=== PATIENT | male | born 1960 | race Caucasian/White ===

== ENCOUNTER → 2024-05-04 | Outpatient (CLI) | payer OTHER, SELFPAY ==
[2024-05-04 18:28] LABS: Erythrocyte Sedimentation Rate 5 mm/hr (0-20)
[2024-05-04 19:02] LABS: Vitamin B12 755 pg/mL (211-911)
[2024-05-06 13:07] LABS: Anti-Centromere B Ab <0.2 AI (0.0-0.9); Anti-Chromatin <0.2 AI (0.0-0.9); Anti-Jo <0.2 AI (0.0-0.9); Anti-Scleroderma-70 AB <0.2 AI (0.0-0.9); Anti-dsDNA Ab <1 IU/mL (0-9); RNP Ab <0.2 AI (0.0-0.9); SJOGREN'S Anti-SS-A test < 0.2 AI (0.0-0.9); SJOGREN'S Anti-SS-B test < 0.2 AI (0.0-0.9); Smith Ab <0.2 AI (0.0-0.9)
[2024-05-14 16:08] LABS: Albumin 3.5 g/dL (2.9-4.4); Alpha-1-Globulins 0.2 g/dL (0.0-0.4); Alpha-2-Globulins 0.5 g/dL (0.4-1.0); Immunoglobulin A 303 mg/dL (61-437); Immunoglobulin G 1079 mg/dL (603-1613); Immunoglobulin M 72 mg/dL (20-172); PROEL- TOTAL PROTEIN 6.5 g/dL (6.0-8.5); Vitamin B1, Thiamine 281.3 nmol/L (66.5-200.0)
== END | disposition home or self-care (01) ==
PROVIDERS: PCP Family Medicine; Referring Provider Psychiatry & Neurology Neurology; Visit Provider Psychiatry & Neurology Neurology
DX: G62.9 Polyneuropathy, unspecified (principal)
CPT/HCPCS: 36415; 82607; 82784; 84165; 84425; 85652; 86140; 86225; 86235; 86334

== ENCOUNTER → 2024-10-08 | Outpatient (CLI) | payer OTHER, SELFPAY ==
--- NOTE | 2024-10-08 10:04 | RAD_ITS ---
PROCEDURE: PELVIS 1 OR 2 VIEWS 10/08/2024 REASON FOR EXAM: INFLAMMATORY POLYARTHROPATHY TECHNIQUE: 1 view(s) of the pelvis. COMPARISON: None available FINDINGS: Bilateral symmetric appearing SI joints and pubic symphysis appear within limits. No sclerosis or erosive change identified. The hip joints appear within limits. No fracture or dislocation. Visualized lower lumbar spine appears within limits. RAD/Pelvis 1 or 2 Views IMPRESSION: Study appears within limits. Reading Location: [id number]
[2024-10-08 12:33] LABS: Absolute Neutrophil Count 6.1 X10^3/uL (2.0-7.7); Basophil# 0.04 X10^3/uL; Basophil% 0.4 % (0-1); Eosinophil# 0.11 X10^3/uL; Eosinophils% 1.1 % (0-5); Hematocrit 47.2 % (40-54); Hemoglobin 16.4 g/dL (13.0-16.5); Lymphocyte % 27.5 % (19-41); Mean Corp Hgb Conc 34.7 g/dL (32-36); Mean Corpuscular Hgb 31.8 pg (27.0-32.0); Mean Corpuscular Volume 91.7 fL (80-94); Mean Platelet Vol. 9.7 fl (6.2-12.0); Monocyte# 0.84 X10^3/uL; Monocyte% 8.6 % (0-10); NRBC Flagged by Analyzer 0 % (0-5); Neutrophil # 6.07 X10^3/uL (2.7-7.7); Neutrophil % 61.9 % (47-70); Platelet Count 229 K/mm3 (150-450); RBC Distribution Width CV 12.7 % (11.6-14.6); RBC Distribution Width SD 42.3 fl (35.1-43.9); Red Blood Count 5.15 M/mm3 (4.6-6.2); White Blood Count 9.8 K/mm3 (4.4-11.0)
[2024-10-08 12:54] LABS: Hepatitis B Surface Antibody Nonreactive
[2024-10-08 13:14] LABS: ALB/GLOB Ratio 1.5 RATIO (0.9-2.4); AST(SGOT) 26 U/L (<=37); Alanine Aminotransfer ALT/SGPT 46 U/L (<=46); Albumin, Serum 4.3 g/dL (3.4-4.8); Alkaline Phosphatase 55 U/L (40-129); Anion Gap 12 (5-15); BUN 20 mg/dL (4-19); BUN/Creat Ratio 16.5 RATIO (10-20); Calcium,Total 9.4 mg/dL (7.6-11.0); Carbon Dioxide 20.3 mmol/L (21.0-32.0); Chloride 103 mmol/L (98-108); EST Glomerular Filtration Rate 68 (>60); Globulin 2.8 g/dL (2.2-4.2); Glucose 124 mg/dL (70-99); Hepatitis B Surface Antigen Nonreactive (Nonreactive); Hepatitis C Antibody Nonreactive (Nonreactive); Potassium 4.5 mmol/L (3.3-5.1); Sodium Level 135 mmol/L (133-145); Total Bilirubin 0.54 mg/dL (0.00-1.30)
[2024-10-08 13:18] LABS: Rheumatoid Factor < 10.0 IU/mL (<15)
[2024-10-11 13:08] LABS: ANTINUCLEAR ANTIBODIES DIRECT Negative (Negative)
[2024-10-12 14:08] LABS: CCP IgG Antibodies 8 units (0-19); PROEL- A/G Ratio 1.2 (0.7-1.7); PROEL- Albumin 3.5 g/dL (2.9-4.4); PROEL- Alpha-1 Globulin 0.2 g/dL (0.0-0.4); PROEL- Alpha-2 Globulin 0.6 g/dL (0.4-1.0); PROEL- Beta Globulin 1.2 g/dL (0.7-1.3); PROEL- Gamma Globulin 0.9 g/dL (0.4-1.8); PROEL- TOTAL PROTEIN 6.5 g/dL (6.0-8.5); PROEL-M-Spike Comment: g/dL (Not Observed)
== END | disposition home or self-care (01) ==
LOC: MTLAB 10:02
PROVIDERS: PCP Family Medicine; Referring Provider Internal Medicine Rheumatology; Visit Provider Internal Medicine Rheumatology
DX: M06.4 Inflammatory polyarthropathy (principal); M51.369 Other intervertebral disc degeneration, lumbar region without mention of lumbar back pain or lower extremity pain; M47.897 Other spondylosis, lumbosacral region; I10 Essential (primary) hypertension
CPT/HCPCS: 36415; 72170; 80053; 82784; 84165; 85025; 86038; 86200; 86334; 86335; 86431; 86706; 86803; 87340

== ENCOUNTER → 2024-11-24 | Outpatient (CLI) | payer OTHER, SELFPAY | END | disposition home or self-care (01) | PROVIDERS: PCP Family Medicine; Referring Provider Internal Medicine Medical Oncology; Visit Provider Internal Medicine Medical Oncology | DX: D47.2 Monoclonal gammopathy (principal) | CPT/HCPCS: 77075 ==

== ENCOUNTER → 2025-01-06 | Outpatient (CLI) | payer OTHER, SELFPAY ==
[2025-01-06 16:02] LABS: AST(SGOT) 35 U/L (<=37); Alanine Aminotransfer ALT/SGPT 45 U/L (<=46); Albumin, Serum 3.9 g/dL (3.4-4.8); Alkaline Phosphatase 62 U/L (40-129); Anion Gap 15 (5-15); BUN 32 mg/dL (4-19); BUN/Creat Ratio 18.0 RATIO (10-20); Calcium,Total 9.2 mg/dL (7.6-11.0); Carbon Dioxide 17.5 mmol/L (21.0-32.0); Chloride 99 mmol/L (98-108); Globulin 3.0 g/dL (2.2-4.2); Glucose 155 mg/dL (70-99); Potassium 4.5 mmol/L (3.3-5.1)
[2025-01-06 16:12] LABS: Hematocrit 48.3 % (40-54); Hemoglobin 16.5 g/dL (13.0-16.5); Immature Granulocytes Count 0.100 X10^3/uL (0.0-0.0); Mean Corp Hgb Conc 34.2 g/dL (32-36); Mean Corpuscular Volume 91.8 fL (80-94); Mean Platelet Vol. 9.3 fl (6.2-12.0); NRBC Flagged by Analyzer 0 % (0-5); Platelet Count 292 K/mm3 (150-450); RBC Distribution Width CV 12.5 % (11.6-14.6); RBC Distribution Width SD 42.2 fl (35.1-43.9); Red Blood Count 5.26 M/mm3 (4.6-6.2); White Blood Count 12.1 K/mm3 (4.4-11.0)
--- OUTSIDE RECORDS SUMMARY | 2025-01-06 19:42 | XMS RPT_ITS | CCD ---
Author Organization [facility] Care Team Providers Care Knot Picker Cloth Name Role Phone Libby Mcneil MD Unavailable [phone] Libby Mcneil MD Unavailable Luisa SIBLEY, Dr. Gary Blackmon Unavailable Hannah SIBLEY, Dr. Waldo Elmore Unavailable [facility] Unavailable Poncho GIPSON, Dr. Marina Manrique Unavailable Bart SIBLEY, Dr. Steinberg Unavailable Nephrology Provider Unavailable Unavailable Vikash INDUSTRIAL AERIAL INSTALLER, Beth Unavailable Ronald HYDE, Nenita Boyle Unavailable Sandeep SIBLEY, Bill Blackmon Unavailable Mckenzie Crane MA Unavailable Unavailable Poli INDUSTRIAL AERIAL INSTALLER, Katarina Unavailable Unavailable Vess INDUSTRIAL AERIAL INSTALLER, Neilee L Unavailable Unavailable Unavailable Unavailable Neurology Provider Unavailable Unavailable Dr. Libby Mcneil MD Primary Care Provider Dr. Libby Mcneil MD Referring Provider Dr. Sav Martinez MD Attending Provider Dr. Jovany Terry MD Attending Provider Geoff SIBLEY, Dr. Camilo Attending Provider Dr. Ct Worley MD Attending Provider Dr. Ct Worley MD Referring Provider Dr. Sav Jacobs MD Attending Provider Dr. Sav Jacobs MD Referring Provider Sav Jacobs Attending Unavailable Prah, Sav Referring Unavailable Vaccariello, Libby Primary Care Unavailable Wapenseloy, Sav Attending Unavailable Wapenseloy, Sav Referring Unavailable Vaccariello, Libby Primary Care Unavailable Vellanki, Ct Attending Unavailable Vellanki, Ct Referring Unavailable Vaccariello, Libby Primary Care Unavailable Jovany Terry Attending Unavailable Vaccariello, Libby Referring Unavailable Vaccariello, Libby Primary Care Unavailable Ton Tellez Attending Unavailable Vaccariello, Libby Primary Care Unavailable Wapenski, Sav Attending Unavailable Vaccariello, Libby Referring Unavailable Vaccariello, Libby Primary Care Unavailable Prah, Sav Attending Unavailable Vellanki, Ct Referring Unavailable Vaccariello, Libby Primary Care Unavailable Wapenski, Sav Attending Unavailable Vaccariello, Libby Referring Unavailable Vaccariello, Libby Primary Care Unavailable ASAD, ARIEL Admitting Unavailable ASAD, ARIEL Attending Unavailable ASAD, ARIEL Primary Care Unavailable VACCARIELLO, LIBBY Consulting Unavailable PROVIDER, UNKNOWN Consulting Unavailable PROVIDER, UNKNOWN Consulting Unavailable PROVIDER, UNKNOWN Consulting Unavailable SHAJI BERGER MD Admitting Unava ilable BUCKTOWARSINSHAJI Henderson MD Attending Unava ilable BOWENTOWARSHAJI CONDNO MD Primary Care Unava ilable VACCARIELLO, LIBBY Consulting Unavailable PROVIDER, UNKNOWN Consulting Unavailable PROVIDER, UNKNOWN Consulting Unavailable PROVIDER, UNKNOWN Consulting Unavailable SHAJI BERGER MD Admitting Unava ilable BUCKTOWARTAURUS, SHAJI SIBLEY Attending Unava ilable BUCKTOWARSHAJI CONDON MD Primary Care Unava ilable VACCARIELLO, LIBBY Consulting Unavailable PROVIDER, UNKNOWN Consulting Unavailable PROVIDER, UNKNOWN Consulting Unavailable PROVIDER, UNKNOWN Consulting Unavailable CORINA AGEE DO Admitting Unavailable CORINA AGEE DO Attending Unavailable CORINA AGEE DO Primary Care Unavailable VACCARIELLO, LIBBY Consulting Unavailable VACCARIELLO, LIBBY Referring Unavailable PROVIDER, UNKNOWN Consulting Unavailable PROVIDER, UNKNOWN Consulting Unavailable PROVIDER, UNKNOWN Consulting Unavailable ABILIO SIBLEY, DR LIBBY Horan Primary Care Nery GOODSON MD, SHARON Dawkins Attending Unavailable KELLEE SIBLEY, SHARON Dawkins Admitting Unavailable DR LIBBY MCNEIL MD Primary Care Physician Allergies Allergy Classification Reported Allergen(s) Allergy Type Date of Onset Reaction(s) Facility Sulfonamides (antibiotic) (1 source) Sulfonamides (Antibiotic) Drug Allergy [facility] (20 sources) Sulfonamides (Antibiotic) [facility], [facility], [facility]. (3 sources) Sulfonamides (Antibiotic) Allergy to substance [facility] (1 source) Sulfonamides (Antibiotic) Drug allergy (disorder) 5 [facility] (1 source) Sulfonamides (Antibiotic) Drug allergy (disorder) [facility] (1 source) Sulfonamide; Translations: [sulfa drugs] Propensity to adverse reactions to drug [facility] Medications Current Medications Medication Drug Class(es) Dates Sig (Normalized) Sig (Original) allopurinol 100 mg oral tablet (20 sources) Xanthine Oxidase Inhibitor Start: 11-11-2024 take 1 tablet by mouth once daily Allopurinol 100 mg tablet Active 100 mg PO daily November 11, 2024 12:00am Start: 05-04-2024 End: 09-24-2024 take 1 tablet by mouth once daily Allopurinol 100 mg tablet Discontinued 100 mg PO daily May 04, 2024 1:00am September 24, 2024 9:46am aspirin 81 mg chewable tablet (1 source) Platelet Aggregation Inhibitor, Nonsteroidal Anti-inflammatory Drug Start: 01-05-2025 [facility] Aspirin 81 mg oral tablet, (chewable) Dose : 81 mg = 1 tab(s), Oral, qDayM, # 90 tab(s), 3 Refill(s), Pharmacy: [facility] 175.2, cm, 01/02/25 5:23:00 EDT, Height, kg, 01/02/25 5:23:00 EDT, Dosing Weight Start Date: 01/05/25 Status: Ordered Medication Dispense Status: Completed Quantity: 90.0 Unit: tab(s) Total Allowed Fills: 4 Fills Dispensed: 0 atorvastatin 40 mg oral tablet (1 source) HMG-CoA Reductase Inhibitor Start: 01-05-2025 Lipitor 40 mg oral tablet Dose : 40 mg = 1 tab(s), Oral, qDay, # 30 tab(s), 2 Refill(s), Pharmacy: [facility] 175.2, cm, 01/02/25 5:23:00 EDT, Height, kg, 01/02/25 5:23:00 EDT, Dosing Weight Start Date: 01/05/25 Status: Ordered Medication Dispense Status: Completed Quantity: 30.0 Unit: tab(s) Total Allowed Fills: 3 Fills Dispensed: 0 carvedilol 12.5 mg oral tablet (20 sources) alpha-Adrenergic Veronica, beta-Adrenergic Veronica Start: 05-04-2024 Coreg 12.5 mg or al tablet Dose : 12.5 mg = 1 tab(s), Oral, BID, 0 Refill(s) Start Date: 01/02/25 Status: Ordered Medication Dispense Status: Completed Total Allowed Fills: 1 Fills Dispensed: 0 take 1 tablet by mouth twice sheila ly Coreg 25 MG Oral Tablet ; 1 two times daily (25 MG) Status: Inactive Comment on above: Dr Pelletier hydroxychloroquine sulfate 200 mg oral tablet (6 sources) Antimalarial, Antirheumatic Agent Start: 2024 take 1 tablet by mouth twice daily Hydroxychloroquine (Plaquenil) 200 mg tablet Active 200 mg PO TWICE A DAY November 11, 2024 12:00am hydroxychloroqui ne 200 mg tablet ; 1 daily (200 mg) Comments: Dr Potter Comment on above: Dr Potter losartan potassium 25 mg oral tablet (1 source) Angiotensin 2 Receptor Veronica Start: 01-05-2025 losartan 25 mg oral tablet Dose : 25 mg = 1 tab(s), Oral, qDay, # 30 tab(s), 2 Refill(s), Pharmacy: [facility] 175.2, cm, 01/02/25 5:23:00 EDT, Height, kg, 01/02/25 5:23:00 EDT, Dosing Weight Start Date: 01/05/25 Status: Ordered Medication Dispense Status: Completed Quantity: 30.0 Unit: tab(s) Total Allowed Fills: 3 Fills Dispensed: 0 mirtazapine 15 mg oral tablet (20 sources) Start: 11-11-2024 mirtazapine 15 mg oral tablet Dose : 15 mg = 1 tab(s), Oral, qHS, 0 Refill(s) Start Date: 01/02/25 Status: Ordered Medication Dispense Status: Completed Total Allowed Fills: 1 Fills Dispensed: 0 predniSONE 10 mg oral tablet (2 sources) Start: 06-19-2025 Prednisone 10 mg tablets,dose pack Active 0 PO daily as needed November 11, 2024 12:00am orally daily for 3-5 days with a flare PRN; rOPINIRole 0.25 mg oral tablet (4 sources) Nonergot Dopamine Agonist rOPINIRole 0.25 mg tablet ; (0.25 mg) Comments: neuro Comment on above: neuro sertraline 25 mg oral tablet (20 sources) Serotonin Reuptake Inhibitor Start: 12-20-2024 sertraline 25 mg oral tablet Dose : 25 mg = 1 tab(s), Oral, qDay, 0 Refill(s) Start Date: 01/02/25 Status: Ordered Medication Dispense Status: Completed Total Allowed Fills: 1 Fills Dispensed: 0 Start: 04-13-2024 sertraline 25 mg tablet ; 1 (one) Tablet qam for 0 days Quantity: 90 {Tablet} Refills: 0 Ordered: 13-Apr-2024 MD Libby Mcneil Start: 13-Apr-2024 Start: 01-15-2024 sertraline 25 mg tablet ; 1 (one) Tablet qam for 0 days Quantity: 90 {Tablet} Refills: 0 Ordered: 15-Jan-2024 MD Libby Mcneil Start: 15-Jan-2024 Start: 12-31-2023 sertraline 25 mg tablet ; 1 (one) Tablet qam for 0 days Quantity: 90 {Tablet} Refills: 1 Ordered: 31-Dec-2023 MD Libby Mcneil Start: 31-Dec-2023 Start: 06-30-2023 sertraline 25 mg tablet ; 1 (one) Tablet qam for 0 days Quantity: 90 {Tablet} Refills: 1 Ordered: 30-Jun-2023 MD Libby Mcneil Start: 30-Jun-2023 sildenafil 25 mg oral tablet (20 sources) Phosphodiesterase 5 Inhibitor Start: 11-11-2024 Sildenafil (Viagra) 25 mg tablet Active 25 mg PO daily as needed November 11, 2024 12:00am administer 30 minutes to 4 hours before activity Start: 07-31-2015 End: 03-31-2020 Sildenafil Citrate 50 MG Ora l Tablet ; 1 (one) Tablet Tablet prn not more than 1/24 hrs for 0 days Quantity: 20 {Tablet} Refills: 3 Ordered: 31-Mar-2020 ANUP Suh Start: 03-Oct-2017 End: 31-Mar-2020 Status: Inactive Sildenafil Citra te 20 MG Oral Tablet ; (20 MG) Comments: online pharmacy Comment on above: online pharmacy spironolactone 25 mg oral tablet (20 sources) Aldosterone Antagonist Start: 05-04-2024 Aldactone 25 mg oral tablet Dose : 25 mg = 1 tab(s), Oral, qDay, 0 Refill(s) Start Date: 01/02/25 Status: Ordered Medication Dispense Status: Completed Total Allowed Fills: 1 Fills Dispensed: 0 ticagrelor 90 mg oral tablet (1 source) Start: 01-05-2025 Brilinta (ticagrelor) 90 mg oral tablet Dose : 90 mg = 1 tab(s), Oral, q12hr, # 180 tab(s), 3 Refill(s), Pharmacy: [facility] 175.2, cm, 01/02/25 5:23:00 EDT, Height, kg, 01/02/25 5:23:00 EDT, Dosing Weight Start Date: 01/05/25 Status: Ordered Medication Dispense Status: Completed Quantity: 180.0 Unit: tab(s) Total Allowed Fills: 4 Fills Dispensed: 0 Completed/Discontinued Medications Medication Drug Class(es) Dates Sig (Normalized) Sig (Original) amLODIPine 5 mg oral tablet (20 sources) Dihydropyridine Calcium Channel Veronica take 1 tablet by mouth once daily amLODIPine Besylate 5 MG Oral Tablet ; 1 daily (5 MG) Status: Inactive Comments: Dr Pelletier Comment on above: Dr Pelletier amoxicillin 875 mg / clavulanate 125 mg oral tablet (20 sources) Penicillin-class Antibacterial Start: 04-04-2011 End: 05-02-2011 take 1 tablet by mouth twice daily AMOXICILLIN-POT CLAVULANATE, 875-125MG (Oral Tablet) ; 1 Tablet bid for 0 days Quantity: 20 {Tablet} Refills: 0 Ordered: 02-May-2011 ANUP Suh Start: 04-Apr-2011 End: 02-May-2011 Status: Inactive atenolol 100 mg oral tablet (20 sources) beta-Adrenergic Veronica Start: 06-07-2015 End: 05-09-2017 take 1 tablet by mouth once daily Atenolol 100 MG Oral Tablet ; 1 Tablet daily for 0 days Quantity: 30 {Tablet} Refills: 11 Ordered: 09-May-2017 ANUP Suh Start: 07-Jun-2015 End: 09-May-2017 Status: Inactive azelastine hydrochloride 0.5 mg/ml ophthalmic solution (20 sources) Histamine-1 Receptor Antagonist Start: 04-29-2023 End: 01-16-2024 take 1 drop(s) into the eye(s) twice daily azelastine 0.05 % eye drops ; 1 drop 2 times per day for 0 days Quantity: 10 {Milliliter} Refills: 0 Ordered: 16-Jan-2024 ANUP Suh Start: 29-Apr-2023 End: 16-Jan-2024 Status: Inactive benzonatate 100 mg oral capsule (20 sources) Non-narcotic Antitussive Start: 07-12-2011 End: 07-25-2011 take 1 capsule by mouth four times daily TESSALON PERLES, 100MG (Oral Capsule) ; 1 Capsule qid for 0 days Quantity: 40 {Capsule} Refills: 1 Ordered: 25-Jul-2011 ANUP Suh Start: 12-Jul-2011 End: 25-Jul-2011 Status: Inactive 120 actuat budesonide 0.16 mg/actuat / formoterol fumarate 0.0045 mg/actuat metered dose inhaler (20 sources) Corticosteroid, beta2-Adrenergic Agonist Start: 04-07-2011 End: 05-02-2011 take 2 puff(s) by inhalation twice daily SYMBICORT, 160-4.5MCG/ACT (Inhalation Aerosol) ; 2 puffs bid for 0 days Quantity: 1 {mdi} Refills: 0 Ordered: 02-May-2011 ANUP Suh Start: 07-Apr-2011 End: 02-May-2011 Status: Inactive Comments: demonstrated and pt instructions given Comment on above: demonstrated and pt instructions given chlorthalidone 25 mg oral tablet (20 sources) Thiazide-like Diuretic take 1 tablet by mouth once daily Chlorthalidone 25 MG Oral Tablet ; 1 daily (25 MG) Status: Inactive ciprofloxacin 750 mg oral tablet (20 sources) Quinolone Antimicrobial Start: 07-12-2011 End: 07-25-2011 take 1 tablet by mouth twice daily CIPROFLOXACIN HCL, 750MG (Oral Tablet) ; 1 Tablet bid for 0 days Quantity: 20 {Tablet} Refills: 0 Ordered: 25-Jul-2011 Vikash ANUP Arteagala Start: 12-Jul-2011 End: 25-Jul-2011 Status: Inactive Start: 05-02-2011 End: 05-14-2011 take 1 tablet by mouth twice daily CIPROFLOXACIN HCL, 500MG (Oral Tablet) ; 1 Tablet bid for 0 days Quantity: 28 {Tablet} Refills: 1 Ordered: 14-May-2011 Vikash ANUP Arteagala Start: 02-May-2011 End: 14-May-2011 Status: Inactive fluticasone propionate 0.05 mg/actuat metered dose nasal spray (20 sources) Corticosteroid Start: 05-02-2011 End: 02-25-2014 take 2 puff(s) nasal route twice daily FLONASE, 50MCG/ACT (Nasal Suspension) ; 2 (two) puffs bid, to each nostril for 0 days Quantity: 1 {bottle(s)} Refills: 3 Ordered: 25-Feb-2014 CRIS OwenN Annie Mariza Start: 02-May-2011 End: 25-Feb-2014 Status: Inactive furosemide 20 mg oral tablet (20 sources) Loop Diuretic Start: 06-23-2013 End: 02-25-2014 take 0.5 tablet by mouth once daily FUROSEMIDE, 20MG (Oral Tablet) ; 1/2 Tablet daily for 0 days Quantity: 20 {Tablet} Refills: 0 Ordered: 25-Feb-2014 ANUP Owen Start: 23-Jun-2013 End: 25-Feb-2014 Status: Inactive hydroCHLOROthiazide 25 mg oral tablet (20 sources) Thiazide Diuretic Start: 01-06-2019 End: 04-03-2020 take 1 tablet by mouth once daily hydroCHLOROthiazide 25 MG Oral Tablet ; 1 Tablet daily for 0 days Quantity: 45 {Tablet} Refills: 0 Ordered: 03-Apr-2020 Vikash ANUP Campos Start: 06-Jan-2019 End: 03-Apr-2020 Status: Inactive indomethacin 25 mg oral capsule (20 sources) Nonsteroidal Anti-inflammatory Drug Start: 12-20-2010 End: 01-09-2011 take 1 capsule by mouth three times daily at mealtime INDOMETHACIN, 25MG (Oral Capsule) ; 1 (one) Capsule three times daily, take with food for 0 days Quantity: 30 {Capsule} Refills: 3 Ordered: 09-Jan-2011 ANUP Suh Start: 20-Dec-2010 End: 09-Jan-2011 Status: Inactive Comments: Take with food. Taper dose rapidly upon improvement of symptoms. Comment on above: Take with food. Tape r dose rapidly upon improvement of symptoms. methylPREDNISolone 4 mg oral tablet (20 sources) Corticosteroid Start: 07-28-2014 End: 05-30-2015 take 1 tablet by mouth once daily METHYLPREDNISOLONE (BEBETO), 4MG (Oral Tablet) ; 1 (one) Tablet daily taper for 0 days Quantity: 1 {Package} Refills: 3 Ordered: 30-May-2015 ANUP Suh Start: 28-Jul-2014 End: 30-May-2015 Status: Inactive terbinafine 250 mg oral tablet (20 sources) Allylamine Antifungal Start: 09-28-2020 End: 09-13-2021 take 1 tablet by mouth once daily Terbinafine HCl 250 MG Oral Tablet ; 1 (one) Tablet daily for 0 days Quantity: 42 {Tablet} Refills: 0 Ordered: 13-Sep-2021 ANUP Suh Start: 28-Sep-2020 End: 13-Sep-2021 Status: Inactive Problems Active Problems Problem Classification Problem Date Documented Date Episodic/Chronic Acute myocardial infarction (2 sources) Non-ST elevation (NSTEMI) myocardial infarction; Translations: [Non-ST elevation (NSTEMI) myocardial infarction] Onset: 01-02-2025 Chronic Chronic kidney disease (20 sources) Chronic kidney disease stage 3; Translations: [Chronic kidney disease, stage 3 (moderate)] 04-29-2023 Chronic Comment on above: per Dr Hilary Morales is i mproving Dr Bowen lara pironolactone Dr Bowen lara pironolactone--fluctuates between stage 2-3 based on hydration Diseases of white blood cells (2 sources) Elevated white blood cell count, unspecified; Translations: [Leukocytosis] Onset: 01-02-2025 Chronic Disorders of lipid metabolism (20 sources) Hyperlipidemia; Translations: [Hyperlipidemia, unspecified] Onset: 01-02-2025 04-29-2023 Chronic Comment on above: diet only E Codes: Adverse effects of medical drugs (20 sources) Other drug allergy 07-12-2011 Episodic Esophageal disorders (20 sources) Gastroesophageal reflux disease; Translations: [Gastro-esophageal reflux disease without esophagitis] 04-29-2023 Chronic Essential hypertension (20 sources) Hypertensive disorder; Translations: [Essential (primary) hypertension] Onset: 01-02-2025 04-29-2023 Chronic Comment on above: follows with nephrol ogy follows with nephrol ogy carvedilol Genitourinary symptoms and ill-defined conditions (20 sources) Proteinuria; Translations: [Proteinuria, unspecified] 10-21-2013 Episodic Gout and other crystal arthropathies (20 sources) Gouty arthropathy; Translations: [Gout, unspecified] 04-29-2023 Chronic Comment on above: allopurinol Headache; including migraine (20 sources) Generalized headache; Translations: [Headache] 05-31-2015 Episodic Hypertension with complications and secondary hypertension (20 sources) Chronic kidney disease stage 3 due to hypertension; Translations: [Hypertensive chronic kidney disease with stage 1 through stage 4 chronic kidney disease, or unspecified chronic kidney disease] 04-29-2023 Chronic Inflammation; infection of eye (except that caused by tuberculosis or sexually transmitteddisease) (20 sources) Bilateral conjunctivitis; Translations: [Unspecified conjunctivitis] 04-29-2023 Episodic Malaise and fatigue (20 sources) Fatigue; Translations: [Other fatigue] 03-18-2022 Episodic Miscellaneous mental health disorders (20 sources) Insomnia; Translations: [Primary insomnia] 04-29-2023 Chronic Mood disorders (20 sources) Secondary dysthymia; Translations: [Dysthymic disorder] 04-29-2023 Chronic Comment on above: sertraline Mood disorders (1 source) Mood disorders; Translations: [Depression, unspecified] Onset: 01-02-2025 Mycoses (20 sources) Onychomycosis; Translations: [Tinea unguium] 04-29-2023 Episodic Neoplasms of unspecified nature or uncertain behavior (9 sources) Benign monoclonal gammopathy; Translations: [Monoclonal gammopathy] Onset: 12-02-2024 11-18-2024 Chronic Comment on above: Monoclonal gammopath ies, biclonal IgG [place] light chains 0.3 and 0.2.Does not meet criteria for Plasma cell dyscrasia.Discussed Monoclonal gammopathies, evolution in Multiple Myeloma.Observation is appropriate for now. Monoclonal gammopath ies, biclonal IgG [place] light chains 0.3 and 0.2.Does not meet criteria for Plasma cell dyscrasia.Discussed Monoclonal gammopathies, evolution into Multiple Myeloma, monitoring of M-proteins.Observation is appropriate for now. loi hem/onc Dr Dary li Nonspecific chest pain (20 sources) Atypical chest pain; Translations: [Other chest pain] 03-04-2016 Episodic Osteoarthritis (20 sources) Chronic osteoarthritis; Translations: [Unspecified osteoarthritis, unspecified site] 04-29-2023 Chronic Other acquired deformities (6 sources) Lumbar spondylolisthesis; Translations: [Spondylolisthesis, lumbar region] 09-24-2024 Episodic Other aftercare (20 sources) Removal of sutures done; Translations: [Encounter for removal of sutures] 07-02-2017 Episodic Other aftercare (20 sources) Long-term (current) use of other medications 12-18-2010 Episodic Other and unspecified benign neoplasm (20 sources) Hyperplastic polyp of large intestine; Translations: [Polyp of colon] 04-29-2023 Episodic Comment on above: in 2015, not seen on 2023 scope Other congenital anomalies (2 sources) Talipes cavus; Translations: [Congenital pes cavus, unspecified foot] 11-11-2024 Chronic Other connective tissue disease (20 sources) Pain in both feet; Translations: [Pain in right foot] 04-29-2023 Episodic Other connective tissue disease (20 sources) Bursitis of elbow; Translations: [Other bursitis of elbow, right elbow] 08-02-2015 Episodic Other connective tissue disease (20 sources) Pain in toe; Translations: [Pain in unspecified toe(s)] 07-28-2014 Episodic Other connective tissue disease (6 sources) Polyarticular joint involvement; Translations: [Other symptoms and signs involving the musculoskeletal system] 09-10-2024 Episodic Other connective tissue disease (1 source) Other symptoms and signs involving the musculoskeletal system; Translations: [Other symptoms and signs involving the musculoskeletal system] Onset: 09-10-2024 Episodic Other ear and sense organ disorders (20 sources) Tinnitus; Translations: [Tinnitus, bilateral] 06-23-2013 Episodic Other eye disorders (2 sources) Lagophthalmos; Translations: [Unspecified lagophthalmos unspecified eye, unspecified eyelid] 11-11-2024 Episodic Other infections; including parasitic (20 sources) Personal history of other infectious and parasitic diseases 04-29-2023 Episodic Comment on above: October 2019 Other lower respiratory disease (20 sources) Chronic cough; Translations: [Cough] 04-07-2011 Episodic Other male genital disorders (20 sources) Impotence of organic origin; Translations: [Male erectile dysfunction, unspecified] 04-29-2023 Chronic Other male genital disorders (2 sources) Male erectile dysfunction, unspecified; Translations: [Erectile dysfunction] 11-11-2024 Chronic Other nervous system disorders (20 sources) Left leg peripheral neuropathy; Translations: [Unspecified mononeuropathy of left lower limb] 04-29-2023 Chronic Other nervous system disorders (4 sources) Neuropathy of lower limb; Translations: [Unspecified mononeuropathy of right lower limb] 04-29-2023 Chronic Other nervous system disorders (20 sources) Right leg peripheral neuropathy; Translations: [Unspecified mononeuropathy of right lower limb] 04-29-2023 Chronic Other nervous system disorders (20 sources) Idiopathic peripheral neuropathy; Translations: [Hereditary and idiopathic neuropathy, unspecified] 03-30-2024 Chronic Comment on above: [facility] Other nervous system disorders (7 sources) Neuropathy; Translations: [Polyneuropathy, unspecified] 05-04-2024 Chronic Comment on above: Patient's had a neur opathy for proximately 10 years. Various evaluations for neuropathy of shown some minimal changes on EMG and nerve conduction study plus positive clinical exam. Findings are suggestive of small fiber neuropathy. Patient's not had a skin biopsy for small fiber neuropathy.At this point in time we will screen for possible treatable causes of neuropathy. Other nervous system disorders (1 source) Polyneuropathy, unspecified; Translations: [Polyneuropathy, unspecified] Onset: 09-10-2024 Chronic Other non-traumatic joint disorders (6 sources) Multiple joint pain; Translations: [Pain in unspecified joint] 09-10-2024 Episodic Other non-traumatic joint disorders (1 source) Pain in unspecified joint; Translations: [Pain in unspecified joint] Onset: 09-10-2024 Episodic Other nutritional; endocrine; and metabolic disorders (20 sources) Weight gain; Translations: [Abnormal weight gain] 04-29-2023 Episodic Other nutritional; endocrine; and metabolic disorders (20 sources) Overweight in adulthood with body mass index of 25 or more but less than 30; Translations: [Body mass index (BMI) 27.0-27.9, adult] 04-05-2020 Episodic Other nutritional; endocrine; and metabolic disorders (12 sources) Body mass index 25-29 - overweight; Translations: [Body mass index (BMI) 27.0-27.9, adult] 04-05-2020 Episodic Other nutritional; endocrine; and metabolic disorders (20 sources) Weight increased; Translations: [Abnormal weight gain] 03-18-2022 Episodic Other screening for suspected conditions (not mental disorders or infectious disease) (20 sources) Patient encounter status; Translations: [Encounter for screening for malignant neoplasm of prostate] 04-29-2023 Episodic Other skin disorders (20 sources) Pyogenic granuloma of skin; Translations: [Pyogenic granuloma] 07-02-2017 Episodic Other upper respiratory disease (20 sources) Chronic laryngitis; Translations: [Chronic laryngitis] 04-05-2020 Chronic Other upper respiratory disease (20 sources) Pyogenic granuloma; Translations: [Other specified disorders of nose and nasal sinuses] 05-14-2017 Episodic Other upper respiratory infections (20 sources) Chronic maxillary sinusitis; Translations: [Chronic maxillary sinusitis] 05-02-2011 Chronic Otitis media and related conditions (20 sources) Chronic mucoid otitis media; Translations: [Chronic mucoid otitis media, bilateral] 05-02-2011 Chronic Otitis media and related conditions (20 sources) Chronic otitis media; Translations: [Otitis media, unspecified, right ear] 07-12-2011 Episodic Pneumonia (except that caused by tuberculosis or sexually transmitted disease) (20 sources) Right lower zone pneumonia; Translations: [Pneumonia, unspecified organism] 04-29-2023 Episodic Residual codes; unclassified (2 sources) Obstructive sleep apnea syndrome; Translations: [Obstructive sleep apnea (adult) (pediatric)] 11-11-2024 Chronic Comment on above: on CPAP. Residual codes; unclassified (20 sources) Influenza vaccination declined; Translations: [Immunization not carried out because of patient refusal] 04-29-2023 Episodic Residual codes; unclassified (20 sources) Non-smoker; Translations: [Other specified health status] 04-29-2023 Episodic Residual codes; unclassified (20 sources) Not up to date with immunizations; Translations: [Other specified personal history presenting hazards to health] 04-29-2023 Episodic Residual codes; unclassified (20 sources) Decreased libido 03-27-2012 Episodic Rheumatoid arthritis and related disease (7 sources) Inflammatory polyarthropathy; Translations: [Inflammatory polyarthropathy] Onset: 10-12-2024 11-11-2024 Chronic Comment on above: with synovitis in [place] nds, elbows, shoulder, hips, ankles, and feet. 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 Dr Potter Spondylosis; intervertebral disc disorders; other back problems (10 sources) Degeneration of lumbar intervertebral disc; Translations: [Other intervertebral disc degeneration of lumbar region with discogenic back pain and] 09-24-2024 Chronic Comment on above: pain mgmt Superficial injury; contusion (20 sources) Contusion of scalp; Translations: [Contusion of scalp, initial encounter] 10-22-2017 Episodic Syncope (20 sources) Micturition syncope; Translations: [Syncope and collapse] 07-12-2011 Episodic Unclassified (20 sources) Follow up for multiple chronic conditions - The patient is here for follow-up of chronic kidney disease, depression, GERD, gout, hyperlipidemia and hypertension. The patient usually takes the prescribed medications. No side effects noted. The patient has an active lifestyle but no regular exercise program. The patient's out of office blood pressure checks occur occasionally. The patient states that weight has increased. Note for Multiple chronic conditions follow-up: - He follows with nephrology every 6 months. He was just there a few weeks ago.he will see Dr Young next week. he had sleep study and titration and got CPAP but says he feels worse with it. 09-20-2022 Unclassified (20 sources) Follow up for multiple chronic conditions - The patient is here for follow-up of chronic kidney disease, depression, GERD, gout, hyperlipidemia and hypertension. The patient usually takes the prescribed medications. No side effects noted. The patient has an active lifestyle but no regular exercise program. The patient's out of office blood pressure checks occur occasionally. The patient states that weight has increased. Note for Multiple chronic conditions follow-up: - He follows with nephrology every 6 months. He was just there a few weeks ago.He saw Dr Young this summer, has sleeping pills and is scheduled in May for PSG. 03-18-2022 Unclassified (20 sources) Follow up for multiple chronic conditions - The patient is here for follow-up of chronic kidney disease, hyperlipidemia and hypertension. The patient usually takes the prescribed medications. No side effects noted. The patient has an active lifestyle but no regular exercise program. The patient's out of office blood pressure checks occur occasionally. Note for Multiple chronic conditions follow-up: - He follows with nephrology every 6 months. He was just there a few weeks ago.. 09-17-2021 Unclassified (20 sources) Follow up for multiple chronic conditions - The patient is here for follow-up of chronic kidney disease, hyperlipidemia and hypertension. The patient usually takes the prescribed medications. No side effects noted. The patient has an active lifestyle but no regular exercise program. The patient's out of office blood pressure checks occur occasionally. Note for Multiple chronic conditions follow-up: - He follows with nephrology every 6 months. He was just there. BP has been elevated at home. Weight is down. 09-28-2020 Unclassified (20 sources) plantar nodules bilat 04-05-2020 Unclassified (20 sources) Follow up for multiple chronic conditions - The patient is here for follow-up of chronic kidney disease, hyperlipidemia and hypertension. The patient usually takes the prescribed medications. No side effects noted. The patient has an active lifestyle but no regular exercise program. The patient's out of office blood pressure checks occur occasionally. Note for Multiple chronic conditions follow-up: - He follows with nephrology every 6 months. He was just there.Declines flu vaccine. 04-05-2020 Unclassified (20 sources) Follow up for multiple chronic conditions - The patient is here for follow-up of chronic kidney disease, hyperlipidemia and hypertension. The patient usually takes the prescribed medications. No side effects noted. The patient has an active lifestyle but no regular exercise program. The patient's out of office blood pressure checks occur occasionally. Note for Multiple chronic conditions follow-up: - He follows with Dr Kidd every 6 months. He was just there. 03-17-2019 Unclassified (20 sources) Joint complaints (multiple) - The onset of the joint complaints has been gradual , and they have been occurring in an increasing pattern for 2 years. The joint complaints are described as a moderate pain, swelling and stiffness. The pain is located in the left hand, right hand, left foot and right foot. Note for Joint complaints: -Can't take much NSAID due to kidney disease. 10-06-2017 Unclassified (20 sources) Follow up for multiple chronic conditions - The patient is here for follow-up of chronic kidney disease, hyperlipidemia and hypertension. The patient usually takes the prescribed medications. No side effects noted. The patient has an active lifestyle but no regular exercise program. The patient's out of office blood pressure checks occur occasionally. Mar 2017 Dr Kidd. Note for Multiple chronic conditions follow-up: -Speciliast wants [place] to consider sleep study. He follows with Dr Kidd every 6 months. 05-14-2017 Unclassified (20 sources) Follow-up for multiple chronic conditions (RAH) - The patient is here for follow-up of hypertension. The patient always takes the prescribed medications. No side effects noted. The patient has an active lifestyle but no regular exercise program. Note for Multiple chronic conditions follow-up: -Has not been feeling well lately. More GI sx off of omeprazole. He states bp is erratic at home: 165/90 and 185/100 recent readings. Last lipid 2013. Had renal workup this year. 03-04-2016 Unclassified (20 sources) Follow up for chronic condition - The patient is here for follow-up of hypertension and hyperlipidemia. The patient always takes the prescribed medications. No side effects noted. The patient engages in regular exercise program 3-5 times per week. The patient's out of office blood pressure checks occur frequently (recent elevated readings of 180/100.). The patient states that weight has increased. Note for Chronic condition follow-up: -Feeling unwell, constant headache for 2 weeks. 05-31-2015 Unclassified (20 sources) Follow up for chronic condition - The patient is here for follow-up of hypertension and hyperlipidemia. The patient always takes the prescribed medications. No side effects noted. The patient engages in regular exercise program 3-5 times per week (running 3 times per week for 2 miles). The patient's out of office blood pressure checks occur frequently and dietary compliance is good with close adherance to recommendations. The patient states that weight is unchanged. The patient states that the disease has no overall impact. 02-25-2014 Unclassified (20 sources) Follow up for multiple chronic conditions - The patient is here for follow-up of hypertension and hyperlipidemia. The patient always takes the prescribed medications. No side effects noted. The patient has an active lifestyle but no regular exercise program. The patient's out of office blood pressure checks occur occasionally. Note for Multiple chronic conditions follow-up: Patient states he has a few concerns. 06-23-2013 Unclassified (20 sources) Follow up for multiple chronic conditions - The patient is here for follow-up of hypertension and hyperlipidemia. The patient always takes the prescribed medications. No side effects noted. The patient has an active lifestyle but no regular exercise program. The patient's out of office blood pressure checks occur occasionally. Note for Multiple chronic conditions follow-up: decreased interest in sex 03-27-2012 Unclassified (20 sources) not better - Still coughing (since Jan). Did not recall that a cxr was suggested (he chose to f/u with ent). Last night broke out with hives all over. Still hives on trunk today. This morning fainted in the bathroom. His bp today is alot lower than usual (home reading earlier this week 150/90). He feels dizzy most of the time for at least one week. He got a rash after taking bactrim and Dr Wallace told him to stop it. He has no new meds. 07-12-2011 Unclassified (20 sources) sinus problems - Seen 04/04/2011 for sinus inf, ear inf and bronchitis. Given course of augmentin. He travelled to [place] by plane a few days later. While flying to and from he experienced significant head pain. Since return home, he cannot smell, cannot taste and hearing is decreased. His head hurts most of the time and he does not feel well. 05-02-2011 Unclassified (20 sources) Cold Symptoms - Symptoms include nasal congestion, runny nose, purulent discharge, dry cough, productive cough, headache and facial pain, but do not include fever. The onset was gradual 3 week(s) ago (cough present for 2 months). The symptoms occur constantly. The patient describes this as moderate in severity and unchanged. The patient is not currently being treated for this problem. Risk factors do not include smoking. Note for Cold Symptoms: pt is leaving for [place] next 04-07-2011 Unclassified (19 sources) Well adult male - The patient feels well with minor complaints, has good energy level and is sleeping well. The patient takes supplemental vitamins. The patient exercises weekly. The patient sleeps 7 hours per night. 03-30-2024 Unclassified (19 sources) [ADDITIONAL REASON] Follow up for multiple chronic conditions - The patient is here for follow-up of chronic kidney disease, depression, GERD, gout, hyperlipidemia and hypertension. The patient usually takes the prescribed medications. No side effects noted. The patient has an active lifestyle but no regular exercise program. The patient's out of office blood pressure checks occur occasionally. The patient states that weight has increased. Note for Multiple chronic conditions follow-up: - He follows with nephrology every 6 months. Patient continues to use CPAP machine. Use reviewed. Patient encouraged to continue use to manage SYLVIA. Encouraged to contact [employer] with any mechanical issues. 03-30-2024 Unclassified (4 sources) Follow up for multiple chronic conditions - The patient is here for follow-up of chronic kidney disease, depression, GERD, gout, hyperlipidemia and hypertension. The patient usually takes the prescribed medications. No side effects noted. The patient has an active lifestyle but no regular exercise program. The patient's out of office blood pressure checks occur occasionally. The patient states that weight has increased. Note for Multiple chronic conditions follow-up: - He follows with nephrology every 6 months. Patient continues to use CPAP machine. Use reviewed. Patient encouraged to continue use to manage SYLVIA. Encouraged to contact [employer] with any mechanical issues. 03-30-2024 Unclassified (4 sources) [ADDITIONAL REASON] Well adult male - The patient feels well with minor complaints, has good energy level and is sleeping well. The patient takes supplemental vitamins. The patient exercises weekly. The patient sleeps 7 hours per night. 03-30-2024 Unclassified (3 sources) G62.9 - Polyneuropathy, unspecified,R29.898 - Other symptoms and signs involving the musculoskeletal system,M25.50 - Pain in unspecified joint Unclassified (1 source) Polyarticular joint involvement Unclassified (1 source) Arthralgia of multiple joints Unclassified (1 source) Low back pain, unspecified; Translations: [Low back pain, unspecified] Onset: 09-24-2024 Past or Other Problems Problem Classification Problem Date Documented Da te Episodic/Chronic Headache; including migraine (20 sources) Headache; including migraine 10-22-2017 Unclassified (20 sources) Unspecified Diagnosis 03-05-2023 Unclassified (20 sources) Eye symptoms - The onset of the eye symptoms has been gradual and has been occurring in an increasing pattern for 1 month (possibly longer). The course has been gradually worsening. The eye symptoms are described as moderate and involve both eyes. The symptoms are described as itching, drainage and swelling. There has been associated eye discharge (watery), itching, itchy eyes, nasal stuffiness, runny nose and watery eyes, while there has been no blurred vision, eye pain, nausea, respiratory infection, sinus pain, sinus problems or sore throat. Note for Eye symptoms: Patient reports similar symptoms several months ago that resolved on their own. He has been using OTC allergy eye drops without relief. He denies any history of seasonal allergies. 04-29-2023 Unclassified (20 sources) Well adult male - The patient feels well with no complaints, has good energy level and is sleeping well. The patient has a balanced diet. The patient exercises 3 - 4 times per week (walking). The patient sleeps 7 hours per night. 03-14-2023 Unclassified (20 sources) suture removal 07-02-2017 Unclassified (20 sources) granuloma - Finger granuloma returned. We tried to refer to Dr Collins (derm) but their first appt is December. We called Dr Santana (plastic) and they can see him in August. He has plans to travel for 4-5 weeks at the end of June and wishes for resolution prior to that. 07-01-2017 Unclassified (20 sources) Foot pain - Note for Foot pain: -Suspects gout in feet. Occurs in both great toes intermittently. Last flare was 4 weeks ago. He continues to have pain. 07-28-2014 Unclassified (20 sources) left great toe pain - pain started on Sat, swollen, red, and very painful, although pain is improved today. States he has had gout before but has never been tested for it, had similar sx in the same toe. 12-20-2010 Unclassified (4 sources) Rash - The onset of the rash has been sudden and has been occurring in a persistent pattern for 2 days. The course has been increasing. The rash is characterized as red and raised above the skin. The rash was first seen on the trunk. It spread to the back. There has been associated itching. Note for Rash: -Concerned it is a side effect of newly started Plaquenil for polyarthropathy or a development of the MGUS dx. 12-20-2024 Results Test Name Value Interpretation Reference Range Facility .Auto Diffon 01-05-2025 Basophil, Absolute 0.1 10 3/mcL Normal 0.0-0.3 [facility] Comment on above: Performed By: #### P RO, APTT #### [address] [address] Eosinophil, Absolute 0.1 10 3/mcL Normal 0.0-0.7 [facility] Comment on above: Performed By: #### P RO, APTT #### [address] [address] Lymphocyte, Absolute 1.9 10 3/mcL Normal 0.9-4.3 [facility] Comment on above: Performed By: #### P RO, APTT #### [address] [address] Monocyte, Absolute 1.1 10 3/mcL Normal 0.1-1.4 [facility] Comment on above: Performed By: #### P RO, APTT #### [address] [address] .Auto DiffOrdered By: SYSTEM SYSTEM on 01-05-2025 Basophils/100 WBC (Bld) 0.4 % Normal 0.0 - 2.5 % AH Workflow SS Comment on above: Performed By: #### P RO, APTT #### [address] [address] Eosinophils/100 WBC (Bld) 0.8 % Normal 0.0 - 6.0 % AH Workflow SS Comment on above: Performed By: #### P RO, APTT #### [address] [address] Lymphocytes/100 WBC (Bld) 16.4 % Low 20.0 - 40.0 % AH Workflow SS Comment on above: Performed By: #### P RO, APTT #### [address] [address] Monocytes/100 WBC (Bld) 9.8 % Normal 2.0 - 13.0 % AH Workflow SS Comment on above: Performed By: #### P RO, APTT #### [address] [address] Neutrophils/100 WBC (Bld) 72.6 % Normal 50.0 - 75.0 % Workflow SS Comment on above: Performed By: #### P RO, APTT #### [address] [address] .GFROrdered By: SYSTEM SYSTE Jair on 01-05-2025 Estimated Glomerular Filtration Rate 64 ml/min/1.73sqm Invalid Interpretation Code ADM SS Comment on above: Result Comment: Stages of Chronic Kidney Disease (CKD) Stage Description eGFR(ml/min/1.73 sq.m.) CKD 1 Normal kidney function or >=90 normal kindney function with possible kidney damage (ex. Proteinuria) CKD 2 Kidney damage with mild loss 60-89 of kidney function CKD 3a Mild to moderate loss of kidney 45-59 function CKD 3b Moderate to severe loss of 30-44 of kindey function CKD 4 Severe loss of kidney function 15-29 CKD 5 Kidney failure <15 Note: (go live 2024) the eGFR calculation was updated to the 2020 CKD-EPI creatinine equation without a race factor to calculate the eGFR results. Performed By: #### P RO, APTT #### [address] [address] Interpretive Data: Stages of Chronic Kidney Disease (CKD) Stage Description eGFR(ml/min/1.73 sq.m.) CKD 1 Normal kidney function or >=90 normal kindney function with possible kidney damage (ex. Proteinuria) CKD 2 Kidney damage with mild loss 60-89 of kidney function CKD 3a Mild to moderate loss of kidney 45-59 function CKD 3b Moderate to severe loss of 30-44 of kindey function CKD 4 Severe loss of kidney function 15-29 CKD 5 Kidney failure <15 Note: (go live 2024) the eGFR calculation was updated to the 2020 CKD-EPI creatinine equation without a race factor to calculate the eGFR results. .NEUABSon 01-05-2025 Neutrophil, Absolute 8.4 10 3/mcL High 2.3-8.1 [facility] Comment on above: Performed By: #### P RO, APTT #### [address] [address] BMPon 01-05-2025 BUN/Creatinine Ratio 14.3 ratio Normal 10.0-22.0 [facility] Comment on above: Performed By: #### P RO, APTT #### [place] [address] BMPOrdered By: SYSTEM SYSTEM on 01-05-2025 Calcium [Mass/Vol] 8.9 mg/dL Normal 8.7 - 10. 4 mg/dL AH ADM SS Comment on above: Performed By: #### P RO, APTT #### [place] [address] Chloride [Moles/Vol] 104 mmol/L Normal 98 - 11 0 mEq/L AH ADM SS Comment on above: Performed By: #### P RO, APTT #### [place] [address] CO2 [Moles/Vol] 24 mmol/L Normal 22 - 32 mEq/L AH ADM SS Comment on above: Performed By: #### P RO, APTT #### [place] [address] Creatinine [Mass/Vol] 1.26 mg/dL Normal 0.60 - 1.40 mg/dL AH ADM SS Comment on above: Result Comment: Test ing performed on [employer] analyzer using enzymatic creatinine methodology. Performed By: #### P RO, APTT #### [place] [address] Interpretive Data: T esting performed on [employer] analyzer using enzymatic creatinine methodology. Electrolyte Balance 10.0 mEq/L Normal 4.0 - 15 .0 mEq/L AH ADM SS Comment on above: Performed By: #### P RO, APTT #### [place] [address] Glucose [Mass/Vol] 102 mg/dL Normal 82 - 115 mg/dL AH ADM SS Comment on above: Performed By: #### P RO, APTT #### [place] [address] Potassium [Moles/Vol] 4.6 mmol/L Normal 3.5 - 5.0 mEq/L AH ADM SS Comment on above: Performed By: #### P RO, APTT #### [place] [address] Sodium [Moles/Vol] 138 mmol/L Normal 136 - 145 mEq/L AH ADM SS Comment on above: Performed By: #### P RO, APTT #### [place] [address] Urea nitrogen [Mass/Vol] 18.0 mg/dL Normal 8.0 - 22.0 mg/dL AH ADM SS Comment on above: Performed By: #### P RO, APTT #### [place] [address] CBCOrdered By: SYSTEM SYSTEM on 01-05-2025 Erythrocyte distribution width (RBC) [Ratio] 13.4 % Normal 11.5 - 15.5 % AH Workflow SS Comment on above: Performed By: #### P RO, APTT #### [place] [address] Hematocrit (Bld) [Volume fraction] 48.3 % Normal 40.0 - 52.0 % AH Workflow SS Comment on above: Performed By: #### P RO, APTT #### [place] [address] MCH (RBC) [Entitic mass] 31.4 pg Normal 27.0 - 33.0 pg AH Workflow SS Comment on above: Performed By: #### P RO, APTT #### [place] [address] MCHC 33.8 G/dL Normal 32.0 - 36.0 G/dL AH Workflow SS Comment on above: Performed By: #### P RO, APTT #### [place] [address] MCV (RBC) [Entitic vol] 92.9 fL Normal 81.0 - 100.0 fL AH Workflow SS Comment on above: Performed By: #### P RO, APTT #### [place] [address] Platelet mean volume (Bld) [Entitic vol] 7.3 fL Normal 6.4 - 10.5 fL AH Workflow SS Comment on above: Performed By: #### P RO, APTT #### [facility] [address] [place] [address] CBCon 01-05-2025 Hgb 16.3 G/dL Normal 13.0-17.5 [facility] Comment on above: Performed By: #### P RO, APTT #### [facility] [address] [place] [address] Platelet 248 10 3/mcL Normal 150-450 [facility] Comment on above: Performed By: #### P RO, APTT #### [facility] [address] [place] [id number] RBC 5.20 10 6/mcL Normal 4.50-6.00 [facility] Comment on above: Performed By: #### P RO, APTT #### [facility] [address] [place] [address] WBC 11.5 10 3/mcL High 4.5-10.8 [facility] Comment on above: Performed By: #### P RO, APTT #### [place] [address] LABORATORYOrdered By: SYSTEM SYSTEM on 01-05-2025 Basophils (Bld) [#/Vol] 0.1 103/mcL Normal 0.0 - 0.3 10^3/mcL Workflow SS Eosinophils (Bld) [#/Vol] 0.1 103/mcL Normal 0.0 - 0.7 10^3/mcL Workflow SS Hemoglobin (Bld) [Mass/Vol] 16.3 G/dL Normal 13.0 - 17.5 G/dL Workflow SS Lymphocytes (Bld) [#/Vol] 1.9 103/mcL Normal 0.9 - 4.3 10^3/mcL Workflow SS Monocytes (Bld) [#/Vol] 1.1 103/mcL Normal 0.1 - 1.4 10^3/mcL Workflow SS Neutrophils (Bld) [#/Vol] 8.4 103/mcL High 2.3 - 8.1 10^3/mcL Workflow SS Platelets (Bld) [#/Vol] 248 103/mcL Normal 150 - 450 10^3/mcL Workflow SS RBC (Bld) [#/Vol] 5.20 106/mcL Normal 4.50 - 6.0 0 10^6/mcL AH Workflow SS Urea nitrogen/Creatinine [Mass ratio] 14.3 ratio Normal 10.0 - 22.0 ratio AH ADM SS WBC (Bld) [#/Vol] 11.5 103/mcL High 4.5 - 10.8 10^3/mcL AH Workflow SS MGOrdered By: SYSTEM SYSTEM on 01-05-2025 Magnesium [Mass/Vol] 2.2 mg/dL Normal 1.6 - 2 .4 mg/dL AH ADM SS Comment on above: Performed By: #### P RO, APTT #### [address] [address] .Auto Diffon 01-04-2025 Basophil, Absolute 0.0 10 3/mcL Normal 0.0-0.3 [facility] Comment on above: Performed By: #### A XANDER, CBC, MG, BMP, ADIFF, GFR #### [address] [address] Basophils/100 WBC (Bld) 0.2 % Normal 0.0-2.5 [facility] Comment on above: Performed By: #### A XANDER, CBC, MG, BMP, ADIFF, GFR #### [address] [address] Eosinophil, Absolute 0.1 10 3/mcL Normal 0.0-0.7 [facility] Comment on above: Performed By: #### A XANDER, CBC, MG, BMP, ADIFF, GFR #### [address] [address] Eosinophils/100 WBC (Bld) 1.1 % Normal 0.0-6.0 [facility] Comment on above: Performed By: #### A XANDER, CBC, MG, BMP, ADIFF, GFR #### [address] [address] Lymphocyte, Absolute 2.4 10 3/mcL Normal 0.9-4.3 [facility] Comment on above: Performed By: #### A XANDER, CBC, MG, BMP, ADIFF, GFR #### [address] [address] Lymphocytes/100 WBC (Bld) 23.2 % Normal 20.0-40.0 [facility] Comment on above: Performed By: #### A XANDER, CBC, MG, BMP, ADIFF, GFR #### [address] [address] Monocyte, Absolute 0.8 10 3/mcL Normal 0.1-1.4 [facility] Comment on above: Performed By: #### A XANDER, CBC, MG, BMP, ADIFF, GFR #### [address] [address] Monocytes/100 WBC (Bld) 8.0 % Normal 2.0-13.0 [facility] Comment on above: Performed By: #### A XANDER, CBC, MG, BMP, ADIFF, GFR #### [address] [address] Neutrophils/100 WBC (Bld) 67.5 % Normal 50.0-75.0 [facility] Comment on above: Performed By: #### A XANDER, CBC, MG, BMP, ADIFF, GFR #### [address] [address] .GFRon 01-04-2025 Estimated Glomerular Filtration Rate 68 ml/min/1.73sqm Normal [facility] Comment on above: Result Comment: Stages of Chronic Kidney Disease (CKD) Stage Description eGFR(ml/min/1.73 sq.m.) CKD 1 Normal kidney function or >=90 normal kindney function with possible kidney damage (ex. Proteinuria) CKD 2 Kidney damage with mild loss 60-89 of kidney function CKD 3a Mild to moderate loss of kidney 45-59 function CKD 3b Moderate to severe loss of 30-44 of kindey function CKD 4 Severe loss of kidney function 15-29 CKD 5 Kidney failure <15 Note: (go live 2024) the eGFR calculation was updated to the 2020 CKD-EPI creatinine equation without a race factor to calculate the eGFR results. Performed By: #### A XANDER, CBC, MG, BMP, ADIFF, GFR #### [address] [address] .NEUABSon 01-04-2025 Neutrophil, Absolute 6.9 10 3/mcL Normal 2.3-8.1 [facility] Comment on above: Performed By: #### A XANDER, CBC, MG, BMP, ADIFF, GFR #### [address] [address] APTTon 01-04-2025 aPTT Coag (Bld) [Time] 58.7 s High 25.0-35.0 [facility] Comment on above: Result Comment: For Heparin anticoagulation therapy, the recommended therapeutic range is: 54-77 seconds (APTT Correlation with Anti-Xa therapeutic range of 0.3-0.7 units/ml). PLEASE REFERENCE THE PHARMACY PROTOCOL FOR DOSING. Performed By: #### A PTT #### [address] [address] aPTT Coag (Bld) [Time] 50.5 s High 25.0-35.0 [facility] Comment on above: Result Comment: For Heparin anticoagulation therapy, the recommended therapeutic range is: 54-77 seconds (APTT Correlation with Anti-Xa therapeutic range of 0.3-0.7 units/ml). PLEASE REFERENCE THE PHARMACY PROTOCOL FOR DOSING. Performed By: #### A XANDER, CBC, MG, BMP, ADIFF, GFR #### [address] [address] BMPon 01-04-2025 BUN/Creatinine Ratio 15.8 ratio Normal 10.0-22.0 [facility] Comment on above: Performed By: #### A XANDER, CBC, MG, BMP, ADIFF, GFR #### [address] [address] Calcium [Mass/Vol] 9.2 mg/dL Normal 8.7-10.[address] [facility] Comment on above: Performed By: #### A XANDER, CBC, MG, BMP, ADIFF, GFR #### [address] [address] Chloride [Moles/Vol] 102 mmol/L Normal 98-110 [facility] Comment on above: Performed By: #### A XANDER, CBC, MG, BMP, ADIFF, GFR #### [address] [address] CO2 [Moles/Vol] 26 mmol/L Normal 22-32 [facility] Comment on above: Performed By: #### A XANDER, CBC, MG, BMP, ADIFF, GFR #### [address] [address] Creatinine [Mass/Vol] 1.20 mg/dL Normal 0.60-1.40 [facility] Comment on above: Result Comment: Test ing performed on [employer] analyzer using enzymatic creatinine methodology. Performed By: #### A XANDER, CBC, MG, BMP, ADIFF, GFR #### [address] [address] Electrolyte Balance 10.0 mEq/L Normal 4.0-15.0 [facility] Comment on above: Performed By: #### A XANDER, CBC, MG, BMP, ADIFF, GFR #### [address] [address] Glucose [Mass/Vol] 108 mg/dL Normal 82-[address] [facility] Comment on above: Performed By: #### A XANDER, CBC, MG, BMP, ADIFF, GFR #### [address] [address] Potassium [Moles/Vol] 4.4 mmol/L Normal 3.5-5.0 [facility] Comment on above: Performed By: #### A XANDER, CBC, MG, BMP, ADIFF, GFR #### [address] [address] Sodium [Moles/Vol] 138 mmol/L Normal 136-[address] [facility] Comment on above: Performed By: #### A XANDER, CBC, MG, BMP, ADIFF, GFR #### [address] [address] Urea nitrogen [Mass/Vol] 19.0 mg/dL Normal 8.0-22.0 [facility] Comment on above: Performed By: #### A XANDER, CBC, MG, BMP, ADIFF, GFR #### [address] [address] CBCon 01-04-2025 Erythrocyte distribution width (RBC) [Ratio] 13.4 % Normal 11.5-15.5 [facility] Comment on above: Performed By: #### A XANDER, CBC, MG, BMP, ADIFF, GFR #### [place] [address] Hematocrit (Bld) [Volume fraction] 48.9 % Normal 40.0-52.0 [facility] Comment on above: Performed By: #### A XANDER, CBC, MG, BMP, ADIFF, GFR #### [place] [id number] Hgb 16.8 G/dL Normal 13.0-17.5 [facility] Comment on above: Performed By: #### A XANDER, CBC, MG, BMP, ADIFF, GFR #### [place] [id number] MCH (RBC) [Entitic mass] 31.9 pg Normal 27.0-33.0 [facility] Comment on above: Performed By: #### A XANDER, CBC, MG, BMP, ADIFF, GFR #### [place] [address] MCHC 34.3 G/dL Normal 32.0-36.0 [facility] Comment on above: Performed By: #### A XANDER, CBC, MG, BMP, ADIFF, GFR #### [place] [address] MCV (RBC) [Entitic vol] 92.9 fL Normal 81.0-100.0 [facility] Comment on above: Performed By: #### A XANDER, CBC, MG, BMP, ADIFF, GFR #### [place] [address] Platelet 238 10 3/mcL Normal 150-450 [facility] Comment on above: Performed By: #### A XANDER, CBC, MG, BMP, ADIFF, GFR #### [place] [address] Platelet mean volume (Bld) [Entitic vol] 7.7 fL Normal 6.4-10.5 [facility] Comment on above: Performed By: #### A XANDER, CBC, MG, BMP, ADIFF, GFR #### [facility] [address] [place] [address] RBC 5.26 10 6/mcL Normal 4.50-6.00 [facility] Comment on above: Performed By: #### A XANDER, CBC, MG, BMP, ADIFF, GFR #### [facility] [address] [place] [address] WBC 10.2 10 3/mcL Normal 4.5-10.8 [facility] Comment on above: Performed By: #### A XANDER, CBC, MG, BMP, ADIFF, GFR #### [facility] [address] [place] [address] LABORATORYOrdered By: SYSTEM SYSTEM on 01-04-2025 aPTT Coag (Bld) [Time] 58.7 s High 25.0 - 35.0 seconds [facility] SS Comment on above: Interpretive Data: F or Heparin anticoagulation therapy, the recommended therapeutic range is: 54-77 seconds (APTT Correlation with Anti-Xa therapeutic range of 0.3-0.7 units/ml). PLEASE REFERENCE THE PHARMACY PROTOCOL FOR DOSING. aPTT Coag (Bld) [Time] 50.5 s High 25.0 - 35.0 seconds [facility] SS Comment on above: Interpretive Data: F or Heparin anticoagulation therapy, the recommended therapeutic range is: 54-77 seconds (APTT Correlation with Anti-Xa therapeutic range of 0.3-0.7 units/ml). PLEASE REFERENCE THE PHARMACY PROTOCOL FOR DOSING. Basophils (Bld) [#/Vol] 0.0 103/mcL Normal 0.0 - 0.3 10^3/mcL Workflow SS Basophils/100 WBC (Bld) 0.2 % Normal 0.0 - 2.5 % Workflow SS Calcium [Mass/Vol] 9.2 mg/dL Normal 8.7 - 10. 4 mg/dL ADM SS Chloride [Moles/Vol] 102 mmol/L Normal 98 - 11 0 mEq/L AH ADM SS CO2 [Moles/Vol] 26 mmol/L Normal 22 - 32 mEq/L ADM SS Creatinine [Mass/Vol] 1.20 mg/dL Normal 0.60 - 1.40 mg/dL ADM SS Comment on above: Interpretive Data: T esting performed on [employer] analyzer using enzymatic creatinine methodology. Electrolyte Balance 10.0 mEq/L Normal 4.0 - 15 .0 mEq/L [facility] Eosinophils (Bld) [#/Vol] 0.1 103/mcL Normal 0.0 - 0.7 10^3/mcL Workflow SS Eosinophils/100 WBC (Bld) 1.1 % Normal 0.0 - 6.0 % [facility] SS Erythrocyte distribution width (RBC) [Ratio] 13.4 % Normal 11.5 - 15.5 % [facility] SS Estimated Glomerular Filtration Rate 68 ml/min/1.73sqm Invalid Interpretation Code [facility] Comment on above: Interpretive Data: Stages of Chronic Kidney Disease (CKD) Stage Description eGFR(ml/min/1.73 sq.m.) CKD 1 Normal kidney function or >=90 normal kindney function with possible kidney damage (ex. Proteinuria) CKD 2 Kidney damage with mild loss 60-89 of kidney function CKD 3a Mild to moderate loss of kidney 45-59 function CKD 3b Moderate to severe loss of 30-44 of kindey function CKD 4 Severe loss of kidney function 15-29 CKD 5 Kidney failure <15 Note: (go live 2024) the eGFR calculation was updated to the 2020 CKD-EPI creatinine equation without a race factor to calculate the eGFR results. Glucose [Mass/Vol] 108 mg/dL Normal 82 - 115 mg/dL [facility] Hematocrit (Bld) [Volume fraction] 48.9 % Normal 40.0 - 52.0 % [facility] SS Hemoglobin (Bld) [Mass/Vol] 16.8 G/dL Normal 13.0 - 17.5 G/dL [facility] SS Lymphocytes (Bld) [#/Vol] 2.4 103/mcL Normal 0.9 - 4.3 10^3/mcL [facility] SS Lymphocytes/100 WBC (Bld) 23.2 % Normal 20.0 - 40.0 % [facility] SS Magnesium [Mass/Vol] 2.2 mg/dL Normal 1.6 - 2 .4 mg/dL [facility] MCH (RBC) [Entitic mass] 31.9 pg Normal 27.0 - 33.0 pg [facility] SS MCHC 34.3 G/dL Normal 32.0 - 36.0 G/dL [facility] SS MCV (RBC) [Entitic vol] 92.9 fL Normal 81.0 - 100.0 fL [facility] Monocytes (Bld) [#/Vol] 0.8 103/mcL Normal 0.1 - 1.4 10^3/mcL Workflow SS Monocytes/100 WBC (Bld) 8.0 % Normal 2.0 - 13.0 % AH Workflow SS Neutrophils (Bld) [#/Vol] 6.9 103/mcL Normal 2.3 - 8.1 10^3/mcL Workflow SS Neutrophils/100 WBC (Bld) 67.5 % Normal 50.0 - 75.0 % AH Workflow SS Platelet mean volume (Bld) [Entitic vol] 7.7 fL Normal 6.4 - 10.5 fL Workflow SS Platelets (Bld) [#/Vol] 238 103/mcL Normal 150 - 450 10^3/mcL AH Workflow SS Potassium [Moles/Vol] 4.4 mmol/L Normal 3.5 - 5.0 mEq/L AH ADM SS RBC (Bld) [#/Vol] 5.26 106/mcL Normal 4.50 - 6.0 0 10^6/mcL Workflow SS Sodium [Moles/Vol] 138 mmol/L Normal 136 - 145 mEq/L ADM SS Urea nitrogen [Mass/Vol] 19.0 mg/dL Normal 8.0 - 22.0 mg/dL ADM SS Urea nitrogen/Creatinine [Mass ratio] 15.8 ratio Normal 10.0 - 22.0 ratio AH ADM SS WBC (Bld) [#/Vol] 10.2 103/mcL Normal 4.5 - 10.8 10^3/mcL Workflow SS MGon 01-04-2025 Magnesium [Mass/Vol] 2.2 mg/dL Normal 1.6-2.4 [facility] Comment on above: Performed By: #### A XANDER, CBC, MG, BMP, ADIFF, GFR #### [facility] [address] [place] [address] .Auto Diffon 01-03-2025 Basophil, Absolute 0.0 10 3/mcL Normal 0.0-0.3 [facility] Comment on above: Performed By: #### P RO, APTT #### [facility] [address] [place] [address] Basophils/100 WBC (Bld) 0.2 % Normal 0.0-2.5 [facility] Comment on above: Performed By: #### P RO, APTT #### [address] [address] Eosinophil, Absolute 0.1 10 3/mcL Normal 0.0-0.7 [facility] Comment on above: Performed By: #### P RO, APTT #### [address] [address] Eosinophils/100 WBC (Bld) 0.9 % Normal 0.0-6.0 [facility] Comment on above: Performed By: #### P RO, APTT #### [address] [address] Lymphocyte, Absolute 2.6 10 3/mcL Normal 0.9-4.3 [facility] Comment on above: Performed By: #### P RO, APTT #### [address] [address] Lymphocytes/100 WBC (Bld) 24.7 % Normal 20.0-40.0 [facility] Comment on above: Performed By: #### P RO, APTT #### [address] [address] Monocyte, Absolute 1.0 10 3/mcL Normal 0.1-1.4 [facility] Comment on above: Performed By: #### P RO, APTT #### [address] [address] Monocytes/100 WBC (Bld) 9.4 % Normal 2.0-13.0 [facility] Comment on above: Performed By: #### P RO, APTT #### [address] [address] Neutrophils/100 WBC (Bld) 64.8 % Normal 50.0-75.0 [facility] Comment on above: Performed By: #### P RO, APTT #### [address] [address] .GFRon 01-03-2025 Estimated Glomerular Filtration Rate 66 ml/min/1.73sqm Normal [facility] Comment on above: Result Comment: Stages of Chronic Kidney Disease (CKD) Stage Description eGFR(ml/min/1.73 sq.m.) CKD 1 Normal kidney function or >=90 normal kindney function with possible kidney damage (ex. Proteinuria) CKD 2 Kidney damage with mild loss 60-89 of kidney function CKD 3a Mild to moderate loss of kidney 45-59 function CKD 3b Moderate to severe loss of 30-44 of kindey function CKD 4 Severe loss of kidney function 15-29 CKD 5 Kidney failure <15 Note: (go live 2024) the eGFR calculation was updated to the 2020 CKD-EPI creatinine equation without a race factor to calculate the eGFR results. Performed By: #### P RO, APTT #### [address] [address] .NEUABSon 01-03-2025 Neutrophil, Absolute 6.8 10 3/mcL Normal 2.3-8.1 [facility] Comment on above: Performed By: #### P RO, APTT #### [address] [address] A1Con 01-03-2025 Glucose [Mass/Vol] 111 mg/dL Normal [facility] Comment on above: Result Comment: Pennie mated Average Glucose calculated by equation ((28.7xA1C)-46.7) Estimated average glucose (eAG) is a calculated value from Hemoglobin A1C and is correspondence representative of the average blood glucose level in the last 2-3 month period. Normal range: less than 114 mg/dL Performed By: #### P RO, APTT #### [address] [address] HbA1c (Bld) [Mass fraction] 5.5 % Normal 4.0-6.0 [facility] Comment on above: Performed By: #### P RO, APTT #### [address] [address] APTTon 01-03-2025 aPTT Coag (Bld) [Time] 69.4 s High 25.0-35.0 [facility] Comment on above: Result Comment: For Heparin anticoagulation therapy, the recommended therapeutic range is: 54-77 seconds (APTT Correlation with Anti-Xa therapeutic range of 0.3-0.7 units/ml). PLEASE REFERENCE THE PHARMACY PROTOCOL FOR DOSING. Performed By: #### P RO, APTT #### [address] [address] aPTT Coag (Bld) [Time] 58.6 s High 25.0-35.0 [facility] Comment on above: Result Comment: For Heparin anticoagulation therapy, the recommended therapeutic range is: 54-77 seconds (APTT Correlation with Anti-Xa therapeutic range of 0.3-0.7 units/ml). PLEASE REFERENCE THE PHARMACY PROTOCOL FOR DOSING. Performed By: #### P RO, APTT #### [place] [id number] [facility] 01-03-2025 BUN/Creatinine Ratio 18.0 ratio Normal 10.0-22.0 [facility] Comment on above: Performed By: #### P RO, APTT #### [place] [address] Calcium [Mass/Vol] 9.0 mg/dL Normal 8.7-10.[address] [facility] Comment on above: Performed By: #### P RO, APTT #### [place] [phone] Chloride [Moles/Vol] 105 mmol/L Normal 98-110 [facility] Comment on above: Performed By: #### P RO, APTT #### [place] [phone] CO2 [Moles/Vol] 27 mmol/L Normal 22-32 [facility] Comment on above: Performed By: #### P RO, APTT #### [place] [address] Creatinine [Mass/Vol] 1.22 mg/dL Normal 0.60-1.40 [facility] Comment on above: Result Comment: Test ing performed on [employer] analyzer using enzymatic creatinine methodology. Performed By: #### P RO, APTT #### [place] [address] Electrolyte Balance 7.0 mEq/L Normal 4.0-15.0 [facility] Comment on above: Performed By: #### P RO, APTT #### [place] [address] Glucose [Mass/Vol] 103 mg/dL Normal 82-[address] [facility] Comment on above: Performed By: #### P RO, APTT #### [address] [address] Potassium [Moles/Vol] 4.5 mmol/L Normal 3.5-5.0 [facility] Comment on above: Performed By: #### P RO, APTT #### [address] [address] Sodium [Moles/Vol] 139 mmol/L Normal 136-[address] [facility] Comment on above: Performed By: #### P RO, APTT #### [place] [phone] Urea nitrogen [Mass/Vol] 22.0 mg/dL Normal 8.0-22.0 [facility] Comment on above: Performed By: #### P RO, APTT #### [address] [address] CBCon 01-03-2025 Erythrocyte distribution width (RBC) [Ratio] 13.6 % Normal 11.5-15.5 [facility] Comment on above: Performed By: #### P RO, APTT #### [place] [phone] Hematocrit (Bld) [Volume fraction] 47.8 % Normal 40.0-52.0 [facility] Comment on above: Performed By: #### P RO, APTT #### [place] [phone] Hgb 16.1 G/dL Normal 13.0-17.5 [facility] Comment on above: Performed By: #### P RO, APTT #### [place] [phone] MCH (RBC) [Entitic mass] 31.4 pg Normal 27.0-33.0 [facility] Comment on above: Performed By: #### P RO, APTT #### [place] [phone] MCHC 33.7 G/dL Normal 32.0-36.0 [facility] Comment on above: Performed By: #### P RO, APTT #### [address] [address] MCV (RBC) [Entitic vol] 93.3 fL Normal 81.0-100.0 [facility] Comment on above: Performed By: #### P RO, APTT #### [address] [address] Platelet 237 10 3/mcL Normal 150-450 [facility] Comment on above: Performed By: #### P RO, APTT #### [address] [address] Platelet mean volume (Bld) [Entitic vol] 7.7 fL Normal 6.4-10.5 [facility] Comment on above: Performed By: #### P RO, APTT #### [address] [address] RBC 5.12 10 6/mcL Normal 4.50-6.00 [facility] Comment on above: Performed By: #### P RO, APTT #### [address] [address] WBC 10.5 10 3/mcL Normal 4.5-10.8 [facility] Comment on above: Performed By: #### P RO, APTT #### [address] [address] LABORATORYOrdered By: SYSTEM SYSTEM on 01-03-2025 aPTT Coag (Bld) [Time] 69.4 s High 25.0 - 35.0 seconds AH [facility] SS Comment on above: Interpretive Data: F or Heparin anticoagulation therapy, the recommended therapeutic range is: 54-77 seconds (APTT Correlation with Anti-Xa therapeutic range of 0.3-0.7 units/ml). PLEASE REFERENCE THE PHARMACY PROTOCOL FOR DOSING. Basophils (Bld) [#/Vol] 0.0 103/mcL Normal 0.0 - 0.3 10^3/mcL AH Workflow SS Basophils/100 WBC (Bld) 0.2 % Normal 0.0 - 2.5 % AH Workflow SS Calcium [Mass/Vol] 9.0 mg/dL Normal 8.7 - 10. 4 mg/dL ADM SS Chloride [Moles/Vol] 105 mmol/L Normal 98 - 11 0 mEq/L ADM SS CO2 [Moles/Vol] 27 mmol/L Normal 22 - 32 mEq/L ADM SS Creatinine [Mass/Vol] 1.22 mg/dL Normal 0.60 - 1.40 mg/dL ADM SS Comment on above: Interpretive Data: T esting performed on [employer] analyzer using enzymatic creatinine methodology. Electrolyte Balance 7.0 mEq/L Normal 4.0 - 15 .0 mEq/L ADM SS Eosinophils (Bld) [#/Vol] 0.1 103/mcL Normal 0.0 - 0.7 10^3/mcL Workflow SS Eosinophils/100 WBC (Bld) 0.9 % Normal 0.0 - 6.0 % Workflow SS Erythrocyte distribution width (RBC) [Ratio] 13.6 % Normal 11.5 - 15.5 % Workflow SS Estimated Glomerular Filtration Rate 66 ml/min/1.73sqm Invalid Interpretation Code ADM SS Comment on above: Interpretive Data: Stages of Chronic Kidney Disease (CKD) Stage Description eGFR(ml/min/1.73 sq.m.) CKD 1 Normal kidney function or >=90 normal kindney function with possible kidney damage (ex. Proteinuria) CKD 2 Kidney damage with mild loss 60-89 of kidney function CKD 3a Mild to moderate loss of kidney 45-59 function CKD 3b Moderate to severe loss of 30-44 of kindey function CKD 4 Severe loss of kidney function 15-29 CKD 5 Kidney failure <15 Note: (go live 2024) the eGFR calculation was updated to the 2020 CKD-EPI creatinine equation without a race factor to calculate the eGFR results. Glucose [Mass/Vol] 111 mg/dL Invalid Interpretation Code AH [facility] SS Comment on above: Interpretive Data: E stimated average glucose (eAG) is a calculated value from Hemoglobin A1C and is correspondence representative of the average blood glucose level in the last 2-3 month period. Normal range: less than 114 mg/dL Glucose [Mass/Vol] 103 mg/dL Normal 82 - 115 mg/dL ADM SS HbA1c (Bld) [Mass fraction] 5.5 % Normal 4.0 - 6.0 % [facility] SS Hematocrit (Bld) [Volume fraction] 47.8 % Normal 40.0 - 52.0 % AH Workflow SS Hemoglobin (Bld) [Mass/Vol] 16.1 G/dL Normal 13.0 - 17.5 G/dL AH Workflow SS Lymphocytes (Bld) [#/Vol] 2.6 103/mcL Normal 0.9 - 4.3 10^3/mcL AH Workflow SS Lymphocytes/100 WBC (Bld) 24.7 % Normal 20.0 - 40.0 % AH Workflow SS Magnesium [Mass/Vol] 2.2 mg/dL Normal 1.6 - 2 .4 mg/dL AH ADM SS MCH (RBC) [Entitic mass] 31.4 pg Normal 27.0 - 33.0 pg AH Workflow SS MCHC 33.7 G/dL Normal 32.0 - 36.0 G/dL AH Workflow SS MCV (RBC) [Entitic vol] 93.3 fL Normal 81.0 - 100.0 fL AH Workflow SS Monocytes (Bld) [#/Vol] 1.0 103/mcL Normal 0.1 - 1.4 10^3/mcL AH Workflow SS Monocytes/100 WBC (Bld) 9.4 % Normal 2.0 - 13.0 % AH Workflow SS Neutrophils (Bld) [#/Vol] 6.8 103/mcL Normal 2.3 - 8.1 10^3/mcL AH Workflow SS Neutrophils/100 WBC (Bld) 64.8 % Normal 50.0 - 75.0 % AH Workflow SS Platelet mean volume (Bld) [Entitic vol] 7.7 fL Normal 6.4 - 10.5 fL AH Workflow SS Platelets (Bld) [#/Vol] 237 103/mcL Normal 150 - 450 10^3/mcL AH Workflow SS Potassium [Moles/Vol] 4.5 mmol/L Normal 3.5 - 5.0 mEq/L AH ADM SS RBC (Bld) [#/Vol] 5.12 106/mcL Normal 4.50 - 6.0 0 10^6/mcL AH Workflow SS Sodium [Moles/Vol] 139 mmol/L Normal 136 - 145 mEq/L AH ADM SS Urea nitrogen [Mass/Vol] 22.0 mg/dL Normal 8.0 - 22.0 mg/dL AH ADM SS Urea nitrogen/Creatinine [Mass ratio] 18.0 ratio Normal 10.0 - 22.0 ratio AH ADM SS WBC (Bld) [#/Vol] 10.5 103/mcL Normal 4.5 - 10.8 10^3/mcL AH Workflow SS MGon 01-03-2025 Magnesium [Mass/Vol] 2.2 mg/dL Normal 1.6-2.4 [facility] Comment on above: Performed By: #### P RO, APTT #### [address] [address] .Auto Diffon 01-02-2025 Basophil, Absolute 0.0 10 3/mcL Normal 0.0-0.3 [facility] Comment on above: Performed By: #### A XANDER, CBC, MG, BMP, ADIFF, GFR #### [address] [address] Basophils/100 WBC (Bld) 0.2 % Normal 0.0-2.5 [facility] Comment on above: Performed By: #### A XANDER, CBC, MG, BMP, ADIFF, GFR #### [address] [address] Eosinophil, Absolute 0.1 10 3/mcL Normal 0.0-0.7 [facility] Comment on above: Performed By: #### A XANDER, CBC, MG, BMP, ADIFF, GFR #### [address] [address] Eosinophils/100 WBC (Bld) 0.5 % Normal 0.0-6.0 [facility] Comment on above: Performed By: #### A XANDER, CBC, MG, BMP, ADIFF, GFR #### [address] [address] Lymphocyte, Absolute 2.4 10 3/mcL Normal 0.9-4.3 [facility] Comment on above: Performed By: #### A XANDER, CBC, MG, BMP, ADIFF, GFR #### [address] [address] Lymphocytes/100 WBC (Bld) 18.0 % Low 20.0-40.0 [facility] Comment on above: Performed By: #### A XANDER, CBC, MG, BMP, ADIFF, GFR #### [address] [address] Monocyte, Absolute 0.9 10 3/mcL Normal 0.1-1.4 [facility] Comment on above: Performed By: #### A XANDER, CBC, MG, BMP, ADIFF, GFR #### [address] [address] Monocytes/100 WBC (Bld) 6.4 % Normal 2.0-13.0 [facility] Comment on above: Performed By: #### A XANDER, CBC, MG, BMP, ADIFF, GFR #### [address] [address] Neutrophils/100 WBC (Bld) 74.9 % Normal 50.0-75.0 [facility] Comment on above: Performed By: #### A XANDER, CBC, MG, BMP, ADIFF, GFR #### [place] [address] .GFRon 01-02-2025 Estimated Glomerular Filtration Rate 73 ml/min/1.73sqm [facility] Comment on above: Result Comment: Stages of Chronic Kidney Disease (CKD) Stage Description eGFR(ml/min/1.73 sq.m.) CKD 1 Normal kidney function or >=90 normal kindney function with possible kidney damage (ex. Proteinuria) CKD 2 Kidney damage with mild loss 60-89 of kidney function CKD 3a Mild to moderate loss of kidney 45-59 function CKD 3b Moderate to severe loss of 30-44 of kindey function CKD 4 Severe loss of kidney function 15-29 CKD 5 Kidney failure <15 Note: (go live 2024) the eGFR calculation was updated to the 2020 CKD-EPI creatinine equation without a race factor to calculate the eGFR results. Performed By: #### A XANDER, CBC, MG, BMP, ADIFF, GFR #### [place] [id number] .NEUABSon 01-02-2025 Neutrophil, Absolute 10.0 10 3/mcL High 2.3-8.1 [facility] Comment on above: Performed By: #### A XANDER, CBC, MG, BMP, ADIFF, GFR #### [place] [id number] APTTon 01-02-2025 aPTT Coag (Bld) [Time] 50.2 s High 25.0-35.0 [facility] Comment on above: Result Comment: For Heparin anticoagulation therapy, the recommended therapeutic range is: 54-77 seconds (APTT Correlation with Anti-Xa therapeutic range of 0.3-0.7 units/ml). PLEASE REFERENCE THE PHARMACY PROTOCOL FOR DOSING. Performed By: #### P RO, APTT #### [address] [address] aPTT Coag (Bld) [Time] 41.5 s High 25.0-35.0 [facility] Comment on above: Result Comment: For Heparin anticoagulation therapy, the recommended therapeutic range is: 54-77 seconds (APTT Correlation with Anti-Xa therapeutic range of 0.3-0.7 units/ml). PLEASE REFERENCE THE PHARMACY PROTOCOL FOR DOSING. Performed By: #### P RO, APTT #### [address] [address] aPTT Coag (Bld) [Time] 33.7 s Normal 25.0-35.0 [facility] Comment on above: Result Comment: For Heparin anticoagulation therapy, the recommended therapeutic range is: 54-77 seconds (APTT Correlation with Anti-Xa therapeutic range of 0.3-0.7 units/ml). PLEASE REFERENCE THE PHARMACY PROTOCOL FOR DOSING. Performed By: #### P RO, APTT #### [address] [address] aPTT Coag (Bld) [Time] 29.8 s Normal 25.4 - 38.4 [facility] Comment on above: Performed By: #### 2 [id number] #### [facility],[address] [place] [address] CBC 01-02-2025 Erythrocyte distribution width (RBC) [Ratio] 14.0 % Normal 11.5-15.5 [facility] Comment on above: Performed By: #### P RO, APTT #### [address] [address] Hematocrit (Bld) [Volume fraction] 48.6 % Normal 40.0-52.0 [facility] Comment on above: Performed By: #### P RO, APTT #### [place] [address] Hgb 16.5 G/dL Normal 13.0-17.5 [facility] Comment on above: Performed By: #### P RO, APTT #### [place] [address] MCH (RBC) [Entitic mass] 31.5 pg Normal 27.0-33.0 [facility] Comment on above: Performed By: #### P RO, APTT #### [place] [address] MCHC 34.1 G/dL Normal 32.0-36.0 [facility] Comment on above: Performed By: #### P RO, APTT #### [place] [address] MCV (RBC) [Entitic vol] 92.4 fL Normal 81.0-100.0 [facility] Comment on above: Performed By: #### P RO, APTT #### [place] [address] Platelet 240 10 3/mcL Normal 150-450 [facility] Comment on above: Performed By: #### P RO, APTT #### [place] [address] Platelet mean volume (Bld) [Entitic vol] 7.5 fL Normal 6.4-10.5 [facility] Comment on above: Performed By: #### P RO, APTT #### [place] [address] RBC 5.26 10 6/mcL Normal 4.50-6.00 [facility] Comment on above: Performed By: #### P RO, APTT #### [place] [address] WBC 13.3 10 3/mcL High 4.5-10.8 [facility] Comment on above: Performed By: #### P RO, APTT #### [place] [id number] CMPon 01-02-2025 Albumin Level 3.7 G/dL Normal 3.2-4.8 [facility] Comment on above: Performed By: #### A XANDER, CBC, MG, BMP, ADIFF, GFR #### [place] [address] Albumin/Globulin [Mass ratio] 1.3 {ratio} Normal 0.9-1.6 [facility] Comment on above: Performed By: #### A XANDER, CBC, MG, BMP, ADIFF, GFR #### [place] [address] ALP [Catalytic activity/Vol] 49 U/L Normal 38-126 [facility] Comment on above: Performed By: #### A XANDER, CBC, MG, BMP, ADIFF, GFR #### [place] [address] ALT [Catalytic activity/Vol] 42 U/L Normal 12-55 [facility] Comment on above: Performed By: #### A XANDER, CBC, MG, BMP, ADIFF, GFR #### [place] [address] AST [Catalytic activity/Vol] 25 U/L Normal 8-34 [facility] Comment on above: Performed By: #### A XANDER, CBC, MG, BMP, ADIFF, GFR #### [place] [address] Bili Total 0.90 mg/dL Normal 0.20-1.20 [facility] Comment on above: Result Comment: Use of this assay is not recommended for patients undergoing treatment with eltrombopag due to the potential for falsely elevated results. Performed By: #### A XANDER, CBC, MG, BMP, ADIFF, GFR #### [place] [address] BUN/Creatinine Ratio 19.5 ratio Normal 10.0-22.0 [facility] Comment on above: Performed By: #### A XANDER, CBC, MG, BMP, ADIFF, GFR #### [place] [address] Calcium [Mass/Vol] 9.6 mg/dL Normal 8.7-10.[address] [facility] Comment on above: Performed By: #### A XANDER, CBC, MG, BMP, ADIFF, GFR #### [address] [address] Chloride [Moles/Vol] 106 mmol/L Normal 98-110 [facility] Comment on above: Performed By: #### A XANDER, CBC, MG, BMP, ADIFF, GFR #### [address] [address] CO2 [Moles/Vol] 23 mmol/L Normal 22-32 [facility] Comment on above: Performed By: #### A XANDER, CBC, MG, BMP, ADIFF, GFR #### [address] [address] Creatinine [Mass/Vol] 1.13 mg/dL Normal 0.60-1.40 [facility] Comment on above: Result Comment: Test ing performed on [employer] analyzer using enzymatic creatinine methodology. Performed By: #### A XANDER, CBC, MG, BMP, ADIFF, GFR #### [address] [address] Electrolyte Balance 9.0 mEq/L Normal 4.0-15.0 [facility] Comment on above: Performed By: #### A XANDER, CBC, MG, BMP, ADIFF, GFR #### [address] [address] Globulin 2.9 G/dL Normal 2.5-4.2 [facility] Comment on above: Performed By: #### A XANDER, CBC, MG, BMP, ADIFF, GFR #### [address] [address] Glucose [Mass/Vol] 105 mg/dL Normal 82-[address] [facility] Comment on above: Performed By: #### A XANDER, CBC, MG, BMP, ADIFF, GFR #### [address] [address] Potassium [Moles/Vol] 4.6 mmol/L Normal 3.5-5.0 [facility] Comment on above: Performed By: #### A XANDER, CBC, MG, BMP, ADIFF, GFR #### [address] [address] Sodium [Moles/Vol] 138 mmol/L Normal 136-[address] [facility] Comment on above: Performed By: #### A XANDER, CBC, MG, BMP, ADIFF, GFR #### [address] [address] Total Protein 6.6 G/dL Normal 5.7-8.2 [facility] Comment on above: Performed By: #### A XANDER, CBC, MG, BMP, ADIFF, GFR #### [address] [address] Urea nitrogen [Mass/Vol] 22.0 mg/dL Normal 8.0-22.0 [facility] Comment on above: Performed By: #### A XANDER, CBC, MG, BMP, ADIFF, GFR #### [address] [address] [address] CHEST/ABD/PELVIS C+on CT CHEST/ABD/PELVIS C+ [address] [address] Patient: DRE SUAREZ Phone#: : 1960 Age: 64 Gender: M Pt. Type: ER Account: [id number] Location: [facility] Ordering: CORINA AGEE Exam Date: 01/01/2025/23:38 Family Phys: LIBBY MCNEIL Charge Code: [id number] Physician: Williams Order #: [id number] Dose#: 28.5 PROCEDURE: CT CHEST/ABD/PELVIS W COMPARISON: None. INDICATIONS: Abdominal pain. TECHNIQUE: After obtaining the patient's consent, CT images were obtained with intravenous contrast material. All CT scans at this facility use dose modulation, iterative reconstruction, and/or weight based dosing when appropriate to reduce radiation dose to as low as reasonably achievable. IV CONTRAST: Omnipaque 350,80ml CHEST DOSE: 10.8 CTDIvol(mGy) ABDOMEN DOSE: 17.1 CTDIvol(mGy) FINDINGS: LUNGS: Normal. No visible pulmonary disease. VASCULATURE: Normal. No visible pulmonary arterial thrombus or attenuation. NO: Normal. No mass or adenopathy. MEDIASTINUM: Normal. No mass or adenopathy. CARDIAC: Normal. No enlargement, pericardial thickening, or significant calcification. PLEURA: Normal. No mass or effusion. CHEST WALL: Normal. No mass or axillary adenopathy. LIVER: Fatty changes of liver are present. There is no evidence of focal abnormality. BILIARY: At least 2 gallbladder calculi are present measuring 5.0 millimeters. There is no evidence of biliary dilatation. PANCREAS: Normal. No lesion, fluid collection, ductal dilatation, or atrophy. SPLEEN: Normal. No enlargement or focal lesion. KIDNEYS: Normal. No mass, obstruction, or calcification. ADRENALS: Normal. No mass or enlargement. AORTA/VASCULAR: Calcification of the aorta is present. No aneurysm or dissection. RETROPERITONEUM: Normal. No mass or adenopathy. BOWEL/MESENTERY: Sigmoid diverticula are present without inflammatory change ABDOMINAL WALL: Normal. No mass or hernia. Continued Report - Page 2 of 2 Patient: DRE SUAREZ Paxton Phone#: : 1960 Age: 64 Gender: M Pt. Type: ER Account: [id number] Location: 052 Ordering: CORINA AGEE Exam Date: 01/01/2025/23:38 Family Phys: LIBBY WHITLOCKDARRICKPOLA Charge Code: [id number] Physician: Williams Order #: [id number] Dose#: 28.5 URINARY BLADDER: Normal. No visible focal wall thickening, lesion, or calculus. PELVIC NODES: Normal. No adenopathy. PELVIC ORGANS: Normal. No visible mass. Pelvic organs appropriate for patient age. BONES: Normal. No bony lesion or fracture. OTHER: Negative. CONCLUSION: 1. Cholelithiasis. 2. Diverticulosis. 3. There is no evidence of pulmonary embolus. Dictated by: Michaela Almeida MD on 01/02/2025 at 20:39 Approved by: Michaela Almeida MD on 01/02/2025 at 20:45 Normal [facility] ED MED ADMINISTRATION DETAIL on 01-02-2025 ED MED ADMINISTRATION DETAIL Electrophysiology Nurse Practitioner - DRE SUAREZ, : 1960, , Medication Administration Record [address] [place] [id number] 01/01/2025 Patient: DRE SUAREZ Sex: Male : 1960 Age: 64y MEASUREMENTS: Wt: 88.5 kg, Ht/Damon: 69.0 in, BMI: 28.80 ALLERGIES: Sulfa (Sulfonamide Antibiotics) Medication Ordered Medication Administration Date/Time Aspirin PO Chew 22:33 08 Aspirin PO Chew 324 mg given. - 22:34 Shante Given 324 mg (NOW x1) Karina Antonio 22:33 01/01/2025 Shante Antonio R.N. Scanned NitroGLYCERIN 22:34 01/01 NitroGLYCERIN Paste Topical 1 inch given. - 22:35 Given Paste Topical 1 Shante Antonio R.N. 22:34 01/01/2025 inch (NOW x1) Shante Antonio R.N. Scanned Heparin IVP 4000 01:35 08 Heparin IVP 4000 unit given via Site# 2. Allergies Given unit (NOW x1, Refer verified and confirmed 5 rights. IV patency established. IV site 01:35 01/02/2025 to Heparin checked: no pain, redness, or swelling. IV flushed thoroughly Richard Patterson R.N. Nomogram for pre-medication administration. IVP given by nurse. Information Scanned Dosing/Titration, reviewed with patient including reason for taking this medication. HIGH ALERT Verbalizes understanding. Medication Wastage: 1000 unit MEDICATION, wasted. - 01:36 Richard Patterson R.N. Round to nearest 50-100 units) 01:35 08 Medication Co-sign: Verified dosage, concentration and rate. - 01:36 Wes Goldstein R.N. 1 of 3 Electrophysiology Nurse Practitioner - DRE SUAREZ, : 1960, , Medication Ordered Medication Administration Date/Time Order Comments: 01:11 01/02/2025 (Cardiac Max dose 4000 units DVT/PE Max dose 8750 units) Corina Didur, D.O. Heparin Drip IV 01:36 01/02 Heparin Drip IV Started (CARDIAC) (CARDIAC) 02314vnupg/250ml 01:36 01/02/2025 28447ytrjc/250ml Premix 05129 unit started in Richard Patterson R.N. Premix 48071 unit bag#1 250 mL at 1000 unit/hr via Scanned at 1000 unit/hr Site# 2. Allergies verified and (refer to heparin confirmed 5 rights. Via IV pump. nomogram/titration, IV patency established. IV site HIGH ALERT checked: no pain, redness, or MEDICATION, NOW swelling. IV flushed thoroughly x1) pre-medication administration. Information reviewed with patient. - 01:37 Richard Patterson R.N. 01:36 01/02 Medication Co-sign: Verified dosage, concentration and rate. - 01:37 Wes Goldstein R.N. 03:54 01/02 Medication Continued: upon transfer at the rate of 1000 unit/hr. 225 mL remaining in bag #1. IV patency established. IV site checked: no pain, redness, or swelling. (Pt transferred to [facility] with heparin gtt infusing at 10ml/hr, 1000units/hr.) - 05:55 Richard Patterson R.N. 2 of 3 Electrophysiology Nurse Practitioner - DRE SUAREZ, : 1960, , Medication Ordered Medication Administration Date/Time Order Comments: 01:11 01/02/2025 (Max initial rate 1000 units/hr Round to nearest 50-100 units) Corina Agee D.O. [address] [facility] ED NURSES CLINICAL NOTEon ED NURSES CLINICAL NOTE Nurse Narrative - DRE SUAREZ, : 1960, , Nurse Clinical Narrative [address] [address] [id number] 01/01/2025 21:56:00 Patient: DRE SUAREZ Sex: Male : 1960 Age: 64y Disposition: Transfer to [facility] Disposition Decision Time: 01:59 01/02/2025 Departure Time: 03:58 01/02/2025 TRIAGE Arrived by private vehicle. Historian: (patient). Accompanied by family. Triage time: 22:00 01/01/2025. Acuity: LEVEL 2. Chief Complaint: CHEST PAIN and DISCOMFORT and UPPER ABDOMINAL PAIN and INDIGESTION. Alert. No acute distress. (pain). Onset. (1 PM). SEPSIS SCREEN: NEGATIVE. SIRS criteria negative. No possible sources of infection. -- :01/01/25 EDT Shante Antonio R.N. 22:01/01/25. BP: 230/114 MAP: 153. HR: 67. RR: 20. O2 saturation: 94% Temperature: 98.1 F. Pain level now 710. -- :01/01/25 EDT Shante Antonio R.N. Measurements: 22:01/01/25 Wt: 88.5 kg, Ht/Damon: 69.0 in, BMI: 28.80 -- 01/01/25 EDT Shante Antonio R.N. Medications: ropinirole 0.25 mg tablet: TAKE ONE TABLET BY MOUTH NIGHTLY -- :01/01/25 EDT Sahnte Antonio R.N. 1 of 5 Nurse Narrative - DRE SUAREZ, : 1960, , sertraline 25 mg tablet: TAKE ONE TABLET BY MOUTH EVERY MORNING -- 22:01/01/25 EDT Shante Antonio R.N. mirtazapine 15 mg tablet: TAKE 1/2 TO 1 TABLET BY MOUTH NIGHTLY -- 22:01/01/25 EDT Shante Antonio R.N. spironolactone 25 mg tablet: TAKE ONE TABLET BY MOUTH EVERY DAY -- 22:01/01/25 EDT Shante Antonio R.N. carvedilol 12.5 mg tablet: TAKE ONE TABLET BY MOUTH TWICE DAILY -- 22:01/01/25 EDT Shante Antonio R.N. Allergies: Sulfa (Sulfonamide Antibiotics) -- 22:16 01/01/25 EDT Shante Antonio R.N. Problems: MGUS -- 22:16 01/01/25 EDT Shante Antonio R.N. Hypertension -- 22:16 01/01/25 EDT Shante Antonio R.N. kidney failure stage II -- 22:17 01/01/25 EDT Shante Antonio R.N. Surgeries: no known surgical history -- 22:18 01/01/25 SAYDAT Shante Antonio R.N. History 22:01/01/25. SOCIAL HX: Never smoker. No alcohol use or drug use. The patient has not traveled outside the [place] Infectious disease exposure: No infectious disease exposure. ABUSE ASSESSMENT: The patient answered yes to the question(s) Do you feel safe in your home? and no to the question(s) Are you afraid to go home?. SELF HARM ASSESSMENT: Self harm assessment was performed. The patient answered no to the question(s) Have you recently felt down, depressed, or hopeless? and Do you have thoughts of harming or killing yourself?. FALL RISK ASSESSMENT: Fall risk assessment completed. No risk factors identified. -- 22:01/01/25 EDT Shante Antonio R.N. 2 of 5 Nurse Narrative - DRE SUAREZ, : 1960, , Interventions 22:01/01/25. Identification band on patient. Advanced care plan discussed with patient. Patient does not have advanced directive. -- 22:01/01/25 EDT Shante Antonio R.N. PHYSICAL ASSESSMENT 22:01/01/25. Ambulatory to room. Patient gowned. GENERAL / NEURO / PSYCH: Alert. Oriented X 4. Appears anxious and in distress. ( mid upper abd hoang , burning like heartburn, into chest, md sternal non-radiating. denies any nausea no sob no dizziness, pt mildly diaphoretic and sweaty). RESPIRATORY: Respirations not labored. Breath sounds within normal limits. CVS: Normal sinus rhythm noted. GI / : The patient has had nausea. Abdominal distention with tenderness to palpation. Abdominal tenderness. EXTREMITIES: No lower extremity edema. SKIN: Skin is warm and dry. -- 23:00 01/01/25 EDT Richard Patterson R.N. NURSING PROGRESS NOTES 22:00 01/01/25. Two (2) unsuccessful IV access attempts in the right antecubital space and wrist. Applied pressure dressing and manual pressure. -- 22:01/01/25 EDT Leo Gastelum-P. 22:13 01/01/25. Site #1 started in the left wrist with an 18g needle with aseptic technique and good blood return; 1 attempt. Blood drawn: rainbow set tube(s). Labeled in the presence of the patient and sent to the lab. Saline lock flushed with 10 mL saline. -- 22:25 01/01/25 EDT Leo Gastelum-P. 22:13 01/01/25. Site #1 started in the left antecubital space with an 18g needle with aseptic technique and good blood return; 1 attempt. Blood drawn: rainbow set tube(s). Labeled in the presence of the patient and sent to the lab. Saline lock flushed with 10 mL saline. -- 22:24 01/01/25 EDT Leo Gastelum-P.Correction -- 22:01/01/25 EDT Leo Gastelum-P. 22:33 01/01/25. Aspirin PO Chew 324 mg given. -- 22:34 01/01/25 EDT Shante Antonio R.N. 22:34 01/01/25. NitroGLYCERIN Paste Topical 1 inch given. -- 22: (more content not included)... Normal [facility] ED ORDER SHEET (CPOE ONLY)on 01-02-2025 ED ORDER SHEET (CPOE ONLY) Order Sheet - DRE SUAREZ, : 1960, , Order Sheet [address] [id number] 01/01/2025 Patient: DRE SUAREZ Sex: Male : 1960 Age: 64y MEASUREMENTS: Wt: 88.5 kg, Ht/Damon: 69.0 in, BMI: 28.80 ALLERGIES: Sulfa (Sulfonamide Antibiotics) MEDICATION/IV/DRIP/FLUI D ORDERS Order Description Priority Entered Acknowledged Completed Aspirin PO Pyaf665 mg (NOW 22:04 01/01/2025 22:25 22:34 x1) Corina Agee D.O. 01/01/2025 01/01/2025 Shante Gastelum E.M.T.-P., R.N. NitroGLYCERIN Paste Topical1 22:04 01/01/2025 22:25 22:35 inch (NOW x1) Corina Agee D.O. 01/01/2025 01/01/2025 Shante Gastelum E.M.T.-P., R.N. Heparin [id number] unit (NOW x1, 01:11 01/02/2025 01:33 01:36 Refer to Heparin Nomogram for Corina Agee D.O. 01/02/2025 01/02/2025 Dosing/Titration, HIGH ALERT Richard Cassidy, MEDICATION, Round to nearest R.N. R.N. 50-100 units) Order Comments: 01:01/02/2025: (Cardiac Max dose 4000 units DVT/PE Max dose 8750 units) Corina Agee D.O. Reason for ordering with alerts: Clinical consideration given --01/02/2025 Corina Agee D.O. Heparin Drip IV (CARDIAC) 01:01/02/2025 01:37 1 of 4 Order Sheet - DRE SUAREZ, : 1960, , [id number]/250ml [id number] Corina Agee D.O. 01/02/2025 unit at 1000 unit/hr (refer to Richard Patterson heparin nomogram/titration, HIGH R.N. ALERT MEDICATION, NOW x1) Order Comments: 01/02/2025: (Max initial rate 1000 units/hr Round to nearest 50-100 units) Corina Agee D.O. Reason for ordering with alerts: Clinical consideration given --01/02/2025 Corina Agee D.O. LAB ORDERS Order Description Priority Entered Acknowledged Collected Completed CBC w Diff Stat Stat 22:04 01/01/2025 22:25 01/01/2025 22:26 01/01/2025 William Millard Bryan Parker, E.MLulaT.-PLula EuLlaM.T.-P. BNP Stat Stat 22:04 01/01/2025 22:25 01/01/2025 22:26 01/01/2025 William Millard Bryan Parker, E.MLulaT.-P. E.M.T.-P. CMP Stat Stat 22:04 01/01/2025 22:25 01/01/2025 22:26 01/01/2025 William Millard Bryan Parker, E.MuLlaT.-P. ELulaMLulaT.-P. D-Dimer Stat Stat 22:04 01/01/2025 22:25 01/01/2025 22:26 01/01/2025 William Millard Bryan Parker, E.MLulaT.-P. ELulaM.T.-P. EKG - ED Stat Stat 22:04 01/01/2025 22:25 01/01/2025 22:26 01/01/2025 William Millard Bryan Parker, E.MLulaT.-P. E.M.T.-P. Troponin-I Protocol Stat 22:04 01/01/2025 22:26 01/01/2025 22:26 01/01/2025 (STAT 1hr) (Sched: q1h William Millard Bryan Parker, X2); Stat 1 of 2 E.M.T.-P. E.M.T.-P. Troponin-I Protocol Stat 22:04 01/01/2025 00:15 01/02/2025 00:15 01/02/2025 (STAT 1hr) (Sched: q1h William Millard Charles Wilbur, X2); Stat 2 of 2 R.N. R.N. 2 of 4 Order Gavin - DRE SUAREZ, : 1960, , Lipase Stat Stat 22:04 01/01/2025 22:25 01/01/2025 22:26 01/01/2025 William Millard Bryan Parker, E.M.T.-PLula ReddyT.-P. CRP Stat Stat 22:04 01/01/2025 22:25 01/01/2025 22:26 01/01/2025 William Millard Bryan Parker, E.M.T.-P. Ivan.KonradT.-P. Lactate, Serum Stat Stat 00:15 01/02/2025 00:15 01/02/2025 00:15 01/02/2025 Richard Cassidy Charles Wilbur, PaxtonNLula R.N. R.N. Verbal Order, Auth by: Corina Agee D.O. Read back and verified PT with INR Stat Stat 00:55 01/02/2025 01:04 01/02/2025 01:05 01/02/2025 William Millard Charles Wilbur R.N. R.N. PTT Stat Stat 00:55 01/02/2025 01:04 01/02/2025 01:05 01/02/2025 William Millard Charles Wilbur R.N. R.N. Troponin-I Protocol Stat 01:45 01/02/2025 05:54 01/02/2025 05:54 01/02/2025 (STAT 1hr) (Sched: q1h William Millard Charles Wilbur, X2); Stat 1 of 2 R.N. R.N. Troponin-I Protocol Stat 01:45 01/02/2025 05:54 01/02/2025 05:54 01/02/2025 (STAT 1hr) (Sched: q1h William Millard Charles Wilbur, X2); Stat 2 of 2 R.N. R.N. DIAGNOSTIC STUDY ORDERS Order Description Priority Entered Acknowledged Completed Chest 1V Stat Stat 22:04 01/01/2025 Cancelled: Wrong Order Corina Agee D.O. 22:19 EDT Corina Agee D.O. 3 of 4 Order Sheet - DRE SUAREZ, : 1960, , Reason for Study: Chest Pain CT Chest/Abd/Pelvis w Cont Stat 22:19 01/01/2025 22:26 00:15 Stat Corina Agee D.O. 01/01/2025 01/02/2025 Richard Gastelum, Nadir.-P. R.N. Reason for Study: Abdominal Pain STAFF ORDERS Order Description Priority Entered Acknowledged Collected Completed Obtain Old EKG 22:04 01/01/2025 22:26 01/01/2025 00:15 01/02/2025 William Millard Charles Wilbur, Leo-P. (more content not included)... Normal [facility] ED PHYSICIAN CLINICAL REPORT on 01-02-2025 ED PHYSICIAN CLINICAL REPORT Narrative - DRE SUAREZ, : 1960, , Physician Clinical Narrative [address] [address] [id number] 01/01/2025 21:56:00 Patient: DRE SUAREZ Sex: Male : 1960 Age: 64y Disposition: Transfer to [facility] Disposition Decision Time: 01:59 01/02/2025 Departure Time: 03:58 01/02/2025 Measurements Wt: 88.5 kg, Ht/Damon: 69.0 in, BMI: 28.80 Initial Vital Sign Measured Time BP MAP HR RR O2Sat ETCO2 Temp Pain GCS RTS 22:21 01/01/2025 230/114 153 67 20 94% 98.1 F 7 Time Seen: 21:53 01/01/2025. Historian- patient. HISTORY OF PRESENT ILLNESS Chief Complaint: CHEST PAIN. It is described as pressure and it is described as located in the epigastric area. This started today and is still present. At its maximum, severity described as 8 / 10. When seen in the E.D., severity described as 6 / 10. The patient has had nausea and has experienced diaphoresis. No vomiting or difficulty breathing. Similar symptoms previously. None. Recent medical care: Not recently seen/assessed. REVIEW OF SYSTEMS GI: The patient has had abdominal pain. No black stools or bloody stools. SKIN: No skin rash. THROAT: No sore throat. NEUROLOGICAL: No fainting episodes or headache. CVS: No pedal edema or calf pain. 1 of 24 DRE Hunter, : 1960, , RESPIRATORY: No cough. CONSTITUTIONAL: No fever or chills. ENDO/HEME/LYMPH: No enlarged lymph nodes. MUSCULOSKELETAL: No joint pain. : No difficulty with urination. EYES: No blurred vision. PAST HISTORY See nurses notes. Hypertension kidney failure stage II MGUS Surgeries: no known surgical history Medications: carvedilol 12.5 mg tablet: TAKE ONE TABLET BY MOUTH TWICE DAILY mirtazapine 15 mg tablet: TAKE 1/2 TO 1 TABLET BY MOUTH NIGHTLY ropinirole 0.25 mg tablet: TAKE ONE TABLET BY MOUTH NIGHTLY sertraline 25 mg tablet: TAKE ONE TABLET BY MOUTH EVERY MORNING spironolactone 25 mg tablet: TAKE ONE TABLET BY MOUTH EVERY DAY Allergies: Sulfa (Sulfonamide Antibiotics) SOCIAL HISTORY Never smoker. No alcohol use or drug use. ADDITIONAL NOTES The nursing notes have been reviewed. PHYSICAL EXAM Appearance: Alert. Oriented X3. No acute distress. Eyes: Pupils equal, round and reactive to light. ENT: Nose normal. Pharynx normal. Neck: Normal inspection. Neck supple. 2 of 24 DRE Hunter, : 1960, , CVS: Normal heart rate and rhythm. Heart sounds normal. Pulses normal. Respiratory: No respiratory distress. Breath sounds normal. Chest nontender. Abdomen: Soft. Moderate tenderness in the periumbilical area with guarding present. No rebound tenderness. Bowel sounds normal. No mass. Skin: Skin warm and dry. No rash. Extremities: Extremities exhibit normal ROM. No lower extremity edema. Neuro: Oriented X 3. No motor deficit. No sensory deficit. LABS, X-RAYS, AND EKG 12-LEAD EKG: EKG time: 21:57 01/01/2025. Normal sinus rhythm. Rate: 67. Normal P waves. Normal QRS complex. Non-specific ST segment / T wave abnormalities. The study has been interpreted contemporaneously by me. The EKG appears to be a good tracing. Interpretation time: 21:58 01/01/2025. 12-LEAD EKG #2: EKG time: 01:40 01/02/2025. Normal sinus rhythm. Rate: 72. Normal P waves. Normal QRS complex. Normal ST and T waves. The study has been interpreted contemporaneously by me. The EKG appears to be a good tracing. Interpretation time: 01:41 01/02/2025. Chest CT: (No acute intrathoracic findings. Mildly prominent left hilar lymph nodes measuring up to [address] performed with contrast. The study was interpreted by the radiologist. Interpretation time: 01:38 01/02/2025. CT Abdomen - Pelvis: Calcified cholelithiasis. The liver is diffusely hypoattenuating, consistent with diffuse fatty infiltration. No acute intra-abdominal findings. Abdomen - pelvic CT performed with IV contrast. The study was interpreted by the radiologist. Interpretation time: 01:38 01/02/2025. Laboratory Tests: C-REACTIVE PROTEIN Final HEATHER: 01/01/2025 22:13:00 EDT MsgRcvd: 01/01/2025 22:56 EDT Lab Test Result Reference Status Received 01/01/2025 22:56 CRP 0.28 mg/dl 0.00 - 0.90 Final EDT 01/01/2025 22:56 CRP 0.28 mg/dl 0.00 - 0.90 Final EDT 01/01/2025 22:56 CRP 0.28 mg/dl 0.00 - 0.90 Final EDT 3 24 Narrative - DRE SUAREZ, : 1960, , 01/01/2025 22:56 CRP 0.28 mg/dl 0.00 - 0.90 Final EDT CBC + DIFF Final HEATHER: 01/01/2025 22:13:00 EDT MsgRcvd: 01/01/2025 22:44 EDT Lab Test Result Reference Status Received 01/01/2025 22:44 CBC + DIFF Final EDT CBC-COMPLETE BLOOD COUNT 17.9 x 10/UL 01/01/2025 22:44 WBC 4.5 - 10.8 Shirley (more content not included)... Normal [facility] ED SUPER BILLon 01-02-2025 [facility] : 1960, , [address] [place] [address] [id number] 01/01/2025 Patient: DRE SUAREZ Sex: Male : 1960 Age: 64y Facility Professional Category Item Description Code Code Quantity Fee Total Nurse/E/M EMERGENCY 412446 1 $0.00 $0.00 DEPT VISIT HIGH SEVERITYFUNCJ (89779-94) Nurse/IV/IM/Infusions Drip/IVPB 175323 1 $0.00 $0.00 additional hour (67108) Nurse/IV/IM/Infusions Drip/IVPB initial [id number] 1 $0.00 $0.00 (58134) Nurse/IV/IM/Infusions IVP additional 299857 1 $0.00 $0.00 push (20088) Grand $0.00 Total Providers Corina Agee D.O. Chief Complaint CHEST PAIN. 1 of 2 [facility] DRE NEGRO, : 1960, , Principal Diagnosis Acute myocardial infarction with elevated markers and no ST elevation (NSTEMI). ICD-10 Codes I21.4: Non-ST elevation (NSTEMI) myocardial infarction 2 of 2 Normal [facility] ED VISIT SUMMARYon ED VISIT SUMMARY Visit Ricki - DRE CALLOWAY : 1960, , Visit [address] [address] [id number] 01/01/2025 Patient: DRE SUAREZ Sex: Male : 1960 Age: 64y 01/02/2025 06:49 AM EDT ED Arrival:21:56 01/01/2025 EDT Status: Recent Travel:no Language:eng Adv Directive:No Isolation Status: Ethnicity:N Fall Risk:no risk Infectious Disease Exposure:no Measurements:5'9 / 175.3 Self-Harm Status:risk Sepsis Screen:negative cm 195.0 lb / 88.5 kg Chief Complaint:CHEST DISCOMFORT, CHEST PAIN, INDIGESTION, UPPER ABDOMINAL PAIN, (1 PM), and (pain) ALLERGIES Sulfa (Sulfonamide Antibiotics) HOME MEDICATIONS carvedilol 12.5 mg tablet: TAKE ONE TABLET BY MOUTH TWICE DAILY mirtazapine 15 mg tablet: TAKE 1/2 TO 1 TABLET BY MOUTH NIGHTLY ropinirole 0.25 mg tablet: TAKE ONE TABLET BY MOUTH NIGHTLY sertraline 25 mg tablet: TAKE ONE TABLET BY MOUTH EVERY MORNING 1 of 4 Visit Overview - DRE SUAREZ, : 1960, , spironolactone 25 mg tablet: TAKE ONE TABLET BY MOUTH EVERY DAY PAST MEDICAL HISTORY / PROBLEMS Hypertension MGUS See nurses notes PAST SURGICAL HISTORY No Surgeries SOCIAL HISTORY Smoking status: No Alcohol use: No Drug use: No ED COURSE MEDICATIONS GIVEN IN EMERGENCY DEPARTMENT 22:33 01/01/25 Aspirin PO Chew 324 mg 22:34 01/01/25 NitroGLYCERIN Paste Topical 1 inch 01:35 01/02/25 Heparin IVP 4000 unit 01:36 01/02/25 Heparin Drip IV (CARDIAC) 21152xumlj/250ml Premix 35573 unit 1000 unit/hr IV SITE INFORMATION 22:13 01/01/25 Site #1 left wrist, 18g. Saline lock. 01:17 01/02/25 Site #2 right hand, 22g. Saline lock. INTAKE OUTPUT REASSESMENT (most recent) 04:04 01/02/25. ( Parrish called to give report spoke with Loida, states she will call me back, they are 'in the middle of a code'). VITAL SIGNS 2 of 4 Visit Overview - DRE SUAREZ, : 1960, , First Vitals Last Vitals Temp 22:21 01/01/25 98.1 F Temp 03:46 01/02/25 BP 22:21 01/01/25 230/114 BP 03:46 01/02/25 HR 22:21 01/01/25 67 HR 03:46 01/02/25 69 RR 22:21 01/01/25 20 RR 03:46 01/02/25 O2 Sat 22:21 01/01/25 94% O2 Sat 03:46 01/02/25 94% Pain 22:21 01/01/25 7 Pain 03:46 01/02/25 ETCO2 22:21 01/01/25 ETCO2 03:46 01/02/25 GCS 22:21 01/01/25 GCS 03:46 01/02/25 RTS 22:21 01/01/25 RTS 03:46 01/02/25 PROCEDURES NURSING INTERVENTIONS LABS / STUDIES LABS / STUDIES ORDERED BNP CBC w Diff CMP CRP CT Chest/Abd/Pelvis w Cont D-Dimer EKG - ED Lactate, Serum Lipase PT with INR PTT Troponin-I Protocol (STAT 1hr) Troponin-I Protocol (STAT 1hr) Troponin-I Protocol (STAT 1hr) Troponin-I Protocol (STAT 1hr) LABS - ABNORMAL RESULTS TROPONIN HS TROPONIN 124.8 pg/mL (HH) , 3 of 4 Visit Overview - DRE SUAREZ, : 1960, , TROPONIN HS TROPONIN 175.0 pg/mL () CLINICAL IMPRESSION ACUTE MYOCARDIAL INFARCTION WITH ELEVATED MARKERS AND NO ST ELEVATION (NSTEMI) 4 of 4 Normal [facility] ED VITALS FLOW SHEETon 01-02 ED VITALS FLOW SHEET Vitals - KAILEY SUAREZ, : 1960, , Vital Sign Flow Sheet [address] [address] [id number] 01/01/2025 Patient: DRE SUAREZ Sex: Male : 1960 Age: 64y Measurements Wt: 88.5 kg, Ht/Damon: 69.0 in, BMI: 28.80 Measured Time BP MAP HR RR O2Sat ETCO2 Temp Pain GCS RTS 03:46 01/02/2025 69 94% 03:41 01/02/2025 68 94% 03:36 01/02/2025 69 94% 03:31 01/02/2025 69 95% 03:26 01/02/2025 69 93% 03:26 01/02/2025 139/81 93 67 02:21 01/02/2025 65 92% 02:18 01/02/2025 156/75 86 68 02:16 01/02/2025 68 94% 02:11 01/02/2025 73 94% 02:06 01/02/2025 70 93% 02:03 01/02/2025 141/71 82 68 02:01 01/02/2025 71 94% 01:56 01/02/2025 69 94% 01:51 01/02/2025 67 93% 1 of 3 Vitals - DRE SUAREZ, : 1960, , Measured Time BP MAP HR RR O2Sat ETCO2 Temp Pain GCS RTS 01:48 01/02/2025 152/71 82 69 01:46 01/02/2025 70 95% 01:41 01/02/2025 73 95% 01:36 01/02/2025 70 94% 01:33 01/02/2025 139/68 81 69 01:31 01/02/2025 70 93% 01:26 01/02/2025 69 94% 01:21 01/02/2025 71 94% 01:16 01/02/2025 68 95% 01:11 01/02/2025 66 96% 01:06 01/02/2025 64 95% 01:03 01/02/2025 157/79 91 63 01:01 01/02/2025 66 96% 00:56 01/02/2025 68 83% 00:51 01/02/2025 64 93% 00:48 01/02/2025 156/82 95 65 00:46 01/02/2025 69 95% 00:41 01/02/2025 71 95% 00:36 01/02/2025 69 94% 00:33 01/02/2025 142/78 89 68 00:31 01/02/2025 68 93% 00:26 01/02/2025 70 93% 00:21 01/02/2025 70 93% 00:18 01/02/2025 140/76 97 68 00:16 01/02/2025 70 93% 2 of 3 Vitals - DRE SUAREZ, : 1960, , Measured Time BP MAP HR RR O2Sat ETCO2 Temp Pain GCS RTS 00:11 01/02/2025 70 93% 00:06 01/02/2025 74 93% 00:03 01/02/2025 163/80 107 71 00:01 01/02/2025 72 92% 23:03 01/01/2025 206/117 146 64 23:01 01/01/2025 64 93% 22:56 01/01/2025 65 94% 22:54 01/01/2025 204/112 142 63 22:51 01/01/2025 65 93% 22:48 01/01/2025 202/108 165 62 22:46 01/01/2025 66 93% 22:41 01/01/2025 69 94% 22:39 01/01/2025 208/117 176 66 22:36 01/01/2025 68 94% 22:33 01/01/2025 211/107 170 66 22:31 01/01/2025 64 94% 22:26 01/01/2025 70 94% 22:21 01/01/2025 230/114 153 67 20 94% 98.1 F 7 3 of 3 Normal [facility] LABORATORYOrdered By: eJy Triana on 01-02-2025 Cholesterol [Mass/Vol] 250 mg/dL High 50 - 199 mg/dL AH ADM SS Comment on above: Interpretive Data: C holesterol Reference Interval: Less than 200 Desirable 200-239 Borderline high risk 240 and above High risk Cholesterol in HDL [Mass/Vol] 67 mg/dL High 40 - 59 mg/dL AH ADM SS Cholesterol in LDL [Mass/Vol] 114 mg/dL Normal 0 - 129 mg/dL AH ADM SS Triglyceride [Mass/Vol] 345 mg/dL High 3 - 149 mg/dL ADM SS LABORATORYOrdered By: SYSTEM SYSTEM on 01-02-2025 Troponin I.cardiac DL <= 0.01 ng/mL [Mass/Vol] 47 ng/L Normal 0 - 54 ng/L ADM SS Comment on above: Interpretive Data: High Sensitive Troponin I Reference Ranges: Female: 0-34 ng/L Male: 0-54 ng/L Testing performed on [employer] IM analyzer using direct chemiluminescent technology. Troponin I.cardiac DL <= 0.01 ng/mL [Mass/Vol] 62 ng/L High 0 - 54 ng/L ADM SS Comment on above: Interpretive Data: High Sensitive Troponin I Reference Ranges: Female: 0-34 ng/L Male: 0-54 ng/L Testing performed on [employer] IM analyzer using direct chemiluminescent technology. Albumin BCP dye [Mass/Vol] 3.7 G/dL Normal 3.2 - 4.8 G/dL ADM SS Albumin/Globulin [Mass ratio] 1.3 {ratio} Normal 0.9 - 1.6 ratio ADM SS ALP [Catalytic activity/Vol] 49 U/L Normal 38 - 126 U/L ADM SS ALT No additional P-5'-P [Catalytic activity/Vol] 42 U/L Normal 12 - 55 U/L ADM SS AST [Catalytic activity/Vol] 25 U/L Normal 8 - 34 U/L ADM SS Bilirubin [Mass/Vol] 0.90 mg/dL Normal 0.20 - 1.20 mg/dL ADM SS Comment on above: Interpretive Data: U se of this assay is not recommended for patients undergoing treatment with eltrombopag due to the potential for falsely elevated results. Globulin 2.9 G/dL Normal 2.5 - 4.2 G/dL ADM SS Natriuretic peptide.B prohormone N-Terminal IA [Mass/Vol] 350 pg/mL Normal 0 - 900 pg/mL ADM SS Protein [Mass/Vol] 6.6 G/dL Normal 5.7 - 8.2 G/dL ADM SS PT Coag (PPP) [Time] 10.2 s Normal 9.0 - 1 4.4 seconds [facility] SS Comment on above: Interpretive Data: E ffective 12/08/07, Protime results may be affected by some antibiotics (i.e. Ciprofloxacin, Azithromycin, Bactrim) which may potentiate the action of oral anticoagulants, with further increases in Protime/INR. 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 TSH Qn 2.751 mIU/mL Normal 0.550 - 4.780 mIU/mL [facility] LACTATEon 01-02-2025 Lactate [Moles/Vol] 1.3 mmol/L Normal 0.4 - 2.0 [facility] Comment on above: Performed By: #### 2 [id number] #### [facility],[address] [place] [address] LIPIDon 01-02-2025 Cholesterol [Mass/Vol] 250 mg/dL High 50-199 [facility] Comment on above: Result Comment: Chol esterol Reference Interval: Less than 200 Desirable 200-239 Borderline high risk 240 and above High risk Performed By: #### P RO, APTT #### [facility] [address] [place] [address] Cholesterol in HDL [Mass/Vol] 67 mg/dL High 40-59 [facility] Comment on above: Performed By: #### P RO, APTT #### [facility] [address] [place] [address] Cholesterol in LDL [Mass/Vol] 114 mg/dL Normal 0-129 [facility] Comment on above: Performed By: #### P RO, APTT #### [address] [address] Triglyceride [Mass/Vol] 345 mg/dL High 3-149 [facility] Comment on above: Performed By: #### P RO, APTT #### [address] [address] MGon 01-02-2025 Magnesium [Mass/Vol] 2.0 mg/dL Normal 1.6-2.4 [facility] Comment on above: Performed By: #### A XANDER, CBC, MG, BMP, ADIFF, GFR #### [address] [address] PBNPon 01-02-2025 Natriuretic peptide B (Bld) [Mass/Vol] 350 pg/mL Normal 0-900 [facility] Comment on above: Performed By: #### A XANDER, CBC, MG, BMP, ADIFF, GFR #### [address] [address] PROon 01-02-2025 INR Coag (PPP) [Relative time] 0.9 {INR} Normal [facility] Comment on above: Result Comment: The [employer] (CHEST, 1992, 102:312S-25S) recommended therapeutic range for oral anticoagulant therapy is: LOW RISK: Prophylaxis of venous thrombosis INR: 2.0-3.0 Treatment of pulmonary embolism 2.0-3.0 Prevention of systemic embolism 2.0-3.0 HIGH RISK: Mechanical prosthetic valves 2.5-3.5 Performed By: #### P RO, APTT #### [address] [address] PT Coag (PPP) [Time] 10.2 s Normal 9.0-14.4 [facility] Comment on above: Result Comment: Effe ctive 12/08/07, Protime results may be affected by some antibiotics (i.e. Ciprofloxacin, Azithromycin, Bactrim) which may potentiate the action of oral anticoagulants, with further increases in Protime/INR. Performed By: #### P RO, APTT #### [address] [address] PROTHROMBIN TIME AND INRon 0 01-02-2025 INR Coag (PPP) [Relative time] 0.9 {INR} Normal 0.8 - 1.2 [facility] Comment on above: Result Comment: T HE HEMOSIL THROMBOPLASTIN REAGENT USED IN THE PROTHROMBIN TIME TEST INTERACTS WITH THE DRUG CUBICIN (DAPTOMYCIN) AND WILL RESULT IN FALSELY ELEVATED PT / INR RESULTS INR INTERPRETATION INR INDICATION PREVENTION AND TREATMENT OF THROMBOEMBOLISM ASSOCIATED WITH: 2.0 - 3.0 ATRIAL FIBRILLATION, BIOPROSTHETIC HEART VALVES, PULMONARY EMBOLISM, VENOUS THROMBOSIS, SYSTEMIC EMBOLISM POST MYOCARDIAL INFARCTION 2.5 - 3.5 MECHANICAL HEART VALVES Performed By: #### 2 05460 #### [facility],[address] [place] [address] PROTHROMBIN TIME AND INR Normal [facility] Comment on above: Result Comment: PROT HROMBIN TIME AND INR Performed By: #### 2 11043 #### [facility],[address] [place] [address] PT-COUMADIN 9.4 sec Normal 9.3 - 14.1 [facility] Comment on above: Performed By: #### 2 81419 #### [facility],[address] [place] [place] [address] 01-02-2025 High Sensitivity Troponin I 47 ng/L Normal 0-54 [facility] Comment on above: Result Comment: High Sensitive Troponin I Reference Ranges: Female: 0-34 ng/L Male: 0-54 ng/L Testing performed on [employer] IM analyzer using direct chemiluminescent technology. Performed By: #### P RO, APTT #### [address] [address] High Sensitivity Troponin I 62 ng/L High 0-54 [facility] Comment on above: Result Comment: High Sensitive Troponin I Reference Ranges: Female: 0-34 ng/L Male: 0-54 ng/L Testing performed on [employer] IM analyzer using direct chemiluminescent technology. Performed By: #### A XANDER, CBC, MG, BMP, ADIFF, GFR #### [address] [address] High Sensitivity Troponin I 115 ng/L High 0-54 [facility] Comment on above: Result Comment: High Sensitive Troponin I Reference Ranges: Female: 0-34 ng/L Male: 0-54 ng/L Testing performed on [employer] analyzer using direct chemiluminescent technology. Performed By: #### A XANDER, CBC, MG, BMP, ADIFF, GFR #### [place] [id number] TROPONINon 01-02-2025 HS TROPONIN 175.0 pg/mL Critically high 0.0 - 76.2 [facility] Comment on above: Result Comment: { CA LLED TO EMILE CASTRO BY SO AT 0414 { READ BACK BY EMILE CASTRO RA AT 0414 Performed By: #### 2 40256 #### [facility],[address] [place] [address] HS TROPONIN 124.8 pg/mL Critically high 0.0 - 76.2 [facility] Comment on above: Result Comment: { CA LLED TO EMILE MORGAN BY SO AT 0047 { READ BACK BY EMILE MORGAN RA AT 46 Performed By: #### 2 69902 #### [facility],[address] [place], [place] [id number] TSHon 01-02-2025 TSH 2.751 mIU/mL Normal 0.550-4.780 [facility] Comment on above: Performed By: #### A XANDER, CBC, MG, BMP, ADIFF, GFR #### [place] [address] XR CHEST 1 VIEWon 01-02-2025 XR CHEST 1 VIEW ORIGINAL EXAMINATION: ONE XRAY VIEW OF THE CHEST 01/02/2025 8:20 am COMPARISON: None. HISTORY: ORDERING SYSTEM PROVIDED HISTORY: Reason for Exam: Chest Pain FINDINGS: Normal cardiomediastinal silhouette. Clear lungs, sharp costophrenic angles. No pneumothorax. Intact bones. IMPRESSION: No acute findings Interpreted by: Hunter Lucero Preliminary Report By: Hunter Lucero Electronically signed By Hunter Lucero Dictated Date: 01/02/2025 8:40:24 AM Prelim Date: 01/02/2025 8:40:47 AM Sign Date: 01/02/2025 8:40:47 AM Ordering Provider: ELIEZER GOMES Normal [facility] C-REACTIVE PROTEINon 025 CRP 0.28 mg/dl Normal 0.00 - 0.90 [facility] Comment on above: Performed By: #### 2 25623 #### [facility],[address] [place] [address] CBC + DIFFon 01-01-2025 Baso # 0.07 x10EE3/UL Normal 0.00 - 0.10 [facility] Comment on above: Performed By: #### 2 58181 #### [facility],[address] [place] [address] Basophils/100 WBC (Bld) 0.4 % Normal 0.0 - 2.0 [facility] Comment on above: Performed By: #### 2 52265 #### [facility],[address] [place] [address] CBC + DIFF Normal [facility] Comment on above: Result Comment: CBC- COMPLETE BLOOD COUNT Performed By: #### 2 66597 #### [facility],[address] [place] [address] EO # 0.23 x10EE3/UL Normal 0.00 - 0.50 [facility] Comment on above: Performed By: #### 2 57652 #### [facility],[address] [place] [address] Eosinophils/100 WBC (Bld) 1.3 % Normal 0.0 - 7.0 [facility] Comment on above: Performed By: #### 2 32205 #### [facility],[address] [place] [address] Erythrocyte distribution width (RBC) [Ratio] 13.5 % Normal 12.0 - 15.6 [facility] Comment on above: Performed By: #### 2 42610 #### [facility],[address] [place] [address] Hematocrit (Bld) [Volume fraction] 50.6 % Normal 40.0 - 52.0 [facility] Comment on above: Result Comment: H&H REPEATED TWICE Performed By: #### 2 91712 #### [facility],[address] [place] [address] Hemoglobin (Bld) [Mass/Vol] 18.1 g/dL High 13.0 - 17.5 [facility] Comment on above: Performed By: #### 2 90450 #### [facility],[address] [place] [address] Lymph # 3.87 x10EE3/UL High 0.80 - 2.80 [facility] Comment on above: Performed By: #### 2 26333 #### [facility],[address] [place] [address] Lymphocytes/100 WBC (Bld) 21.7 % Normal 20.0 - 45.0 [facility] Comment on above: Performed By: #### 2 56616 #### [facility],[address] [place] [address] MANUAL DIFF N/A Normal [facility] Comment on above: Performed By: #### 2 56675 #### [facility],[address] [place] [address] 14187 MCH (RBC) [Entitic mass] 33 pg Normal 27 - 33 [facility] Comment on above: Performed By: #### 2 74153 #### [facility],[address] [place] [address] MCHC 36 X10 3 Normal 32 - 36 [facility] Comment on above: Performed By: #### 2 19017 #### [facility],[address] [place] [address] MCV (RBC) [Entitic vol] 93 fL Normal 81 - 98 [facility] Comment on above: Performed By: #### 2 34265 #### [facility],[address] [place] [address] [place] # 1.27 x10EE3/UL High 0.20 - 1.00 [facility] Comment on above: Performed By: #### 2 33652 #### [facility],[address] [place] [address] MONOS % 7.1 % Normal 0.0 - 10.0 [facility] Comment on above: Performed By: #### 2 98486 #### [facility],[address] [place] [address] Morphology Blas (Bld) [Interp] N/A Normal [facility] Comment on above: Performed By: #### 2 91044 #### [facility],[address] [place] [address] Neut # 12.41 x10EE3/UL High 1.50 - 7.10 [facility] Comment on above: Performed By: #### 2 97844 #### [facility],[address] [place] [address] Neutrophils/100 WBC (Bld) 69.5 % Normal 46.0 - 76.0 [facility] Comment on above: Performed By: #### 2 64287 #### [facility],[address] [place] [address] PLATELET 311 x10EE3/UL Normal 150 - 450 [facility] Comment on above: Performed By: #### 2 45001 #### [facility],[address] [place] [address] Platelet mean volume (Bld) [Entitic vol] 7.1 fL Normal 6.4 - 10.5 [facility] Comment on above: Result Comment: AUTO MATED DIFFERENTIAL Performed By: #### 2 64813 #### [facility],[address] [place] [address] RBC 5.43 x 10EE6/UL Normal 4.50 - 6.00 [facility] Comment on above: Performed By: #### 2 32330 #### [facility],[address] [place] [address] WBC 17.9 x 10EE3/UL High 4.5 - 10.8 [facility] Comment on above: Performed By: #### 2 95953 #### [facility],[address] [place] [address] CMP with eGFRon 01-01-2025 AGE 64 years Normal [facility] Comment on above: Performed By: #### 2 72448 #### [facility],[address] [place] [address] Albumin [Mass/Vol] 3.8 g/dL Normal 3.4 - 5.0 [facility] Comment on above: Performed By: #### 2 47149 #### [facility],[address] [place] [address] Albumin/Globulin [Mass ratio] 1.0 {ratio} Normal 0.9 - 1.6 [facility] Comment on above: Performed By: #### 2 91562 #### [facility],[address] [place] [address] ALK PHOS 62 U/L Normal 46 - 116 [facility] Comment on above: Performed By: #### 2 10768 #### [facility],[address] [place] [address] 18032 ALT [Catalytic activity/Vol] 64 U/L High 16 - 63 [facility] Comment on above: Performed By: #### 2 12763 #### [facility],[address] [place] [address] Anion gap [Moles/Vol] 14 mmol/L Normal 10 - 20 [facility] Comment on above: Performed By: #### 2 68603 #### [facility],[address] [place] [address] AST [Catalytic activity/Vol] 29 U/L Normal 15 - 37 [facility] Comment on above: Performed By: #### 2 02901 #### [facility],[address] [place] [address] B/C RATIO 29 ratio Normal 0 - 30 [facility] Comment on above: Performed By: #### 2 32494 #### [facility],[address] [place] [address] Bilirubin [Mass/Vol] 0.9 mg/dL Normal 0.2 - 1.0 [facility] Comment on above: Performed By: #### 2 82677 #### [facility],[address] [place] [address] Calcium [Mass/Vol] 10.1 mg/dL Normal 8.5 - 10.1 [facility] Comment on above: Performed By: #### 2 05401 #### [facility],[address] [place] [address] Chloride [Moles/Vol] 101 mmol/L Normal 98 - 107 [facility] Comment on above: Performed By: #### 2 95380 #### [facility],[address] [place] [address] CMP with eGFR Normal [facility] Comment on above: Result Comment: COMP REHENSIVE METABOLIC PANEL Performed By: #### 2 90296 #### [facility],[address] [place] [address]261 CO2 [Moles/Vol] 24.5 mmol/L Normal 21.0 - 32.0 [facility] Comment on above: Performed By: #### 2 22871 #### [facility],[address] [place] [address] Creatinine [Mass/Vol] 1.35 mg/dL High 0.70 - 1.30 [facility] Comment on above: Performed By: #### 2 92921 #### [facility],[address] [place] [address] 96445 eGFR 53 ML/MINUTE Low 60 - 999 [facility] Comment on above: Performed By: #### 2 36491 #### [facility],[address] [place] [address] GFR/1.73 sq M.predicted among non-blacks MDRD (S/P/Bld) [Vol rate/Area] mL/min/{1.73_m2} Normal 60 - 999 [facility] Comment on above: Result Comment: ACCO RDING TO THE NATIONAL KIDNEY DISEASE EDUCATION PROGRAM(NKDE), A NORMAL eGFR IS A VALUE GREATER THAN OR EQUAL TO 60 ML/MIN/1.73 SQ METERS. CHRONIC KIDNEY DISEASE: <60mL/MIN/1.73 SQ METERS KIDNEY FAILURE: <15mL/MIN/1.73 SQ METERS THIS TEST SHOULD ONLY BE USED FOR PATIENTS 18 YEARS OF AGE AND OLDER. Performed By: #### 2 82193 #### [facility] [facility],[address] [place] [address] 24579 Globulin (S) [Mass/Vol] 3.8 g/dL Normal 1.5 - 3.8 [facility] Comment on above: Performed By: #### 2 23499 #### [facility],[address] [place] [address] 01579 Glucose [Mass/Vol] 115 mg/dL High 74 - 106 [facility] Comment on above: Performed By: #### 2 54475 #### [facility],[address] [place] [address] 48057 Potassium [Moles/Vol] 4.6 mmol/L Normal 3.5 - 5.1 [facility] Comment on above: Performed By: #### 2 47184 #### [facility],[address] [place] [address] 66147 Protein [Mass/Vol] 7.6 g/dL Normal 6.4 - 8.2 [facility] Comment on above: Performed By: #### 2 95642 #### [facility],[address] [place] [address] 19680 Sodium [Moles/Vol] 135 mmol/L Low 136 - 145 [facility] Comment on above: Performed By: #### 2 88067 #### [facility],[address] [place] [address] 41261 Urea nitrogen [Mass/Vol] 39 mg/dL High 7 - 18 [facility] Comment on above: Performed By: #### 2 89446 #### [facility],[address] [place] [address] 41766 D-DIMER, QUANTITATIVEon 08-0 D-DIMER QUANT <200 Normal 0 - 230 [facility] Comment on above: Performed By: #### 2 64892 #### [address] [address] D-DIMER, QUANTITATIVE Normal [facility] Comment on above: Result Comment: YANNICK T D-DIMER Performed By: #### 2 78863 #### [place] [id number] LIPASEon 01-01-2025 Lipase [Catalytic activity/Vol] 61.0 U/L Normal 15.0 - 78.0 [facility] Comment on above: Result Comment: *PLE ASE NOTE THAT RANGES FOR LIPASE HAVE CHANGED OF 05/23/23 DUE TO AN ASSAY UPDATE BY THE HOSPICE CONSULTANT.THE NEW ASSAY RANGE IS 6-250 U/L, WITH A REFERENCE RANGE OF 16-77 U/L. Performed By: #### 2 42597 #### [address] [address] NT-proBNPon 01-01-2025 Natriuretic peptide B (Bld) [Mass/Vol] 76 pg/mL Normal 0 - 125 [facility] Comment on above: Performed By: #### 2 55600 #### [address] [address] TROPONINon 01-01-2025 HS TROPONIN 14.5 pg/mL Normal 0.0 - 76.2 [facility] Comment on above: Performed By: #### 2 86274 #### [facility],[address] [place] [address] 06186 BMP with eGFRon 11-30-2024 AGE 64 years Normal [facility] Comment on above: Performed By: #### 2 30690 #### [facility],[address] [place] [address] 91006 Anion gap [Moles/Vol] 12 mmol/L Normal 10 - 20 [facility] Comment on above: Performed By: #### 2 72606 #### [facility],[address] [place] [address] 14936 BMP with eGFR Normal [facility] Comment on above: Result Comment: BASI C METABOLIC PANEL Performed By: #### 2 57789 #### [facility],[address] [place] [address] 25054 Calcium [Mass/Vol] 8.5 mg/dL Normal 8.5 - 10.1 [facility] Comment on above: Performed By: #### 2 71451 #### [facility],[address] [place] [address] 56844 Chloride [Moles/Vol] 101 mmol/L Normal 98 - 107 [facility] Comment on above: Performed By: #### 2 07948 #### [facility],[address] [place] [address] 41381 CO2 [Moles/Vol] 25.0 mmol/L Normal 21.0 - 32.0 [facility] Comment on above: Performed By: #### 2 80763 #### [facility],[address] [place] [address] 89120 Creatinine [Mass/Vol] 1.17 mg/dL Normal 0.70 - 1.30 [facility] Comment on above: Performed By: #### 2 07366 #### [facility],[address] [place] [address] 23129 GFR/1.73 sq M.predicted among non-blacks MDRD (S/P/Bld) [Vol rate/Area] mL/min/{1.73_m2} Normal 60 - 999 [facility] Comment on above: Performed By: #### 2 10835 #### [facility],[address] [place] [address] 72584 Result Comment: ACCO RDING TO THE NATIONAL KIDNEY DISEASE EDUCATION PROGRAM(NKDE), A NORMAL eGFR IS A VALUE GREATER THAN OR EQUAL TO 60 ML/MIN/1.73 SQ METERS. CHRONIC KIDNEY DISEASE: <60mL/MIN/1.73 SQ METERS KIDNEY FAILURE: <15mL/MIN/1.73 SQ METERS THIS TEST SHOULD ONLY BE USED FOR PATIENTS 18 YEARS OF AGE AND OLDER. Glucose [Mass/Vol] 101 mg/dL Normal 74 - 106 [facility] Comment on above: Performed By: #### 2 07559 #### [facility],[address] [place] [address] 21771 Potassium [Moles/Vol] 4.1 mmol/L Normal 3.5 - 5.1 [facility] Comment on above: Performed By: #### 2 25978 #### [facility],[address] [place] [address] 23607 Sodium [Moles/Vol] 134 mmol/L Low 136 - 145 [facility] Comment on above: Performed By: #### 2 47526 #### [facility],[address] [place] [address] 62535 Urea nitrogen [Mass/Vol] 12 mg/dL Normal 7 - 18 [facility] Comment on above: Performed By: #### 2 98258 #### [facility],[address] [place] [address] 94084 Bone Survey Comp(Axial Appen d)on 11-24-2024 Bone Survey Comp(Axial Append) [facility] Imaging Services [address] [place] [address]691 Bone Survey Comp(Axial Append) MR#: [id number] Acct: [id number] Name: DRE SUAREZ Rep #: [id number] : 1960 M 64 From: [place] MD PCP: Dr. Libby Mcneil MD Status: REG CLI Study: Bone Survey Comp(Axial Append) Date of Exam: 0 11/24/24 Exam# [id number] Ordering Dr: Sav Jacobs MD PROCEDURE: BONE SURVEY COMP(AXIAL APPEND) 11/24/2024 REASON FOR EXAM: MGUS FINDINGS: Skull: No lytic or blastic bone lesion. C-T-L Spine: No evidence of compression fracture. No lytic or blastic bone lesion. Mild endplate degenerative changes and disc disease of L5-S1. Ribs: Unremarkable. AP Pelvis: Unremarkable. AP Humeri: No lytic or blastic bone lesion. AP Femurs: No lytic or blastic bone lesion. RAD/Bone Survey Comp(Axial Append) IMPRESSION: NO SUSPICIOUS LYTIC OR BLASTIC BONE LESIONS. Reading Location: [facility] CC: Dr. Libby Mcneil MD; Dr. Sav Jacobs MD Able Bodied Watchman: Signed Normal [facility] Oncology Visit Reporton 10-25 Oncology Visit Report [facility] [address] [place] [address] OFFICE VISIT Date of Service: 11/18/24 1024 MR#: [id number] Acct: [id number] Name: DRE SUAREZ Rep #: [id number] : 1960 From: Sav Jacobs MD Age/Sex: 64/M Location: [facility] [place] Status: Signed HPI Subjective Date of Service 11/18/24 Chief Complaint Referred for Monoclonal gammopathy. History of Present Illness 64 y.o.man was found to have monoclonal gammopathy-biclonal IgG kappa light chains and referred for further evaluation. He has joint pains, denies anemia, fever , night sweats or weight loss. He has chronic back pain and has been getting steroid injections. 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 Smoking Status: Never smoker alcohol intake: current alcohol intake frequency: a few times a week diet: other caffeine: No ROS Constitutional Constitutional: Reports systems reviewed and no addt'l complaints, except as documented Eyes Eyes: Reports systems reviewed and no addt'l complaints, except as documented ENT HEENT: Reports systems reviewed and no addt'l complaints, except as documented Cardiovascular Cardiovascular: Reports systems reviewed and no addt'l complaints, except as documented Respiratory/Chest Respiratory/Chest: Reports systems reviewed and no addt'l complaints, except as documented Gastrointestinal Gastrointestinal: Reports systems reviewed and no addt'l complaints, except as documented Genitourinary Genitourinary: Reports systems reviewed and no addt'l complaints, except as documented Musculoskeletal Musculoskeletal: Reports systems reviewed and no addt'l complaints, except as documented Integumentary Integumentary: Reports systems reviewed and no addt'l complaints, except as documented Neurologic Neurologic: Reports systems reviewed and no addt'l complaints, except as documented Psychiatric Psychiatric: Reports systems reviewed and no addt'l complaints, except as documented Endocrine Endocrinology: Reports systems reviewed and no addt'l complaints, except as documented Hematologic/Lymphatic Hematologic/Lymphatic: Reports systems reviewed and no addt'l complaints, except as documented Allergic/Immunologic Allergic/Immunologic: Reports systems reviewed and no addt'l complaints, except as documented Intake Vital Signs 09/24/24 09:46 11/18/24 10:24 Height 5 ft 9 in 5 ft 9 in Weight: 91.172 kg 91.399 kg BMI 29.7 29.7 BP 135/82 H Blood Pressure Location Lt brachial Position Sitting Respiration 16 Pulse 57 L Pulse Source Monitor Temp 97.5 F L Temperature Source Temporal Artery Pulse Oximetry (%) 97 Oxygen Delivery Method room air Intake Accompanied by: Self Is patient in pain?: No Allergies Sulfa (Sulfonamide Antibiotics) Allergy (Verified 11/18/24 10:30) Rash Medications ???Medication ???Instructions ???Recorded ???Confirmed ???Type carvedilol 12.5 mg tablet 12.5 mg PO BID 05/04/24 11/18/24 H istory sertraline 25 mg tablet 25 mg PO QDAY 05/04/24 11/18/24 Hi story spironolactone 25 mg tablet 25 mg PO QDAY 05/04/24 11/18/24 Hi story allopurinol 100 mg tablet 100 mg PO QDAY 11/11/24 11/18/24 H istory hydroxychloroquine 200 mg tablet 200 mg PO BID 11/11/24 11/18/24 Hi story (Plaquenil) mirtazapine 15 mg tablet 15 mg PO QDAY 11/11/24 11/18/24 Hi story prednisone 10 mg tablets in a dose See Rx Instructions PO QDAY PRN 11/11/24 11/18/24 History pack sildenafil 25 mg tablet (Viagra) 25 mg PO QDAY PRN 11/11/24 5 History Central Venous Access Central Venous Access: No Laboratory Tests 10/08/24 10/08/24 10:05 10:06 WBC 9.8 Hgb 16.4 Hct 47.2 Plt Count 229 Absolute Neuts (auto) 6.1 Absolute Lymphs (auto) 2.70 Sodium 135 Potassium 4.5 Chloride 103 Carbon Dioxide 20.3 L BUN 20 H Creatinine 1.20 Glucose 124 H Calcium 9.4 Total Bilirubin 0.54 AST 26 ALT 46 Alkaline Phosphatase 55 Total Protein 7.0 Total Protein (PEP) 6.5 Albumin 4.3 Globulin 2.8 M-Issa Comment: IgG 982 IgA 280 IgM 69 He (more content not included)... Normal [facility] Immunofixation, Serumon 09-24 JUNIOR RESULT,S Comment Abnormal . 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 PLEASE NOTE: Samples from patients receiving DARZALEX(R) (daratumumab) or SARCLISA(R)(isatuximab-[facility]) treatment can appear as an IgG kappa and mask a complete response (CR). If this patient is receiving these therapies, this JUNIOR assay interference can be removed by ordering test number [id number], Daratumumab-Specific, Serum or [id number]-Fnjgyawzglsxoo, Isatuximab-Specific, Serum and submitting a new sample for testing or by calling the lab to add this test to the current sample. Performed By: #### L 3200.1275 ####[facility] [address] [place], [address] IMMUNOGLOB A QN 280 mg/dL Normal 61-437 [facility] Comment on above: Performed By: #### L 3200.1275 ####[facility] [address] [place], [address] IMMUNOGLOB G QN 982 mg/dL Normal 603-1613 [facility] Comment on above: Performed By: #### L 3200.1275 ####[facility] [address] [place], [address] IMMUNOGLOB M QN 69 mg/dL Normal 20-172 [facility] Comment on above: Performed By: #### L 3200.1275 ####[facility] [address] [place], [place], [address] CCP IgG Antibodieson 025 CCP IgG Ab. 8 units Normal 0-19 [facility] Comment on above: Result Comment: Nega tive <20 Weak positive 20 - 39 Moderate positive 40 - 59 Strong positive >59 Performed at: [address] [id number] Learning Coordinator: Gary Salas PhD, Phone: [phone] Performed By: #### L 3600.4030, L3100.3450, L3100.5475, L3890.6301, L4600.0100, L3890.6102, L505.7010, L3890.6202, L100.0100, L500.4050 ####[facility] [address] [place], [address] Immunofixation Urineon 10-12 JUNIOR Urine Comment Normal . [facility] Comment on above: Result Comment: No m onoclonality detected. Performed By: #### L 3600.4030, L3100.3450, L3100.5475, L3890.6301, L4600.0100, L3890.6102, L505.7010, L3890.6202, L100.0100, L500.4050 ####[facility] [address] [place], [place], [phone]) Protein Electroph, Son 10-12 Albumin [Mass/Vol] 3.5 g/dL Normal 2.9-4.4 [facility] Comment on above: Performed By: #### L 3600.4030, L3100.3450, L3100.5475, L3890.6301, L4600.0100, L3890.6102, L505.7010, L3890.6202, L100.0100, L500.4050 ####[facility] [address] [place], [place], [phone](834) Albumin/Globulin [Mass ratio] 1.2 {ratio} Normal 0.7-1.7 [facility] Comment on above: Performed By: #### L 3600.4030, L3100.3450, L3100.5475, L3890.6301, L4600.0100, L3890.6102, L505.7010, L3890.6202, L100.0100, L500.4050 ####[facility] [address] [place], [place], [phone](888) ALPHA-1 GLOBUL 0.2 g/dL Normal 0.0-0.4 [facility] Comment on above: Performed By: #### L 3600.4030, L3100.3450, L3100.5475, L3890.6301, L4600.0100, L3890.6102, L505.7010, L3890.6202, L100.0100, L500.4050 ####[facility] [address] [place], [place], [phone](259) ALPHA-2 GLOBUL 0.6 g/dL Normal 0.4-1.0 [facility] Comment on above: Performed By: #### L 3600.4030, L3100.3450, L3100.5475, L3890.6301, L4600.0100, L3890.6102, L505.7010, L3890.6202, L100.0100, L500.4050 ####[facility] [address] [place], [place], [phone] BETA GLOBULIN 1.2 g/dL Normal 0.7-1.3 [facility] Comment on above: Performed By: #### L 3600.4030, L3100.3450, L3100.5475, L3890.6301, L4600.0100, L3890.6102, L505.7010, L3890.6202, L100.0100, L500.4050 ####[facility] [address] [place], [address] GAMMA GLOBULIN 0.9 g/dL Normal 0.4-1.8 [facility] Comment on above: Performed By: #### L 3600.4030, L3100.3450, L3100.5475, L3890.6301, L4600.0100, L3890.6102, L505.7010, L3890.6202, L100.0100, L500.4050 ####[facility] [address] [place], [address] Globulin (S) [Mass/Vol] 3.0 g/dL Normal 2.2-3.9 [facility] Comment on above: Performed By: #### L 3600.4030, L3100.3450, L3100.5475, L3890.6301, L4600.0100, L3890.6102, L505.7010, L3890.6202, L100.0100, L500.4050 ####[facility] [address] [place], [address] INTERPRETATION Comment Normal . [facility] Comment on above: Result Comment: Prot ein electrophoresis scan will follow via computer, mail, or laser print operator delivery. Performed By: #### L 3600.4030, L3100.3450, L3100.5475, L3890.6301, L4600.0100, L3890.6102, L505.7010, L3890.6202, L100.0100, L500.4050 ####[facility] [address] [place], [address] M-SPIKE Comment: Normal Not Observed [facility] Comment on above: Result Comment: M-SP TRUDY #1 = 0.3 g/dl M-SPIKE #2 = 0.2 g/dl Performed By: #### L 3600.4030, L3100.3450, L3100.5475, L3890.6301, L4600.0100, L3890.6102, L505.7010, L3890.6202, L100.0100, L500.4050 ####[facility] [address] [place], [address] NOTE: Comment Normal . [facility] Comment on above: Result Comment: The SPE pattern demonstrates two peaks in the beta-gamma region which may represent monoclonal protein. A biclonal gammopathy may be confirmed by immunofixation, as well as evaluation of the urine for the presence of Bence-Abraham protein. Performed By: #### L 3600.4030, L3100.3450, L3100.5475, L3890.6301, L4600.0100, L3890.6102, L505.7010, L3890.6202, L100.0100, L500.4050 ####[facility] [address] [place], [address] Protein [Mass/Vol] 6.5 g/dL Normal 6.0-8.5 [facility] Comment on above: Performed By: #### L 3600.4030, L3100.3450, L3100.5475, L3890.6301, L4600.0100, L3890.6102, L505.7010, L3890.6202, L100.0100, L500.4050 ####[facility] [address] [place], [place], [phone] ANTINUCLEAR ANTIBODIES DIREC Ton 10-11-2024 GERI,DIRECT Negative Normal Negative [facility] Comment on above: Result Comment: Perf ormed at: - [facility] [address] [id number] Learning Coordinator: Gary Salas PhD, Phone: [phone] Performed By: #### L 3600.4030, L3100.3450, L3100.5475, L3890.6301, L4600.0100, L3890.6102, L505.7010, L3890.6202, L100.0100, L500.4050 ####[facility] [address] [place], [place], [phone] Absolute lymphocyte countOrd ered By: Ct Worley on 10-08-2024 Lymphocytes Auto (Unsp spec) [#/Vol] 2.70 10*3/uL 0.83-4.51 [facility] Absolute neutrophil countOrd ered By: Ct Worley on 10-08-2024 Neutrophils (Bld) [#/Vol] 6.1 10*3/uL 2.0-7.7 [facility] Albumin Elph [Mass/Vol]Order ed By: Ct Worley on 10-08-2024 Albumin [Mass/Vol] 3.5 g/dL 2.9-4.4 [facility] Anion gap in Serum or Plasma Ordered By: Ct Worley on 10-08-2024 Anion gap [Moles/Vol] 12 mmol/L 5-15 [facility] Automated lymphocyte count a s percentage of total leukocytesOrdered By: Ct Worley on 10-08-2024 Lymphocytes/100 WBC Auto (Unsp spec) 27.5 % 19-41 [facility] BUN/creatinine ratioOrdered By: Ct Worley on 10-08-2024 Urea nitrogen/Creatinine [Mass ratio] 16.5 mg/mg 10-20 [facility] Basophil percentageOrdered B y: Ct Raglandeloy on 10-08-2024 Basophils/100 WBC (Bld) 0.4 % 0-1 [facility] Bilirubin, totalOrdered By: Ct Raglandeloy on 10-08-2024 Bilirubin [Mass/Vol] 0.54 mg/dL 0.00-1.30 [facility] CBC W/Diff, Automatedon 09-23 Absolute Lymph 2.70 X10 3/uL Normal 0.83-4.51 [facility] Comment on above: Performed By: #### L 3600.4030, L3100.3450, L3100.5475, L3890.6301, L4600.0100, L3890.6102, L505.7010, L3890.6202, L100.0100, L500.4050 ####[facility] [address] [place], [address] Absolute Neut 6.1 X10 3/uL Normal 2.0-7.7 [facility] Comment on above: Performed By: #### L 3600.4030, L3100.3450, L3100.5475, L3890.6301, L4600.0100, L3890.6102, L505.7010, L3890.6202, L100.0100, L500.4050 ####[facility] [address] [place], [address] Basophils/100 WBC (Bld) 0.4 % Normal 0-1 [facility] Comment on above: Performed By: #### L 3600.4030, L3100.3450, L3100.5475, L3890.6301, L4600.0100, L3890.6102, L505.7010, L3890.6202, L100.0100, L500.4050 ####[facility] [address] [place], [address] Eosinophils/100 WBC (Bld) 1.1 % Normal 0-5 [facility] Comment on above: Performed By: #### L 3600.4030, L3100.3450, L3100.5475, L3890.6301, L4600.0100, L3890.6102, L505.7010, L3890.6202, L100.0100, L500.4050 ####[facility] [address] [place], [address] Erythrocyte distribution width (RBC) [Ratio] 12.7 % Normal 11.6-14.6 [facility] Comment on above: Performed By: #### L 3600.4030, L3100.3450, L3100.5475, L3890.6301, L4600.0100, L3890.6102, L505.7010, L3890.6202, L100.0100, L500.4050 ####[facility] [address] [place], [address] Hematocrit (Bld) [Volume fraction] 47.2 % Normal 40-54 [facility] Comment on above: Performed By: #### L 3600.4030, L3100.3450, L3100.5475, L3890.6301, L4600.0100, L3890.6102, L505.7010, L3890.6202, L100.0100, L500.4050 ####[facility] [address] [place], [address] Hemoglobin (Bld) [Mass/Vol] 16.4 g/dL Normal 13.0-16.5 [facility] Comment on above: Performed By: #### L 3600.4030, L3100.3450, L3100.5475, L3890.6301, L4600.0100, L3890.6102, L505.7010, L3890.6202, L100.0100, L500.4050 ####[facility] [address] [place], [address] IG% 0.500 Normal 0.0-0.9 [facility] Comment on above: Result Comment: IG% - Immature Granulocytes (promyelocytes, myelocytes and metamyelocytes) > 1% indicates that a LEFT SHIFT is Present. Performed By: #### L 3600.4030, L3100.3450, L3100.5475, L3890.6301, L4600.0100, L3890.6102, L505.7010, L3890.6202, L100.0100, L500.4050 ####[facility] [address] [place], [address] Lymphocytes/100 WBC (Bld) 27.5 % Normal 19-41 [facility] Comment on above: Performed By: #### L 3600.4030, L3100.3450, L3100.5475, L3890.6301, L4600.0100, L3890.6102, L505.7010, L3890.6202, L100.0100, L500.4050 ####[facility] [address] [place], [address] MCH (RBC) [Entitic mass] 31.8 pg Normal 27.0-32.0 [facility] Comment on above: Performed By: #### L 3600.4030, L3100.3450, L3100.5475, L3890.6301, L4600.0100, L3890.6102, L505.7010, L3890.6202, L100.0100, L500.4050 ####[facility] [address] [place], [address] MCHC (RBC) [Mass/Vol] 34.7 g/dL Normal 32-36 [facility] Comment on above: Performed By: #### L 3600.4030, L3100.3450, L3100.5475, L3890.6301, L4600.0100, L3890.6102, L505.7010, L3890.6202, L100.0100, L500.4050 ####[facility] [address] [place], [address] MCV (RBC) [Entitic vol] 91.7 fL Normal 80-94 [facility] Comment on above: Performed By: #### L 3600.4030, L3100.3450, L3100.5475, L3890.6301, L4600.0100, L3890.6102, L505.7010, L3890.6202, L100.0100, L500.4050 ####[facility] [address] [place], [address] Monocytes/100 WBC (Bld) 8.6 % Normal 0-10 [facility] Comment on above: Performed By: #### L 3600.4030, L3100.3450, L3100.5475, L3890.6301, L4600.0100, L3890.6102, L505.7010, L3890.6202, L100.0100, L500.4050 ####[facility] [address] [place], [address] Neutrophils/100 WBC (Bld) 61.9 % Normal 47-70 [facility] Comment on above: Performed By: #### L 3600.4030, L3100.3450, L3100.5475, L3890.6301, L4600.0100, L3890.6102, L505.7010, L3890.6202, L100.0100, L500.4050 ####[facility] [address] [place], [address] Nucleated RBC (Bld) [#/Vol] 0 10*3/uL Normal 0-5 [facility] Comment on above: Performed By: #### L 3600.4030, L3100.3450, L3100.5475, L3890.6301, L4600.0100, L3890.6102, L505.7010, L3890.6202, L100.0100, L500.4050 ####[facility] [address] [place], [address] Platelet mean volume (Bld) [Entitic vol] 9.7 fL Normal 6.2-12.0 [facility] Comment on above: Performed By: #### L 3600.4030, L3100.3450, L3100.5475, L3890.6301, L4600.0100, L3890.6102, L505.7010, L3890.6202, L100.0100, L500.4050 ####[facility] [address] [place], [address](904) Platelets (Bld) [#/Vol] 229 10*3/uL Normal 150-450 [facility] Comment on above: Performed By: #### L 3600.4030, L3100.3450, L3100.5475, L3890.6301, L4600.0100, L3890.6102, L505.7010, L3890.6202, L100.0100, L500.4050 ####[facility] [address] [place], [address] RBC (Bld) [#/Vol] 5.15 10*6/uL Normal 4.6-6.2 [facility] Comment on above: Performed By: #### L 3600.4030, L3100.3450, L3100.5475, L3890.6301, L4600.0100, L3890.6102, L505.7010, L3890.6202, L100.0100, L500.4050 ####[facility] [address] [place], [address] RDW SD 42.3 fl Normal 35.1-43.9 [facility] Comment on above: Performed By: #### L 3600.4030, L3100.3450, L3100.5475, L3890.6301, L4600.0100, L3890.6102, L505.7010, L3890.6202, L100.0100, L500.4050 ####[facility] [address] [place], [place], [phone](251) WBC (Bld) [#/Vol] 9.8 10*3/uL Normal 4.4-11.0 [facility] Comment on above: Performed By: #### L 3600.4030, L3100.3450, L3100.5475, L3890.6301, L4600.0100, L3890.6102, L505.7010, L3890.6202, L100.0100, L500.4050 ####[facility] [address] [place], [address](384) Carbon dioxide, total [Moles /volume] in Central venous bloodOrdered By: Ct Worley on 10-08-2024 CO2 [Moles/Vol] 20.3 mmol/L Low 21.0-32.0 [facility] Chloride assayOrdered By: Esteban Worley on 10-08-2024 Chloride [Moles/Vol] 103 mmol/L 98-108 [facility] Comprehensive Metabolic Prof ilon 10-08-2024 Albumin [Mass/Vol] 4.3 g/dL Normal 3.4-4.8 [facility] Comment on above: Performed By: #### L 3600.4030, L3100.3450, L3100.5475, L3890.6301, L4600.0100, L3890.6102, L505.7010, L3890.6202, L100.0100, L500.4050 ####[facility] [address] [place], [address] Albumin/Globulin [Mass ratio] 1.5 {ratio} Normal 0.9-2.4 [facility] Comment on above: Performed By: #### L 3600.4030, L3100.3450, L3100.5475, L3890.6301, L4600.0100, L3890.6102, L505.7010, L3890.6202, L100.0100, L500.4050 ####[facility] [address] [place], [place], [phone] ALK PHOS 55 U/L Normal 40-129 [facility] Comment on above: Performed By: #### L 3600.4030, L3100.3450, L3100.5475, L3890.6301, L4600.0100, L3890.6102, L505.7010, L3890.6202, L100.0100, L500.4050 ####[facility] [address] [place], [address] ALT [Catalytic activity/Vol] 46 U/L Normal <=46 [facility] Comment on above: Performed By: #### L 3600.4030, L3100.3450, L3100.5475, L3890.6301, L4600.0100, L3890.6102, L505.7010, L3890.6202, L100.0100, L500.4050 ####[facility] [address] [place], [address] AST [Catalytic activity/Vol] 26 U/L Normal <=37 [facility] Comment on above: Performed By: #### L 3600.4030, L3100.3450, L3100.5475, L3890.6301, L4600.0100, L3890.6102, L505.7010, L3890.6202, L100.0100, L500.4050 ####[facility] [address] [place], [place], [phone] Bilirubin [Mass/Vol] 0.54 mg/dL Normal 0.00-1.30 [facility] Comment on above: Performed By: #### L 3600.4030, L3100.3450, L3100.5475, L3890.6301, L4600.0100, L3890.6102, L505.7010, L3890.6202, L100.0100, L500.4050 ####[facility] [address] [place], [address] BUN/CRE 16.5 RATIO Normal 10-20 [facility] Comment on above: Performed By: #### L 3600.4030, L3100.3450, L3100.5475, L3890.6301, L4600.0100, L3890.6102, L505.7010, L3890.6202, L100.0100, L500.4050 ####[facility] [address] [place], [address] Calcium [Mass/Vol] 9.4 mg/dL Normal 7.6-11.0 [facility] Comment on above: Performed By: #### L 3600.4030, L3100.3450, L3100.5475, L3890.6301, L4600.0100, L3890.6102, L505.7010, L3890.6202, L100.0100, L500.4050 ####[facility] [address] [place], [address] Chloride [Moles/Vol] 103 mmol/L Normal 98-108 [facility] Comment on above: Performed By: #### L 3600.4030, L3100.3450, L3100.5475, L3890.6301, L4600.0100, L3890.6102, L505.7010, L3890.6202, L100.0100, L500.4050 ####[facility] [address] [place], [address] CO2 [Moles/Vol] 20.3 mmol/L Low 21.0-32.0 [facility] Comment on above: Performed By: #### L 3600.4030, L3100.3450, L3100.5475, L3890.6301, L4600.0100, L3890.6102, L505.7010, L3890.6202, L100.0100, L500.4050 ####[facility] [address] [place], [place], [phone](875) Creatinine [Mass/Vol] 1.20 mg/dL Normal 0.70-1.20 [facility] Comment on above: Performed By: #### L 3600.4030, L3100.3450, L3100.5475, L3890.6301, L4600.0100, L3890.6102, L505.7010, L3890.6202, L100.0100, L500.4050 ####[facility] [address] [place], [place], [phone](144) GAP 12 Normal 5-15 [facility] Comment on above: Performed By: #### L 3600.4030, L3100.3450, L3100.5475, L3890.6301, L4600.0100, L3890.6102, L505.7010, L3890.6202, L100.0100, L500.4050 ####[facility] [address] [place], [place], [phone](738) GFR/1.73 sq M.predicted among non-blacks MDRD (S/P/Bld) [Vol rate/Area] 68 mL/min/{1.73_m2} Normal >60 [facility] Comment on above: Result Comment: mL/m in/1.73m2 CKD-EPI Creatinine Equation (2020) Performed By: #### L 3600.4030, L3100.3450, L3100.5475, L3890.6301, L4600.0100, L3890.6102, L505.7010, L3890.6202, L100.0100, L500.4050 ####[facility] [address] [place], [address](628) Globulin (S) [Mass/Vol] 2.8 g/dL Normal 2.2-4.2 [facility] Comment on above: Performed By: #### L 3600.4030, L3100.3450, L3100.5475, L3890.6301, L4600.0100, L3890.6102, L505.7010, L3890.6202, L100.0100, L500.4050 ####[facility] [address] [place], [address] Glucose [Mass/Vol] 124 mg/dL High 70-99 [facility] Comment on above: Performed By: #### L 3600.4030, L3100.3450, L3100.5475, L3890.6301, L4600.0100, L3890.6102, L505.7010, L3890.6202, L100.0100, L500.4050 ####[facility] [address] [place], [place], [phone](904) Potassium [Moles/Vol] 4.5 mmol/L Normal 3.3-5.1 [facility] Comment on above: Performed By: #### L 3600.4030, L3100.3450, L3100.5475, L3890.6301, L4600.0100, L3890.6102, L505.7010, L3890.6202, L100.0100, L500.4050 ####[facility] [address] [place], [address] Sodium [Moles/Vol] 135 mmol/L Normal 133-145 [facility] Comment on above: Performed By: #### L 3600.4030, L3100.3450, L3100.5475, L3890.6301, L4600.0100, L3890.6102, L505.7010, L3890.6202, L100.0100, L500.4050 ####[facility] [address] [place], [place], [phone] T PROT 7.0 g/dL Normal 5.9-8.4 [facility] Comment on above: Performed By: #### L 3600.4030, L3100.3450, L3100.5475, L3890.6301, L4600.0100, L3890.6102, L505.7010, L3890.6202, L100.0100, L500.4050 ####[facility] [address] [place], [place], [phone] Urea nitrogen [Mass/Vol] 20 mg/dL High 4-19 [facility] Comment on above: Performed By: #### L 3600.4030, L3100.3450, L3100.5475, L3890.6301, L4600.0100, L3890.6102, L505.7010, L3890.6202, L100.0100, L500.4050 ####[facility] [address] [place], [place], [phone] Eosinophil percentageOrdered By: Ct Worley on 10-08-2024 Eosinophils/100 WBC (Bld) 1.1 % 0-5 [facility] Erythrocyte distribution wid th ratioOrdered By: Ct Worley on 10-08-2024 Erythrocyte distribution width (RBC) [Ratio] 12.7 % 11.6-14.6 [facility] Erythrocyte distribution wid th standard deviationOrdered By: Ctda Worley on 10-08-2024 Erythrocyte distribution width (RBC) [Ratio] 42.3 fl 35.1-43.9 [facility] Glomerular filtration rate ( GFR) estimation/1.73 sq m using serum, plasma, or whole bOrdered By: Ct Worley on 10-08-2024 GFR/1.73 sq M.predicted among non-blacks MDRD (S/P/Bld) [Vol rate/Area] 68 mL/min/{1.73_m2} >60 [facility] Comment on above: mL/min/1.73m2 CKD-EP I Creatinine Equation (2020) Hematocrit Auto (Bld) [Volum e fraction]Ordered By: Ct Worley on 10-08-2024 Hematocrit (Bld) [Volume fraction] 47.2 % 40-54 [facility] Hemoglobin measurementOrdere d By: Ct Worley on 10-08-2024 Hemoglobin (Bld) [Mass/Vol] 16.4 g/dL 13.0-16.5 [facility] Hepatitis B Surface Antibody on 10-08-2024 HEP B Surf Ab Non-Reactive Normal [facility] Comment on above: Result Comment: <8.5 mIU/mL: Non-Reactive 8.5<= x <11.5 mIU/mL: Indeterminate >=11.5 mIU/mL: Reactive Non Reactive: Inconsistent with immunity less than <10 mIU/mL Reactive: Consistent with immunity greater than or equal to 10 mIU/mL Performed By: #### L 3600.4030, L3100.3450, L3100.5475, L3890.6301, L4600.0100, L3890.6102, L505.7010, L3890.6202, L100.0100, L500.4050 ####[facility] [address] [place], [place], [phone] Hepatitis C Antibodyon 10-08 Hepatitis C Ab Non-Reactive Normal Nonreactive [facility] Comment on above: Result Comment: Reac tive: Presumptive evidence of antibodies to HCV. Follow CDC recommendations for supplemental testing. Non-Reactive: Antibodies to HCV were not detected; does not exclude the possibility of exposure to HCV Reactive Results are presumptive evidence of antibodies to HCV. Follow CDC recommendations for supplemental testing. Order confirmation testing: HCV Quant by PCR testing - HCVPCR #[id number] Non Reactive: < 0.8 Equivocal: >/= 0.8 to < 1.0 Reactive: >/= 1.0 The CDC requires that a reactive/equivocal HCV antibody result be sent out for confirmation. HCV Quant by PCR testing. Performed By: #### L 3600.4030, L3100.3450, L3100.5475, L3890.6301, L4600.0100, L3890.6102, L505.7010, L3890.6202, L100.0100, L500.4050 ####[facility] [address] [place], [place], [phone] Immature granulocytes/100 WB C Auto (Bld)Ordered By: Ct Worley on 10-08-2024 Immature granulocytes/100 WBC (Bld) 0.500 % 0.0-0.9 [facility] Comment on above: IG% - Immature Granu locytes (promyelocytes, myelocytes and metamyelocytes) > 1% indicates that a LEFT SHIFT is Present. L3890.6102on 10-08-2024 HEP B Surf Ag Non-Reactive Normal Nonreactive [facility] Comment on above: Result Comment: Reac tive: Presumptive evidence of HBV. Repeatedly reactive samples must be confirmed using a neutralization test ([employer] HBsAg Confirmatory Test) Non-Reactive: HBsAg not detected; does not exclude the possibility of exposure to HBV Performed By: #### L 3600.4030, L3100.3450, L3100.5475, L3890.6301, L4600.0100, L3890.6102, L505.7010, L3890.6202, L100.0100, L500.4050 ####[facility] [address] [place], [place], [phone] Laboratory - Chemistry and C hemistry - challengeOrdered By: Ct Worley on 10-08-2024 AST [Catalytic activity/Vol] 26 U/L <38 [facility] Laboratory - Microbiology an d Antimicrobial susceptibilityOrdered By: Ct Worley on 10-08-2024 HBV surface Ag Ql (S) Non-Reactive Nonreactive [facility] Comment on above: Reactive: Presumptiv e evidence of HBV. Repeatedly reactive samples must be confirmed using a neutralization test ([employer] HBsAg Confirmatory Test)Non-Reactive: HBsAg not detected; does not exclude the possibility of exposure to HBV MCV (mean corpuscular volume ) determinationOrdered By: Ct Worley on 10-08-2024 MCV (RBC) [Entitic vol] 91.7 fL 80-94 [facility] Mean corpuscular hemoglobin (MCH) determinationOrdered By: Ct Worley on 10-08-2024 MCH (RBC) [Entitic mass] 31.8 pg 27.0-32.0 [facility] Mean corpuscular hemoglobin concentration (MCHC) determinationOrdered By: Ct Worley on 10-08-2024 MCHC (RBC) [Mass/Vol] 34.7 g/dL 32-36 [facility] Mean platelet volume determi nationOrdered By: Ct Worley on 10-08-2024 Platelet mean volume (Bld) [Entitic vol] 9.7 fL 6.2-12.0 [facility] Monocyte percentageOrdered B y: Ct Worley on 10-08-2024 Monocytes/100 WBC (Bld) 8.6 % 0-10 [facility] Neutrophil percentageOrdered By: Ct Worley on 10-08-2024 Neutrophils/100 WBC (Bld) 61.9 % 47-70 [facility] No Panel InformationOrdered By: Ct Worley on 10-08-2024 Addendum Document Comment . [facility] Comment on above: The SPE pattern demo nstrates two peaks in the beta-gammaregion which may represent monoclonal protein. A biclonalgammopathy may be confirmed by immunofixation, as well asevaluation of the urine for the presence of Bence-Jonesprotein. Nucleated red blood cell per centageOrdered By: Ct Worley on 10-08-2024 Nucleated RBC/100 WBC (Bld) [Ratio] 0 % 0-5 [facility] Pelvis 1 or 2 Viewson 2024 Pelvis 1 or 2 Views [facility] Imaging Services [address] [place] [address] Pelvis 1 or 2 Views MR#: [id number] Acct: [id number] Name: DRE SUAREZ Rep #: [id number] : 1960 M 64 From: Waldo Nance MD PCP: Dr. Libby Mcneil MD Status: REG CLI Study: Pelvis 1 or 2 Views Date of Exam: 10/08/24 Exam# [id number] Ordering Dr: Ct Worley MD PROCEDURE: PELVIS 1 OR 2 VIEWS 10/08/2024 REASON FOR EXAM: INFLAMMATORY POLYARTHROPATHY TECHNIQUE: 1 view(s) of the pelvis. COMPARISON: None available FINDINGS: Bilateral symmetric appearing SI joints and pubic symphysis appear within limits. No sclerosis or erosive change identified. The hip joints appear within limits. No fracture or dislocation. Visualized lower lumbar spine appears within limits. RAD/Pelvis 1 or 2 Views IMPRESSION: Study appears within limits. Reading Location: [id number] CC: Dr. Libby Mcneil MD; Dr. Ct Worley MD Able Bodied Watchman: Signed Normal [facility] Platelet countOrdered By: Esteban Worley on 10-08-2024 Platelets (Bld) [#/Vol] 229 10*3/uL 150-450 [facility] Potassium measurement (mass/ volume)Ordered By: Ct Worley on 10-08-2024 Potassium (Unsp spec) [Mass/Vol] 4.5 mmol/L 3.3-5.1 [facility] Protein Fractions Elph [Inte rp]Ordered By: Ct Worley on 10-08-2024 Protein Fractions [Interp] Comment . [facility] Comment on above: Protein electrophore sis scan will follow via computer,mail, or laser print operator delivery. RBC Auto (Bld) [#/Vol]Ordere d By: Ct Worley on 10-08-2024 RBC (Bld) [#/Vol] 5.15 10*6/uL 4.6-6.2 [facility] Rheumatoid Factoron 10-09-19 25 RHEUMATOID FAC < 10.0 Normal <15 [facility] Comment on above: Performed By: #### L 3600.4030, L3100.3450, L3100.5475, L3890.6301, L4600.0100, L3890.6102, L505.7010, L3890.6202, L100.0100, L500.4050 ####[facility] [address] [place], [address] Serum albumin to globulin ra angle by protein electrophoresisOrdered By: Ct Worley on 10-08-2024 Albumin/Globulin Elph [Mass ratio] 1.2 0.7-1.7 [facility] Serum creatinine measurement (mass/volume)Ordered By: Ct Worley on 10-08-2024 Creatinine [Mass/Vol] 1.20 mg/dL 0.70-1.20 [facility] Serum globulin measurementOr dered By: Ct Worley on 10-08-2024 Globulin (S) [Mass/Vol] 2.8 g/dL 2.2-4.2 [facility] Serum globulin measurement ( mass/volume)Ordered By: Ct Worley on 10-08-2024 Globulin (S) [Mass/Vol] 3.0 g/dL 2.2-3.9 [facility] Serum glucose measurement (m ass/volume)Ordered By: Ct Worley on 10-08-2024 Glucose [Mass/Vol] 124 mg/dL High 70-99 [facility] Serum hepatitis B virus surf vicki antibody detectionOrdered By: Ct Worley on 10-08-2024 HBV surface Ab Ql (S) Non-Reactive [facility] Comment on above: <8.5 mIU/mL: Non-Arely ctive8.5<= x <11.5 mIU/mL: Indeterminate>=11.5 mIU/mL: Reactive Non Reactive: Inconsistent with immunity less than <10 mIU/mL Reactive: Consistent with immunity greater than or equal to 10 mIU/mL Serum or plasma IgA measurem ent (mass/volume)Ordered By: Ct Worley on 10-08-2024 IgA [Mass/Vol] 280 mg/dL 61-437 [facility] Serum or plasma IgG measurem ent (mass/volume)Ordered By: Ct Worley on 10-08-2024 IgG [Mass/Vol] 982 mg/dL 603-1613 [facility] Serum or plasma alanine hi otransferase (ALT) measurementOrdered By: Ct Worley on 10-08-2024 ALT [Catalytic activity/Vol] 46 U/L <47 [facility] Serum or plasma albumin giovanny urement (mass/volume)Ordered By: Ct Worley on 10-08-2024 Albumin [Mass/Vol] 4.3 g/dL 3.4-4.8 [facility] Serum or plasma albumin/glob ulin mass ratioOrdered By: Ct Worley on 10-08-2024 Albumin/Globulin [Mass ratio] 1.5 {ratio} 0.9-2.4 [facility] Serum or plasma alkaline liam sphatase measurementOrdered By: Ct Worley on 10-08-2024 ALP [Catalytic activity/Vol] 55 U/L 40-129 [facility] Serum or plasma beta globuli n measurement by electrophoresis (mass/volume)Ordered By: Ct Worley on 10-08-2024 Beta globulin Elph [Mass/Vol] 1.2 g/dL 0.7-1.3 [facility] Serum or plasma calcium giovanny urement (mass/volume)Ordered By: Ct Worley on 10-08-2024 Calcium [Mass/Vol] 9.4 mg/dL 7.6-11.0 [facility] Serum or plasma cyclic citru llinated peptide IgG antibody assay (units/volume)Ordered By: Ct Worley on 10-08-2024 Cyclic citrullinated peptide IgG Qn 8 units 0-19 [facility] Comment on above: Negative <20 Weak po sitive 20 - 39 Moderate positive 40 - 59 Strong positive >59Performed at: [facility] [id number] Director: Gary Salas PhD, Phone: [phone] Serum or plasma protein giovanny urement (mass/volume)Ordered By: Ct Worley on 10-08-2024 Protein [Mass/Vol] 6.5 g/dL 6.0-8.5 [facility] Serum or plasma protein mono clonal measurement by electrophoresis (mass/volume)Ordered By: Ct Worley on 10-08-2024 Protein.monoclonal Elph [Mass/Vol] Comment: g/dL Not Observed [facility] Comment on above: M-SPIKE #1 = 0.3 g/d lM-SPIKE #2 = 0.2 g/dl Serum or plasma urea nitroge n measurement (mass/volume)Ordered By: Ct Worley on 10-08-2024 Urea nitrogen [Mass/Vol] 20 mg/dL High 4-19 [facility] Serum rheumatoid factor dete ctionOrdered By: Ct Worley on 10-08-2024 Rheumatoid factor Ql (S) < 10.0 IU/mL <15 [facility] Sodium levelOrdered By: Asya Worley on 10-08-2024 Sodium [Moles/Vol] 135 mmol/L 133-145 [facility] Total proteinOrdered By: Sheeba Worley on 10-08-2024 Protein [Mass/Vol] 7.0 g/dL 5.9-8.4 [facility] White blood cell (WBC) count Ordered By: Ct Worley on 10-08-2024 WBC (Bld) [#/Vol] 9.8 10*3/uL 4.4-11.0 [facility] L/S Spine Min 4 Viewson L/S Spine Min 4 Views [facility] Imaging Services [address] [place] [address] L/S Spine Min 4 Views MR#: [id number] Acct: [id number] Name: DRE SUAREZ Rep #: [id number] : 1960 M 64 From: Waldo Nance MD PCP: Dr. Libby Mcneil MD Status: DEP AMB Study: L/S Spine Min 4 Views Date of Exam: 09/24/24 Exam# [id number] Ordering Dr: Jovany Terry MD PROCEDURE: L/S SPINE MIN 4 VIEWS 09/24/2024 REASON FOR EXAM: LUMBAR SPINE PAIN TECHNIQUE: Four views; AP, lateral and flexion-extension COMPARISON: None available FINDINGS: 5 jzl-txa-mrdpvnh lumbar vertebral body types identified. No fracture or malalignment. L5-S1 disc space narrowing with mild anterior osteophyte formation, spurring. The other disc spaces appear within limits. Aortoiliac atherosclerotic change. No evidence of instability. RAD/L/S Spine Min 4 Views IMPRESSION: L5-S1 spondylosis/discogenic change. Reading Location: [id number] CC: Dr. Jovany Terry MD; Dr. Libby Mcneil MD Able Bodied Watchman: Signed Normal [facility] Orthopedic Visit Reporton Orthopedic Visit Report [facility] [address] [place] [address] OFFICE VISIT Date of Service: 09/24/24 MR#: [id number] Acct: [id number] Name: DRE SUAREZ Rep #: [id number] : 1960 Provider: Dr. Jovany Terry MD Age/Sex: 64/M Location: [facility] Status: Signed Intake Vital Signs 05/04/24 13:30 09/10/24 11:34 09/24/24 09:46 Height 5 ft 9.5 in 5 ft 9.5 in 5 ft 9 in Weight: 201 lb 201 lb BMI 29.2 29.7 BP 116/74 Blood Pressure Location Lt brachial Position Sitting Respiration 16 Pulse 65 Pulse Source Monitor Temp 98.2 F Temp Source Temporal Pulse Oximetry (%) 97 Oxygen Delivery Method room air Intake Visit Reasons: LUMBAR SPINE Chief Complaint: Lumbar spine Is patient in pain?: Yes (lumbar spine) Pain scale (1-10): 5 Allergies Sulfa (Sulfonamide Antibiotics) Allergy (Verified 09/24/24 09:46) Rash Medications ???Medication ???Instructions ???Recorded ???Confirmed ???Type carvedilol 12.5 mg tablet 12.5 mg PO BID 05/04/24 09/24/24 H istory sertraline 25 mg tablet 25 mg PO QDAY 05/04/24 09/24/24 Hi story spironolactone 25 mg tablet 25 mg PO QDAY 05/04/24 09/24/24 Hi story PFSH Medical History HTN (hypertension) Family History Mother , 67 Myocardial infarction Hypertension Father , 72 Hypertension Social History household members: spouse current occupational status: employed 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 Jovany Terry MD 09/24/24 0944. Part of today???s visit was documented by Coby Garzon RN, acting as scribe. DRE SUAREZ is a 64 year old M here today for initial evaluation of lumbar spine pain. This has been ongoing for years but has progressively gotten worse over the last 6 months. The numbness and tinging is worse in the right leg and extends down into the bottom of his foot. The pain is worse on the right side and extends down his right leg. He does report numbness and tingling into both of his legs. He denies previous injury or surgery to his lumbar spine. He does have trouble walking long distances and over the last 6 months he this has worsened. He has to lean on a cart at the [employer]. He is not able to stand for long periods due to the pain. He has seen a chiropractic but it has not been helpful. He had an MRI at [facility]. He had a cortisone shot one week ago and he states this was helpful with a pain management doctor in [facility]. This injection has helped him to be able to sleep better, he is not waking up as much in pain. The injection also has decreased the pain down into his feet. He has not done PT. He had an EMG a few years ago and was advised he had neuropathy but was told it was not coming from his spine. He denies a history of diabetes, heart problems, lung problems, blood clots or strokes. Ortho Exam General General: Yes no acute distress Neurologic: Yes alert Psychologic: Yes reasonable and appropriate Spine SPINE TESTING CERVICAL THORACIC LUMBAR Musculoskeletal Strength 0=absent - 5=normal Details: Exam to the back shows midline and right paraspinal tenderness neurologic motion of lower extremities shows 5 x 5 power level shows normal sensations in all dermatomes. Passive straight leg raise test is negative. There is no hyperreflexia lower extremities. Coding Level of Care Code Off vis,new,level 4 Diagnoses Other intervertebral disc degeneration, lumbar region with discogenic back pain and lower extremity pain M51.362 Spondylolisthesis, lumbar region M43.16 Time Spent (min) 45 Assessment and Plan Assessment and Plan (1) Other intervertebral disc degeneration, lumbar region with discogenic back pain and lower extremity pain: Status: Acute (2) Spondylolisthesis, lumbar region: Status: Acute Orders: Orders L/S Spine Min 4 Views Today M54.50 - Low back pain, unspecified Plan Obtained Xrays of patient's lumbar spine. I Personally reviewed Xrays in detail with patient. I also reviewed pt's outside MRI from [facility] in detail with patient. X-rays show L5-S1 reduced disc height, L3-4 subtle grade 1 spondylolisthesis without dynamic instability. MRI shows L5-S1 severe disc height loss with disc degeneration with right worse than left severe foraminal stenosis. We discussed surgical and non surgical options and the risks, benefits and alternatives to each. If patie (more content not included)... Normal [facility] Neurology Visit Reporton Neurology Visit Report [facility] [address] [facility], [address] [place] [id number] OFFICE VISIT Date of Service: 09/10/24 MR#: [id number] Acct: [id number] Name: DRE SUAREZ Rep #: [id number] : 1960 Provider: Dr. Sav burns MD Age/Sex: 64/M Location: [facility] [place]. Status: Signed HPI HPI Chief Complaint: Neurology follow up Details: The patient is a 64-year-old right handed male who presents for a 4 month follow up on neuropathy. Patient presents by himself for follow-up evaluation of neuropathy. Patient seen with nurse practitioner Abril Chapman present. Patient complains of bilateral foot pain. He also had an EMG and nerve conduction study that had been performed which suggested the possibility of a very mild peripheral neuropathy. Patient's neuropathic symptoms include paresthesia in the left leg from the knee distally and in the left arm using the forearm and extending distally. MRI of the lumbar spine demonstrated arthritic changes as an osteoarthritis at nerve root foraminal exit zones. No high-grade stenoses of the vertebral canal noted. Possibility of underlying radiculopathy warrants consideration but was not proven by EMG. Patient states at this time that he has particularly severe back pain particularly in the lumbar region. He notes this at nighttime in bed and has particular symptoms early in the a.m. He also has polyarticular pain involving feet hands elbows shoulders. Patient also has a problem with dry eyes. At night he wears a CPAP and he wears goggles to help keep his eyes moist because of incomplete closure of eyelids. At this point patient has concern for possible rheumatoid arthritis. We did do a screen for inflammatory diseases and note that he had a CRP of 5 with all other markers being negative. This is a none diagnostic finding in my opinion. Referral to instructor industrial design for evaluation of polyarticular arthralgia will be made. Should be noted patient is also on allopurinol for gout. ROS: Patient complains of polyarticular pain at this time which appears to be relatively new complaint for us even though he has had symptoms for many years. No other changes in ROS noted. Exam Const Other: Blood pressure is 116/74 pulse 65 respiration 16 temperature 98.2 O2 sat 97%. Today's exam is limited. I did inspect his feet and hands. All joints appear to be within normal limits. I see no hot swollen red or tender joints in spite of his complaints. I did not note that he had intact tactile and vibratory sense in hands and feet. Demonstration of his peripheral neuropathy or radiculopathy by clinical means is not possible at this point in time. No other changes in neurologic exam noted at this time. Assessment and Plan Assessment and Plan (1) Neuropathy: Status: Chronic Comment: Patient's had a neuropathy for proximately 10 years. Various evaluations for neuropathy of shown some minimal changes on EMG and nerve conduction study plus positive clinical exam. Findings are suggestive of small fiber neuropathy. Patient's not had a skin biopsy for small fiber neuropathy. At this point in time we will screen for possible treatable causes of neuropathy. (2) Polyarthralgia: Status: Acute (3) Polyarticular joint involvement: Status: Acute Orders: Referrals Rheumatology G62.9 - Polyneuropathy, unspecified, M25.50 - Pain in unspecified joint, R29.898 - Other symptoms and signs involving the musculoskeletal system Intake Vital Signs 05/04/24 13:30 09/10/24 11:34 Height 5 ft 9.5 in 5 ft 9.5 in Weight: 196 lb 201 lb BMI 28.5 29.2 BP 118/66 116/74 Blood Pressure Location Lt brachial Lt brachial Position Sitting Sitting Respiration 15 16 Pulse 71 65 Pulse Source Monitor Monitor Temp 98.4 F 98.2 F Temp Source Temporal Temporal Pulse Oximetry (%) 99 97 Oxygen Delivery Method room air room air Intake Visit Reasons: 4 M FU Chief Complaint: Neurology follow up Clinical Scientist Required: No Accompanied by: Self Allergies Sulfa (Sulfonamide Antibiotics) Allergy (Verified 09/10/24 11:37) Rash Medications ???Medication ???Instructions ???Recorded ???Confirmed ???Type allopurinol 100 mg tablet 100 mg PO QDAY 05/04/24 09/10/24 H istory carvedilol 12.5 mg tablet 12.5 mg PO BID 05/04/24 09/10/24 H istory sertraline 25 mg tablet 25 mg PO QDAY 05/04/24 09/10/24 Hi story spironolactone 25 mg tablet 25 mg PO QDAY 05/04/24 09/10/24 Hi story PFSH Family History Mother , 67 Myocardial infarction Hypertension Father , 72 Hypertension Social History household members: spouse current occupational status: employed 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 Normal [facility] PTH, INTACT [CCL]on 05-29-19 25 PTH, Intact 33 pg/mL Normal 15-65 [facility] Comment on above: Result Comment: [facility] [address] [place] [address] Nicola Eddy III, M.D. [id number] Performed By: #### 2 54588 #### [facility],[address] [place] [address] BMP with eGFRon 05-28-2024 AGE 64 years Normal [facility] Comment on above: Performed By: #### 2 26669 #### [facility],[address] [place], [place] [address] Anion gap [Moles/Vol] 13 mmol/L Normal 10 - [facility] Comment on above: Performed By: #### 2 83341 #### [facility],[address] [place], [place] [address] BMP with eGFR Normal [facility] Comment on above: Result Comment: BASI C METABOLIC PANEL Performed By: #### 2 06710 #### [facility],[address] [place] [address] Calcium [Mass/Vol] 9.0 mg/dL Normal 8.5 - 10.1 [facility] Comment on above: Performed By: #### 2 54351 #### [facility],[address] [place], [place] [id number] Chloride [Moles/Vol] 101 mmol/L Normal 98 - 107 [facility] Comment on above: Performed By: #### 2 22177 #### [facility],[address] [place] [address] CO2 [Moles/Vol] 26.6 mmol/L Normal 21.0 - 32.0 [facility] Comment on above: Performed By: #### 2 40187 #### [facility],[address] [place], [place] [id number] Creatinine [Mass/Vol] 1.19 mg/dL Normal 0.70 - 1.30 [facility] Comment on above: Performed By: #### 2 52799 #### [facility],[address] [place], [place] [address] GFR/1.73 sq M.predicted among non-blacks MDRD (S/P/Bld) [Vol rate/Area] mL/min/{1.73_m2} Normal 60 - 999 [facility] Comment on above: Performed By: #### 2 95496 #### [facility],[address] [place] [address] Result Comment: ACCO RDING TO THE NATIONAL KIDNEY DISEASE EDUCATION PROGRAM(NKDE), A NORMAL eGFR IS A VALUE GREATER THAN OR EQUAL TO 60 ML/MIN/1.73 SQ METERS. CHRONIC KIDNEY DISEASE: <60mL/MIN/1.73 SQ METERS KIDNEY FAILURE: <15mL/MIN/1.73 SQ METERS THIS TEST SHOULD ONLY BE USED FOR PATIENTS 18 YEARS OF AGE AND OLDER. Glucose [Mass/Vol] 111 mg/dL High 74 - 106 [facility] Comment on above: Performed By: #### 2 30813 #### [facility],[address] [place] [address]4074 Potassium [Moles/Vol] 4.1 mmol/L Normal 3.5 - 5.1 [facility] Comment on above: Performed By: #### 2 39118 #### [facility],[address] [place] [address] 81558 Sodium [Moles/Vol] 136 mmol/L Normal 136 - 145 [facility] Comment on above: Performed By: #### 2 82483 #### [facility],[address] [place] [address] 35519 Urea nitrogen [Mass/Vol] 13 mg/dL Normal 7 - 18 [facility] Comment on above: Performed By: #### 2 27492 #### [facility],[address] [place] [address] 21077 CBC + DIFFon 05-28-2024 Baso # 0.03 x10EE3/UL Normal 0.00 - 0.10 [facility] Comment on above: Performed By: #### 2 34457 #### [facility],[address] [place] [address] 01844 Basophils/100 WBC (Bld) 0.4 % Normal 0.0 - 2.0 [facility] Comment on above: Performed By: #### 2 97280 #### [facility],[address] [place] [address] 87355 CBC + DIFF Normal [facility] Comment on above: Result Comment: CBC- COMPLETE BLOOD COUNT Performed By: #### 2 03308 #### [facility],[address] [place] [address] 38192 CELL COUNT 100 Normal [facility] Comment on above: Performed By: #### 2 28747 #### [facility],[address] [place] [address] 18112 EO 2.0 % Normal 0.0 - 7.0 [facility] Comment on above: Performed By: #### 2 70387 #### [facility],[address] [place] [address] 96748 EO # 0.20 x10EE3/UL Normal 0.00 - 0.50 [facility] Comment on above: Performed By: #### 2 55691 #### [facility],[address] [place] [address] 47746 Eosinophils/100 WBC (Bld) 2.1 % Normal 0.0 - 7.0 [facility] Comment on above: Performed By: #### 2 08842 #### [facility],[address] [place] [address] 64310 Erythrocyte distribution width (RBC) [Ratio] 13.3 % Normal 12.0 - 15.6 [facility] Comment on above: Performed By: #### 2 08152 #### [facility],[address] [place] [address] 51631 Hematocrit (Bld) [Volume fraction] 46.8 % Normal 40.0 - 52.0 [facility] Comment on above: Performed By: #### 2 26203 #### [facility],[address] [place] [address] 85649 Hemoglobin (Bld) [Mass/Vol] 16.5 g/dL Normal 13.0 - 17.5 [facility] Comment on above: Performed By: #### 2 68735 #### [facility],[address] [place] [address] 28452 Lymph # 2.65 x10EE3/UL Normal 0.80 - 2.80 [facility] Comment on above: Performed By: #### 2 38583 #### [facility],[address] [place] [address] 16343 Lymphocytes/100 WBC (Bld) 28.1 % Normal 20.0 - 45.0 [facility] Comment on above: Performed By: #### 2 53682 #### [facility],[address] [place] [address] 56964 Lymphocytes/100 WBC (Bld) 28 % Normal 20 - 45 [facility] Comment on above: Performed By: #### 2 87711 #### [facility],[address] [place] [address] 82281 MANUAL DIFF SEE BELOW Normal [facility] Comment on above: Performed By: #### 2 70611 #### [facility],[address] [place] [address] 26804 MCH (RBC) [Entitic mass] 32 pg Normal 27 - 33 [facility] Comment on above: Performed By: #### 2 00043 #### [facility],[address] [place] [address] 67818 MCHC 35 X10 3 Normal 32 - 36 [facility] Comment on above: Performed By: #### 2 26911 #### [facility],[address] [place] [address] 50785 MCV (RBC) [Entitic vol] 92 fL Normal 81 - 98 [facility] Comment on above: Performed By: #### 2 72949 #### [facility],[address] [place] [address] 39724 [place]bury # 0.62 x10EE3/UL Normal 0.20 - 1.00 [facility] Comment on above: Performed By: #### 2 97104 #### [facility],[address] [place] [address] 39645 MONOS 4 % Normal 0 - 10 [facility] Comment on above: Performed By: #### 2 04603 #### [facility],[address] [place] [address] 22980 MONOS % 6.6 % Normal 0.0 - 10.0 [facility] Comment on above: Performed By: #### 2 83019 #### [facility],[address] [place] [address] 10648 Morphology Blas (Bld) [Interp] N/A Normal [facility] Comment on above: Performed By: #### 2 23328 #### [facility],[address] [place] [address] 96937 Neut # 5.91 x10EE3/UL Normal 1.50 - 7.10 [facility] Comment on above: Performed By: #### 2 57764 #### [facility],[address] [place] [address] 72592 Neutrophils/100 WBC (Bld) 62.8 % Normal 46.0 - 76.0 [facility] Comment on above: Performed By: #### 2 69061 #### [facility],[address] [place] [address] 06062 PLATELET 263 x10EE3/UL Normal 150 - 450 [facility] Comment on above: Performed By: #### 2 29442 #### [facility],[address] [place] [address] 99645 Platelet mean volume (Bld) [Entitic vol] 8.1 fL Normal 6.4 - 10.5 [facility] Comment on above: Result Comment: AUTO MATED DIFFERENTIAL Performed By: #### 2 94423 #### [facility],[address] [place] [address] 12564 RBC 5.12 x 10EE6/UL Normal 4.50 - 6.00 [facility] Comment on above: Performed By: #### 2 13082 #### [facility],[address] [place] [address] 86977 SEGS 66 % Normal 46 - 76 [facility] Comment on above: Performed By: #### 2 83013 #### [facility],[address] [place] [address] 91764 WBC 9.4 x 10EE3/UL Normal 4.5 - 10.8 [facility] Comment on above: Performed By: #### 2 40935 #### [facility],[address] [place] [address] 02781 PTH-Intact SerPl-mCncon Parathyrin.intact [Mass/Vol] 33 pg/mL Normal 15-65 [facility] Comment on above: Order Comment: Speci men Type: BLOOD SPECIMEN Ordering Facility: [facility] Address: [address] [place] [address] Performed By: #### 2 731-8 #### [facility] CLIA [id number] [address] [place] [address] [place] URIC ACIDon 05-28-2024 Urate [Mass/Vol] 6.3 mg/dL Normal 3.5 - 7.2 [facility] Comment on above: Performed By: #### 2 76374 #### [facility],[address] [place] [address] 56401 URINE CREATININE AND PROTEIN RATIOon 05-28-2024 CREATININE UR 37.00 mg/dl Normal [facility] Comment on above: Performed By: #### 2 37626 #### [facility],[address] [place] [address] 51772 PC RATIO 0.08 mg/dL Normal 0.00 - 10.00 [facility] Comment on above: Performed By: #### 2 34558 #### [facility],[address] [place] [address] 09040 URINE TOTAL PROTEIN <6.00 Normal 0.00 - 10.00 [facility] Comment on above: Performed By: #### 2 79719 #### [facility],[address] [place] [address] 86540 VITAMIN D, 25 HYDROXYon VitD 29.80 ng/mL Low 30.00 - 100 [facility] Comment on above: Result Comment: 25-O HD3 indicates both endogenous production and supplementation. 25-OHD2 is an indicator of exogenous sources, such as diet or supplementation. Therapy is based on measurement of Total 25-OHD, with levels <20 ng/mL indicative of Vitamin D deficiency, while levels between 20 ng/mL and 30 ng/mL suggest insufficiency. Optimal levels are >=30ng/mL. Vitamin D, 25-OH D3 Not Established Vitamin D, 25-OH D2 Not Established Performed By: #### 2 87371 #### [facility],[address] [place], [place] [id number] MR LUMBAR SP WO CONTRASTon 1 07-19-2023 MR LUMBAR SP WO CONTRAST [address] [address] Patient: DRE SUAREZ Phone#: : 1960 Age: 63 Gender: M Pt. Type: Out Account: [id number] Location: Ordering: ARIEL KAMARA Exam Date: 05/18/2024/11:03 Family Phys: LIBBY MCNEIL Charge Code: 750671 Physician: Williams Order #: [id number] Dose#: PROCEDURE: MRI LUMBAR SPINE WITHOUT CONTRAST COMPARISON: None. INDICATIONS: Low back pain with radiculopathy TECHNIQUE: A variety of imaging planes and parameters were utilized for visualization of suspected pathology. FINDINGS: PARASPINAL AREA: Normal with no visible mass. BONES: No fracture, pars defect, or osseous lesion. CORD/CAUDA EQUINA: Normal caliber, contour, and signal intensity. LUMBAR DISC LEVELS: L1-L2: No significant disc/facet abnormality, spinal stenosis, or foraminal stenosis. L2-L3: There is annular disc bulging. Bony hypertrophy is present at the articular facettes. There is mild narrowing of the spinal canal. L3-L4: Annular disc bulging is present. There is bony hypertrophy at the articular facettes. Moderate spinal canal narrowing is present. There is moderate bilateral foraminal narrowing. L4-L5: Disc space narrowing is present. There is disc degeneration. Broad-based disc bulging is present. There is severe right foraminal narrowing. There is moderate left foraminal narrowing. L5-S1: Disc space narrowing and disc degeneration is present. There is minimal retrolisthesis at L5- S1. Broad-based disc bulging is present dorsally and to the right. There is severe bilateral foraminal narrowing. The spinal canal is patent. CONCLUSION: 1. Disc degeneration disc space narrowing is present at L4-5 and L5-S1. There is minimal retrolisthesis at L5-S1. 2. There is moderate to severe foraminal narrowing at L3-4, L4-5 and L5-S1. Dictated by: Michaela Almeida MD on 05/18/2024 at 16:33 Approved by: Michaela Almeida MD on 05/18/2024 at 16:41 Normal [facility] JUNIOR + Protein Elect, Serumon 05-14-2024 Albumin [Mass/Vol] 3.5 g/dL Normal 2.9-4.4 [facility] Comment on above: Order Comment: Test( s) 984407-Hbi. B1, Whole Bloodwas developed and its performance characteristicsdetermined by [employer]. It has not been cleared or approvedby the Food and Drug Administration.Y Performed By: #### L 3100.3425, L503.0105, L101.9900, L501.6710, L3300.8000, L3100.5440 ####[facility] [id number] [facility] [place], [place], [id number] Albumin/Globulin [Mass ratio] 1.2 {ratio} Normal 0.7-1.7 [facility] Comment on above: Order Comment: Test( s) 176357-Zrr. B1, Whole Bloodwas developed and its performance characteristicsdetermined by [employer]. It has not been cleared or approvedby the Food and Drug Administration.Y Performed By: #### L 3100.3425, L503.0105, L101.9900, L501.6710, L3300.8000, L3100.5440 ####[facility] [id number] [place], [place], [id number] DHSCK-2-[id number] 0.2 g/dL Normal 0.0-0.4 [facility] Comment on above: Order Comment: Test( s) 668719-Veu. B1, Whole Bloodwas developed and its performance characteristicsdetermined by [facility]. It has not been cleared or approvedby the Food and Drug Administration.Y Performed By: #### L 3100.3425, L503.0105, L101.9900, L501.6710, L3300.8000, L3100.5440 ####[facility] [address] [place], [address] WRHGM-7-WWAC 0.5 g/dL Normal 0.4-1.0 [facility] Comment on above: Order Comment: Test( s) 738780-Mda. B1, Whole Bloodwas developed and its performance characteristicsdetermined by [facility]. It has not been cleared or approvedby the Food and Drug Administration.Y Performed By: #### L 3100.3425, L503.0105, L101.9900, L501.6710, L3300.8000, L3100.5440 ####[facility] [address] [place], [address] BETA GLOBULIN 1.3 g/dL Normal 0.7-1.3 [facility] Comment on above: Order Comment: Test( s) 561816-Jpc. B1, Whole Bloodwas developed and its performance characteristicsdetermined by [facility]. It has not been cleared or approvedby the Food and Drug Administration.Y Performed By: #### L 3100.3425, L503.0105, L101.9900, L501.6710, L3300.8000, L3100.5440 ####[facility] [address] [place], [address] GAMMA GLOBULIN 1.0 g/dL Normal 0.4-1.8 [facility] Comment on above: Order Comment: Test( s) 432840-Cms. B1, Whole Bloodwas developed and its performance characteristicsdetermined by [facility]. It has not been cleared or approvedby the Food and Drug Administration.Y Performed By: #### L 3100.3425, L503.0105, L101.9900, L501.6710, L3300.8000, L3100.5440 ####[facility] [address] [place], [address] Globulin (S) [Mass/Vol] 3.0 g/dL Normal 2.2-3.9 [facility] Comment on above: Order Comment: Test( s) 580515-Rsi. B1, Whole Bloodwas developed and its performance characteristicsdetermined by [employer]. It has not been cleared or approvedby the Food and Drug Administration.Y Performed By: #### L 3100.3425, L503.0105, L101.9900, L501.6710, L3300.8000, L3100.5440 ####[facility] [address] [place], [address] JUNIOR RESULT,S Comment Abnormal . [facility] Comment on above: Order Comment: Test( s) 285498-Laq. B1, Whole Bloodwas developed and its performance characteristicsdetermined by [employer]. 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 PLEASE NOTE: Samples from patients receiving DARZALEX(R) (daratumumab) or SARCLISA(R)(isatuximab-irfc) treatment can appear as an IgG kappa and mask a complete response (CR). If this patient is receiving these therapies, this JUNIOR assay interference can be removed by ordering test number [id number], Daratumumab-Specific, Serum or [id number]-Ybpnkyrurdpvvt, Isatuximab-Specific, Serum and submitting a new sample for testing or by calling the lab to add this test to the current sample. Performed By: #### L 3100.3425, L503.0105, L101.9900, L501.6710, L3300.8000, L3100.5440 ####[facility] [address] [place], [address] IMMUNOGLOB A QN 303 mg/dL Normal 61-437 [facility] Comment on above: Order Comment: Test( s) [id number]-Hjg. B1, Whole Bloodwas developed and its performance characteristicsdetermined by [facility]. It has not been cleared or approvedby the Food and Drug Administration.Y Performed By: #### L 3100.3425, L503.0105, L101.9900, L501.6710, L3300.8000, L3100.5440 ####[facility] [address] [place], [address] IMMUNOGLOB G QN 1079 mg/dL Normal 603-1613 [facility] Comment on above: Order Comment: Test( s) [id number]-Hyj. B1, Whole Bloodwas developed and its performance characteristicsdetermined by [facility]. It has not been cleared or approvedby the Food and Drug Administration.Y Performed By: #### L 3100.3425, L503.0105, L101.9900, L501.6710, L3300.8000, L3100.5440 ####[facility] [address] [place], [address] IMMUNOGLOB M QN 72 mg/dL Normal 20-172 [facility] Comment on above: Order Comment: Test( s) [id number]-Rgx. B1, Whole Bloodwas developed and its performance characteristicsdetermined by [facility]. It has not been cleared or approvedby the Food and Drug Administration.Y Performed By: #### L 3100.3425, L503.0105, L101.9900, L501.6710, L3300.8000, L3100.5440 ####[facility] [address] [place], [address] M-Issa 0.2 g/dL Abnormal Not Observed [facility] Comment on above: Order Comment: Test( s) 445104-Gsz. B1, Whole Bloodwas developed and its performance characteristicsdetermined by [facility]. It has not been cleared or approvedby the Food and Drug Administration.Y Performed By: #### L 3100.3425, L503.0105, L101.9900, L501.6710, L3300.8000, L3100.5440 ####[facility] [address] [place], [address] NOTE: Comment Normal . [facility] Comment on above: Order Comment: Test( s) [id number]-Nlq. B1, Whole Bloodwas developed and its performance characteristicsdetermined by [facility]. It has not been cleared or approvedby the Food and Drug Administration.Y Result Comment: Prot ein electrophoresis scan will follow via computer, mail, or laser print operator delivery. Performed By: #### L 3100.3425, L503.0105, L101.9900, L501.6710, L3300.8000, L3100.5440 ####[facility] [address] [place], [address] Protein [Mass/Vol] 6.5 g/dL Normal 6.0-8.5 [facility] Comment on above: Order Comment: Test( s) [id number]-Gjl. B1, Whole Bloodwas developed and its performance characteristicsdetermined by [facility]. It has not been cleared or approvedby the Food and Drug Administration.Y Performed By: #### L 3100.3425, L503.0105, L101.9900, L501.6710, L3300.8000, L3100.5440 ####[facility] [address] [place], [place], [id number] Vitamin B1, Thiamineon 05-14 VIT B1 THIAMINE 281.3 nmol/L High 66.5-200.0 [facility] Comment on above: Order Comment: Test( s) [id number]-Spv. B1, Whole Bloodwas developed and its performance characteristicsdetermined by [facility]. It has not been cleared or approvedby the Food and Drug Administration.Y Result Comment: Perf ormed at: [address] [id number] Learning Coordinator: Gary Salas PhD, Phone: [phone] Performed at: [facility] [address] [id number] Learning Coordinator: Willi Sauer MD, Phone: [phone] Performed By: #### L 3100.3425, L503.0105, L101.9900, L501.6710, L3300.2166, L3100.5440 ####[facility] [address] [place], [address] GERI Comprehensive Panelon GERI TABLE Comment Normal . [facility] Comment on above: Result Comment: Auto antibody Disease Association Condition Frequency --------- Antinuclear Antibody, SLE, mixed connective Direct (GERI-D) tissue diseases --------- dsDNA SLE 40 - 60% --------- Chromatin Drug induced SLE 90% SLE 48 - 97% --------- SSA (Ro) SLE 25 - 35% Sjogren's Syndrome 40 - 70% Lupus 100% --------- SSB (La) SLE 10% Sjogren's Syndrome 30% --------- Sm (anti-Tripathi) SLE 15 - 30% --------- HOUSING INSTALLER Mixed Connective Tissue Disease 95% (U1 nRNP, SLE 30 - 50% anti-ribonucleoprotein) Polymyositis and/or Dermatomyositis 20% --------- Scl-70 (antiDNA Scleroderma (diffuse) 20 - 35% topoisomerase) Crest 13% --------- Katie-1 Polymyositis and/or Dermatomyositis 20 - 40% --------- Centromere B Scleroderma - Crest variant 80% Performed at: [address] [id number] Learning Coordinator: Gary Salas PhD, Phone: [phone] Performed By: #### L 6458.4363, L503.0105, L101.9900, L501.6710, L3300.8000, L3100.5289 #### [facility] Laboratory [address] [place], [address] ANTI-CENT B AB <0.2 Normal 0.0-0.9 [facility] Comment on above: Result Comment: Darryl danielson Note: Specimen is lipemic. Performed By: #### L 3100.3425, L503.0105, L101.9900, L501.6710, L3300.8000, L3100.5440 #### [facility] Laboratory [address] [place], [address] ANTI-DNA (DS)AB <1 Normal 0-9 [facility] Comment on above: Result Comment: Plea se Note: Specimen is lipemic. Negative <5 Equivocal 5 - 9 Positive >9 Performed By: #### L 3100.3425, L503.0105, L101.9900, L501.6710, L3300.8000, L3100.5440 #### [facility] Laboratory [address] [place], [address] ANTI-KATIE-1 <0.2 Normal 0.0-0.9 [facility] Comment on above: Result Comment: Plea se Note: Specimen is lipemic. Performed By: #### L 3100.3425, L503.0105, L101.9900, L501.6710, L3300.8000, L3100.5440 #### [facility] Laboratory [address] [place], [address] ANTI-SS-A < 0.2 Normal 0.0-0.9 [facility] Comment on above: Result Comment: Plea se Note: Specimen is lipemic. Performed By: #### L 3100.3425, L503.0105, L101.9900, L501.6710, L3300.8000, L3100.5440 #### [facility] [address] [place], [address] ANTI-SS-B < 0.2 Normal 0.0-0.9 [facility] Comment on above: Result Comment: Plea se Note: Specimen is lipemic. Performed By: #### L 3100.3425, L503.0105, L101.9900, L501.6710, L3300.8000, L3100.5440 #### [facility] Laboratory [address] [place], [address] ANTICHROMATIN <0.2 Normal 0.0-0.9 [facility] Comment on above: Result Comment: Plea se Note: Specimen is lipemic. Performed By: #### L 3100.3425, L503.0105, L101.9900, L501.6710, L3300.8000, L3100.5440 #### [facility] [address] [place], [address] ANTISCLERODERM <0.2 Normal 0.0-0.9 [facility] Comment on above: Result Comment: Plea se Note: Specimen is lipemic. Performed By: #### L 3100.3425, L503.0105, L101.9900, L501.6710, L3300.8000, L3100.5440 #### [facility] [address] [place], [address] HOUSING INSTALLER Ab <0.2 Normal 0.0-0.9 [facility] Comment on above: Result Comment: Plea se Note: Specimen is lipemic. Performed By: #### L 3100.3425, L503.0105, L101.9900, L501.6710, L3300.8000, L3100.5440 #### [facility] [address] [place], [address] TRIPATHI Ab <0.2 Normal 0.0-0.9 [facility] Comment on above: Result Comment: Plea se Note: Specimen is lipemic. Performed By: #### L 3100.3425, L503.0105, L101.9900, L501.6710, L3300.8000, L3100.5440 #### [facility] [address] [place], [address] CRPon 05-04-2024 C-REACTIVE PROT 5.80 mg/L High 0.0-3.0 [facility] Comment on above: Result Comment: C-Re active Protein (CRP) provides useful information for the diagnosis, therapy and monitoring of inflammatory processes and associated diseases. For the evaluation of Relative Risk for Cardiovascular Disease, a High Sensitivity CRP (HSCRP) should be ordered. Performed By: #### L 3100.3425, L503.0105, L101.9900, L501.6710, L3300.8000, L3100.5440 #### [facility] [address] [place], [place], [id number] Erythrocyte Sed Rateon 05-04 SED RATE 5 mm/hr Normal 0-20 [facility] Comment on above: Performed By: #### L 3100.3425, L503.0105, L101.9900, L501.6710, L3300.8000, L3100.5440 #### [facility] [address] [place], [place], [address] Neurology Visit Reporton Neurology Visit Report [facility] [address], [address] [place], [place] [address] OFFICE VISIT Date of Service: 05/04/24 MR#: [id number] Acct: [id number] Name: RADHA SUAREZ Rep #: [id number] : 1960 Provider: Dr. Sav burns MD Age/Sex: 63/M Location: [facility] Status: Signed HPI HPI Chief Complaint: Establish Care Details: The patient is a 63-year-old right handed male who presents to [facility]. He was referred 03/30/[address] Libby Wong with [facility] in [place] for chronic peripheral neuropathy. This patient tells me that he began having numbness and tingling and burning in both feet approximately 10 years ago. He noted that he was doing fine and then he got into a hot shower and noted a change in temperature perception and experienced a burning kind of pain in the feet. He would have intermittent intensity of burning sensation from very mild to very troublesome. This would last until present day. He also noted about 5 years ago that he had onset of similar symptoms in the left upper extremity. The altered sensation tends to be more distal. It is greater on the left side than the right side. He has been evaluated for peripheral neuropathy and has had an EMG and nerve conduction study which demonstrated a subtle peripheral neuropathy. 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 Patient has been in good health otherwise. He is not a diabetic. He has not had toxic exposures. He has not had significant renal incident illnesses although he has had COVID on 3 occasions. First time occurred in 2019 which made him significantly ill. Patient also has a gluten intolerance. He has modified his diet to eat primarily plant-based foods. His lipid profile shows slightly elevated cholesterol and triglycerides. Patient does take a B vitamin supplement. Currently his neuropathy is relatively minor significance. He does have restless leg syndrome for which he takes propranolol. Has not been recording his medications below. ROS: HEENT normocephalic. Vision is relatively preserved. Hearing is intact Respiratory without cough or hemoptysis Cardiac without chest pain coronary artery disease or arrhythmias Abdomen bloating with gluten. intact no hematuria. He does not vomit blood or passed blood in stool either. Extremities without evidence of injury. Skin intact Endocrine nondiabetic No connective tissue disease noted. Exam Const Other: Vital signs show blood pressure 118/66 pulse 71 respirations 15 temperature 98.4 O2 sat 99%. General patient appears to be in good health. BMI is 28.5 Respiration clear and unlabored Cardiac regular rhythm Abdomen nondistended Extremities without evidence of trauma Skin exposed areas appear intact. Feet appear to have normal color nails intact. Neurologic examination: Mental status: Awake alert oriented to person place day month and year. Language shows no reception specialist expression repetition. Insight and judgment is normal. Mood and affect appropriate. No hallucinations or delusions identified. CN II-XII: Pupils equal round about 3 mm in size. Visual peterson full. He may have a slight decrease in vision right eye perhaps due to cataract. Extraocular muscles intact. Motor and sensory function face normal. Hearing swallowing phonation and tongue normal. Motor exam no focal weakness or atrophy is identified. Reflexes 2+ at biceps and 3-4+ at knees. 2+ at ankles. Toes downgoing bilaterally. Sensory exam shows that he does seem to have a decreased to vibration touch and temperature perception particularly left arm and left leg distally and to a lesser degree right distal leg. Station gait normal. Romberg negative. Assessment and Plan Assessment and Plan (1) Neuropathy: Status: Chronic Comment: Patient's had a neuropathy for proximately 10 years. Various evaluations for neuropathy of shown some minimal changes on EMG and nerve conduction study plus positive clinical exam. Findings are s uggestive of small fiber neuropathy. Patient's not had a skin biopsy for small fiber neuropathy. At this point in time we will screen for possible treatable causes of neuropathy. Plan: 1. Blood work will include B12 B1 B6 immunofixation GERI panel ESR and CRP. 2. Patient may give magnesium oxide 4 mg p.o. daily a trial to see if that improves some cramping that has had his legs and perhaps some burning paresthesia. 3. Patient will follow-up when he is available in the next 5 to 6 months. He is spending the next month (more content not included)... Normal [facility] Vitamin B12on 05-04-2024 Cobalamin (Vitamin B12) [Mass/Vol] 755 pg/mL Normal 211-911 [facility] Comment on above: Performed By: #### L 3100.3425, L503.0105, L101.9900, L501.6710, L3300.8000, L3100.5440 #### [facility] [address] [place], [address] TESTOSTERONE, TOTAL, MSon TESTOSTERONE, TOTAL, MS 492 ng/dL Normal 250-1100 [facility] Comment on above: Result Comment: Men with clinically significant hypogonadal symptoms and testosterone values repeatedly in the range of the 200-300 ng/dL or less, may benefit from testosterone treatment after adequate risk and benefits counseling. For additional information, please refer to http://education.Pinger.mywaves/faq/ XmtfuFgydhgsjetyrBFILWKRUE398 (This link is being provided for informational/ educational purposes only.) This test was developed and its analytical performance characteristics have been determined by [facility] [place], [place]. It has not been cleared or approved by the U.S. Food and Drug Administration. This assay has been validated pursuant to the CLIA regulations and is used for clinical purposes. Performed By: #### 1 5983 #### [facility] [address] [place] Wellness Director: Yoseph Rivera M.D.,PhD [facility] 03-12-2024 Albumin [Mass/Vol] 4.3 g/dL Normal 3.6-5.1 [facility] Comment on above: Performed By: #### 7 600, 5363, 41461 #### [facility] of [address], [address] [place] [address] Wellness Director: Miky Alston MD Albumin/Globulin [Mass ratio] 1.6 {ratio} Normal 1.0-2.5 [facility] Comment on above: Performed By: #### 7 600, 5363, 76142 #### [facility] [place] [address] Wellness Director: Miky Alston MD ALP [Catalytic activity/Vol] 60 U/L Normal 35-144 [facility] Comment on above: Performed By: #### 7 600, 5363, 71097 #### [facility] [place] [address] Wellness Director: Miky Alston MD ALT [Catalytic activity/Vol] 31 U/L Normal 9-46 [facility] Comment on above: Performed By: #### 7 600, 5363, 07059 #### [facility] [place] [address] Wellness Director: Miky Alston MD AST [Catalytic activity/Vol] 26 U/L Normal 10-35 [facility] Comment on above: Performed By: #### 7 600, 5363, 51847 #### [facility] [place] [address] Wellness Director: Miky Alston MD Bilirubin [Mass/Vol] 0.9 mg/dL Normal 0.2-1.2 [facility] Comment on above: Performed By: #### 7 600, 5363, 34145 #### [facility] [place] [address], [address] [place] [address] Wellness Director: Miky Alston MD BUN/CREATININE RATIO SEE NOTE: Normal 6-22 [facility] Comment on above: Result Comment: Not Reported: BUN and Creatinine are within reference range. Performed By: #### 7 600, 5363, 49106 #### [facility] [place] [address] Wellness Director: iMky Alston MD Calcium [Mass/Vol] 9.3 mg/dL Normal 8.6-10.3 [facility] Comment on above: Performed By: #### 7 600, 5363, 22775 #### [facility] [place] [address] Wellness Director: Miky Alston MD Chloride [Moles/Vol] 98 mmol/L Normal 98-110 [facility] Comment on above: Performed By: #### 7 600, 5363, 65449 #### [facility] [place] [address] Wellness Director: Miky Alston MD CO2 [Moles/Vol] 29 mmol/L Normal 20-32 [facility] Comment on above: Performed By: #### 7 600, 5363, 59104 #### [facility] [place] [address] Wellness Director: Miky Alston MD Creatinine [Mass/Vol] 1.16 mg/dL Normal 0.70-1.[address] [facility] Comment on above: Performed By: #### 7 600, 5363, 70165 #### [facility] of [place] [address] Wellness Director: Miky Alston MD GFR/1.73 sq M.predicted among non-blacks MDRD (S/P/Bld) [Vol rate/Area] 71 mL/min/{1.73_m2} Normal > OR = 60 [facility] Comment on above: Performed By: #### 7 600, 5363, 31134 #### [facility] of [address], [address] [place] [address] Wellness Director: Miky Alston MD Globulin (S) [Mass/Vol] 2.7 g/dL Normal 1.9-3.7 [facility] Comment on above: Performed By: #### 7 600, 5363, 06048 #### [facility] of [address], [address] [place] [address] Wellness Director: Miky Alston MD Glucose [Mass/Vol] 91 mg/dL Normal 65-99 [facility] Comment on above: Result Comment: Fasting reference interval Performed By: #### 7 600, 5363, 18750 #### [facility] of [address], [address] [place] [address] Wellness Director: Miky Alston MD Potassium [Moles/Vol] 4.7 mmol/L Normal 3.5-5.[address] [facility] Comment on above: Performed By: #### 7 600, 5363, 43539 #### [facility] of [address], [address] [place] [address] Wellness Director: Miky Alston MD Protein [Mass/Vol] 7.0 g/dL Normal 6.1-8.1 [facility] Comment on above: Performed By: #### 7 600, 5363, 07401 #### [facility] of [address], [address] [place] [address] Wellness Director: Miky Alston MD Sodium [Moles/Vol] 135 mmol/L Normal 135-146 [facility] Comment on above: Performed By: #### 7 600, 5363, 16368 #### [facility] of [address], [address] [place] [address] Wellness Director: Miky Alston MD Urea nitrogen [Mass/Vol] 16 mg/dL Normal 7-25 [facility] Comment on above: Performed By: #### 7 600, 5363, 74302 #### [facility] of [place] [address] Wellness Director: Miky Alston MD LIPID PANEL, [facility] 10-1 Cholesterol [Mass/Vol] 235 mg/dL High <200 [facility] Comment on above: Performed By: #### 7 600, 5363, 28048 #### [facility] [place] [address] Wellness Director: Miky Alston MD Cholesterol in HDL [Mass/Vol] 58 mg/dL Normal > OR = 40 [facility] Comment on above: Performed By: #### 7 600, 5363, 51717 #### [facility] [place] [address] Wellness Director: Miky Alston MD Cholesterol in LDL [Mass/Vol] 139 mg/dL High [facility] Comment on above: Result Comment: Refe rence range: <100 Desirable range <100 mg/dL for primary prevention; <70 mg/dL for patients with CHD or diabetic patients with > or = 2 CHD risk factors. LDL-C is now calculated using the Austyn-Gregg calculation, which is a validated novel method providing better accuracy than the Friedewald equation in the estimation of LDL-C. Austyn FRANCE et al. PARKER. 2013;310(19): 7122-0679 (http://education.Streamix.mywaves/faq/ACH820) Performed By: #### 7 600, 5363, 80935 #### [facility] [place] [address] Wellness Director: Miky Alston MD Cholesterol.total/Sandra sterol in HDL [Mass ratio] 4.1 {ratio} Normal <5.0 [facility] Comment on above: Performed By: #### 7 600, 5363, 24587 #### [facility] [place] [address] Wellness Director: Miky Alston MD NON HDL CHOLESTEROL 177 mg/dL (calc) High <130 [facility] Comment on above: Result Comment: For patients with diabetes plus 1 major ASCVD risk factor, treating to a non-HDL-C goal of <100 mg/dL (LDL-C of <70 mg/dL) is considered a therapeutic option. Performed By: #### 7 600, 5363, 71785 #### [facility] [address], [address] [place], [place] [id number] Wellness Director: Miky Aslton MD Triglyceride [Mass/Vol] 250 mg/dL High <150 [facility] Comment on above: Result Comment: If a non-fasting specimen was collected, consider repeat triglyceride testing on a fasting specimen if clinically indicated. Ambreen et al. J. of Clin. Lipidol. 2015;9:129-169. Performed By: #### 7 600, 5363, 17433 #### [facility] [address], [address] [place], [place] [id number] Wellness Director: Miky Alston MD PSA, TOTALon 03-12-2024 PSA, TOTAL 0.70 ng/mL Normal < OR = 4.00 [facility] Comment on above: Result Comment: The total PSA value from this assay system is standardized against the WHO standard. The test result will be approximately 20% lower when compared to the equimolar-standardized total PSA (Doron [place]). Comparison of serial PSA results should be interpreted with this fact in mind. This test was performed using the Siemens chemiluminescent method. Values obtained from different assay methods cannot be used interchangeably. PSA levels, regardless of value, should not be interpreted as absolute evidence of the presence or absence of disease. Performed By: #### 7 600, 5363, 47963 #### [facility] [address], [address] [place], [place] [id number] Wellness Director: Miky Alston MD Laboratory - Chemistry and C hemistry - challengeon 03-11-2024 Albumin [Mass/Vol] 4.3 g/dL Normal 3.6 - 5.1 g/dL [facility] Albumin/Globulin [Mass ratio] 1.6 {ratio} Normal 1.0 - 2.5 [facility] ALP [Catalytic activity/Vol] 60 U/L Normal 35 - 144 U/L [facility] ALT [Catalytic activity/Vol] 31 U/L Normal 9 - 46 U/L [facility], [facility]. AST [Catalytic activity/Vol] 26 U/L Normal 10 - 35 U/L [facility], [facility]. Bilirubin [Mass/Vol] 0.9 mg/dL Normal 0.2 - 1 .2 mg/dL [facility], [facility] [facility], [facility]. Calcium [Mass/Vol] 9.3 mg/dL Normal 8.6 - 10. 3 mg/dL [facility].; [facility], [facility]. Chloride [Moles/Vol] 98 mmol/L Normal 98 - 11 0 mmol/L [facility], [facility].; [facility], [facility]. Cholesterol [Mass/Vol] 235 mg/dL Abnormal [facility]; [facility], [facility] Cholesterol in HDL [Mass/Vol] 58 mg/dL Normal [facility].; [facility], [facility] Cholesterol in LDL [Mass/Vol] 139 mg/dL Abnormal [facility]; [facility], [facility] CO2 [Moles/Vol] 29 mmol/L Normal 20 - 32 mmol/L [facility].; [facility], [facility]. Creatinine [Mass/Vol] 1.16 mg/dL Normal 0.70 - 1.35 mg/dL [facility], [facility].; [facility], [facility]. GFR/1.73 sq M.predicted among non-blacks MDRD (S/P/Bld) [Vol rate/Area] 71 mL/min/{1.73_m2} Normal [facility].; [facility], [facility]. Glucose [Mass/Vol] 91 mg/dL Normal 65 - 99 mg/dL [facility], [facility].; [facility], [facility]. Potassium [Moles/Vol] 4.7 mmol/L Normal 3.5 - 5.3 mmol/L [facility], [facility].; [facility], [employer] Protein [Mass/Vol] 7.0 g/dL Normal 6.1 - 8.1 g/dL [facility], [facility].; [facility], [facility]. Sodium [Moles/Vol] 135 mmol/L Normal 135 - 146 mmol/L [facility].; [employer] Triglyceride [Mass/Vol] 250 mg/dL Abnormal [facility], [facility].; [employer] Urea nitrogen [Mass/Vol] 16 mg/dL Normal 7 - 25 mg/dL [facility] [employer] No Panel Informationon 03-11 BUN/CREATININE RATIO SEE NOTE: Normal 6 - 22 [facility] [employer] CHOL/HDLC RATIO 4.1 Normal [employer] GLOBULIN 2.7 Normal 1.9 - 3.7 [employer] [employer], [employer] NON HDL CHOLESTEROL 177 Abnormal [facility] [employer], [employer].; [employer] PSA, TOTAL 0.70 ng/mL Normal [employer] TESTOSTERONE, TOTAL, MS 492 ng/dL Normal 250 - 1100 ng/dL [employer], [employer].; [employer] PTH-Intact SerPl-ncon 10-24 Parathyrin.intact [Mass/Vol] 38 pg/mL Normal 15-65 [facility] Comment on above: Order Comment: Speci men Type: BLOOD SPECIMEN Ordering Facility: [facility] Address: [address] [place] [address] Performed By: #### 2 731-8 #### [facility] CLIA [id number] [address] [place] [address] [place] Laboratory - Chemistry and C hemistry - challengeon 03-07-2023 Calcium [Mass/Vol] 9.0 mg/dL Normal 8.6 - 10. 3 mg/dL [place] [employer] Chloride [Moles/Vol] 108 mmol/L Normal 98 - 11 0 mmol/L [facility] [employer] Cholesterol [Mass/Vol] 196 mg/dL Normal [facility] [employer] Cholesterol in HDL [Mass/Vol] 42 mg/dL Normal [employer] Cholesterol in LDL [Mass/Vol] 124 mg/dL Abnormal [facility].; [place] [employer] [facility], [facility]. CO2 [Moles/Vol] 20 mmol/L Normal 20 - 32 mmol/L [facility].; [place] [employer] [facility], [employer]. Creatinine [Mass/Vol] 1.22 mg/dL Normal 0.70 - 1.35 mg/dL [facility], [facility].; [place] [employer] [facility], [facility]. GFR/1.73 sq M.predicted among non-blacks MDRD (S/P/Bld) [Vol rate/Area] 67 mL/min/{1.73_m2} Normal [facility].; [place] [employer] [facility], [facility]. Glucose [Mass/Vol] 95 mg/dL Normal 65 - 99 mg/dL [facility].; [place] [employer], [facility]. Potassium [Moles/Vol] 4.5 mmol/L Normal 3.5 - 5.3 mmol/L [facility].; [place] [employer], [employer]. Sodium [Moles/Vol] 139 mmol/L Normal 135 - 146 mmol/L [facility].; [place] [employer], [employer]. Triglyceride [Mass/Vol] 187 mg/dL Abnormal [facility].; [place] [employer], [facility]. Urea nitrogen [Mass/Vol] 17 mg/dL Normal 7 - 25 mg/dL [facility], [facility].; [employer], [employer]. Laboratory - Hematology and Cell countson 03-07-2023 Basophils (Bld) [#/Vol] 0.032 10*3/uL Normal 0 - 200 {cells/uL} [facility].; [employer] Basophils/100 WBC (Bld) 0.4 % Normal [facility].; [place] [employer], [employer]. Eosinophils (Bld) [#/Vol] 0.097 10*3/uL Normal 15 - 500 {cells/uL} [place] [employer], [facility].; [place] [employer] Eosinophils/100 WBC (Bld) 1.2 % Normal [facility].; [place] [employer], [employer]. Erythrocyte distribution width (RBC) [Ratio] 12.7 % Normal 11.0 - 15.0 % [facility], [facility].; [place] [employer], [facility]. Hematocrit (Bld) [Volume fraction] 46.9 % Normal 38.5 - 50.0 % [facility], [facility].; [facility], [facility]. Hemoglobin (Bld) [Mass/Vol] 16.2 g/dL Normal 13.2 - 17.1 g/dL [facility], [facility].; [facility], [facility]. Lymphocytes (Bld) [#/Vol] 2.462 10*3/uL Normal 850 - 3900 {cells/uL} [facility], [facility].; [place] [employer], [facility]. Lymphocytes/100 WBC (Bld) 30.4 % Normal [facility], [facility].; [place] [employer], [facility]. MCH (RBC) [Entitic mass] 31.5 pg Normal 27.0 - 33.0 pg [facility], [facility].; [place] [employer] MCHC (RBC) [Mass/Vol] 34.5 g/dL Normal 32.0 - 36.0 g/dL [facility], [facility].; [place] [employer] MCV (RBC) [Entitic vol] 91.2 fL Normal 80.0 - 100.0 fL [place] [employer], [facility].; [employer] Monocytes (Bld) [#/Vol] 0.656 10*3/uL Normal 200 - 950 {cells/uL} [place] [employer], [facility].; [employer] Monocytes/100 WBC (Bld) 8.1 % Normal [facility].; [place] [employer], [facility]. Neutrophils (Bld) [#/Vol] 4.852 10*3/uL Normal 1500 - 7800 {cells/uL} [place] [employer].; [employer] Neutrophils/100 WBC (Bld) 59.9 % Normal [place] [employer] [facility].; [employer] Platelet mean volume (Bld) [Entitic vol] 10.1 fL Normal 7.5 - 12.5 fL [place] [employer] Platelets (Bld) [#/Vol] 223 10*3/uL Normal 140 - 400 [place] [employer].; [employer]. RBC (Bld) [#/Vol] 5.14 10*6/uL Normal 4.20 - 5.8 0 {Million/uL} [employer] [facility].; [employer] [facility]. WBC (Bld) [#/Vol] 8.1 10*3/uL Normal 3.8 - 10.8 [place] [employer].; [employer]. No Panel Informationon 03-07 BUN/CREATININE RATIO SEE NOTE: Normal 6 - 22 [facility] [employer] [facility].; [employer]. CHOL/HDLC RATIO 4.7 Normal [employer] [facility].; [employer] NON HDL CHOLESTEROL 154 Abnormal [facility].; [employer] PSA, TOTAL 0.70 ng/mL Normal [employer] [facility].; [employer]. 1,25-dihydroxyvitamin D3 [Ma ss/Vol]on 01-06-2023 VIT D1,25 DIHYDROXY 72.5 pg/mL Normal 19.9-79.3 [facility] Comment on above: Order Comment: Speci men Type: BLOOD SPECIMEN Ordering Facility: [facility] Address: [address] [place] [address] Performed By: #### 1 649-3 #### [facility] [place] [id number] [address] [place] [address] [place] PTH-Intact SerPl-Trinity Healthon 12-24 Parathyrin.intact [Mass/Vol] 35 pg/mL Normal 15-65 [facility] Comment on above: Order Comment: Speci men Type: BLOOD SPECIMEN Ordering Facility: [facility] Address: [address] [place] [address] Performed By: #### 2 731-8 #### [facility] CLIA [id number] [address] [place] [address] [place] No Panel Informationon 03-18 TSH W/REFLEX TO FT4 1.89 {mIU/L} Normal 0.40 - 4 .50 {mIU/L} [employer].; [facility]. Hemoglobin A1con 09-05-2020 HbA1c (Bld) [Mass fraction] 4.9 % Normal 4.3-5.6 [facility] Comment on above: Performed By: #### H BA1C #### [facility] Routine Lab [address] [place], [place] [address] HbA1c (Bld) [Mass fraction] 94 mg/dL Normal [facility] Comment on above: Performed By: #### H BA1C #### [facility] Routine Lab [address] [place], [place] [address] PTH, [place] 09-05-2020 PTH, Intact 39 pg/mL Normal 15-65 [facility] Comment on above: Performed By: #### P THI #### [facility] Routine Lab [address] [place], [place] [address] PTH, [place] 06-21-2020 PTH, Intact 51 pg/mL Normal 15-65 [facility] Comment on above: Performed By: #### P THI #### [facility] Routine Lab [address] [place], [place] [address] PTH, [place] 09-15-2019 PTH, Intact 49 pg/mL Normal 15-65 [facility] Comment on above: Performed By: #### P THI #### [facility] Routine Lab [address] [place], [place] [address] Laboratory - Chemistry and C hemistry - challengeon 08-01-2015 Albumin [Mass/Vol] 4.2 g/dL Normal 3.4 - 4.8 g/dL [facility].; [facility]. Work Phone: Aldosterone [Moles/Vol] ALDOSTERONE [QUEST] Normal [facility].; [place] [employer] [facility], [employer]. Work Phone: Bilirubin [Mass/Vol] Negative Normal [facility].; [facility]. Work Phone: Calcium [Mass/Vol] 9.6 mg/dL Normal 8.6 - 10. 2 mg/dL [facility]; [facility] Work Phone: Chloride [Moles/Vol] 98 mmol/L Normal 98 - 10 7 mmol/L [facility]; [facility] Work Phone: CO2 [Moles/Vol] 31.0 mmol/L Abnormal 13.0 - 29.0 mmol/L [facility]; [facility] Work Phone: [phone] Creatinine [Mass/Vol] 1.2 mg/dL Normal 0.7 - 1.3 mg/dL [facility]; [facility] Work Phone: [phone] Creatinine [Mass/Vol] 43.2 mg/dL Normal [facility]; [facility] Work Phone: [phone] Glucose [Mass/Vol] NORM Normal [facility]; [facility] Work Phone: [phone] Glucose [Mass/Vol] 92 mg/dL Normal 74 - 106 mg/dL [facility]; [facility] Work Phone: Interpretation Immunofixation (U) [Interp] IMMUNOFIXATION, URINE Normal [facility]; [facility] Work Phone: Interpretation Immunofixation [Interp] IMMUNOFIXATION SERUM Normal [facility]; [facility] Work Phone: Parathyrin.intact [Mass/Vol] PARATHYROID INTACT WITH CALCIUM Normal [facility]; [facility] Work Phone: pH (Bld) 7 [pH] Normal [facility]; [facility] Work Phone: Phosphate [Mass/Vol] 3.3 mg/dL Normal 2.7 - 4 .9 mg/dL [facility]; [facility] Work Phone: Potassium [Moles/Vol] 3.9 mmol/L Normal 3.5 - 5.1 mmol/L [facility]; [facility] Work Phone: Protein (24H U) [Mass/Vol] <6.00 Normal 0.00 - 10.00 mg/dL [facility]; [facility] Work Phone: Protein [Mass/Vol] Negative Normal [facility]; [facility] Work Phone: Renal function 2000 panel RENAL FUNCTION PANEL Normal [facility]; [place] [employer] [facility] Work Phone: Renin (P) [Catalytic activity/Vol] PLASMA RENIN ACTIVITY Normal [facility]; [place] [employer] [facility] Work Phone: Sodium [Moles/Vol] 137 mmol/L Normal 136 - 145 mmol/L [facility]; [place] [employer] [facility] Work Phone: Urate [Mass/Vol] 8.7 mg/dL Abnormal 4.4 - 7.6 mg/dL [facility]; [place] [employer] Work Phone: Urea nitrogen [Mass/Vol] 15 mg/dL Normal 6 - 20 mg/dL [facility]; [place] [employer] [facility] Work Phone: Urea nitrogen/Creatinine [Mass ratio] 13 {ratio} Normal 0 - 30 {ratio} [facility]; [place] [employer]. Work Phone: Laboratory - Hematology and Cell countson 08-01-2015 Basophils (Bld) [#/Vol] 0.10 {3/UL} Normal 0.00 - 0.10 {3/UL} [facility]; [place] [employer] Work Phone: Basophils/100 WBC (Bld) 0.7 % Normal 0.0 - 2.0 % [facility]; [facility] Work Phone: CBC W Auto Differential panel (Bld) CBC Normal [facility]; [facility] Work Phone: Eosinophils (Bld) [#/Vol] 0.10 {3/UL} Normal 0.00 - 0.50 {3/UL} [facility]; [facility] Work Phone: Eosinophils/100 WBC (Bld) 0.9 % Normal 0.0 - 7.0 % [facility]; [facility] Work Phone: Erythrocyte distribution width (RBC) [Ratio] 12.9 % Normal 12.0 - 15.6 % [facility]; [facility] Work Phone: Hematocrit (Bld) [Volume fraction] 39.5 % Abnormal 40.0 - 52.0 % [facility]; [facility] Work Phone: Hemoglobin (Bld) [Mass/Vol] 14.3 g/dL Normal 13.0 - 17.5 g/dL [facility]; [facility] Work Phone: Lymphocytes (Bld) [#/Vol] 2.40 {3/UL} Normal 0.80 - 2.80 {3/UL} [facility]; [facility] Work Phone: Lymphocytes/100 WBC (Bld) 27.2 % Normal 20.0 - 45.0 % [facility]; [facility], [facility] Work Phone: MCH (RBC) [Entitic mass] 31 pg Normal 27 - 33 pg [facility]; [facility] Work Phone: MCHC (RBC) [Mass/Vol] 36 {X10_3} Normal 32 - 3 6 {X10_3} [facility].; [facility]. Work Phone: MCV (RBC) [Entitic vol] 84 fL Normal 81 - 98 fL [facility].; [facility]. Work Phone: [phone] Monocytes (Bld) [#/Vol] 0.70 {3/UL} Normal 0.20 - 1.00 {3/UL} [facility].; [place] [employer]. Work Phone: [phone] Monocytes/100 WBC (Bld) 7.4 % Normal 0.0 - 10.0 % [facility].; [place] [employer]. Work Phone: Morphology Blas (Bld) [Interp] N/A Normal [facility]; [place] [employer]. Work Phone: Neutrophils (Bld) [#/Vol] 5.60 {3/UL} Normal 1.50 - 7.10 {3/UL} [facility].; [employer]. Work Phone: Neutrophils/100 WBC (Bld) 63.8 % Normal 46.0 - 76.0 % [facility].; [employer]. Work Phone: Platelet mean volume (Bld) [Entitic vol] 7.9 fL Normal 6.4 - 10.5 fL [facility].; [employer]. Work Phone: Platelets (Bld) [#/Vol] 320 {3/UL} Normal 150 - 450 {3/UL} [place] [employer].; [employer], [employer]. Work Phone: RBC (Bld) [#/Vol] 4.69 {6/UL} Normal 4.50 - 6.0 0 {6/UL} [place] [employer].; [employer]. Work Phone: WBC (Bld) [#/Vol] 8.8 {3/UL} Normal 4.5 - 10.8 {3/UL} [employer]. Work Phone: WBC (Bld) [#/Vol] Negative Normal [employer].; [employer]. Work Phone: Laboratory - Specimen inform ationon 08-01-2015 Clarity (U) clear Normal [employer]; [employer]. Work Phone: Color (U) p.yel Normal [employer]; [employer]. Work Phone: Specimen type Nom (Spec) UNSPECIFIED Normal [employer]; [employer]. Work Phone: Laboratory - Urinalysison Nitrite Ql (U) Negative Normal [place]; [employer]. Work Phone: Urinalysis dipstick W Reflex Microscopic panel (U) URINALYSIS Normal [employer].; [employer]. Work Phone: No Panel Informationon 07-31 Blood Negative Normal [employer]; [employer]. Work Phone: Ketone Negative Normal [place]; [employer]. Work Phone: MANUAL DIFF N/A Normal [employer]; [employer]. Work Phone: Microscopic NOT INDICATED Normal [place]; [employer]. Work Phone: PANEL NAME URINE EOSINOPHIL Normal [employer]. Work Phone: Sp [place] 1.005 Abnormal [place]; [employer]. Work Phone: Urobilinog NORM Normal [facility].; [employer]. Work Phone: Laboratory - Chemistry and C hemistry - challengeon 05-31-2015 Calcium [Mass/Vol] 9.2 mg/dL Normal 8.6 - 10. 3 mg/dL [facility].; [place] [employer] Chloride [Moles/Vol] 103 mmol/L Normal 98 - 11 0 mmol/L [place] [employer] [facility].; [employer]. CO2 [Moles/Vol] 27 mmol/L Normal 19 - 30 mmol/L [place] [employer] [facility].; [employer] Creatinine [Mass/Vol] 1.74 mg/dL Abnormal 0.70 - 1.33 mg/dL [place] [employer] [facility]Ag[facility].; [employer]. GFR/1.73 sq M.predicted among blacks MDRD (S/P/Bld) [Vol rate/Area] 50 {ML/MIN/1.73M2} Abnormal [place] [employer] [facility].; [place] [employer] [facility]. GFR/1.73 sq M.predicted MDRD (S/P/Bld) [Vol rate/Area] 43 {ML/MIN/1.73M2} Abnormal [place] [employer] [facility].; [employer], [employer]. Glucose [Mass/Vol] 82 mg/dL Normal 65 - 99 mg/dL [place] [employer] [facility] CampusAg[facility].; [employer]. Potassium [Moles/Vol] 3.9 mmol/L Normal 3.5 - 5.3 mmol/L [place] [employer] [facility]Ag[facility].; [employer], [employer]. Sodium [Moles/Vol] 138 mmol/L Normal 135 - 146 mmol/L [place] [employer]. Urea nitrogen [Mass/Vol] 19 mg/dL Normal 7 - 25 mg/dL [place] [employer].; [employer], [employer]. Urea nitrogen/Creatinine [Mass ratio] 10.6 mg/mg Normal 6 - 22 [place] [employer]. Laboratory - Chemistry and C hemistry - challengeon 10-21-2013 Bilirubin Ql (U) Negative Normal [employer].; [employer]. Ketones Ql (U) Negative Normal [employer].; [employer]. pH (U) 7.0 [pH] Normal [employer].; [employer], [employer]. Specific gravity (U) [Rel density] 1.010 Normal [employer].; [employer]. Urobilinogen Qn (U) 0.2 mg/dL Normal [facility] [employer].; [employer]. Laboratory - Hematology and Cell countson 10-21-2013 Hemoglobin Ql (U) Negative Normal [employer].; [employer]. Laboratory - Specimen inform ationon 10-21-2013 Appearance (U) Clear Normal [employer].; [employer]. Color (U) yellow Normal [employer].; [employer]. Laboratory - Urinalysison Glucose Test strip (U) [Mass/Vol] Negative Normal [employer].; [employer]. Leukocyte esterase Test strip Ql (U) Negative Normal [employer].; [employer]. Nitrite Ql (U) Negative Normal [employer].; [employer]. Protein Ql (U) Negative Normal [employer]. Laboratory - Chemistry and C hemistry - challengeon 04-24-2012 Cholesterol [Mass/Vol] 200 mg/dL Normal 125 - 200 mg/dL [employer]. Cholesterol in HDL [Mass/Vol] 32 mg/dL Abnormal [employer]. Cholesterol in LDL [Mass/Vol] 125 mg/dL Normal [employer]. Cholesterol non HDL [Mass/Vol] 168 mg/dL Abnormal [employer].; [employer], [employer]. Cholesterol.total/Sandra sterol in HDL [Mass ratio] 6.3 {ratio} Abnormal [employer]. Glucose [Mass/Vol] 89 mg/dL Normal 65 - 99 mg/dL [facility], [facility].; [facility], [facility]. Testosterone [Mass/Vol] 404 ng/dL Normal 250 - 1100 ng/dL [facility].; [facility], [facility]. Triglyceride [Mass/Vol] 216 mg/dL Abnormal [facility].; [facility], [facility]. Laboratory - Chemistry and C hemistry - challengeon 03-27-2012 Prostate specific Ag [Mass/Vol] 0.6 ng/mL Normal 0.0 - 4.0 ng/mL [facility], [facility].; [facility], [facility]. Testosterone [Mass/Vol] 329 ng/dL Normal 250 - 1100 ng/dL [facility], [facility].; [place] [employer] [facility], [facility]. Laboratory - Chemistry and C hemistry - challengeon 07-12-2011 Calcium [Mass/Vol] 9.2 mg/dL Normal 8.4 - 10. 6 mg/dL [facility], [facility].; [facility], [facility]. Chloride [Moles/Vol] 103 mmol/L Normal 98 - 11 0 mmol/L [facility].; [place] [facility], [facility]. CO2 [Moles/Vol] 30.0 mmol/L Normal [facility], [facility].; [place] [facility], [facility]. Creatinine [Mass/Vol] 1.2 mg/dL Normal 0.6 - 1.4 mg/dL [facility], [facility].; [place] [facility], [facility]. Glucose [Mass/Vol] 146 mg/dL Abnormal 40 - 100 mg/dL [facility], [facility].; [place] [facility], [facility]. Potassium [Moles/Vol] 4.2 mmol/L Normal 3.50 - 5.00 meq/L [facility], [facility].; [place] [facility], [facility]. Sodium [Moles/Vol] 136 mmol/L Normal 136 - 145 mmol/L [facility], [facility].; [place] [facility], [facility]. Urea nitrogen [Mass/Vol] 23 mg/dL Abnormal 7.0 - 20.0 mg/dL [facility], [facility].; [place] [employer], [facility]. Laboratory - Hematology and Cell countson 07-12-2011 Basophils/100 WBC (Bld) 0.00 % Normal 0.00 - 0.10 [facility].; [facility], [facility]. Basophils/100 WBC (Bld) 0.2 % Normal 0.0 - 2.0 % [facility], [facility].; [facility], [facility]. Eosinophils/100 WBC (Bld) 0.20 % Normal 0.00 - 0.50 [facility], [facility].; [facility], [facility] Eosinophils/100 WBC (Bld) 1.5 % Normal 0.0 - 6.0 % [facility], [facility].; [facility], [facility] Erythrocyte distribution width (RBC) [Ratio] 13.3 % Normal 12.0 - 15.6 % [facility], [facility].; [facility], [facility] Hematocrit (Bld) [Volume fraction] 44.1 % Normal 40 - 52 % [facility], [facility].; [place] [facility], [facility] Hemoglobin (Bld) [Mass/Vol] 15.3 g/dL Normal [facility], [facility].; [facility], [facility] Lymphocytes/100 WBC (Bld) 1.30 % Normal [facility].; [facility], [facility]. Lymphocytes/100 WBC (Bld) 11.0 % Abnormal 20.0 - 45.0 % [facility], [facility].; [place] [facility], [facility]. MCH (RBC) [Entitic mass] 30 pg Normal 27 - 33 pg [facility], [facility].; [place] [employer], [facility]. MCHC (RBC) [Mass/Vol] 35 g/dL Normal 32 - 36 g/dL [facility], [facility].; [place] [facility], [facility]. MCV (RBC) [Entitic vol] 87 fL Normal 81 - 98 fL [facility], [facility].; [place] [employer], [facility]. Monocytes/100 WBC (Bld) 1.9 % Normal 0.0 - 10.0 % [facility], [facility].; [place] [employer], [facility]. Monocytes/100 WBC (Bld) 0.20 % Normal [facility], [facility].; [place] [facility] [employer] Neutrophils/100 WBC (Bld) 85.4 % Abnormal 46 - 76 % [facility], [facility].; [place] [employer], [facility]. Platelet mean volume (Bld) [Entitic vol] 8.0 fL Normal 6.4 - 10.5 fL [facility].; [facility]. Platelets (Bld) [#/Vol] 279 10*9{Cells}/L Normal 150 - 450 10*9{Cells}/ L [facility].; [facility]. RBC (Bld) [#/Vol] 5.05 10*6/uL Normal 4.60 - 6.0 0 10*6/uL [facility].; [place] [facility]. WBC (Bld) [#/Vol] 11.6 10*9{Cells}/L Abnormal 4.5 - 10.8 10*9{Cells}/ L [facility].; [place] [facility] No Panel Informationon 07-12 NEUTROPHILS 9.90 10*6/uL Abnormal 1.5 - 7.1 10*6/uL [facility].; [employer] Vital Signs Date Time Vital Sign Value Performing Clinician Faci lity 11-18-2024 10:24-0400 Body height 175.[address] Libby Mcneil MD Work Phone: [facility] 11-18-2024 10:24-0400 Body mass index (BMI) [Ratio] 29.7 kg/m2 Dr. Libby Mcneil MD Work Phone: 3(139)[phone] [place] [address] 11-18-2024 10:24-0400 Body temperature 97.5 [degF] Dr. Libby Mcneil MD Work Phone: [facility] 11-18-2024 10:24-0400 Body weight 91.[address] Libby Mcneil MD Work Phone: [facility] 11-18-2024 10:24-0400 Diastolic blood pressure 82 mm[Hg] Dr. Libby Mcneil MD Work Phone: [facility] 11-18-2024 10:24-0400 Heart rate 57 /min Dr. Libby Mcniel MD Work Phone: [facility] 11-18-2024 10:24-0400 Respiratory rate 16 /min Dr. Libby Mcneil MD Work Phone: 4(461)[phone] [place] [address] 11-18-2024 10:24-0400 SaO2% (BldA) [Mass fraction] 97 % Dr. Libby Mcneil MD Work Phone: 6(762)[phone] [place] [address] 11-18-2024 10:24-0400 Systolic blood pressure 135 mm[Hg] Dr. Libby Mcneil MD Work Phone: 5(329)455-831534 [place] [address] 09-24-2024 09:46-0400 Body height 175.[address] Libby Mcneil MD Work Phone: 6(471)[phone] [place] [address] 09-24-2024 09:46-0400 Body mass index (BMI) [Ratio] 29.7 kg/m2 Dr. Libby Mcneil MD Work Phone: 6(969)301-422034 [place] [address] 09-24-2024 09:46-0400 Body weight 91.[address] Libby Mcneil MD Work Phone: 8(474)[phone] [place] [address] 09-10-2024 11:34-0400 Body mass index (BMI) [Ratio] 29.2 kg/m2 Dr. Libby Mcneil MD Work Phone: 4(245)[phone] [place] [address] 09-10-2024 11:34-0400 Body temperature 98.2 [degF] Dr. Libby Mcneil MD Work Phone: 4(088)[phone] [place] [address] 09-10-2024 11:34-0400 Body weight 91.[address] Libby Mcneil MD Work Phone: 6(201)[phone] [place] [address] 09-10-2024 11:34-0400 Diastolic blood pressure 74 mm[Hg] Dr. Libby Mcneil MD Work Phone: 8(777)[phone] [place] [address] 09-10-2024 11:34-0400 Heart rate 65 /min Dr. Libby Mcneil MD Work Phone: 4(837)[phone] [place] [address] 09-10-2024 11:34-0400 Respiratory rate 16 /min Dr. Libby Mcneil MD Work Phone: 1(959)[phone] [place] [address] 09-10-2024 11:34-0400 SaO2% (BldA) [Mass fraction] 97 % Dr. Libby Mcneil MD Work Phone: [facility] 09-10-2024 11:34-0400 Systolic blood pressure 116 mm[Hg] Dr. Libby Mcneil MD Work Phone: [facility] 03-30-2024 09:26-0500 Body height 177.8 cm Beth Taylory [employer] Work Phone: [employer]. 03-30-2024 09:26-0500 Body mass index (BMI) [Ratio] 26.69 kg/m2 Beth Vikash [employer]UST[employer]AL [employer]ERIAL INST[employer]ER Work Phone: [employer]; [employer]. 03-30-2024 09:26-0500 Body surface area Derived from formula 2.02 m2 Beth Vikash [employer]UST[employer]AL AERIAL INSTALLER Work Phone: [employer]; [employer]. 03-30-2024 09:26-0500 Body weight 84.37 kg Beth Vikash [employer]USTRIAL [employer]ERIAL INST[employer]ER Work Phone: [employer]; [employer]. 03-30-2024 09:26-0500 Diastolic blood pressure 73 mm[Hg] Beth Vikash [employer]AL [employer] INST[employer]ER Work Phone: [employer]; [employer]. Comment on above: Patient Position: Sitting; Cuff Location : Left Arm; Cuff Size: Large 03-30-2024 09:26-0500 Heart rate 59 /min Beth Vikash [employer]AL [employer] INST[employer]ER Work Phone: [employer]; [employer]. Comment on above: Pattern: Regular 03-30-2024 09:26-0500 Systolic blood pressure 131 mm[Hg] Beth Vikash [employer]USTRIAL AERIAL INSTALLER Work Phone: [employer]; [employer]. Comment on above: Patient Position: Sitting; Cuff Location : Left Arm; Cuff Size: Large 04-29-2023 15:00-0500 Body height 177.8 cm Mckenzie Crane MA [facility], [facility].; [place] [facility] 04-29-2023 15:00-0500 Body mass index (BMI) [Ratio] 28.84 kg/m2 Mckenzie Crane MA [facility], [facility].; [employer] 04-29-2023 15:00-0500 Body surface area Derived from formula 2.09 m2 Mckenzie Crane MA [facility], [facility] [place] [facility] [employer] 04-29-2023 15:00-0500 Body weight 91.17 kg Mckenzie Crane MA [facility], [facility].; [place] [employer] [facility], [facility]. 04-29-2023 15:00-0500 Diastolic blood pressure 75 mm[Hg] Mckenzie Crane MA [facility], [facility].; [employer] Comment on above: Patient Position: Sitting; Cuff Location : Left Arm; Cuff Size: Standard 04-29-2023 15:00-0500 Heart rate 66 /min Mckenzie Crane MA [facility], [facility].; [employer]. Comment on above: Pattern: Regular 04-29-2023 15:00-0500 Systolic blood pressure 148 mm[Hg] Mckenzie Crane MA [facility], [facility].; [place] [facility]. Comment on above: Patient Position: Sitting; Cuff Location : Left Arm; Cuff Size: Standard 03-14-2023 10:02-0400 Body height 177.8 cm Katarina Ashton LPN [facility] [employer] [facility]. 03-14-2023 10:02-0400 Body mass index (BMI) [Ratio] 28.55 kg/m2 Katarina Ashton LPN [place] [facility].; [employer], [facility]. 03-14-2023 10:02-0400 Body surface area Derived from formula 2.08 m2 Katarina Ashton LPN [place] [facility], [facility].; [employer], [facility]. 03-14-2023 10:02-0400 Body weight 90.27 kg Katarina Ashton LPN [place] [facility], [employer], [employer]. 03-14-2023 10:02-0400 Diastolic blood pressure 72 mm[Hg] Katarina Ashton ANUP [facility] [employer]. Comment on above: Patient Position: Sitting; Cuff Location : Left Arm; Cuff Size: Standard 03-14-2023 10:02-0400 Heart rate 60 /min Katarina Ashton ANUP [facility].; [employer]. Comment on above: Pattern: Regular 03-14-2023 10:02-0400 Systolic blood pressure 145 mm[Hg] Katarina Ashton ANUP [facility].; [employer]. Comment on above: Patient Position: Sitting; Cuff Location : Left Arm; Cuff Size: Standard 09-20-2022 13:58-0400 Body height 177.8 cm Beth Vikash [employer]UST[employer]AL [employer]ERIAL INSTALLER Work Phone: [place] [employer]. 09-20-2022 13:58-0400 Body mass index (BMI) [Ratio] 28.41 kg/m2 [facility] [employer] INSTALLER Work Phone: [place] [employer]. 09-20-2022 13:58-0400 Body surface area Derived from formula 2.08 m2 Beth Vikash [employer]USTRIAL [employer]ERIAL INSTALLER Work Phone: [place] [employer]. 09-20-2022 13:58-0400 Body weight 89.81 kg Beth Vikash [employer] INST[employer]ER Work Phone: [place] [employer].; [employer]. 09-20-2022 13:58-0400 Diastolic blood pressure 75 mm[Hg] Beth Vikash [employer]UST[employer] INST[employer]ER Work Phone: [employer].; [employer]. Comment on above: Patient Position: Sitting; Cuff Location : Left Arm; Cuff Size: Standard 09-20-2022 13:58-0400 Heart rate 62 /min Beth Vikash [employer] INST[employer]ER Work Phone: [employer].; [employer]. Comment on above: Pattern: Regular 09-20-2022 13:58-0400 Systolic blood pressure 133 mm[Hg] Beth Vikash [employer] INST[employer]ER Work Phone: [employer].; [employer]. Comment on above: Patient Position: Sitting; Cuff Location : Left Arm; Cuff Size: Standard 03-18-2022 14:52-0400 Body height 177.8 cm Beth Vikash [employer] INST[employer]ER Work Phone: [employer].; [employer]. 03-18-2022 14:52-0400 Body mass index (BMI) [Ratio] 28.41 kg/m2 Beth Vikash [employer] INST[employer]ER Work Phone: [employer].; [employer]. 03-18-2022 14:52-0400 Body surface area Derived from formula 2.08 m2 Beth Vikash [employer]UST[employer]AL [employer] INSTALLER Work Phone: [employer].; [employer]. 03-18-2022 14:52-0400 Body weight 89.81 kg Beth Taylory [employer]USTRIAL AERIAL INSTALLER Work Phone: [employer].; [employer]. 03-18-2022 14:52-0400 Diastolic blood pressure 66 mm[Hg] Beth Vikash [employer]USTRIAL AERIAL INSTALLER Work Phone: [employer].; [employer]. Comment on above: Patient Position: Sitting; Cuff Location : Left Arm; Cuff Size: Standard 03-18-2022 14:52-0400 Heart rate 71 /min Beth Vikash [employer]AL [employer] INSTALLER Work Phone: [employer].; [employer]. Comment on above: Pattern: Regular 03-18-2022 14:52-0400 Systolic blood pressure 149 mm[Hg] Beth Vikash INDUSTRIAL AERIAL INSTALLER Work Phone: [employer].; [employer]. Comment on above: Patient Position: Sitting; Cuff Location : Left Arm; Cuff Size: Standard 09-17-2021 15:00-0400 Body height 177.8 cm Beth Vikash INDUSTRIAL AERIAL INSTALLER Work Phone: [employer]; [employer]. 09-17-2021 15:00-0400 Body mass index (BMI) [Ratio] 26.83 kg/m2 Beth Vikash INDUSTRIAL AERIAL INSTALLER Work Phone: [employer]; [employer]. 09-17-2021 15:00-0400 Body surface area Derived from formula 2.03 m2 Beth Taylory INDUSTRIAL AERIAL INSTALLER Work Phone: [employer]; [employer]. 09-17-2021 15:00-0400 Body weight 84.82 kg Beth Vikash INDUSTRIAL AERIAL INSTALLER Work Phone: [employer]; [employer]. 09-17-2021 15:00-0400 Diastolic blood pressure 67 mm[Hg] Beth Taylory INDUSTRIAL AERIAL INSTALLER Work Phone: [employer]; [employer]. Comment on above: Patient Position: Sitting; Cuff Location : Left Arm; Cuff Size: Standard 09-17-2021 15:00-0400 Heart rate 59 /min Beth Taylory INDUSTRIAL AERIAL INSTALLER Work Phone: [employer]; [employer]. Comment on above: Pattern: Regular 09-17-2021 15:00-0400 Systolic blood pressure 131 mm[Hg] Beth Vikash INDUSTRIAL AERIAL INSTALLER Work Phone: [employer]; [employer]. Comment on above: Patient Position: Sitting; Cuff Location : Left Arm; Cuff Size: Standard 09-28-2020 15:14-0400 Body height 177.8 cm Beth Vikash INDUSTRIAL AERIAL INSTALLER Work Phone: [employer]; [employer]. 09-28-2020 15:14-0400 Body mass index (BMI) [Ratio] 25.83 kg/m2 Beth Vikash INDUSTRIAL AERIAL INSTALLER Work Phone: [employer]; [employer]. 09-28-2020 15:14-0400 Body surface area Derived from formula 2 m2 Beth Taylory INDUSTRIAL AERIAL INSTALLER Work Phone: [employer].; [employer]. 09-28-2020 15:14-0400 Body weight 81.65 kg Bethcali Taylory INDUSTRIAL AERIAL INSTALLER Work Phone: [employer].; [employer]. 09-28-2020 15:14-0400 Diastolic blood pressure 79 mm[Hg] Beth Vikash INDUSTRIAL AERIAL INSTALLER Work Phone: [employer].; [employer]. Comment on above: Patient Position: Sitting; Cuff Location : Left Arm; Cuff Size: Standard 09-28-2020 15:14-0400 Systolic blood pressure 154 mm[Hg] Beth Vikash INDUSTRIAL AERIAL INSTALLER Work Phone: [employer].; [employer]. Comment on above: Patient Position: Sitting; Cuff Location : Left Arm; Cuff Size: Standard 04-03-2020 15:33-0500 Body height 177.8 cm Beth Taylory INDUSTRIAL AERIAL INSTALLER Work Phone: [employer].; [employer]. 04-03-2020 15:33-0500 Body mass index (BMI) [Ratio] 26.54 kg/m2 Beth Vikash INDUSTRIAL AERIAL INSTALLER Work Phone: [employer].; [employer]. 04-03-2020 15:33-0500 Body surface area Derived from formula 2.02 m2 Beth Taylory INDUSTRIAL AERIAL INSTALLER Work Phone: [employer].; [employer]. 04-03-2020 15:33-0500 Body weight 83.92 kg Bethcali Taylory INDUSTRIAL AERIAL INSTALLER Work Phone: [employer].; [employer]. 04-03-2020 15:33-0500 Diastolic blood pressure 72 mm[Hg] Beth Vikash INDUSTRIAL AERIAL INSTALLER Work Phone: [employer].; [employer]. Comment on above: Patient Position: Sitting; Cuff Location : Left Arm; Cuff Size: Standard 04-03-2020 15:33-0500 Heart rate 77 /min Beth Vikash INDUSTRIAL AERIAL INSTALLER Work Phone: [employer].; [employer]. Comment on above: Pattern: Regular 04-03-2020 15:33-0500 Systolic blood pressure 152 mm[Hg] Beth Vikash INDUSTRIAL AERIAL INSTALLER Work Phone: [employer].; [employer]. Comment on above: Patient Position: Sitting; Cuff Location : Left Arm; Cuff Size: Standard 03-17-2019 13:33-0400 Body height 177.8 cm Beth Vikash INDUSTRIAL AERIAL INSTALLER Work Phone: [employer].; [employer]. 03-17-2019 13:33-0400 Body mass index (BMI) [Ratio] 26.11 kg/m2 Beth Vikash INDUSTRIAL AERIAL INSTALLER Work Phone: [employer].; [employer]. 03-17-2019 13:33-0400 Body surface area Derived from formula 2.01 m2 Beth Vikash INDUSTRIAL AERIAL INSTALLER Work Phone: [employer].; [employer]. 03-17-2019 13:33-0400 Body weight 82.56 kg Beth Vikash INDUSTRIAL AERIAL INSTALLER Work Phone: [employer].; [employer]. 03-17-2019 13:33-0400 Diastolic blood pressure 66 mm[Hg] Beth Vikash INDUSTRIAL AERIAL INSTALLER Work Phone: [employer].; [employer]. Comment on above: Patient Position: Sitting; Cuff Location : Left Arm; Cuff Size: Large 03-17-2019 13:33-0400 Heart rate 64 /min Beth Vikash INDUSTRIAL AERIAL INSTALLER Work Phone: [employer].; [employer]. Comment on above: Pattern: Regular 03-17-2019 13:33-0400 Systolic blood pressure 119 mm[Hg] Beth Vikash INDUSTRIAL AERIAL INSTALLER Work Phone: [employer].; [employer]. Comment on above: Patient Position: Sitting; Cuff Location : Left Arm; Cuff Size: Large 10-22-2017 11:29-0400 Body height 177.8 cm Beth Suh INDUSTRIAL AERIAL INSTALLER Work Phone: [employer].; [employer]. 10-22-2017 11:29-0400 Body mass index (BMI) [Ratio] 27.69 kg/m2 Beth Taylory INDUSTRIAL AERIAL INSTALLER Work Phone: [employer].; [employer]. 10-22-2017 11:29-0400 Body surface area Derived from formula 2.06 m2 Beth Suh INDUSTRIAL AERIAL INSTALLER Work Phone: [employer].; [employer]. 10-22-2017 11:29-0400 Body weight 87.54 kg Beth Suh INDUSTRIAL AERIAL INSTALLER Work Phone: [employer].; [employer]. 10-22-2017 11:29-0400 Diastolic blood pressure 74 mm[Hg] Beth Taylory INDUSTRIAL AERIAL INSTALLER Work Phone: [employer].; [employer]. Comment on above: Patient Position: Sitting; Cuff Location : Left Arm; Cuff Size: Standard 10-22-2017 11:29-0400 Heart rate 70 /min Beth Taylory INDUSTRIAL AERIAL INSTALLER Work Phone: [employer].; [employer]. Comment on above: Pattern: Regular 10-22-2017 11:29-0400 Systolic blood pressure 128 mm[Hg] Beth Taylory INDUSTRIAL AERIAL INSTALLER Work Phone: [employer].; [employer]. Comment on above: Patient Position: Sitting; Cuff Location : Left Arm; Cuff Size: Standard 10-03-2017 10:09-0400 Body height 177.8 cm Beth Taylory INDUSTRIAL AERIAL INSTALLER Work Phone: [employer].; [employer]. 10-03-2017 10:09-0400 Body mass index (BMI) [Ratio] 27.69 kg/m2 Beth Vikash LPN Work Phone: [email or web address] 10-03-2017 10:09-0400 Body surface area Derived from formula 2.06 m2 Beth Vikash LPN Work Phone: [email or web address] 10-03-2017 10:09-0400 Body weight 87.54 kg Beth Suh LPN Work Phone: [employer] 10-03-2017 10:09-0400 Diastolic blood pressure 77 mm[Hg] Beth Suh LPN Work Phone: [employer] Comment on above: Patient Position: Sitting; Cuff Location : Left Arm; Cuff Size: Standard 10-03-2017 10:09-0400 Heart rate 55 /min Beth Suh LPN Work Phone: [employer]; [employer]. Comment on above: Pattern: Regular 10-03-2017 10:09-0400 Systolic blood pressure 155 mm[Hg] Beth Suh LPN Work Phone: [employer] Comment on above: Patient Position: Sitting; Cuff Location : Left Arm; Cuff Size: Standard 07-02-2017 13:53-0500 Body height 177.8 cm Beth Suh LPN Work Phone: [employer] 07-02-2017 13:53-0500 Body mass index (BMI) [Ratio] 26.83 kg/m2 Beth Vikash LPN Work Phone: [email or web address] 07-02-2017 13:53-0500 Body surface area Derived from formula 2.03 m2 Beth Vikash [employer] IN[employer] Work Phone: [employer] 07-02-2017 13:53-0500 Body weight 84.82 kg Beth Vikash [employer]USTRIAL [employer]ERIAL INSTALLER Work Phone: [email or web address] 07-02-2017 13:53-0500 Diastolic blood pressure 89 mm[Hg] Beth Vikash [employer]USTRIAL [employer]ERIAL INSTALLER Work Phone: [employer] Comment on above: Patient Position: Sitting; Cuff Location : Left Arm; Cuff Size: Standard 07-02-2017 13:53-0500 Heart rate 62 /min Beth Vikash [employer]USTRIAL [employer]ERIAL INSTALLER Work Phone: [employer] Comment on above: Pattern: Regular 07-02-2017 13:53-0500 Systolic blood pressure 168 mm[Hg] Beth Vikash [employer]USTRIAL [employer]ERIAL INSTALLER Work Phone: [employer] Comment on above: Patient Position: Sitting; Cuff Location : Left Arm; Cuff Size: Standard 06-25-2017 09:08-0500 Body height 177.8 cm Beth Vikash [employer]USTRIAL [employer]ERIAL INSTALLER Work Phone: [employer] 06-25-2017 09:08-0500 Body mass index (BMI) [Ratio] 26.83 kg/m2 Beth Vikash [employer]USTRIAL [employer] INSTALLER Work Phone: [employer] 06-25-2017 09:08-0500 Body surface area Derived from formula 2.03 m2 Beth Vikash INDUSTRIAL [employer]ERIAL INSTALLER Work Phone: [employer] 06-25-2017 09:08-0500 Body weight 84.82 kg Beth Vikash INDUSTRIAL [employer]ERIAL INSTALLER Work Phone: [employer] 06-25-2017 09:08-0500 Diastolic blood pressure 89 mm[Hg] Beth Vikash INDUSTRIAL [employer]ERIAL INSTALLER Work Phone: [employer]. Comment on above: Patient Position: Sitting; Cuff Location : Left Arm; Cuff Size: Standard 06-25-2017 09:08-0500 Heart rate 64 /min Beth Vikash [employer]USTRIAL [employer] INSTALLER Work Phone: [employer]. Comment on above: Pattern: Regular 06-25-2017 09:08-0500 Systolic blood pressure 173 mm[Hg] Beth Vikash INDUSTRIAL [employer]ERIAL INSTALLER Work Phone: [employer] Comment on above: Patient Position: Sitting; Cuff Location : Left Arm; Cuff Size: Standard 05-09-2017 11:10-0500 Body height 177.8 cm Beth Vikash INDUSTRIAL [employer]ERIAL INSTALLER Work Phone: [email or web address] 05-09-2017 11:10-0500 Body mass index (BMI) [Ratio] 26.83 kg/m2 Beth Vikash [employer]USTRIAL [employer] INST[employer]ER Work Phone: [email or web address] 05-09-2017 11:10-0500 Body surface area Derived from formula 2.03 m2 Beth Vikash INDUSTRIAL AERIAL INSTALLER Work Phone: [employer] 05-09-2017 11:10-0500 Body weight 84.82 kg Beth Taylory INDUSTRIAL AERIAL INSTALLER Work Phone: [email or web address] 05-09-2017 11:10-0500 Diastolic blood pressure 94 mm[Hg] Beth Vikash INDUSTRIAL [employer]ERIAL INSTALLER Work Phone: [employer]. Comment on above: Patient Position: Sitting; Cuff Location : Left Arm; Cuff Size: Large 05-09-2017 11:10-0500 Heart rate 57 /min Beth Vikash [employer]USTRIAL [employer]ERIAL INSTALLER Work Phone: [employer]. Comment on above: Pattern: Regular 05-09-2017 11:10-0500 Systolic blood pressure 190 mm[Hg] Beth Vikash INDUSTRIAL [employer]ERIAL INSTALLER Work Phone: [employer]. Comment on above: Patient Position: Sitting; Cuff Location : Left Arm; Cuff Size: Large 02-28-2016 14:290400 Body height 177.8 cm Beth Vikash INDUSTRIAL [employer]ERIAL INSTALLER Work Phone: [employer] 02-28-2016 14:29-0400 Body mass index (BMI) [Ratio] 26.26 kg/m2 Beth Vikash [employer]USTRIAL [employer] INSTALLER Work Phone: [employer] 02-28-2016 14:290400 Body surface area Derived from formula 2.01 m2 Beth Vikash INDUSTRIAL AERIAL INSTALLER Work Phone: [employer] 02-28-2016 14:29-0400 Body weight 83.01 kg Beth Taylory [employer]USTRIAL [employer]ERIAL INSTALLER Work Phone: [employer] 02-28-2016 14:290400 Diastolic blood pressure 79 mm[Hg] Beth Vikash INDUSTRIAL AERIAL INSTALLER Work Phone: [employer]. Comment on above: Patient Position: Sitting; Cuff Location : Left Arm; Cuff Size: Large 02-28-2016 14:290400 Heart rate 55 /min Beth Vikash INDUSTRIAL [employer]ERIAL INSTALLER Work Phone: [employer]. Comment on above: Pattern: Regular 02-28-2016 14:29-0400 Systolic blood pressure 137 mm[Hg] Beth Vikash INDUSTRIAL AERIAL INSTALLER Work Phone: [employer]. Comment on above: Patient Position: Sitting; Cuff Location : Left Arm; Cuff Size: Large 07-31-2015 16:25-0500 Body height 177.8 cm Beth Vikash INDUSTRIAL AERIAL INSTALLER Work Phone: [employer] 07-31-2015 16:25-0500 Body mass index (BMI) [Ratio] 26.69 kg/m2 Bethcali Taylory INDUSTRIAL AERIAL INSTALLER Work Phone: [email or web address] 07-31-2015 16:25-0500 Body surface area Derived from formula 2.02 m2 Beth Vikash INDUSTRIAL AERIAL INSTALLER Work Phone: [employer] 07-31-2015 16:25-0500 Body weight 84.37 kg Beth Taylory INDUSTRIAL AERIAL INSTALLER Work Phone: [employer] 07-31-2015 16:25-0500 Diastolic blood pressure 82 mm[Hg] Beth Taylory INDUSTRIAL AERIAL INSTALLER Work Phone: [employer]. Comment on above: Patient Position: Sitting; Cuff Location : Left Arm; Cuff Size: Standard 07-31-2015 16:25-0500 Heart rate 65 /min Beth Taylory [employer]USTRIAL [employer]ERIAL INSTALLER Work Phone: [employer]; [employer]. Comment on above: Pattern: Regular 07-31-2015 16:25-0500 Systolic blood pressure 137 mm[Hg] Beth Taylory [employer]USTRIAL [employer]ERIAL INSTALLER Work Phone: [employer]. Comment on above: Patient Position: Sitting; Cuff Location : Left Arm; Cuff Size: Standard 05-31-2015 15:36-0500 Body height 177.8 cm Beth Vikash INDUSTRIAL AERIAL INSTALLER Work Phone: [employer] 05-31-2015 15:36-0500 Body mass index (BMI) [Ratio] 27.55 kg/m2 Beth Vikash [employer]USTRIAL [employer]ERIAL INSTALLER Work Phone: [employer] 05-31-2015 15:36-0500 Body surface area Derived from formula 2.05 m2 Beth Vikash INDUSTRIAL AERIAL INSTALLER Work Phone: [employer]. 05-31-2015 15:36-0500 Body weight 87.09 kg Beth Suh LPN Work Phone: [employer]. 05-31-2015 15:36-0500 Diastolic blood pressure 90 mm[Hg] Beth Suh INDUSTRIAL AERIAL INSTALLER Work Phone: [employer]. Comment on above: Patient Position: Sitting; Cuff Location : Left Arm; Cuff Size: Standard 05-31-2015 15:36-0500 Heart rate 63 /min Beth Suh LPN Work Phone: [employer]. Comment on above: Pattern: Regular 05-31-2015 15:36-0500 Systolic blood pressure 171 mm[Hg] Beth Suh INDUSTRIAL AERIAL INSTALLER Work Phone: [employer]. Comment on above: Patient Position: Sitting; Cuff Location : Left Arm; Cuff Size: Standard 07-28-2014 14:29-0500 Body height 177.8 cm Beth Suh LPN Work Phone: [employer] 07-28-2014 14:29-0500 Body mass index (BMI) [Ratio] 27.26 kg/m2 Beth Suh LPN Work Phone: [employer] 07-28-2014 14:29-0500 Body surface area Derived from formula 2.04 m2 Beth Suh INDUSTRIAL AERIAL INSTALLER Work Phone: [employer] 07-28-2014 14:29-0500 Body weight 86.18 kg Beth Suh INDUSTRIAL AERIAL INSTALLER Work Phone: [employer] 07-28-2014 14:29-0500 Diastolic blood pressure 85 mm[Hg] Beth Vikash INDUSTRIAL AERIAL INSTALLER Work Phone: [employer]. Comment on above: Patient Position: Sitting; Cuff Location : Left Arm; Cuff Size: Standard 07-28-2014 14:29-0500 Heart rate 71 /min Beth Vikash INDUSTRIAL AERIAL INSTALLER Work Phone: [employer]. Comment on above: Pattern: Regular 07-28-2014 14:29-0500 Systolic blood pressure 159 mm[Hg] Beth Vikash INDUSTRIAL AERIAL INSTALLER Work Phone: [employer]. Comment on above: Patient Position: Sitting; Cuff Location : Left Arm; Cuff Size: Standard 02-25-2014 16:58-0400 Body weight 83.46 kg Neilee L Vess INDUSTRIAL AERIAL INSTALLER [employer] 02-25-2014 16:58-0400 Diastolic blood pressure 79 mm[Hg] Neilee L Vess INDUSTRIAL AERIAL INSTALLER [employer]. Comment on above: Patient Position: Sitting; Cuff Location : Left Arm; Cuff Size: Standard 02-25-2014 16:58-0400 Heart rate 53 /min Neilee L Vess INDUSTRIAL AERIAL INSTALLER [employer]. Comment on above: Pattern: Regular 02-25-2014 16:58-0400 Systolic blood pressure 125 mm[Hg] Neilee L Vess INDUSTRIAL AERIAL INSTALLER [employer]. Comment on above: Patient Position: Sitting; Cuff Location : Left Arm; Cuff Size: Standard 06-23-2013 11:42-0500 Diastolic blood pressure 78 mm[Hg] Beth Vikash INDUSTRIAL AERIAL INSTALLER Work Phone: [employer]. Comment on above: Patient Position: Sitting; Cuff Location : Left Arm; Cuff Size: Standard 06-23-2013 11:42-0500 Heart rate 54 /min Beth Vikash INDUSTRIAL AERIAL INSTALLER Work Phone: [employer]. Comment on above: Pattern: Regular 06-23-2013 11:42-0500 Systolic blood pressure 126 mm[Hg] [facility] Work Phone: [employer]. Comment on above: Patient Position: Sitting; Cuff Location : Left Arm; Cuff Size: Standard 06-23-2013 10:51-0500 Body height 177.8 cm Libby Mcneil MD Work Phone: [employer]; [employer] 06-23-2013 10:51-0500 Body mass index (BMI) [Ratio] 26.11 kg/m2 Libby Mcneil MD Work Phone: [employer]; [employer] 06-23-2013 10:51-0500 Body surface area Derived from formula 2.01 m2 Libby Mcneil MD Work Phone: [employer]; [employer] 06-23-2013 10:51-0500 Body weight 82.56 kg Libby Mcneil MD Work Phone: [employer] 06-23-2013 10:51-0500 Diastolic blood pressure 86 mm[Hg] Libby Mcneil MD Work Phone: [employer]; [employer]. Comment on above: Patient Position: Sitting; Cuff Location : Right Arm; Cuff Size: Large 06-23-2013 10:51-0500 Heart rate 53 /min Libby Mcneil MD Work Phone: [employer]; [employer] Comment on above: Pattern: Regular 06-23-2013 10:51-0500 Systolic blood pressure 140 mm[Hg] Libby Mcneil MD Work Phone: [employer]. Comment on above: Patient Position: Sitting; Cuff Location : Right Arm; Cuff Size: Large 03-27-2012 08:39-0400 Body height 177.8 cm [facility] Work Phone: [employer] 03-27-2012 08:39-0400 Body mass index (BMI) [Ratio] 26.11 kg/m2 Bethcali Taylory INDUSTRIAL AERIAL INSTALLER Work Phone: [employer]. 03-27-2012 08:39-0400 Body surface area Derived from formula 2.01 m2 Beth Taylory INDUSTRIAL AERIAL INSTALLER Work Phone: [employer]. 03-27-2012 08:39-0400 Body weight 82.56 kg Beth Taylory INDUSTRIAL AERIAL INSTALLER Work Phone: [employer]. 03-27-2012 08:39-0400 Diastolic blood pressure 74 mm[Hg] Beth Taylory INDUSTRIAL AERIAL INSTALLER Work Phone: [employer]; [employer]. Comment on above: Patient Position: Sitting; Cuff Location : Left Arm; Cuff Size: Standard 03-27-2012 08:39-0400 Heart rate 57 /min Beth Taylory INDUSTRIAL AERIAL INSTALLER Work Phone: [employer]; [employer]. Comment on above: Pattern: Regular 03-27-2012 08:39-0400 Systolic blood pressure 123 mm[Hg] Beth Taylory INDUSTRIAL AERIAL INSTALLER Work Phone: [employer]; [employer]. Comment on above: Patient Position: Sitting; Cuff Location : Left Arm; Cuff Size: Standard 07-12-2011 11:36-0500 Body weight 83.46 kg Beth Taylory INDUSTRIAL AERIAL INSTALLER Work Phone: [employer]. 07-12-2011 11:36-0500 Diastolic blood pressure 64 mm[Hg] Beth Vikash INDUSTRIAL AERIAL INSTALLER Work Phone: [employer]. Comment on above: Patient Position: Sitting; Cuff Location : Left Arm; Cuff Size: Standard 07-12-2011 11:36-0500 Heart rate 66 /min Beth Vikash INDUSTRIAL AERIAL INSTALLER Work Phone: [employer]. Comment on above: Pattern: Regular 07-12-2011 11:36-0500 Systolic blood pressure 106 mm[Hg] Beth Vikash INDUSTRIAL AERIAL INSTALLER Work Phone: [employer]. Comment on above: Patient Position: Sitting; Cuff Location : Left Arm; Cuff Size: Standard 05-02-2011 16:53-0500 Body temperature 97.2 [degF] Beth Vikash INDUSTRIAL AERIAL INSTALLER Work Phone: [employer]. Comment on above: Method: Tympanic 05-02-2011 16:53-0500 Body weight 85.73 kg Beth Vikash INDUSTRIAL AERIAL INSTALLER Work Phone: [employer] 05-02-2011 16:53-0500 Diastolic blood pressure 83 mm[Hg] Beth Vikash INDUSTRIAL AERIAL INSTALLER Work Phone: [employer]. Comment on above: Patient Position: Sitting; Cuff Location : Left Arm; Cuff Size: Standard 05-02-2011 16:53-0500 Heart rate 71 /min Beth Vikash INDUSTRIAL AERIAL INSTALLER Work Phone: [employer]. Comment on above: Pattern: Regular 05-02-2011 16:53-0500 Systolic blood pressure 154 mm[Hg] Beth Vikash INDUSTRIAL AERIAL INSTALLER Work Phone: [employer]. 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 Comment on above: Patient Position: Sitting; Cuff Location : Left Arm; Cuff Size: Standard Encounters Encounter Date Encounter Type Care Provider Facility Start: 01-02-2025 End: 01-05-2025 Evaluation and management of inpatient DR LIBBY MCNEIL MD Facility:[facility] Start: 01-01-2025 End: 01-02-2025 Emergency department patient visit CORINA LAMAR [facility] Start: 12-20-2024 End: 12-20-2024 Historical Summary Libby Mcneil MD Work Phone: [employer] Start: 12-20-2024 Review Libby rodriguez MD Work Phone: [facility] Start: 11-30-2024 End: 11-30-2024 ambulatory SHAJI SIBLEY [facility] Start: 11-24-2024 End: 11-24-[address] Libby Mcneil MD Work Phone: -[facility]iology [facility] Start: 11-24-2024 End: 11-24-[address] Sav Jacobs MD -Radiology [facility] Work Phone: Start: 11-24-2024 End: 11-24-2024 ambulatory Sav Jacobs Facility:[facility] Start: 11-18-2024 End: 11-18-[address] Sav Jacobs MD -[place] [facility] Work Phone: Start: 11-18-2024 End: 11-18-[address] Libby Mcneil MD Work Phone: [facility] Work Phone: Start: 10-08-2024 End: 10-08-[address] Libby Mcneil MD Work Phone: [facility] Work Phone: Start: 10-08-2024 End: 10-08-[address] Worley MD -[facility] Work Phone: Start: 10-08-2024 End: 10-08-[address] Worley Facility:[facility] Start: 09-24-2024 End: 09-24-[address] Jovany Terry MD -[facility] Work Phone: Start: 09-24-2024 End: 09-24-2024 ambulatory Jovany Terry Facility:[facility] Start: 09-10-2024 End: 09-10-[address] Sav Martinez MD -[facility] Work Phone: Start: 09-10-2024 End: 09-10-2024 ambulatory Sav Martinez Facility:[facility] Start: 05-28-2024 End: 05-28-2024 ambulatory SHAJI BERGER [facility] Start: 05-18-2024 End: 05-18-2024 ambulatory ARIEL KAMARA [facility] Start: 05-04-2024 End: 05-04-2024 ambulatory Sav Martinez Facility:[facility] Start: 05-04-2024 End: 05-04-2024 ambulatory Sav Michelle Facility:[facility] Start: 03-30-2024 End: 03-30-2024 Patient encounter procedure Libby Mcneil MD Work Phone: [employer] Start: 03-30-2024 End: 03-30-2024 Physical examination Beth Shu LPN Work Phone: [employer]; [employer] Start: 03-11-2024 End: 03-16-2024 Orders Libby Mcneil MD Work Phone: [employer] Start: 01-19-2024 End: 01-19-2024 Orders Libby Mcneil MD Work Phone: [employer] Start: 09-18-2023 End: 09-18-2023 Orders Libby Mcneil MD Work Phone: [employer] Start: 04-29-2023 End: 04-29-2023 Office outpatient visit 15 minutes Libby Mcneil MD Work Phone: [employer] Start: 03-14-2023 End: 03-14-2023 Patient encounter procedure Libby Mcneil MD Work Phone: [employer] Start: 03-14-2023 End: 03-14-2023 Physical examination Katarina Ashton LPN [facility]; [employer] Start: 03-05-2023 End: 03-05-2023 Orders Libby Mcneil MD Work Phone: [employer] Start: 09-20-2022 End: 09-20-2022 Patient encounter procedure Libby Mcneil MD Work Phone: [employer] Start: 03-18-2022 End: 03-18-2022 Patient encounter procedure Libby Mcneil MD Work Phone: [employer] Start: 09-17-2021 End: 09-17-2021 Patient encounter procedure Libby Mcneil MD Work Phone: [employer] Start: 09-28-2020 End: 09-28-2020 Patient encounter procedure Libby Mcneil MD Work Phone: [employer] Start: 04-03-2020 End: 04-05-2020 Patient encounter procedure Libby Mcneil MD Work Phone: [employer] Start: 03-17-2019 End: 03-17-2019 Office outpatient visit 15 minutes Libby Mcneil MD Work Phone: [employer] Start: 10-22-2017 End: 10-22-2017 Patient encounter procedure Libby Mcneil MD Work Phone: [employer] Start: 10-03-2017 End: 10-06-2017 Patient encounter procedure Libby Mcneil MD Work Phone: [employer] Start: 07-02-2017 End: 07-02-2017 Procedure Libby Mcneil MD Work Phone: [employer] Start: 06-25-2017 End: 07-01-2017 Procedure Libby Mcneil MD Work Phone: [employer] Start: 05-09-2017 End: 05-14-2017 Patient encounter procedure Libby Mcneil MD Work Phone: [employer] Start: 07-01-2016 End: 07-01-2016 Historical Summary Libby Mcneil MD Work Phone: [employer] Start: 03-08-2016 End: 03-08-2016 Historical Summary Libby Mcneil MD Work Phone: [employer] Start: 03-06-2016 End: 03-06-2016 Historical Summary Libby Mcneil MD Work Phone: [employer] Start: 02-28-2016 End: 03-04-2016 Patient encounter procedure Libby Mcneil MD Work Phone: [employer] Start: 10-06-2015 End: 10-06-2015 Historical Summary Libby Mcneil MD Work Phone: [employer] Start: 07-31-2015 End: 08-02-2015 Patient encounter procedure Libby Mcneil MD Work Phone: [employer] Start: 06-07-2015 End: 06-07-2015 Phone Encounter Libby Mcneil MD Work Phone: [employer] Start: 05-31-2015 End: 05-31-2015 Patient encounter procedure Libby Mcneil MD Work Phone: [employer] Start: 07-28-2014 End: 07-28-2014 Patient encounter procedure Libby Mcneil MD Work Phone: [employer] Start: 05-23-2014 End: 05-23-2014 Orders Libby Mcneil MD Work Phone: [employer] Start: 03-08-2014 End: 03-08-2014 Nursing evaluation of patient and report Libby Mcneil MD Work Phone: [employer] Start: 02-25-2014 End: 02-25-2014 Patient encounter procedure Libby Mcneil MD Work Phone: [employer] Start: 10-21-2013 End: 10-21-2013 Orders Libby Mcneil MD Work Phone: [employer] Start: 06-23-2013 End: 06-23-2013 Patient encounter procedure Libby Mcneil MD Work Phone: [employer] Start: 04-24-2012 End: 04-24-2012 Orders Libby Mcneil MD [facility] Start: 03-27-2012 End: 03-27-2012 Patient encounter procedure Libby Mcneil MD Work Phone: [employer] [facility] Start: 07-12-2011 End: 07-12-2011 Patient encounter procedure Libby Mcneil MD Work Phone: ELENZA [facility] Start: 05-02-2011 End: 05-02-2011 Patient encounter procedure Libby Mcneil MD Work Phone: Erly Start: 04-04-2011 End: 04-07-2011 Patient encounter procedure Libby Mcneil MD Work Phone: ELENZA [facility] Start: 12-20-2010 End: 12-20-2010 Patient encounter procedure Libby Mcneil MD Work Phone: Erly Start: 12-17-2010 End: 12-18-2010 Medication Libby Mcneil MD Work Phone: [place]ly Start: 08-24-2010 End: 08-24-2010 Medication Libby Mcneil MD Work Phone: ELENZA [facility] Start: 08-24-2010 End: 08-24-2010 Historical Summary Libby Mcneil MD Work Phone: [employer] [facility] Procedures Date Procedure Procedure Detail Performing Clinician Start: 11-24-2024 Complete x-ray skele janak survey Dr. Libby Mcneil MD Work Phone: Start: 10-08-[address] Umer Mcneil MD Work Phone: Comment on above: Performed at: [address] [id number] Director: Gary Salas PhD, Phone: [phone] Start: 10-08-2024 Electrophoresis: [id number] Dr. Libby Mcneil MD Work Phone: Start: 10-08-2024 Electrophoresis: [id number] Dr. Libby Mcneil MD Work Phone: Start: 10-08-2024 Electrophoresis: sharee ma globulin Dr. Libby Mcneil MD Work Phone: Start: 10-08-2024 Hepatitis C antibody measurement Dr. Libby Mcneil MD Work Phone: Comment on above: Reactive: Presumptiv e evidence of antibodies to HCV. Follow CDC recommendations for supplemental testing.Non-Reactive: Antibodies to HCV were not detected; does not exclude the possibility of exposure to HCVReactive Results are presumptive evidence of antibodies to HCV. Follow CDC recommendations for supplemental testing.Order confirmation testing: HCV Quant by PCR testing - HCVPCR #[id number] Non Reactive: < 0.8 Equivocal: >/= 0.8 to < 1.0 Reactive: >/= 1.0The CDC requires that a reactive/equivocal HCV antibody result be sent out for confirmation. HCV Quant by PCR testing. Start: 10-08-[address] Lula Mcneil MD Work Phone: Comment on above: No monoclonality det ected. Start: 10-08-[address] 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 PLEASE NOTE: Samples from patients receiving DARZALEX(R)(daratumumab) or SARCLISA(R)(isatuximab-[facility]) treatmentcan appear as an IgG kappa and mask a complete response(CR). If this patient is receiving these therapies, thisIFE assay interference can be removed by ordering testnumber [id number], Daratumumab-Specific,Serum or [id number], Isatuximab-Specific,Serum and submitting a new sample for testing or bycalling the lab to add this test to the current sample. Start: 10-08-2024 Plain radiography of pelvis Dr. Libby Mcneil MD Work Phone: Start: 09-24-2024 X-ray of lumbosacral spine Dr. Libby Mcneil MD Work Phone: Start: 03-30-2024 End: 03-30-2024 Depression screening Libby Mcneil MD Work Phone: Start: 03-30-2024 End: 03-30-2024 Falls risk assessment documented Libby Mcneil MD Work Phone: Start: 03-30-2024 End: 03-30-2024 Most recent diastolic blood pressure < 80 mm hg Libby Mcneil MD Work Phone: Start: 03-30-2024 End: 03-30-2024 Most recent systolic blood press 130-139mm hg Libby Mcneil MD Work Phone: Start: 03-30-2024 End: 03-30-2024 Pt falls assess docd w/o fall/injury past year Libby Mcneil MD Work Phone: Start: 03-30-2024 End: 03-30-2024 Scr dep neg, no plan reqd Libby you MD Work Phone: Start: 03-11-2024 End: 03-11-2024 Lab findings surveillance Beth Dawkins PN Work Phone: Comment on above: Normal. 91 Start: 03-11-2024 End: 03-11-2024 Lipid panel results documented & reviewed Beth Suh LPN Work Phone: Comment on above: Normal. tc 235 hdl 5 8 ldl 139 tri9g 250 Start: 11-26-2023 End: 11-26-2023 Colonoscopy Beth Suh [employer] Work Phone: Comment on above: 08/2015 Idris Arriaga, hyperplastic poly at 50 cm 11/26/23 normal scope Start: 11-24-2023 End: 11-24-2023 Screening colonoscopy Beth Suh [employer] Work Phone: Comment on above: clear recheck [address] Idris Arriaga Start: 03-14-2023 End: 03-14-2023 Depression screening Libby Mcneil MD Work Phone: Start: 03-14-2023 End: 03-14-2023 Flu imm no admin doc arely Libby tran MD Work Phone: Start: 03-14-2023 End: 03-14-2023 Scr dep neg, no plan reqd Libby you MD Work Phone: Start: 03-07-2023 End: 03-07-2023 Lipid panel results documented & reviewed Mckenzie Crane MA Comment on above: Normal. tc 196 hdl 4 2 ldl 124 trig 187 Start: 03-07-2023 End: 03-07-2023 Prostate specific antigen measurement Mckenzie Crane MA Comment on above: 0.70 Start: 09-20-2022 End: 09-20-2022 Most recent diastolic blood pressure < 80 mm hg Libby Mcneil MD Work Phone: Start: 09-20-2022 End: 09-20-2022 Most recent systolic blood press 130-139mm hg Libby Mcneil MD Work Phone: Start: 09-17-2021 End: 09-17-2021 Most recent diastolic blood pressure < 80 mm hg Libby Mcneil MD Work Phone: Start: 09-17-2021 End: 09-17-2021 Most recent systolic blood press 130-139mm hg Libby Mcneil MD Work Phone: Start: 04-03-2020 End: 04-03-2020 Flu vaccine refused Mckenzie Crane MA Start: 04-03-2020 End: 06-26-2020 Ndl emg 2 xtr w/wo related paraspinal areas Libby Mcneil MD Work Phone: Start: 03-17-2019 End: 03-17-2019 Flu imm no admin doc arely tran MD Work Phone: Start: 10-22-2017 End: 10-22-2017 Body mass index documented Libby jefferson MD Work Phone: Start: 10-03-2017 End: 10-03-2017 Body mass index documented Libby jefferson MD Work Phone: Start: 07-02-2017 End: 07-02-2017 Body mass index documented Libby jefferson MD Work Phone: Start: 07-02-2017 End: 07-02-2017 Removal sutures under anesthesia same surgeon Libby Mcneil MD Work Phone: Start: 07-01-2017 End: 07-01-2017 Exc b9 lesion mrgn xcp sk tg t/a/l 0.5 cm/< Libby Mcneil MD Work Phone: Start: 06-25-2017 End: 06-25-2017 Body mass index documented Libby jefferson MD Work Phone: Start: 06-25-2017 End: 06-25-2017 Flu imm no admin doc arelymichele tran MD Work Phone: Start: 05-14-2017 End: 05-14-2017 Exc b9 lesion mrgn xcp sk tg t/a/l 0.5 cm/< Libby Mcneil MD Work Phone: Start: 05-09-2017 End: 05-09-2017 Pt-focused hlth risk assmt score doc stnd instrm Libby Mcneil MD Work Phone: Comment on above: score 5 Start: 05-09-2017 End: 05-09-2017 Body mass index documented Libby jefferson MD Work Phone: Start: 05-09-2017 End: 05-09-2017 Flu imm no admin doc arelymichele tran MD Work Phone: Start: 06-20-2016 End: 06-20-2016 Endoscopy Mckenzie Crane MA Comment on above: 06/20/16 Luisa, geoff b arrets, NL gastric and duodenal mucosa, h pylori neg Start: 03-08-2016 End: 03-08-2016 Echocardiography Mckenzie Crane MA Comment on above: 02/2016 ECHO negativ e Start: 03-05-2016 End: 03-05-2016 cardiac nuclear stress test Mckenzie Crane MA Comment on above: 03/05/[address] neg Start: 02-28-2016 End: 03-06-2016 Myocardial spect multiple studies Libby Mcneil MD Work Phone: Start: 10-03-2015 End: 10-03-2015 Screening colonoscopy Mckenzie Crane MA Comment on above: hyperplastic polyp, Dr Mariza Arriaga Start: 10-03-2015 End: 10-03-2015 Screening for malignant neoplasm of large intestine Mckenzie Crane MA Comment on above: Dr Idris Arriaga Start: 08-25-2015 End: 08-25-2015 Colonoscopy Mckenzie Crane MA Comment on above: 08/2015 Idris Arriaga, hyperplastic poly at 50 cm Start: 07-28-2015 End: 07-28-2015 Ultrasonography Mckenzie Crane MA Comment on above: renal, normal Start: 02-25-2014 End: 07-25-2015 Echo tthrc r-t 2d w/wom-mode compl spec&colr d Libby Mcneil MD Work Phone: Start: 06-23-2013 End: 06-23-2013 Pure tone audiometry air only Libby Mcneil MD Work Phone: Comment on above: 25 dB bilateral all frequencies except 4000HZ at 60 dB unilaterally. see report Start: 07-25-2011 End: 07-25-2011 Radex cplx motion bdy sctj oth/thn urograpy uni Libby Mcneil MD Work Phone: No history of procedure Asad Crane MA No history of procedure Cynthia Suh LPN Work Phone: Plan of Treatment Date Care Activity Detail Author Start: 12-20-2024 Patient encounter procedure Medical; [facility] Start: 20-Dec-2024 10:10-04:00 MD Lib[facility]il [facility] Start: 10-08-2024 Serum immunofixation [facility] Start: 09-10-2024 Patient referral [facility] Work Phone: Start: 03-30-2024 Patient encounter procedure Medical; [facility]YS[facility] - [facility] Start: 30-Mar-2024 09:00-05:00 MD Libby Mcneil Appointment Request [employer] Start: 03-23-2024 Patient encounter procedure Medical; PHYSICAL - awv [employer] Start: 23-Mar-2024 09:00-04:00 MD Libby Mcneil Appointment Request [employer] Start: 03-11-2024 Assay of prostate specific antigen total PSA TOTAL (PROSTATE SPECIFIC ANTIGEN) ([id number]) Start: 11-Mar-2024 Request [employer] Start: 03-11-2024 Comprehensive metabolic panel CMP w/ GFR* ([id number]) Start: 11-Mar-2024 Request [employer]; [employer]. Start: 03-11-2024 Lipid panel LIPID PANEL ([id number]) Start: 11-Mar-2024 Request [employer]. Start: 03-11-2024 Nursing evaluation of patient and report Medical; [facility] Start: 11-Mar-2024 10:00-04:00 NURSE, FLOAT Appointment Request [employer] Start: 05-09-2017 End: 05-15-2017 Polysom 6/>yrs sleep 4/> addl jamaal attnd Sleep Study Date: 09-May-2017 [employer] Albumin/Globulin [Ma ss Ratio] in Serum or Plasma by Electrophoresis [facility] C reactive protein [Mass/volume] in Serum or Plasma [facility] CBC W Auto Different ial panel - Blood [facility] Comprehensive metabo lic 2000 panel - Serum or Plasma [facility] Cyclic citrullinated peptide IgG Ab [Units/volume] in Serum or Plasma [facility] Electrophoresis: albumin [facility] Electrophoresis: [id number] [facility] Electrophoresis: [id number] [facility] Electrophoresis: sharee ma globulin [facility] Erythrocyte sediment ation rate [facility] Globulin measurement [facility] IgA [Mass/volume] in Serum or Plasma [facility] IgG [Mass/volume] in Serum or Plasma [facility] IgM [Mass/volume] in Serum or Plasma [facility] Immunoglobulin measurement [facility] Patient referral [facility] Work Phone: Protein electrophore sis panel - Serum or Plasma [facility] Serum immunofixation [facility] Serum protein electrophoresis [facility] Total globulins measurement [facility] Urine immunofixation [facility] XR Bones Survey Views [facility] Immunizations Immunization Date Immunization Notes Care Provider Edgardo bolañosjavier 11-12-2013 measles, mumps and rubella virus vaccine Libby Mcneil MD Work Phone[facility]. Comment on above: HD during epidemic Payers Date Payer Category Payer Private Health Insurance [id number] 2024 Self-pay [id number] 2024 Unknown [id number] 1960 Unknown [id number] 51 1960 Unknown [id number] 51 1960 Unknown [id number] 51 1960 Unknown [id number] 51 1960 Unknown [id number] 27 Unknown MEDI[employer]SH[employer] (SELF PAY) Unknown [id number] 62 Unknown [id number] 62 Unknown [id number] [id number] 62 Unknown [id number] [id number] 62 Unknown [id number] 62 Unknown [id number] [id number] 62 Unknown [id number] [id number] 62 Unknown [id number] 62 Social History Date Type Detail Facility Spouse Spouse [facility] [employer]; [place] Tobacco Use: Tobacco Use: ; N ever smoker. [employer]. Start: 1960 Male [facility] Start: 05-04-2024 End: 11-11-2024 Never smoked tobacco [facility] Clinical Notes 09-10-2024 to 01-05-2025 Note Date & Type Note Facility 01-05-2025 Discharge summary Date of Service 01/05/2025 Discharge Diagnosis NSTEMI CAD (Severe bifurcating lesion prox LCx/OM1) s/p PCI Hypertension Hyperlipidemia Depression Hospital Course 64-year-old male with past medical history of hypertension, depression was transferred from [facility] for NSTEMI. Patient states he was at a [facility] yesterday when he started having epigastric pain radiating to the midsternal chest around 1 PM. He attributed discomfort to acid reflux, took some Tums did not alleviate pain. Throughout the day the pain exacerbated became progressive patient started having palpitations and feeling diaphoretic. Denies any shortness of breath, orthopnea, PND, dizziness. Patient is a non-smoker, social alcohol intake, no prior drug use in the past. Patient has had a stress test 20 years ago that was normal. Has not had any cardiac workup recently. Family history positive for cardiac disease: Mother from an MD at age 6767 years old, sister has Ivsby-Uymepqgig-Stfsu. Troponin 124, D-dimer within normal limits. He was transferred to our facility for further evaluation for suspected NSTEMI. The patient underwent coronary angiography which noted complex bifurcating disease involving the circumflex and a high-grade first diagonal lesion. It was felt that the diagonal lesion was the culprit for the NSTEMI. The patient underwent staged PCI the following day with stenting to the 90% stenosis of the proximal LCx, balloon angioplasty to 50% stenosis of the ostial OM1, and 95% stenosis of the ostial D1. An echocardiogram was obtained this admission which showed preserved LV systolic function with an LVEF 65-70% and no regional wall motion abnormalities. The patient was started on aspirin and Brilinta post PCI. Other cardiac medications were optimized for CAD benefit and to improve his blood pressure. Notably losartan 25 mg was added to his home regimen of medications. 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 Allergies sulfa drugs rash Procedures LHC/PCI Consults No qualifying data available. Imaging Results and Diagnostics XR Chest 1 View Result Date: January 02, 2025 Verified By: HUNTER LUCERO MD CLINICAL STATEMENT: IMPRESSION: No acute findings Physical Exam Vitals and Measurements T: 37.3 C (Oral) TMIN: 36.5 C (Oral) TMAX: 37.3 C (Oral) HR: 65 (Monitored) RR: 16 BP: 140/78 SpO2: 93% Weight Dosing Weight: 91.3 kg (01/02/25) General Appearance: Patient comfortably lying on bed, not in acute distress Head: Normocephalic, atraumatic EENT: PERRLA Neck: supple, no JVD, no mass Cardiac: s1s2,RRR, no murmurs or rubs or gallops Lungs: clear to auscultation bilaterally, no wheeze or rhonchi or crackles Abdomen: soft , Nontender, no organomegaly, bowel sounds heard Musculoskeletal: full ROM , no gross deformities Extremities: no rash or ulcers or pedal edema Neurological: alert, oriented x 3 Skin: no rash or ulcers Code Status No qualifying data available. Admission Date 01/02/2025 Discharge Date 01/05/2025 Patient Instructions 1. Kindly follow up with your Primary Care Physician and Manager Part as recommended. _ 2. Some of your medications may have changed during this hospital stay. Please go over these changes with your nurse before you leave the hospital. _ 3. Take all your medications as prescribed. If you have any queries, please reach out to our [facility] office at [phone] for general queries and [phone] for medication refills. 4. All your medical records and results are available to you through our [employer] Patient Portal. To sign up, please visit [email or web address] Medications New Prescription aspirin (Brendan Childrens Aspirin 81 mg oral tablet, (chewable))1 tab(s) by mouth once a day with a meal. Refills: 3. atorvastatin (Lipitor 40 mg oral tablet)1 tab(s) by mouth once a day. Refills: 2. losartan (losartan 25 mg oral tablet)1 tab(s) by mouth once a day. Refills: 2. ticagrelor (Brilinta (ticagrelor) 90 mg oral tablet)1 tab(s) by mouth every 12 hours. Refills: 3. Unchanged carvedilol (Coreg 12.5 mg oral tablet)1 tab(s) by mouth two (2) times a day. mirtazapine (mirtazapine 15 mg oral tablet)1 tab(s) by mouth daily at bedtime. sertraline (sertraline 25 mg oral tablet)1 tab(s) by mouth once a day. spironolactone (Aldactone 25 mg oral tablet)1 tab(s) by mouth once a day. Follow Up Follow Up with LIBBY MCNEIL MD When:Within 1-2 days Where:[address] [place] [address]- [phone] Follow Up with LIBBY DAWSON MD When:In 4 weeks Where:[address] [facility] [address] [facility] [place] [address]- [phone] Follow Up with Cardiac Rehab- [facility] Where:[facility] [address] [place] [address]- Additional Information: Cardiac rehabilitation is a vital part of your recovery and long-term heart health following your hospital stay. It is a medically supervised exercise and education program designed to improve your physical fitness, manage heart-related risk factors, and support emotional well-being. A cardiac rehab steam table associate will contact you soon to schedule your follow-up appointment. If you have any questions please call [phone]. Follow Up Appointments No qualifying data available. Follow Up Labs/Studies Discharge Labs No Follow-up Labs Discharge Studies No Follow-up Studies Discharge Diet Discharge Diet - Ordered -- No changes were made to your diet during your hospital stay. Please resume your pre hospitalization diet on discharge., 01/05/25 12:47:00 EDT Discharge Activity Discharge Activity - Ordered -- Lifting Restricted less than 10 pounds, for 1 week. No driving for 2 days., 01/05/25 12:47:00 EDT Condition on Discharge Stable Discharge Disposition Home [1] Progress Note; KAE AUSTIN DO 01/04/2025 10:11 EDT Digitally Signed by KAE AUSTIN DO on 01/05/2025 10:31 PM Digitally Signed by LILLIAM BAXTER MD [facility] 01-05-2025 Cardiology Progress note Date of Service 01/03/2025 Subjective No acute complaints this morning. No reports of chest pain per patient. Objective Vitals and Measurements T: 36.6 C (Oral) TMIN: 36.6 C (Oral) TMAX: 37.0 C (Oral) HR: 56 (Monitored) RR: 18 BP: 163/88 SpO2: 95% Intake and Output 7AM Yesterday to 7AM Today Intake and Output (Last 24 hours) Intake Oral Intake 1080.00 Administration Information 72.68 Output Urine Voided 3300.00 Urine Count 1.00 Total Summary Total Intake 1152.68 Total Output 3300.00 Fluid Balance -2147.32 Physical Exam General Appearance: Patient comfortably lying on bed, not in acute distress Head: Normocephalic, atraumatic EENT: PERRLA Neck: supple, no JVD, no mass Cardiac: s1s2,RRR, no murmurs or rubs or gallops Lungs: clear to auscultation bilaterally, no wheeze or rhonchi or crackles Abdomen: soft , Nontender, no organomegaly, bowel sounds heard Musculoskeletal: full ROM , no gross deformities Extremities: no rash or ulcers or pedal edema Neurological: alert, oriented x 3 Skin: no rash or ulcers Weight Dosing Weight: 91.3 kg (01/02/25) Medications Medications (21) Active Scheduled: (5) aspirin 81 mg Chewable 81 mg 1 tab(s), Oral, qDayM atorvastatin 40 mg tablet 40 mg 1 tab(s), Oral, qDay carvedilol 12.5 mg tablet 12.5 mg 1 tab(s), Oral, BID sertraline 25 mg tablet 25 mg 1 tab(s), Oral, qDay spironolactone 25 mg tablet 25 mg 1 tab(s), Oral, qDayM Continuous: (1) heparin 25,000 unit(s) [10.95 unit(s)/kg/hr] + Dextrose 5% Premix Diluent 250 mL 250 mL, Intravenous, 10 mL/hr PRN: (15) acetaminophen 325 mg Tablet 650 mg 2 tab(s), Oral, q4h acetaminophen-HYDROcodone 325-10 mg tablet 1 tab(s), Oral, q4h acetaminophen-HYDROcodone 325-5 mg tablet 1 tab(s), Oral, q4h albuterol - ipratropium 2.5 mg-0.5 mg/3 mL Inhal Nany UD 3 mL, Inhalation, q4hRT dextrose 50% Solution Disp syringe 50 mL 25 gram(s) 50 mL, IV Push, AsDirected heparin 5,000 units/mL (1 mL) vial 4,000 unit(s) 0.8 mL, IV Push, q6h magnesium sulfate 4 gram(s)/100mL PMX 4 g 100 mL, IV Piggyback, As[employer]irected magnesium sulfate 50% (500mg/mL) 6 g 12 mL, IV Piggyback, As[employer]irected magnesium sulfate PMX 2 g 50 mL, IV Piggyback, [employer] melatonin 3 mg tablet 6 mg 2 tab(s), Oral, qHS ondansetron 2 mg/ 1 mL 2 mL INJ 4 mg 2 mL, IV Push, q4h potassium chloride (PMX) 20 mEq/100 mL 20 mEq 100 mL, IV Piggyback, [employer] potassium chloride 20 mEq ER tablet 20 mEq 1 tab(s), Oral, AsDirected potassium chloride 20 mEq ER tablet 40 mEq 2 tab(s), Oral, AsDirected potassium chloride 20 mEq ER tablet 40 mEq 2 tab(s), Oral, AsDirected Lab Results 01/03 02:47 WBC: 10.5 Hgb: 16.1 Hct: 47.8 Platelet: 237 Neutrophil %: 64.8 Glucose Level: 103 Sodium Level: 139 Potassium Level: 4.5 BUN: 22.0 Creatinine Lvl (s): 1.22 01/02 08:31 WBC: 13.3 H Hgb: 16.5 Hct: 48.6 Platelet: 240 Neutrophil %: 74.9 Protime: 10.2 PT International Ratio: 0.9 Glucose Level: 105 Sodium Level: 138 Potassium Level: 4.6 BUN: 22.0 Creatinine Lvl (s): 1.13 Imaging Results and Diagnostics XR Chest 1 View Result Date: January 02, 2025 Verified By: HUNTER LUCERO MD CLINICAL STATEMENT: IMPRESSION: No acute findings EKG No qualifying data available. Assessment/Plan This is a 64-year-old male with past medical history of hypertension, depression was transferred from [facility] for NSTEMI. NSTEMI CAD (Severe bifurcating lesion prox LCx/OM1) EKG at primary showing normal sinus rhythm mild downsloping of ST segments in lead II and aVF Continue with heparin drip [facility] today noted significant CAD as above, plan for staged PCI with Dr. Dawson tomorrow. Continue with aspirin, high intensity atorvastatin (LDL 114), metoprolol tartrate Follow-up echocardiogram Hypertension Continue with Coreg, spironolactone. Hyperlipidemia Continue high intensity statin. Aggressively lifestyle and risk factor modifications as outpatient. Depression Continue with sertraline Digitally Signed by KAE AUSTIN DO on 01/03/2025 06:13 PM [facility] 01-05-2025 Cardiology Progress note Date of Service 01/04/2025 Subjective No acute complaint this morning. Patient awaiting staged PCI today. Objective Vitals and Measurements T: 36.6 C (Oral) TMIN: 36.4 C (Oral) TMAX: 36.9 C (Oral) HR: 65 (Monitored) RR: 18 BP: 152/72 SpO2: 95% Intake and Output 7AM Yesterday to 7AM Today Intake and Output (Last 24 hours) Intake Oral Intake 530.00 Administration Information 220.17 Output Urine Voided 2900.00 Total Summary Total Intake 750.17 Total Output 2900.00 Fluid Balance -2149.83 Physical Exam General Appearance: Patient comfortably lying on bed, not in acute distress Head: Normocephalic, atraumatic EENT: PERRLA Neck: supple, no JVD, no mass Cardiac: s1s2,RRR, no murmurs or rubs or gallops Lungs: clear to auscultation bilaterally, no wheeze or rhonchi or crackles Abdomen: soft , Nontender, no organomegaly, bowel sounds heard Musculoskeletal: full ROM , no gross deformities Extremities: no rash or ulcers or pedal edema Neurological: alert, oriented x 3 Skin: no rash or ulcers Weight Dosing Weight: 91.3 kg (01/02/25) Medications Medications (23) Active Scheduled: (8) aspirin 81 mg Chewable 81 mg 1 tab(s), Oral, qDayM atorvastatin 40 mg tablet 40 mg 1 tab(s), Oral, qDay carvedilol 12.5 mg tablet 12.5 mg 1 tab(s), Oral, BID No metformin for 48 hrs post contrast 1 EA, Miscellaneous, Unscheduled No metformin for 48 hrs post contrast 1 EA, Miscellaneous, Daily sertraline 25 mg tablet 25 mg 1 tab(s), Oral, qDay spironolactone 25 mg tablet 25 mg 1 tab(s), Oral, qDayM ticagrelor 90 mg tablet 90 mg 1 tab(s), Oral, q12hr Continuous: (1) NS (0.9% nacl) 1,000 mL 1,000 mL, Intravenous, 75 mL/hr PRN: (14) acetaminophen 325 mg Tablet 650 mg 2 tab(s), Oral, q4h acetaminophen-HYDROcodone 325-10 mg tablet 1 tab(s), Oral, q4h acetaminophen-HYDROcodone 325-5 mg tablet 1 tab(s), Oral, q4h albuterol - ipratropium 2.5 mg-0.5 mg/3 mL Inhal Nany UD 3 mL, Inhalation, q4hRT dextrose 50% Solution Disp syringe 50 mL 25 gram(s) 50 mL, IV Push, AsDirected magnesium sulfate 4 gram(s)/100mL PMX 4 g 100 mL, IV Piggyback, AsDirected magnesium sulfate 50% (500mg/mL) 6 g 12 mL, IV Piggyback, AsDirected magnesium sulfate PMX 2 g 50 mL, IV Piggyback, AsDirected melatonin 3 mg tablet 6 mg 2 tab(s), Oral, qHS ondansetron 2 mg/ 1 mL 2 mL INJ 4 mg 2 mL, IV Push, q4h potassium chloride (PMX) 20 mEq/100 mL 20 mEq 100 mL, IV Piggyback, AsDirected potassium chloride 20 mEq ER tablet 20 mEq 1 tab(s), Oral, AsDirected potassium chloride 20 mEq ER tablet 40 mEq 2 tab(s), Oral, AsDirected potassium chloride 20 mEq ER tablet 40 mEq 2 tab(s), Oral, AsDirected Lab Results 01/04 03:59 WBC: 10.2 Hgb: 16.8 Hct: 48.9 Platelet: 238 Neutrophil %: 67.5 Glucose Level: 108 Sodium Level: 138 Potassium Level: 4.4 BUN: 19.0 Creatinine Lvl (s): 1.20 Imaging Results and Diagnostics XR Chest 1 View Result Date: January 02, 2025 Verified By: HUNTER LUCERO MD CLINICAL STATEMENT: IMPRESSION: No acute findings EKG Electrocardiogram (EKG) - InProcess -- 01/04/25 13:58:00 EDT, Post-procedure, Complete by Nursing Assessment/Plan This is a 64-year-old male with past medical history of hypertension, depression was transferred from [facility] for NSTEMI. NSTEMI CAD (Severe bifurcating lesion prox LCx/OM1) Patient is now status post PCI to the LCx/OM1 and D1 lesions today. Discussed with IC, patient tolerated procedure well. Likely discharge home tomorrow if no major overnight issues. Continue with aspirin and Brilinta, high intensity atorvastatin (LDL 114), metoprolol tartrate Echocardiogram noted preserved LV systolic function with no regional wall modalities. Hypertension Continue with Coreg, spironolactone. Hyperlipidemia Continue high intensity statin. Aggressively lifestyle and risk factor modifications as outpatient. Depression Continue with sertraline Digitally Signed by KAE AUSTIN DO on 01/04/2025 09:17 PM [facility] 01-05-2025 Hospital Discharg e instructions Patient Education 01/05/2025 14:28:22 Heart-Healthy Eating Plan Heart-Healthy Eating Plan Many factors influence your heart (coronary) health, including eating and exercise habits. Coronary risk increases with abnormal blood fat (lipid) levels. Heart-healthy meal planning includes limiting unhealthy fats, increasing healthy fats, and making other diet and lifestyle changes. What is my plan? Your health care provider may recommend that you: Limit your fat intake to % or less of your total calories each day. Limit your saturated fat intake to % or less of your total calories each day. Limit the amount of cholesterol in your diet to less than mg per day. What are tips for following this plan? Cooking Cook foods using methods other than frying. Baking, boiling, grilling, and broiling are all good options. Other ways to reduce fat include: Removing the skin from poultry. Removing all visible fats from meats. Steaming vegetables in water or broth. Meal planning At meals, imagine dividing your plate into fourths: ?Fill one-half of your plate with vegetables and green salads. ?Fill one-fourth of your plate with whole grains. ?Fill one-fourth of your plate with lean protein foods. Eat 4 5 servings of vegetables per day. One serving equals 1 cup raw or cooked vegetable, or 2 cups raw leafy greens. Eat 4 5 servings of fruit per day. One serving equals 1 medium whole fruit, cup dried fruit, cup fresh, frozen, or canned fruit, or cup 100% fruit juice. Eat more foods that contain soluble fiber. Examples include apples, broccoli, carrots, beans, peas, and barley. Aim to get 25 30 g of fiber per day. Increase your consumption of legumes, nuts, and seeds to 4 5 servings per week. One serving of dried beans or legumes equals cup cooked, 1 serving of nuts is cup, and 1 serving of seeds equals 1 tablespoon. Fats Choose healthy fats more often. Choose monounsaturated and polyunsaturated fats, such as olive and canola oils, flaxseeds, walnuts, almonds, and seeds. Eat more omega-3 fats. Choose salmon, mackerel, sardines, tuna, flaxseed oil, and ground flaxseeds. Aim to eat fish at least 2 times each week. Check food labels carefully to identify foods with trans fats or high amounts of saturated fat. Limit saturated fats. These are found in animal products, such as meats, butter, and cream. Plant sources of saturated fats include palm oil, palm kernel oil, and coconut oil. Avoid foods with partially hydrogenated oils in them. These contain trans fats. Examples are stick margarine, some tub margarines, cookies, crackers, and other baked goods. Avoid fried foods. General information Eat more home-cooked food and less restaurant, buffet, and fast food. Limit or avoid alcohol. Limit foods that are high in starch and sugar. Lose weight if you are overweight. Losing just 5 10% of your body weight can help your overall health and prevent diseases such as diabetes and heart disease. Monitor your salt (sodium) intake, especially if you have high blood pressure. Talk with your health care provider about your sodium intake. Try to incorporate more vegetarian meals weekly. What foods can I eat? Fruits All fresh, canned (in natural juice), or frozen fruits. Vegetables Fresh or frozen vegetables (raw, steamed, roasted, or grilled). Green salads. Grains Most grains. Choose whole wheat and whole grains most of the time. Rice and pasta, including brown rice and pastas made with whole wheat. Meats and other proteins Lean, well-trimmed beef, veal, pork, and steele. Chicken and turkey without skin. All fish and shellfish. Wild duck, rabbit, pheasant, and venison. Egg whites or low-cholesterol egg substitutes. Dried beans, peas, lentils, and tofu. Seeds and most nuts. Dairy Low-fat or nonfat cheeses, including ricotta and mozzarella. Skim or 1% milk (liquid, powdered, or evaporated). Buttermilk made with low-fat milk. Nonfat or low-fat yogurt. Fats and oils Non-hydrogenated (trans-free) margarines. Vegetable oils, including soybean, sesame, sunflower, olive, peanut, safflower, corn, canola, and cottonseed. Salad dressings or mayonnaise made with a vegetable oil. Beverages Water (mineral or sparkling). Coffee and tea. Diet carbonated beverages. Sweets and desserts Sherbet, gelatin, and fruit ice. Small amounts of dark chocolate. Limit all sweets and desserts. Seasonings and condiments All seasonings and condiments. The items listed above may not be a complete list of foods and beverages you can eat. Contact a dietitian for more options. What foods are not recommended? Fruits Canned fruit in heavy syrup. Fruit in cream or butter sauce. Fried fruit. Limit coconut. Vegetables Vegetables cooked in cheese, cream, or butter sauce. Fried vegetables. Grains Breads made with saturated or trans fats, oils, or whole milk. Croissants. Sweet rolls. Donuts. High-fat crackers, such as cheese crackers. Meats and other proteins Fatty meats, such as hot dogs, ribs, sausage, lutz, rib-eye roast or steak. High-fat deli meats, such as salami and bologna. Caviar. Domestic duck and goose. Organ meats, such as liver. Dairy Cream, sour cream, cream cheese, and creamed cottage cheese. Whole milk cheeses. Whole or 2% milk (liquid, evaporated, or condensed). Whole buttermilk. Cream sauce or high-fat cheese sauce. Whole-milk yogurt. Fats and oils Meat fat, or shortening. Fay butter, hydrogenated oils, palm oil, coconut oil, palm kernel oil. Solid fats and shortenings, including lutz fat, salt pork, lard, and butter. Nondairy cream substitutes. Salad dressings with cheese or sour cream. Beverages Regular sodas and any drinks with added sugar. Sweets and desserts Frosting. Pudding. Cookies. Cakes. Pies. Milk chocolate or white chocolate. Buttered syrups. Full-fat ice cream or ice cream drinks. The items listed above may not be a complete list of foods and beverages to avoid. Contact a dietitian for more information. Summary Heart-healthy meal planning includes limiting unhealthy fats, increasing healthy fats, and making other diet and lifestyle changes. Lose weight if you are overweight. Losing just 5 10% of your body weight can help your overall health and prevent diseases such as diabetes and heart disease. Focus on eating a balance of foods, including fruits and vegetables, low-fat or nonfat dairy, lean protein, nuts and legumes, whole grains, and heart-healthy oils and fats. This information is not intended to replace advice given to you by your health care provider. Make sure you discuss any questions you have with your health care provider. Document Released: 02/18/2009 Document Revised: 06/19/2018 Document Reviewed: 06/19/2018 [employer] Patient Education 2020 mobile mum. 01/05/2025 13:02:24 3- Heart Cath/PCI radial (02/2018) (CUSTOM) HEART CATHETERIZATION/PCI (radial) Discharge Instructions DIET Drink plenty of fluids for the next 48 hours to help your kidneys flush the heart cath dye out of your system ACTIVITY For the next 48 hours: Do not deep bend the wrist Do not lift, push, or pull anything over 5 pounds Do not use the hand/arm to support your weight when rising from a chair or bed Do not drive For the next 7 days: Do not submerse your procedure site in water Do not swim, wash dishes, or take tub baths You may write, eat, type, and shower WOUND CARE Keep a Band-Aid on your procedure site for the next 3-4 days Change the Band-Aid daily or if it gets wet/soiled AFTER YOU GO HOME, CALL YOUR DOCTOR FOR: Any increase in bruising or tenderness from the procedure site Any redness, pus, or other signs of infection at the site A temperature above 100.5 Severe pain at the site DIAL 911 AND RETURN TO THE HOSPITAL FOR: Any bleeding from the procedure site. The site may be bruised or tender, but it should not be bleeding at any time. If your site begins to bleed, hold firm pressure on it and dial 911 to return to the hospital Any increase in swelling at the procedure site. An increase in swelling could mean the area is bleeding under the skin. Hold firm pressure to the site and dial 911 to return to the hospital Document Released: 05/12/2006 Document Revised: 04/28/2013 Document Reviewed: 05/13/2014 ExitCare Patient Information 2015 [employer]. This information is not intended to replace advice given to you by your health care provider. Make sure you discuss any questions you have with your health care provider. 01/05/2025 13:02:23 3- Heart Cath/PCI groin (02/2018) (CUSTOM) HEART CATHETERIZATION/PCI (groin) Discharge Instructions DIET INSTRUCTIONS Drink plenty of fluids for the next 48 hours to help your kidneys flush the heart cath dye out of your system ACTIVITIES May go up and down stairs CAREFULLY Do not drive car FOR 24 HOURS No heavy lifting GREATER THAN 10 POUNDS or pushing or straining FOR 2 DAYS Someone must stay with you at home after the procedure until the morning. BATHING/SHOWERING May tub bathe in 1 week May shower tomorrow WOUND CARE You will go home with a Band-Aid over your heart cath site. Keep a Band-Aid on for the next 24 hours and then leave open to air. Some degree of bruising and tenderness is normal around the heart cath site. It will take a while for any bruising to completely resolve. Keep your site clean and dry. You need to report the following to your nozzle worker: Any draining or oozing from the site Any swelling at the site Any increased pain or tenderness at the site Any numbness in your leg where the procedure was done Any signs of infection IMPORTANT! CALL 911 FOR ANY BLEEDING OR SWELLING AT THE PROCEDURE SITE If there is any large amount of bleeding, you or someone else need to apply direct pressure to the site (just like the nurse did in the heart lab after your procedure). It is very important that you hold constant pressure. Do not release the pressure to check if the bleeding has stopped. You then need to be transported to the nearest emergency room. WATCH FOR SIGNS OF INFECTION (Usually appears 36-48 hours after surgery) A temperature above 100.5 Redness or swelling Increased pain Foul odor or drainage If you have any questions, please call your doctor at the number listed on your follow up instructions. Follow all instructions given to you by your physician Document Released: 05/12/2006 Document Revised: 04/28/2013 Document Reviewed: 05/13/2014 ExitCare Patient Information 2015 [employer]. This information is not intended to replace advice given to you by your health care provider. Make sure you discuss any questions you have with your health care provider. Follow Up Care 01/02/2025 02:14:07 With:LIBBY MCNEIL MD Address: [address] [place] [address] [place] [address] [phone] When:1-2 days With:LIBBY DAWSON MD Address: [address] [facility] [address] [facility] [place] [address] [phone] When:Within 4 Week(s) With:Cardiac Rehab- [facility] Address: [address] [address]- When: Unknown Comments:Cardiac rehabilitation is a vital part of your recovery and long-term heart health following your hospital stay. It is a medically supervised exercise and education program designed to improve your physical fitness, manage heart-related risk factors, and support emotional well-being. A cardiac rehab steam table associate will contact you soon to schedule your follow-up appointment. If you have any questions please call [phone]. [facility] 01-05-2025 Note Discharge Instructions Thank you for allowing [facility] to assist you with your healthcare needs. The following is important discharge information regarding your hospital visit. Your Care Team ABILIO SIBLEY, LIBBY Horan What to do next Follow Up Appointments Follow Up with LIBBY DAWSON MD When:In 4 weeks Where:[address] [facility] [address] [facility] [place] [address]- [phone] Follow Up with Cardiac Rehab- [facility] Where:[facility] [address] [address]- Additional Information: Cardiac rehabilitation is a vital part of your recovery and long-term heart health following your hospital stay. It is a medically supervised exercise and education program designed to improve your physical fitness, manage heart-related risk factors, and support emotional well-being. A cardiac rehab steam table associate will contact you soon to schedule your follow-up appointment. If you have any questions please call [phone]. The Following Activity and Diet Have Been Ordered for You Discharge Activity - Ordered -- Lifting Restricted less than 10 pounds, for 1 week. No driving for 2 days., 01/05/25 12:47:00 EDT Discharge Diet - Ordered -- No changes were made to your diet during your hospital stay. Please resume your pre hospitalization diet on discharge., 01/05/25 12:47:00 EDT The Following Equipment Has Been Ordered for You No qualifying data available. The Following Treatments Have Been Ordered for You Discharge Labs No qualifying data available. Discharge Radiology No qualifying data available. Other Therapies No qualifying data available. Post Acute Orders No qualifying data available. Someone Will Contact You Regarding These Home Health Referrals No home referrals have been ordered for you. No one will call you. Allergies sulfa drugs rash Medications Please ask your primary doctor or pharmacist before taking any other medication not listed, including over the counter drugs, herbal medications, vitamins and or supplements as they may interact with your home medications. What How Much When Instructions Last Dose New aspirin (Brendan Childrens Aspirin 81 mg oral tablet, (chewable)) 1 tab(s) by mouth Once a day with a meal Refills: 3 Pickup at [facility]. New atorvastatin (Lipitor 40 mg oral tablet) 1 tab(s) by mouth Once a day Refills: 2 Pickup at [facility]. New losartan (losartan 25 mg oral tablet) 1 tab(s) by mouth Once a day Refills: 2 Pickup at [facility]. New ticagrelor (Brilinta (ticagrelor) 90 mg oral tablet) 1 tab(s) by mouth Every 12 hours Refills: 3 Pickup at [facility]. Unchanged carvedilol (Coreg 12.5 mg oral tablet) 1 tab(s) by mouth Two (2) times a day Unchanged mirtazapine (mirtazapine 15 mg oral tablet) 1 tab(s) by mouth Daily at bedtime Unchanged sertraline (sertraline 25 mg oral tablet) 1 tab(s) by mouth Once a day Unchanged spironolactone (Aldactone 25 mg oral tablet) 1 tab(s) by mouth Once a day Pharmacy Information [facility] [address] [place], [place] [phone] Please take this list to your next doctor s visit. Bring all medications you take, including over the counter medications, herbals and other supplements with you to your doctor s visit. Patients and families are reminded to discard old lists and to update any records with all medication providers or retail pharmacies. Medication Leaflets losartan (andrew Eduardo What is the most important information I should know about losartan? Do not use if you are . Stop using this medicine and tell your doctor right away if you become . Tell your doctor about all your other medicines. Some drugs should not be used with losartan. What is losartan? Losartan is used alone or in combination with other medicines to treat high blood pressure in adults and children at least 6 years old. Lowering blood pressure may lower your risk of a stroke in certain people with heart disease. Losartan is also used to slow long-term kidney damage in people with type 2 diabetes who have high blood pressure. Losartan may also be used for purposes not listed in this medication guide. What should I discuss with my healthcare provider before taking losartan? You should not use losartan if you are allergic to it. If you have diabetes, do not take losartan with any medication that contains aliskiren (a blood pressure medicine). Tell your doctor if you have ever had: heart disease or congestive heart failure; an electrolyte imbalance (such as high levels of potassium in your blood); if you are on a low-salt diet; liver disease; or kidney disease. You may also need to avoid taking losartan with aliskiren if you have kidney disease. Stop using this medicine and tell your doctor right away if you become . Losartan can cause injury or to the unborn baby if you use the medicine during your second or third trimester. Tell your doctor if you are . How should I take losartan? Follow all directions on your prescription label and read all medication guides or instruction sheets. Your doctor may occasionally change your dose. Use the medicine exactly as directed. Losartan is usually taken once per day. You may take losartan with or without food. Call your doctor if you are sick with vomiting or diarrhea, or if you are sweating more than usual. You can easily become dehydrated while taking losartan. This can lead to very low blood pressure, a serious electrolyte imbalance, or kidney failure. Your blood pressure will need to be checked often and you may need frequent blood tests. If you have high blood pressure, keep using this medicine even if you feel well. High blood pressure often has no symptoms. Store tightly closed at room temperature, away from moisture, heat, and light. What happens if I miss a dose? Take the medicine as soon as you can, but skip the missed dose if it is almost time for your next dose. Do not take two doses at one time. What happens if I overdose? Seek emergency medical attention or call the Poison Help line at . What should I avoid while taking losartan? Avoid getting up too fast from a sitting or lying position, or you may feel dizzy. Do not use potassium supplements or salt substitutes, unless your doctor has told you to. What are the possible side effects of losartan? Get emergency medical help if you have signs of an allergic reaction: hives, difficulty breathing, swelling of your face, lips, tongue, or throat. Call your doctor at once if you have: a light-headed feeling, like you might pass out; high blood potassium--nausea, weakness, tingly feeling, chest pain, irregular heartbeats, loss of movement; or kidney problems--swelling, urinating less, feeling tired or short of breath. Common side effects may include: dizziness, tiredness; low blood pressure; low blood sugar; diarrhea; back pain; or cold symptoms such as stuffy nose, sneezing, sore throat. This is not a complete list of side effects and others may occur. Call your doctor for medical advice about side effects. You may report side effects to FDA at 4-332-NAU-2788. What other drugs will affect losartan? Sometimes it is not safe to use certain medicines at the same time. Some drugs can affect your blood levels of other drugs you use, which may increase side effects or make the medicines less effective. Tell your doctor about all your other medicines, especially: a diuretic or 'water pill' that may increase blood potassium such as spironolactone, triamterene, amiloride; NSAIDs (nonsteroidal anti-inflammatory drugs)--aspirin, ibuprofen (Advil, Motrin), naproxen (Aleve), celecoxib, diclofenac, indomethacin, meloxicam, and others; or heart or blood pressure medication. This list is not complete. Other drugs may affect losartan, including prescription and [id number] medicines, vitamins, and herbal products. Not all possible drug interactions are listed here. Where can I get more information? Your doctor or pharmacist can provide more information about losartan. Remember, keep this and all other medicines out of the reach of children, never share your medicines with others, and use this medication only for the indication prescribed. Every effort has been made to ensure that the information provided by [employer]. [employer]') is accurate, up-to-date, and complete, but no guarantee is made to that effect. Drug information contained herein may be time sensitive. [employer] information has been compiled for use by healthcare practitioners and consumers in the [place] and therefore [employer] does not warrant that uses outside of the [place] are appropriate, unless specifically indicated otherwise. [employer]'s drug information does not endorse drugs, diagnose patients or recommend therapy. [employer] drug information is an informational resource designed to assist licensed healthcare practitioners in caring for their patients and/or to serve consumers viewing this service as a supplement to, and not a substitute for, the expertise, skill, knowledge and judgment of healthcare practitioners. The absence of a warning for a given drug or drug combination in no way should be construed to indicate that the drug or drug combination is safe, effective or appropriate for any given patient. [employer] does not assume any responsibility for any aspect of healthcare administered with the aid of information [employer] [employer] provides. The information contained herein is not intended to cover all possible uses, directions, precautions, warnings, drug interactions, allergic reactions, or adverse effects. If you have questions about the drugs you are taking, check with your doctor, nurse or pharmacist. Copyright 9963-3652 [facility]. Version: 19.. Revision Date: 11/21/2022. ticagrelor (myron KA grel or) Brilinta (ticagrelor) What is the most important information I should know about ticagrelor? You should not use ticagrelor if you have any active bleeding or a history of bleeding in the brain. Do not use this medicine just before heart bypass surgery. Ticagrelor may cause you to bleed more easily, which can be severe or life-threatening. Call your doctor or seek emergency medical attention if you have bleeding that will not stop, black or bloody stools, red or pink urine, or if you cough up blood or vomit that looks like coffee grounds. Tell your doctor about all your current medicines and any you start or stop using. Many drugs can interact with ticagrelor. Do not stop taking ticagrelor without first talking to your doctor, even if you have signs of bleeding. Stopping ticagrelor may increase your risk of a heart attack or stroke. What is ticagrelor? Ticagrelor is used to lower your risk of heart attack, stroke, or due to a blocked artery or a prior heart attack. Ticagrelor is also used to lower your risk of blood clots if you have coronary artery disease (decreased blood flow to the heart) and have been treated with stents to open clogged arteries. Ticagrelor is also used to lower your risk of a first heart attack or stroke if you have decreased blood flow to the heart. Ticagrelor is also used to lower the risk of stroke and in adults with a blockage or decreased blood flow in an artery that supplies blood to the brain. Ticagrelor is usually given together with low-dose aspirin. Carefully follow your doctor's dosing instructions. Using too much aspirin can make ticagrelor less effective. Ticagrelor may also be used for purposes not listed in this medication guide. What should I discuss with my healthcare provider before taking ticagrelor? You should not use ticagrelor if you are allergic to it, or if you have: any active bleeding; or a history of bleeding in the brain (such as from a head injury). Tell your doctor if you have ever had: a stroke; heart problems; a surgery or bleeding injury; bleeding problems; a stomach ulcer or colon polyps; liver disease; or asthma, COPD (chronic obstructive pulmonary disorder) or other breathing problem. It is not known whether this medicine will harm an unborn baby. Tell your doctor if you are or plan to become . You should not breastfeed while using ticagrelor. How should I take ticagrelor? Follow all directions on your prescription label and read all medication guides or instruction sheets. Ticagrelor is taken together with aspirin. Use these medicines exactly as directed. Do not take more aspirin than your doctor has prescribed. Taking too much aspirin can make ticagrelor less effective. Take ticagrelor at the same times each day, with or without food. If you cannot swallow a tablet whole, crush the pill and mix it with water. Stir and drink this mixture right away. Add more water to the glass, stir, and drink right away. Ticagrelor keeps your blood from coagulating (clotting) and can make it easier for you to bleed, even from a minor injury. Contact your doctor or seek emergency medical attention if you have any bleeding that will not stop. To prevent excessive bleeding, you may need to stop using ticagrelor for a short time before a surgery, medical procedure, or dental work. Any healthcare provider who treats you should know that you are taking ticagrelor. Do not stop taking ticagrelor without first talking to your doctor, even if you have signs of bleeding. Stopping the medicine could increase your risk of a heart attack or stroke. This medicine may affect medical testing for platelets in your blood and you may have false results. Tell the laboratory staff that you use ticagrelor. Store at room temperature away from moisture and heat. What happens if I miss a dose? Skip the missed dose and use your next dose at the regular time. Do not use two doses at one time. What happens if I overdose? Seek emergency medical attention or call the Poison Help line at . Overdose can cause excessive bleeding. What should I avoid while taking ticagrelor? Drinking alcohol while taking aspirin can increase your risk of stomach bleeding. Avoid activities that may increase your risk of bleeding or injury. Use extra care to prevent bleeding while shaving or brushing your teeth. While taking ticagrelor with aspirin, avoid using medicines for pain, fever, swelling, or cold/flu symptoms. They may contain ingredients similar to aspirin (such as salicylates, ibuprofen, ketoprofen, or naproxen). Taking certain products together can cause you to get too much aspirin which can increase your risk of bleeding. What are the possible side effects of ticagrelor? Get emergency medical help if you have signs of an allergic reaction: hives; difficult breathing; swelling of your face, lips, tongue, or throat. Call your doctor at once if you have: slow heartbeats; nosebleeds, or any bleeding that will not stop; shortness of breath even with mild exertion or while lying down; easy bruising, unusual bleeding, purple or red spots under your skin; red, pink, or brown urine; black, bloody, or tarry stools; or coughing up blood or vomit that looks like coffee grounds. Common side effects may include: bleeding; or shortness of breath. This is not a complete list of side effects and others may occur. Call your doctor for medical advice about side effects. You may report side effects to FDA at 1-277-UKI-8993. What other drugs will affect ticagrelor? Sometimes it is not safe to use certain medications at the same time. Some drugs can affect your blood levels of other drugs you take, which may increase side effects or make the medications less effective. Tell your doctor about all your current medicines. Many drugs can affect ticagrelor, especially: antifungal medicine; antiviral medicine to treat HIV or AIDS; a blood thinner; cholesterol medication; heart or blood pressure medication; opioid medication; seizure medicine; or tuberculosis medicine. This list is not complete and many other drugs may affect ticagrelor. This includes prescription and rrxk-twd-hsggiiw medicines, vitamins, and herbal products. Not all possible drug interactions are listed here. Where can I get more information? Your pharmacist can provide more information about ticagrelor. Remember, keep this and all other medicines out of the reach of children, never share your medicines with others, and use this medication only for the indication prescribed. Every effort has been made to ensure that the information provided by [employer]. [employer] is accurate, up-to-date, and complete, but no guarantee is made to that effect. Drug information contained herein may be time sensitive. [employer] information has been compiled for use by healthcare practitioners and consumers in the [place] and therefore [employer] does not warrant that uses outside of the [place] are appropriate, unless specifically indicated otherwise. [employer] drug information does not endorse drugs, diagnose patients or recommend therapy. [employer] drug information is an informational resource designed to assist licensed healthcare practitioners in caring for their patients and/or to serve consumers viewing this service as a supplement to, and not a substitute for, the expertise, skill, knowledge and judgment of healthcare practitioners. The absence of a warning for a given drug or drug combination in no way should be construed to indicate that the drug or drug combination is safe, effective or appropriate for any given patient. [employer] does not assume any responsibility for any aspect of healthcare administered with the aid of information [employer] provides. The information contained herein is not intended to cover all possible uses, directions, precautions, warnings, drug interactions, allergic reactions, or adverse effects. If you have questions about the drugs you are taking, check with your doctor, nurse or pharmacist. Copyright 8631-8094 [employer]. Version: 5.. Revision Date: 06/16/2020. aspirin (oral) ( pir in) Aspi-Cor, Brendan Plus, Ecotrin, Miniprin, Vazalore What is the most important information I should know about aspirin? Aspirin can cause Kathy's syndrome, a serious and sometimes fatal condition in children. What is aspirin? Aspirin is a salicylate (xm-IQD-ai-ate) that is used to treat pain, and reduce fever or inflammation. Aspirin is sometimes used to treat or prevent heart attacks, strokes, and chest pain (angina). Aspirin should be used for these conditions only under the supervision of a doctor. Aspirin may also be used for purposes not listed in this medication guide. What should I discuss with my healthcare provider before taking aspirin? Using aspirin in a child or teenager with flu symptoms or chickenpox can cause a serious or fatal condition called Kathy's syndrome. You should not use aspirin if you are allergic to it, or if you have: a recent history of stomach or intestinal bleeding; a bleeding disorder such as hemophilia; or if you have ever had an asthma attack or severe allergic reaction after taking aspirin or an NSAID (non-steroidal anti-inflammatory drug). Tell your doctor if you have ever had: asthma or seasonal allergies; stomach ulcers; liver disease; kidney disease; a bleeding or blood clotting disorder; gout; or heart disease, high blood pressure, or congestive heart failure. Taking aspirin during late may cause bleeding in the mother or the baby during delivery. Tell your doctor if you are or plan to become . You should not breastfeed while using this medicine. How should I take aspirin? Use exactly as directed on the label, or as prescribed by your doctor. Always follow directions on the medicine label about giving aspirin to a child. Take with food if aspirin upsets your stomach. You must chew the chewable tablet before you swallow it. Do not crush, chew, break, or open an enteric-coated or delayed/extended-release pill. Swallow it whole. Tell your doctor if you have a planned surgery. Store at room temperature away from moisture and heat. Do not use aspirin if you smell a strong vinegar odor in the aspirin bottle. The medicine may no longer be effective. What happens if I miss a dose? Aspirin is used when needed. If you are on a dosing schedule, skip any missed dose. Do not use two doses at one time. What happens if I overdose? Seek emergency medical attention or call the Poison Help line at . Overdose may cause stomach pain, vomiting, diarrhea, vision or hearing problems, fast or slow breathing, or confusion. What should I avoid while taking aspirin? Avoid alcohol. Heavy drinking can increase your risk of stomach bleeding. Avoid taking ibuprofen if you take aspirin to prevent stroke or heart attack. Ibuprofen can make aspirin less effective in protecting your heart and blood vessels. Ask your doctor how far apart your doses should be. Ask a doctor or pharmacist before using other medicines for pain, fever, swelling, or cold/flu symptoms. They may contain ingredients similar to aspirin (such as magnesium salicylate, ibuprofen, ketoprofen, or naproxen). What are the possible side effects of aspirin? Get emergency medical help if you have signs of an allergic reaction: hives; difficult breathing; swelling of your face, lips, tongue, or throat. Stop using aspirin and call your doctor at once if you have: ringing in your ears, confusion, hallucinations, rapid breathing, seizure (convulsions); severe nausea, vomiting, or stomach pain; bloody or tarry stools, coughing up blood or vomit that looks like coffee grounds; fever lasting longer than 3 days; or swelling, or pain lasting longer than 10 days. Common side effects may include: upset stomach, heartburn; drowsiness; or mild headache. This is not a complete list of side effects and others may occur. Call your doctor for medical advice about side effects. You may report side effects to FDA at 4-181-LAA-9985. What other drugs will affect aspirin? Ask your doctor before using aspirin if you take an antidepressant. Taking certain antidepressants with aspirin may cause you to bruise or bleed easily. Ask a doctor or pharmacist before using aspirin with any other medications, especially: a blood thinner (warfarin, Coumadin, Jantoven), or other medication used to prevent blood clots; or other salicylates such as Nuprin Backache Caplet, Kaopectate, KneeRelief, Pamprin Cramp Formula, Pepto-Bismol, Tricosal, Trilisate, and others. This list is not complete. Other drugs may affect aspirin, including prescription and bemt-pjv-ismnftm medicines, vitamins, and herbal products. Not all possible drug interactions are listed here. Where can I get more information? Your pharmacist can provide more information about aspirin. Remember, keep this and all other medicines out of the reach of children, never share your medicines with others, and use this medication only for the indication prescribed. Every effort has been made to ensure that the information provided by [employer] is accurate, up-to-date, and complete, but no guarantee is made to that effect. Drug information contained herein may be time sensitive. [employer] information has been compiled for use by healthcare practitioners and consumers in the [place] and therefore [employer] does not warrant that uses outside of the [place] are appropriate, unless specifically indicated otherwise. [employer] drug information does not endorse drugs, diagnose patients or recommend therapy. [employer] drug information is an informational resource designed to assist licensed healthcare practitioners in caring for their patients and/or to serve consumers viewing this service as a supplement to, and not a substitute for, the expertise, skill, knowledge and judgment of healthcare practitioners. The absence of a warning for a given drug or drug combination in no way should be construed to indicate that the drug or drug combination is safe, effective or appropriate for any given patient. [employer] does not assume any responsibility for any aspect of healthcare administered with the aid of information [employer] provides. The information contained herein is not intended to cover all possible uses, directions, precautions, warnings, drug interactions, allergic reactions, or adverse effects. If you have questions about the drugs you are taking, check with your doctor, nurse or pharmacist. Copyright 8022-9723 [employer]. Version: 18.02. Revision Date: 05/12/2024. atorvastatin (a TOR va sta tin) Atorvaliq, Lipitor What is the most important information I should know about atorvastatin? You should not take atorvastatin if you have liver disease or cirrhosis. Atorvastatin can cause the breakdown of muscle tissue, which can lead to kidney failure. Call your doctor right away if you have unexplained muscle pain, tenderness, or weakness especially if you also have fever, unusual tiredness, or dark urine. What is atorvastatin? Atorvastatin is used together with diet to lower blood levels of 'bad' cholesterol (low-density lipoprotein, or LDL), to increase levels of 'good' cholesterol (high-density lipoprotein, or HDL), and to lower triglycerides (a type of fat in the blood). Atorvastatin is used to lower the risk of stroke, heart attack, or other heart complications in adults with or without type 2 diabetes or heart disease or other risk factors. Atorvastatin is also used alone, or along with diet, or with other cholesterol-lowering medications in adults and children aged 10 years and older with an inherited condition that causes high levels of bad cholesterol. Atorvastatin may also be used for purposes not listed in this medication guide. What should I discuss with my healthcare provider before taking atorvastatin? You should not use atorvastatin if you are allergic to it, or if you have liver failure or cirrhosis. Tell your doctor if you have or have ever had: muscle pain or weakness; diabetes; stroke; a thyroid disorder; a habit of drinking more than 2 alcoholic beverages per day; or kidney disease. Atorvastatin can cause the breakdown of muscle tissue, which can lead to kidney failure. This happens more often in women, in older adults, or people who have kidney disease or poorly controlled hypothyroidism (underactive thyroid). Atorvastatin may harm an unborn baby. Tell your doctor if you are . Ask a doctor if it is safe to breastfeed while using this medicine. How should I take atorvastatin? Follow all directions on your prescription label and read all medication guides or instruction sheets. Your doctor may occasionally change your dose. Use the medicine exactly as directed. Do not change your dose or stop taking any of your medications without your doctor's advice. Atorvastatin is usually taken once per day. Follow your doctor's instructions. You may take atorvastatin tablet with or without food. Take atorvastatin liquid medicine on an empty stomach, at least 1 hour before a meal or 2 hours after a meal. It may take up to 2 weeks before your cholesterol levels improve, and you may need frequent blood tests. Even if you have no symptoms, tests can help your doctor determine if this medicine is effective. Shake the oral suspension (liquid). Measure a dose with the supplied measuring device (not a kitchen spoon). Your treatment may also include diet, exercise, weight control, and blood tests. Store at room temperature away from moisture, heat, and light. Throw away in the trash any unused liquid 60 days after opening the bottle. What happens if I miss a dose? Take the medicine as soon as you can, but skip the missed dose if you are more than 12 hours late for the dose. Do not take two doses at one time. What happens if I overdose? Seek emergency medical attention or call the Poison Help line at . What should I avoid while taking atorvastatin? Avoid eating foods high in fat or cholesterol, or atorvastatin will not be as effective. Drinking alcohol may increase your risk of liver damage. Grapefruit may interact with atorvastatin and cause side effects. Avoid consuming grapefruit products and drinking more than 1.2 liters of grapefruit juice each day. What are the possible side effects of atorvastatin? Get emergency medical help if you have signs of an allergic reaction (hives, difficult breathing, swelling in your face or throat) or a severe skin reaction (fever, sore throat, burning eyes, skin pain, red or purple skin rash with blistering and peeling). Atorvastatin can cause the breakdown of muscle tissue, which can lead to kidney failure. Call your doctor right away if you have unexplained muscle pain, tenderness, or weakness especially if you also have fever, unusual tiredness, or dark urine. Muscle problems may be more likely in older adults and those who have kidney problems, thyroid problems, or take certain other medicines. Also call your doctor at once if you have: muscle weakness in your hips, shoulders, neck, and back; trouble lifting your arms, trouble climbing or standing; liver problems--loss of appetite, stomach pain (upper right side), tiredness, itching, dark urine, jeff-colored stools, jaundice (yellowing of the skin or eyes); kidney problems--swelling, urinating less, feeling tired or short of breath; or high blood sugar--increased thirst, increased urination, dry mouth, fruity breath odor. Common side effects may include: pain in your bones, spine, joints, or muscles; pain and burning when you urinate, painful urination; muscle spasms; upset stomach; trouble sleeping; stuffy nose, runny nose, sore throat; diarrhea, nausea; or pain in your arms or legs. This is not a complete list of side effects and others may occur. Call your doctor for medical advice about side effects. You may report side effects to FDA at 9-048-QZN-4651. What other drugs will affect atorvastatin? Sometimes it is not safe to use certain medicines at the same time. Some drugs can affect your blood levels of other drugs you use, which can increase risk of serious muscle problems or make the medicines less effective. Tell your doctor about all your current medicines. Many drugs can affect atorvastatin, especially: other cholesterol lowering medicine--gemfibrozil, niacin, fenofibrate, fenofibric acid, and others; colchicine; antibiotic or antifungal medicine--rifampin, erythromycin, clarithromycin, itraconazole, ketoconazole, posaconazole, and voriconazole; control pills; medicine to prevent organ transplant rejection; or antiviral medicine to treat hepatitis C or HIV. This list is not complete and many other drugs may affect atorvastatin. This includes prescription and iuad-drz-rpalpnu medicines, vitamins, and herbal products. Not all possible drug interactions are listed here. Where can I get more information? Your doctor or pharmacist can provide more information about atorvastatin. Remember, keep this and all other medicines out of the reach of children, never share your medicines with others, and use this medication only for the indication prescribed. Every effort has been made to ensure that the information provided by [employer] is accurate, up-to-date, and complete, but no guarantee is made to that effect. Drug information contained herein may be time sensitive. [employer] information has been compiled for use by healthcare practitioners and consumers in the [place] and therefore [employer] does not warrant that uses outside of the [place] are appropriate, unless specifically indicated otherwise. [employer] drug information does not endorse drugs, diagnose patients or recommend therapy. [employer] drug information is an informational resource designed to assist licensed healthcare practitioners in caring for their patients and/or to serve consumers viewing this service as a supplement to, and not a substitute for, the expertise, skill, knowledge and judgment of healthcare practitioners. The absence of a warning for a given drug or drug combination in no way should be construed to indicate that the drug or drug combination is safe, effective or appropriate for any given patient. [employer] does not assume any responsibility for any aspect of healthcare administered with the aid of information [employer] provides. The information contained herein is not intended to cover all possible uses, directions, precautions, warnings, drug interactions, allergic reactions, or adverse effects. If you have questions about the drugs you are taking, check with your doctor, nurse or pharmacist. Copyright 2615-7034 [employer]. Version: 23.02. Revision Date: 11/14/2022. Education Materials Heart-Healthy Eating Plan Many factors influence your heart (coronary) health, including eating and exercise habits. Coronary risk increases with abnormal blood fat (lipid) levels. Heart-healthy meal planning includes limiting unhealthy fats, increasing healthy fats, and making other diet and lifestyle changes. What is my plan? Your health care provider may recommend that you: Limit your fat intake to % or less of your total calories each day. Limit your saturated fat intake to % or less of your total calories each day. Limit the amount of cholesterol in your diet to less than mg per day. What are tips for following this plan? Cooking Cook foods using methods other than frying. Baking, boiling, grilling, and broiling are all good options. Other ways to reduce fat include: Removing the skin from poultry. Removing all visible fats from meats. Steaming vegetables in water or broth. Meal planning At meals, imagine dividing your plate into fourths: ? Fill one-half of your plate with vegetables and green salads. ? Fill one-fourth of your plate with whole grains. ? Fill one-fourth of your plate with lean protein foods. Eat 4 5 servings of vegetables per day. One serving equals 1 cup raw or cooked vegetable, or 2 cups raw leafy greens. Eat 4 5 servings of fruit per day. One serving equals 1 medium whole fruit, cup dried fruit, cup fresh, frozen, or canned fruit, or cup 100% fruit juice. Eat more foods that contain soluble fiber. Examples include apples, broccoli, carrots, beans, peas, and barley. Aim to get 25 30 g of fiber per day. Increase your consumption of legumes, nuts, and seeds to 4 5 servings per week. One serving of dried beans or legumes equals cup cooked, 1 serving of nuts is cup, and 1 serving of seeds equals 1 tablespoon. Fats Choose healthy fats more often. Choose monounsaturated and polyunsaturated fats, such as olive and canola oils, flaxseeds, walnuts, almonds, and seeds. Eat more omega-3 fats. Choose salmon, mackerel, sardines, tuna, flaxseed oil, and ground flaxseeds. Aim to eat fish at least 2 times each week. Check food labels carefully to identify foods with trans fats or high amounts of saturated fat. Limit saturated fats. These are found in animal products, such as meats, butter, and cream. Plant sources of saturated fats include palm oil, palm kernel oil, and coconut oil. Avoid foods with partially hydrogenated oils in them. These contain trans fats. Examples are stick margarine, some tub margarines, cookies, crackers, and other baked goods. Avoid fried foods. General information Eat more home-cooked food and less restaurant, buffet, and fast food. Limit or avoid alcohol. Limit foods that are high in starch and sugar. Lose weight if you are overweight. Losing just 5 10% of your body weight can help your overall health and prevent diseases such as diabetes and heart disease. Monitor your salt (sodium) intake, especially if you have high blood pressure. Talk with your health care provider about your sodium intake. Try to incorporate more vegetarian meals weekly. What foods can I eat? Fruits All fresh, canned (in natural juice), or frozen fruits. Vegetables Fresh or frozen vegetables (raw, steamed, roasted, or grilled). Green salads. Grains Most grains. Choose whole wheat and whole grains most of the time. Rice and pasta, including brown rice and pastas made with whole wheat. Meats and other proteins Lean, well-trimmed beef, veal, pork, and steele. Chicken and turkey without skin. All fish and shellfish. Wild duck, rabbit, pheasant, and venison. Egg whites or low-cholesterol egg substitutes. Dried beans, peas, lentils, and tofu. Seeds and most nuts. Dairy Low-fat or nonfat cheeses, including ricotta and mozzarella. Skim or 1% milk (liquid, powdered, or evaporated). Buttermilk made with low-fat milk. Nonfat or low-fat yogurt. Fats and oils Non-hydrogenated (trans-free) margarines. Vegetable oils, including soybean, sesame, sunflower, olive, peanut, safflower, corn, canola, and cottonseed. Salad dressings or mayonnaise made with a vegetable oil. Beverages Water (mineral or sparkling). Coffee and tea. Diet carbonated beverages. Sweets and desserts Sherbet, gelatin, and fruit ice. Small amounts of dark chocolate. Limit all sweets and desserts. Seasonings and condiments All seasonings and condiments. The items listed above may not be a complete list of foods and beverages you can eat. Contact a dietitian for more options. What foods are not recommended? Fruits Canned fruit in heavy syrup. Fruit in cream or butter sauce. Fried fruit. Limit coconut. Vegetables Vegetables cooked in cheese, cream, or butter sauce. Fried vegetables. Grains Breads made with saturated or trans fats, oils, or whole milk. Croissants. Sweet rolls. Donuts. High-fat crackers, such as cheese crackers. Meats and other proteins Fatty meats, such as hot dogs, ribs, sausage, lutz, rib-eye roast or steak. High-fat deli meats, such as salami and bologna. Caviar. Domestic duck and goose. Organ meats, such as liver. Dairy Cream, sour cream, cream cheese, and creamed cottage cheese. Whole milk cheeses. Whole or 2% milk (liquid, evaporated, or condensed). Whole buttermilk. Cream sauce or high-fat cheese sauce. Whole-milk yogurt. Fats and oils Meat fat, or shortening. Fay butter, hydrogenated oils, palm oil, coconut oil, palm kernel oil. Solid fats and shortenings, including lutz fat, salt pork, lard, and butter. Nondairy cream substitutes. Salad dressings with cheese or sour cream. Beverages Regular sodas and any drinks with added sugar. Sweets and desserts Frosting. Pudding. Cookies. Cakes. Pies. Milk chocolate or white chocolate. Buttered syrups. Full-fat ice cream or ice cream drinks. The items listed above may not be a complete list of foods and beverages to avoid. Contact a dietitian for more information. Summary Heart-healthy meal planning includes limiting unhealthy fats, increasing healthy fats, and making other diet and lifestyle changes. Lose weight if you are overweight. Losing just 5 10% of your body weight can help your overall health and prevent diseases such as diabetes and heart disease. Focus on eating a balance of foods, including fruits and vegetables, low-fat or nonfat dairy, lean protein, nuts and legumes, whole grains, and heart-healthy oils and fats. This information is not intended to replace advice given to you by your health care provider. Make sure you discuss any questions you have with your health care provider. Document Released: 02/18/2009 Document Revised: 06/19/2018 Document Reviewed: 06/19/2018 [employer] Patient Education 2019 [employer] HEART CATHETERIZATION/PCI (radial) Discharge Instructions DIET Drink plenty of fluids for the next 48 hours to help your kidneys flush the heart cath dye out of your system ACTIVITY For the next 48 hours: Do not deep bend the wri (more content not included)... [facility] 01-04-2025 Cardiology Progress note Date of Service 01/04/2025 Subjective No acute complaint this morning. Patient awaiting staged PCI today. Objective Vitals and Measurements T: 36.6 C (Oral) TMIN: 36.4 C (Oral) TMAX: 36.9 C (Oral) HR: 65 (Monitored) RR: 18 BP: 152/72 SpO2: 95% Intake and Output 7AM Yesterday to 7AM Today Intake and Output (Last 24 hours) Intake Oral Intake 530.00 Administration Information 220.17 Output Urine Voided 2900.00 Total Summary Total Intake 750.17 Total Output 2900.00 Fluid Balance -2149.83 Physical Exam General Appearance: Patient comfortably lying on bed, not in acute distress Head: Normocephalic, atraumatic EENT: PERRLA Neck: supple, no JVD, no mass Cardiac: s1s2,RRR, no murmurs or rubs or gallops Lungs: clear to auscultation bilaterally, no wheeze or rhonchi or crackles Abdomen: soft , Nontender, no organomegaly, bowel sounds heard Musculoskeletal: full ROM , no gross deformities Extremities: no rash or ulcers or pedal edema Neurological: alert, oriented x 3 Skin: no rash or ulcers Weight Dosing Weight: 91.3 kg (01/02/25) Medications Medications (23) Active Scheduled: (8) aspirin 81 mg Chewable 81 mg 1 tab(s), Oral, qDayM atorvastatin 40 mg tablet 40 mg 1 tab(s), Oral, qDay carvedilol 12.5 mg tablet 12.5 mg 1 tab(s), Oral, BID No metformin for 48 hrs post contrast 1 EA, Miscellaneous, Unscheduled No metformin for 48 hrs post contrast 1 EA, Miscellaneous, Daily sertraline 25 mg tablet 25 mg 1 tab(s), Oral, qDay spironolactone 25 mg tablet 25 mg 1 tab(s), Oral, qDayM ticagrelor 90 mg tablet 90 mg 1 tab(s), Oral, q12hr Continuous: (1) NS (0.9% nacl) 1,000 mL 1,000 mL, Intravenous, 75 mL/hr PRN: (14) acetaminophen 325 mg Tablet 650 mg 2 tab(s), Oral, q4h acetaminophen-HYDROcodone 325-10 mg tablet 1 tab(s), Oral, q4h acetaminophen-HYDROcodone 325-5 mg tablet 1 tab(s), Oral, q4h albuterol - ipratropium 2.5 mg-0.5 mg/3 mL Inhal Nany UD 3 mL, Inhalation, q4hRT dextrose 50% Solution Disp syringe 50 mL 25 gram(s) 50 mL, IV Push, AsDirected magnesium sulfate 4 gram(s)/100mL PMX 4 g 100 mL, IV Piggyback, AsDirected magnesium sulfate 50% (500mg/mL) 6 g 12 mL, IV Piggyback, AsDirected magnesium sulfate PMX 2 g 50 mL, IV Piggyback, AsDirected melatonin 3 mg tablet 6 mg 2 tab(s), Oral, qHS ondansetron 2 mg/ 1 mL 2 mL INJ 4 mg 2 mL, IV Push, q4h potassium chloride (PMX) 20 mEq/100 mL 20 mEq 100 mL, IV Piggyback, AsDirected potassium chloride 20 mEq ER tablet 20 mEq 1 tab(s), Oral, AsDirected potassium chloride 20 mEq ER tablet 40 mEq 2 tab(s), Oral, AsDirected potassium chloride 20 mEq ER tablet 40 mEq 2 tab(s), Oral, AsDirected Lab Results 01/04 03:59 WBC: 10.2 Hgb: 16.8 Hct: 48.9 Platelet: 238 Neutrophil %: 67.5 Glucose Level: 108 Sodium Level: 138 Potassium Level: 4.4 BUN: 19.0 Creatinine Lvl (s): 1.20 Imaging Results and Diagnostics XR Chest 1 View Result Date: January 02, 2025 Verified By: HUNTER LUCERO MD CLINICAL STATEMENT: IMPRESSION: No acute findings EKG Electrocardiogram (EKG) - InProcess -- 01/04/25 13:58:00 EDT, Post-procedure, Complete by Nursing Assessment/Plan This is a 64-year-old male with past medical history of hypertension, depression was transferred from [facility] for NSTEMI. NSTEMI CAD (Severe bifurcating lesion prox LCx/OM1) Patient is now status post PCI to the LCx/OM1 and D1 lesions today. Discussed with IC, patient tolerated procedure well. Likely discharge home tomorrow if no major overnight issues. Continue with aspirin and Brilinta, high intensity atorvastatin (LDL 114), metoprolol tartrate Echocardiogram noted preserved LV systolic function with no regional wall modalities. Hypertension Continue with Coreg, spironolactone. Hyperlipidemia Continue high intensity statin. Aggressively lifestyle and risk factor modifications as outpatient. Depression Continue with sertraline Digitally Signed by KAE AUSTIN DO on 01/04/2025 09:17 PM [facility] 01-04-2025 Note Exam Date Time Procedure Performing Provider Status 01/04/25 2:15 PM Electrocardiogram - EKG - CV MADHU CHEN MD; Auth (Verified) ECG Final Report SINUS RHYTHM MINIMAL ST ELEVATION, ANTERIOR LEADS Electronic Signature: MADHU KESSLER MD 01/05/2025 20:52:53 [id number] Note* Exam Date Time Procedure Performing Provider Status 01/04/25 12:27 PM Percut Transluminal Coronary Angioplasty Modified [id number]* Exam Date Time Procedure Performing Provider Status 01/03/25 6:57 PM Echocardiogram, Adult - CV NAVYA GILLIS MD; Auth (Verified) [id number] Note* Exam Date Time Procedure Performing Provider Status 01/03/25 2:42 PM Cardiac Catheterization -CV LIBBY DAWSON MD; Auth (Verified) [id number] Cardiology Progress note Date of Service 01/03/2025 Subjective No acute complaints this morning. No reports of chest pain per patient. Objective Vitals and Measurements T: 36.6 C (Oral) TMIN: 36.6 C (Oral) TMAX: 37.0 C (Oral) HR: 56 (Monitored) RR: 18 BP: 163/88 SpO2:95% Intake and Output 7AM Yesterday to 7AM Today Intake and Output (Last 24 hours) Intake Oral Intake 1080.00 Administration Information 72.68 Output Urine Voided 3300.00 Urine Count 1.00 Total Summary Total Intake 1152.68 Total Output 3300.00 Fluid Balance -2147.32 Physical Exam General Appearance: Patient comfortably lying on bed, not in acute distress Head: Normocephalic, atraumatic EENT: PERRLA Neck: supple, no JVD, no mass Cardiac: s1s2,RRR, no murmurs or rubs or gallops Lungs: clear to auscultation bilaterally, no wheeze or rhonchi or crackles Abdomen: soft , Nontender, no organomegaly, bowel sounds heard Musculoskeletal: full ROM , no gross deformities Extremities: no rash or ulcers or pedal edema Neurological: alert, oriented x 3 Skin: no rash or ulcers Weight Dosing Weight: 91.3 kg (01/02/25) Medications Medications (21) Active Scheduled: (5) aspirin 81 mg Chewable 81 mg 1 tab(s), Oral, qDayM atorvastatin 40 mg tablet 40 mg 1 tab(s), Oral, qDay carvedilol 12.5 mg tablet 12.5 mg 1 tab(s), Oral, BID sertraline 25 mg tablet 25 mg 1 tab(s), Oral, qDay spironolactone 25 mg tablet 25 mg 1 tab(s), Oral, qDayM Continuous: (1) heparin 25,000 unit(s) [10.95 unit(s)/kg/hr] + Dextrose 5% Premix Diluent 250 mL 250 mL, Intravenous, 10 mL/hr PRN: (15) acetaminophen 325 mg Tablet 650 mg 2 tab(s), Oral, q4h acetaminophen-HYDROcodone 325-10 mg tablet 1 tab(s), Oral, q4h acetaminophen-HYDROcodone 325-5 mg tablet 1 tab(s), Oral, q4h albuterol - ipratropium 2.5 mg-0.5 mg/3 mL Inhal Nany UD 3 mL, Inhalation, q4hRT dextrose 50% Solution Disp syringe 50 mL 25 gram(s) 50 mL, IV Push, AsDirected heparin 5,000 units/mL (1 mL) vial 4,000 unit(s) 0.8 mL, IV Push, q6h magnesium sulfate 4 gram(s)/100mL PMX 4 g 100 mL, IV Piggyback, AsDirected magnesium sulfate 50% (500mg/mL) 6 g 12 mL, IV Piggyback, AsDirected magnesium sulfate PMX 2 g 50 mL, IV Piggyback, AsDirected melatonin 3 mg tablet 6 mg 2 tab(s), Oral, qHS ondansetron 2 mg/ 1 mL 2 mL INJ 4 mg 2 mL, IV Push, q4h potassium chloride (PMX) 20 mEq/100 mL 20 mEq 100 mL, IV Piggyback, AsDirected potassium chloride 20 mEq ER tablet 20 mEq 1 tab(s), Oral, AsDirected potassium chloride 20 mEq ER tablet 40 mEq 2 tab(s), Oral, AsDirected potassium chloride 20 mEq ER tablet 40 mEq 2 tab(s), Oral, AsDirected Lab Results 01/03 02:47 WBC: 10.5 Hgb: 16.1 Hct: 47.8 Platelet: 237 Neutrophil %: 64.8 Glucose Level: 103 Sodium Level: 139 Potassium Level: 4.5 BUN: 22.0 Creatinine Lvl (s): 1.22 01/02 08:31 WBC: 13.3 H Hgb: 16.5 Hct: 48.6 Platelet: 240 Neutrophil %: 74.9 Protime: 10.2 PT International Ratio: 0.9 Glucose Level: 105 Sodium Level: 138 Potassium Level: 4.6 BUN: 22.0 Creatinine Lvl (s): 1.13 Imaging Results and Diagnostics XR Chest 1 View Result Date: January 02, 2025 Verified By: HUNTER LUCERO MD CLINICAL STATEMENT: IMPRESSION: No acute findings EKG No qualifying data available. Assessment/Plan This is a 64-year-old male with past medical history of hypertension, depression was transferred from [facility] for NSTEMI. NSTEMI CAD (Severe bifurcating lesion prox LCx/OM1) EKG at primary showing normal sinus rhythm mild downsloping of ST segments in lead II and aVF Continue with heparin drip [facility] today noted significant CAD as above, plan for staged PCI with Dr. Dawson tomorrow. Continue with aspirin, high intensity atorvastatin (LDL 114), metoprolol tartrate Follow-up echocardiogram Hypertension Continue with Coreg, spironolactone. Hyperlipidemia Continue high intensity statin. Aggressively lifestyle and risk factor modifications as outpatient. Depression Continue with sertraline Digitally Signed by KAE AUSTIN DO on 01/03/2025 06:13 PM [id number] History and physical note Date of Service 12/24/2024, metoprolol, metoprolol tartrate Chief Complaint chest pain History of Present Illness This is a 64-year-old male with past medical history of hypertension, depression was transferred from [facility] for NSTEMI. Patient states he was at a family barbecue yesterday when he started having epigastric pain radiating to the midsternal chest around 1 PM. He attributed discomfort to acid reflux, took some Tums did not alleviate pain. Throughout the day the pain exacerbated became progressive patient started having palpitations and feeling diaphoretic. Denies any shortness of breath, orthopnea, PND, dizziness. Patient is a non-smoker, social alcohol intake, no prior drug use in the past. Patient has had a stress test 20 years ago that was normal. Has not had any cardiac workup recently. Family history positive for cardiac disease: Mother from an MD at age 6767 years old, sister has Eboni-Parkinson- White. Troponin 124, D-dimer within normal limits. Patient noted to have leukocytosis. Will do infectious workup with chest x-ray, UA with reflex culture. Patient denies any fevers, cough, nausea, vomiting, diarrhea. Will repeat labs including troponin, TSH, A1c, lipid panel. Repeat EKG insert (first EKG showing a lot of artifact). Review of Systems Same as HPI Physical Exam Vitals and Measurements T: 36.5 C (Oral) HR: 61 (Monitored) RR: 18 BP: 168/83 HT: 175.2 cm WT: 91.3 kg BMI: 29.74 Weight Dosing Weight: 91.3 kg (01/02/25) General Appearance: Patient comfortably lying on bed, not in acute distress Head: Normocephalic, atraumatic EENT: PERRLA Neck: supple, no JVD, no mass Cardiac: s1s2,RRR, no murmurs or rubs or gallops Lungs: clear to auscultation bilaterally, no wheeze or rhonchi or crackles Abdomen: soft , Nontender, no organomegaly, bowel sounds heard Musculoskeletal: full ROM , no gross deformities Extremities: no rash or ulcers or pedal edema Neurological: alert, oriented x 3 Skin: no rash or ulcers Lab Results No 36 Hour Lab Data Assessment/Plan This is a 64-year-old male with past medical history of hypertension, depression was transferred from [facility] for NSTEMI. NSTEMI EKG at primary showing normal sinus rhythm mild downsloping of ST segments in lead II and aVF Troponin BNP continue with heparin drip Continue with aspirin, atorvastatin, metoprolol Tartrate Follow-up lipid panel, A1c, TSH Follow-up echocardiogram Left heart cath in a.m. Hypertension Continue with Coreg, aldosterone Depression Continue with sertraline Procedure/Surgical History No qualifying data available. Medications Home Medications (4) Active Aldactone 25 mg oral tablet 25 mg = 1 tab(s), Oral, qDay Coreg 12.5 mg oral tablet 12.5 mg = 1 tab(s), Oral, BID mirtazapine 15 mg oral tablet 15 mg = 1 tab(s), Oral, qHS sertraline 25 mg oral tablet 25 mg = 1 tab(s), Oral, qDay Allergies sulfa drugs rash Immunizations No qualifying data available. Code Status Code Status - Ordered -- 01/02/25 6:06:00 EDT, Full Code, Constant Order Digitally Signed by GARCIA COWAN MD on 01/02/2025 02:12 PM [id number] History and physical note Date of Service 12/24/2024, metoprolol, metoprolol tartrate Chief Complaint chest pain History of Present Illness This is a 64-year-old male with past medical history of hypertension, depression was transferred from [facility] for NSTEMI. Patient [place] [facility] [place] [facility] when he started having epigastric pain radiating to the midsternal chest around 1 PM. He attributed discomfort to acid reflux, took some Tums did not alleviate pain. Throughout the day the pain exacerbated became progressive patient started having palpitations and feeling diaphoretic. Denies any shortness of breath, orthopnea, PND, dizziness. Patient is a non-smoker, social alcohol intake, no prior drug use in the past. Patient has had a stress test 20 years ago that was normal. Has not had any cardiac workup recently. Family history positive for cardiac disease: Mother from an MD at age 6767 years old, sister has Eboni-Parkinson- White. Troponin 124, D-dimer within normal limits. Patient noted to have leukocytosis. Will do infectious workup with chest x-ray, UA with reflex culture. Patient denies any fevers, cough, nausea, vomiting, diarrhea. Will repeat labs including troponin, TSH, A1c, lipid panel. Repeat EKG insert (first EKG showing a lot of artifact). Review of Systems Same as HPI Physical Exam Vitals and Measurements T: 36.5 C (Oral) HR: 61 (Monitored) RR: 18 BP: 168/83 HT: 175.2 cm WT: 91.3 kg BMI: 29.74 Weight Dosing Weight: 91.3 kg (01/02/25) General Appearance: Patient comfortably lying on bed, not in acute distress Head: Normocephalic, atraumatic EENT: PERRLA Neck: supple, no JVD, no mass Cardiac: s1s2,RRR, no murmurs or rubs or gallops Lungs: clear to auscultation bilaterally, no wheeze or rhonchi or crackles Abdomen: soft , Nontender, no organomegaly, bowel sounds heard Musculoskeletal: full ROM , no gross deformities Extremities: no rash or ulcers or pedal edema Neurological: alert, oriented x 3 Skin: no rash or ulcers Lab Results No 36 Hour Lab Data Assessment/Plan This is a 64-year-old male with past medical history of hypertension, depression was transferred from [facility] for NSTEMI. NSTEMI EKG at primary showing normal sinus rhythm mild downsloping of ST segments in lead II and aVF Troponin BNP continue with heparin drip Continue with aspirin, atorvastatin, metoprolol Tartrate Follow-up lipid panel, A1c, TSH Follow-up echocardiogram Left heart cath in a.m. Hypertension Continue with Coreg, aldosterone Depression Continue with sertraline Procedure/Surgical History No qualifying data available. Medications Home Medications (4) Active Aldactone 25 mg oral tablet 25 mg = 1 tab(s), Oral, qDay Coreg 12.5 mg oral tablet 12.5 mg = 1 tab(s), Oral, BID mirtazapine 15 mg oral tablet 15 mg = 1 tab(s), Oral, qHS sertraline 25 mg oral tablet 25 mg = 1 tab(s), Oral, qDay Allergies sulfa drugs rash Immunizations No qualifying data available. Code Status Code Status - Ordered -- 01/02/25 6:06:00 EDT, Full Code, Constant Order Digitally Signed by GARCIA COWAN MD on 01/02/2025 02:12 PM [facility] [id number] Evaluation + Plan noteExtracted from: Title:History and Physical Author:GARCIA COWAN MD Date:01/02/25 This is a 64-year-old male w ith past medical history of hypertension, depression was transferred from [facility] for NSTEMI. NSTEMI EKG at primary showing normal sinus rhythm mild downsloping of ST segments in lead II and aVF Troponin BNP continue with heparin drip Continue with aspirin, atorvastatin, metoprolol Tartrate Follow-up lipid panel, A1c, TSH Follow-up echocardiogram Left heart cath in a.m. Hypertension Continue with Coreg, aldosterone Depression Continue with sertraline Addendum by LILLIAM BAXTER on January 02, 2025 14:12:20 EDT I have personally seen, examined, and evaluated the patient on the encounter date. I have reviewed the fellow s documentation and agree with the fellow s findings and plan as documented, unless otherwise stated. Addendum by GARCIA COWAN on January 02, 2025 14:17:02 EDT metoprolol entered in error. Patient will be on carvedilol [facility] 08-10-2025 Note* Exam Date Time Procedure Performing Provider Status 01/02/25 9:28 AM Electrocardiogram - EKG - CV MADHU CHEN MD; Auth (Verified) ECG Final Report SINUS RHYTHM Electronic Signature: MADHU KESSLER MD 01/03/2025 20:43:50 [facility] [id number] History and physical note Date of Service 12/24/2024, metoprolol, metoprolol tartrate Chief Complaint chest pain History of Present Illness This is a 64-year-old male with past medical history of hypertension, depression was transferred from [facility] for NSTEMI. Patient states he was at a family barbecue yesterday when he started having epigastric pain radiating to the midsternal chest around 1 PM. He attributed discomfort to acid reflux, took some Tums did not alleviate pain. Throughout the day the pain exacerbated became progressive patient started having palpitations and feeling diaphoretic. Denies any shortness of breath, orthopnea, PND, dizziness. Patient is a non-smoker, social alcohol intake, no prior drug use in the past. Patient has had a stress test 20 years ago that was normal. Has not had any cardiac workup recently. Family history positive for cardiac disease: Mother from an MD at age 6767 years old, sister has Eboni-Parkinson- White. Troponin 124, D-dimer within normal limits. Patient noted to have leukocytosis. Will do infectious workup with chest x-ray, UA with reflex culture. Patient denies any fevers, cough, nausea, vomiting, diarrhea. Will repeat labs including troponin, TSH, A1c, lipid panel. Repeat EKG insert (first EKG showing a lot of artifact). Review of Systems Same as HPI Physical Exam Vitals and Measurements T: 36.5 C (Oral) HR: 61 (Monitored) RR: 18 BP: 168/83 HT: 175.2 cm WT: 91.3 kg BMI: 29.74 Weight Dosing Weight: 91.3 kg (01/02/25) General Appearance: Patient comfortably lying on bed, not in acute distress Head: Normocephalic, atraumatic EENT: PERRLA Neck: supple, no JVD, no mass Cardiac: s1s2,RRR, no murmurs or rubs or gallops Lungs: clear to auscultation bilaterally, no wheeze or rhonchi or crackles Abdomen: soft , Nontender, no organomegaly, bowel sounds heard Musculoskeletal: full ROM , no gross deformities Extremities: no rash or ulcers or pedal edema Neurological: alert, oriented x 3 Skin: no rash or ulcers Lab Results No 36 Hour Lab Data Assessment/Plan This is a 64-year-old male with past medical history of hypertension, depression was transferred from [facility] for NSTEMI. NSTEMI EKG at primary showing normal sinus rhythm mild downsloping of ST segments in lead II and aVF Troponin BNP continue with heparin drip Continue with aspirin, atorvastatin, metoprolol Tartrate Follow-up lipid panel, A1c, TSH Follow-up echocardiogram Left heart cath in a.m. Hypertension Continue with Coreg, aldosterone Depression Continue with sertraline Procedure/Surgical History No qualifying data available. Medications Home Medications (4) Active Aldactone 25 mg oral tablet 25 mg = 1 tab(s), Oral, qDay Coreg 12.5 mg oral tablet 12.5 mg = 1 tab(s), Oral, BID mirtazapine 15 mg oral tablet 15 mg = 1 tab(s), Oral, qHS sertraline 25 mg oral tablet 25 mg = 1 tab(s), Oral, qDay Allergies sulfa drugs rash Immunizations No qualifying data available. Code Status Code Status - Ordered -- 01/02/25 6:06:00 EDT, Full Code, Constant Order Digitally Signed by GARCIA COWAN MD on 01/02/2025 02:12 PM [id number]* Exam Date Time Procedure Performing Provider Status 01/02/25 8:20 AM XR Chest 1 View HUNTER LUCERO MD; Au (Verified) [id number] ORIGINAL EXAMINATION: ONE XRAY VIEW OF THE CHEST 01/02/2025 8:20 am COMPARISON: None. HISTORY: ORDERING SYSTEM PROVIDED HISTORY: Reason for Exam: Chest Pain FINDINGS: Normal cardiomediastinal silhouette. Clear lungs, sharp costophrenic angles. No pneumothorax. Intact bones. IMPRESSION: No acute findings Interpreted by: Hunter Lucero Preliminary Report By: Hunter Lucero Electronically signed By Hunter Lucero Dictated Date: 01/02/2025 8:40:24 AM Prelim Date: 01/02/2025 8:40:47 AM Sign Date: 01/02/2025 8:40:47 AM Ordering Provider: ELIEZER GOMES [id number] Note* Exam Date Time Procedure Performing Provider Status 01/02/25 5:18 AM Electrocardiogram - EKG - CV SHARON GOODSON MD; Auth (Verified) ECG Final Report WARNING: DATA QUALITY MAY AFFECT INTERPRETATION SINUS RHYTHM Electronic Signature: SHARON GOODSON MD 01/02/2025 13:20:59 [id number] Radiology Diagnostic study note [facility] Imaging Services [address] [place] [address] Bone Survey Comp(Axial&Append) MR#: [id number] Acct: [id number] Name: DRE SUAREZ Rep #: [id number] : 1960 M 64 From: Jenni Boston MD PCP: Dr. Libby Mcneil MD Status: R EG CLI Study:Bone Survey Comp(Axial&Append) Date of Exam: 11/24/24 Exam# [id number] Ordering Dr: Stan Jacobs MD PROCEDURE: BONE SURVEY COMP(AXIAL APPEND) 11/24/2024 REASON FOR EXAM: MGUS FINDINGS: Skull: No lytic or blastic bone lesion. C-T-L Spine: No evidence of compression fracture. No lytic or blastic bone lesion. Mild endplate degenerative changes and disc disease of L5-S1. Ribs: Unremarkable. AP Pelvis: Unremarkable. AP Humeri: No lytic or blastic bone lesion. AP Femurs: No lytic or blastic bone lesion. RAD/Bone Survey Comp(Axial&Append) IMPRESSION: NO SUSPICIOUS LYTIC OR BLASTIC BONE LESIONS. Reading Location: [facility] CC: Dr. Libby Mcneil MD; Dr. Sav Jacobs MD ~ Able Bodied Watchman: Signed [facility]05-17-2025 Radiology Diagnostic study note [facility] Imaging Services [address] [place] [id number] Pelvis 1 or 2 Views MR#: [id number] Acct: [id number] Name: DRE SUAREZ Rep #: [id number] : 1960 M 64 From: Crispin Nance MD PCP: Dr. Libby Mcneil MD Status: R EG CLI Study:Pelvis 1 or 2 Views Date of Exam: 10/08/24 Exam# [id number] Ordering Dr: Ct Worley MD PROCEDURE: PELVIS 1 OR 2 VIEWS 10/08/2024 REASON FOR EXAM: INFLAMMATORY POLYARTHROPATHY TECHNIQUE: 1 view(s) of the pelvis. COMPARISON: None available FINDINGS: Bilateral symmetric appearing SI joints and pubic symphysis appear within limits. No sclerosis or erosive change identified. The hip joints appear within limits. No fracture or dislocation. Visualized lower lumbar spine appears within limits. RAD/Pelvis 1 or 2 Views IMPRESSION: Study appears within limits. Reading Location: [facility] CC: Dr. Libby Mcneil MD; Dr. Ct Worley MD ~ Able Bodied Watchman: Signed [facility]04-18-2025 Evaluation note* Diagnosis Onset Date Resolution Status Admit Date Polyarthralgia acute August 11:31am Polyarticular joint involvement acut e September 10, 2024 11:31am Neuropathy chronic September 10 11:31am Other intervertebral disc degeneration, lumbar region with discogenic back acute September 24, 2024 9: 25am Spondylolisthesis, lumbar region acu te September 24, 2024 9:25am [facility] Work Phone: [phone]) 767-136204-18-2025 Evaluation note* Diagnosis Onset Date Resolution Status Admit Date Polyarthralgia acute August 11:31am Polyarticular joint involvement acut e September 10, 2024 11:31am Neuropathy chronic September 10 11:31am Other intervertebral disc degeneration, lumbar region with discogenic back acute September 24, 2024 9: 25am Spondylolisthesis, lumbar region acu te September 24, 2024 9:25am Monoclonal gammopathies, benign 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 Heart Disease Status:Active Comments:Mother. Hypertension Status:Active Comments:Mother. Father. First Degree Relatives. Mother Status:Active Comments: d. Father Status:Active Comments: d. Heart Disease Status:Active Comments:Mother. Hypertension Status:Active Comments:Mother. Father. First Degree Relatives. Mother Status:Active Comments: d. Father Status:Active Comments: d. Heart Disease Status:Active Comments:Mother. Hypertension Status:Active Comments:Mother. Father. First Degree Relatives. Mother Status:Active Comments: d. Father Status:Active Comments: d. Heart Disease Status:Active Comments:Mother. Hypertension Status:Active Comments:Mother. Father. First Degree Relatives. Mother Status:Active Comments: d. Father Status:Active Comments: d. Heart Disease Status:Active Comments:Mother. Hypertension Status:Active Comments:Mother. Father. First Degree Relatives. Mother Status:Active Comments: d. Father Status:Active Comments: d. Heart Disease Status:Active Comments:Mother. Hypertension Status:Active Comments:Mother. Father. First Degree Relatives. Mother Status:Active Comments: d. Father Status:Active Comments: d. Heart Disease Status:Active Comments:Mother. Hypertension Status:Active Comments:Mother. Father. First Degree Relatives. Mother Status:Active Comments: d. Father Status:Active Comments: d. Heart Disease Status:Active Comments:Mother. Hypertension Status:Active Comments:Mother. Father. First Degree Relatives. Mother Status:Active Comments: d. Father Status:Active Comments: d. Heart Disease Status:Active Comments:Mother. Hypertension Status:Active Comments:Mother. Father. First Degree Relatives. Mother Status:Active Comments: d. Father Status:Active Comments: d. Heart Disease Status:Active Comments:Mother. Hypertension Status:Active Comments:Mother. Father. First Degree Relatives. Mother Status:Active Comments: d. Father Status:Active Comments: d. Heart Disease Status:Active Comments:Mother. Hypertension Status:Active Comments:Mother. Father. First Degree Relatives. Mother Status:Active Comments: d. Father Status:Active Comments: d. Heart Disease Status:Active Comments:Mother. Hypertension Status:Active Comments:Mother. Father. First Degree Relatives. Mother Status:Active Comments: d. Father Status:Active Comments: d. Heart Disease Status:Active Comments:Mother. Hypertension Status:Active Comments:Mother. Father. First Degree Relatives. Mother Status:Active Comments: d. Father Status:Active Comments: d. Heart Disease Status:Active Comments:Mother. Hypertension Status:Active Comments:Mother. Father. First Degree Relatives. Mother Status:Active Comments: d. Father Status:Active Comments: d. Heart Disease Status:Active Comments:Mother. Hypertension Status:Active Comments:Mother. Father. First Degree Relatives. Mother Status:Active Comments: d. Father Status:Active Comments: d. Heart Disease Status:Active Comments:Mother. Hypertension Status:Active Comments:Mother. Father. First Degree Relatives. Mother Status:Active Comments: d. Father Status:Active Comments: d. Heart Disease Status:Active Comments:Mother. Hypertension Status:Active Comments:Mother. Father. First Degree Relatives. Mother Status:Active Comments: d. Father Status:Active Comments: d. Heart Disease Status:Active Comments:Mother. Hypertension Status:Active Comments:Mother. Father. First Degree Relatives. Mother Status:Active Comments: d. Father Status:Active Comments: d. Heart Disease Status:Active Comments:Mother. Hypertension Status:Active Comments:Mother. Father. First Degree Relatives. Mother Status:Active Comments: d. Father Status:Active Comments: d. Heart Disease Status:Active Comments:Mother. Hypertension Status:Active Comments:Mother. Father. First Degree Relatives. Mother Status:Active Comments: d. Father Status:Active Comments: d. Heart Disease Status:Active Comments:Mother. Hypertension Status:Active Comments:Mother. Father. First Degree Relatives. Mother Status:Active Comments: d. Father Status:Active Comments: d. Heart Disease Status:Active Comments:Mother. Hypertension Status:Active Comments:Mother. Father. First Degree Relatives. Mother Status:Active Comments: d. Father Status:Active Comments: d. Heart Disease Status:Active Comments:Mother. Hypertension Status:Active Comments:Mother. Father. First Degree Relatives. Mother Status:Active Comments: d. Father Status:Active Comments: d. Heart Disease Status:Active Comments:Mother. Hypertension Status:Active Comments:Mother. Father. First Degree Relatives. Mother Status:Active Comments: d. Father Status:Active Comments: d. Heart Disease Status:Active Comments:Mother. Hypertension Status:Active Comments:Mother. Father. First Degree Relatives. Mother Status:Active Comments: d. Father Status:Active Comments: d. Heart Disease Status:Active Comments:Mother. Hypertension Status:Active Comments:Mother. Father. First Degree Relatives. Mother Status:Active Comments: d. Father Status:Active Comments: d. Heart Disease Status:Active Comments:Mother. Hypertension Status:Active Comments:Mother. Father. First Degree Relatives. Mother Status:Active Comments: d. Father Status:Active Comments: d. Heart Disease Status:Active Comments:Mother. Hypertension Status:Active Comments:Mother. Father. First Degree Relatives. Mother Status:Active Comments: d. Father Status:Active Comments: d. Heart Disease Status:Active Comments:Mother. Hypertension Status:Active Comments:Mother. Father. First Degree Relatives. Mother Status:Active Comments: d. Father Status:Active Comments: d. Heart Disease Status:Active Comments:Mother. Hypertension Status:Active Comments:Mother. Father. First Degree Relatives. Mother Status:Active Comments: d. Relationship Condition Age at Onset Recorded Date/T janie mother Myocardial infarction Unknown Hypertension Unknown father Hypertension Unknown Father Status:Active Comments: d. Heart Disease Status:Active Comments:Mother. Hypertension Status:Active Comments:Mother. Father. First Degree Relatives. Mother Status:Active Comments: d. Father Status:Active Comments: d. Heart Disease Status:Active Comments:Mother. Hypertension Status:Active Comments:Mother. Father. First Degree Relatives. Mother Status:Active Comments: d. Father Status:Active Comments: d. Heart Disease Status:Active Comments:Mother. Hypertension Status:Active Comments:Mother. Father. First Degree Relatives. Mother Status:Active Comments: d. Relationship Condition Age at Onset Recorded Date/T janie mother Myocardial infarction Unknown Hypertension Unknown father Hypertension Unknown brother Hypertension Unknown Malignant neoplasm Unknown sister Malignant neoplasm Unknown Cardiac disease Unknown Father Status:Active Comments: d. Heart Disease Status:Active Comments:Mother. Hypertension Status:Active Comments:Mother. Father. First Degree Relatives. Mother Status:Active Comments: d. Father Status:Active Comments: d. Heart Disease Status:Active Comments:Mother. Hypertension Status:Active Comments:Mother. Father. First Degree Relatives. Mother Status:Active Comments: d. Father Status:Active Comments: d. Heart Disease Status:Active Comments:Mother. Hypertension Status:Active Comments:Mother. Father. First Degree Relatives. Mother Status:Active Comments: d. Father Status:Active Comments: d. Heart Disease Status:Active Comments:Mother. Hypertension Status:Active Comments:Mother. Father. First Degree Relatives. Mother Status:Active Comments: d. Father Status:Active Comments: d. Heart Disease Status:Active Comments:Mother. Hypertension Status:Active Comments:Mother. Father. First Degree Relatives. Mother Status:Active Comments: d. Father Status:Active Comments: d. Heart Disease Status:Active Comments:Mother. Hypertension Status:Active Comments:Mother. Father. First Degree Relatives. Mother Status:Active Comments: d. Father Status:Active Comments: d. Heart Disease Status:Active Comments:Mother. Hypertension Status:Active Comments:Mother. Father. First Degree Relatives. Mother Status:Active Comments: d. Father Status:Active Comments: d. Heart Disease Status:Active Comments:Mother. Hypertension Status:Active Comments:Mother. Father. First Degree Relatives. Mother Status:Active Comments: d. Advance Directives No Advanced Directives Records FoundNo Advanced Directives Records FoundNo Advanced Directives Records FoundNo Advanced Directives Records FoundNo Advanced Directives Records FoundNo Advanced Directives Records FoundNo Advanced Directives Records Found Chief Complaint and Reason for Visit Chief Complaint Admit Date 4 M FU September 10, 2024 11: 31am LUMBAR SPINE September 24, 2024 9:25am room 4 September 24, 2024 9:58am LAB AND XRAY- PAIN- COPY PCP October 08 025 10:01am Reason for Visit Admit Date Polyarthralgia September 10, 2024 11: 31am Polyarticular joint involvement September 102024 11:31am Neuropathy September 10, 2024 11: 31am Other intervertebral disc de generation, lumbar region with discogenic back September 24, 2024 9:25am Spondylolisthesis, lumbar region September 9:25am Chief Complaint Admit Date 4 M FU September 10, 2024 11: 31am LUMBAR SPINE September 24, 2024 9:25am room 4 September 24, 2024 9:58am LAB AND XRAY- PAIN- COPY PCP October 08, 2 025 10:01am ELEVATED IGG November 18, 2024 10:2 1am Reason for Visit Admit Date Polyarthralgia September 10, 2024 11: 31am Polyarticular joint involvement September 102024 11:31am Neuropathy September 10, 2024 11: 31am Other intervertebral disc de generation, lumbar region with discogenic back September 24, 2024 9:25am Spondylolisthesis, lumbar region September 9:25am Monoclonal gammopathies, benign October 10:21am Chief Complaint Admit Date 4 M FU September 10, 2024 11: 31am LUMBAR SPINE September 24, 2024 9:25am room 4 May 2nd, 2025 9:58am LAB AND XRAY- PAIN- COPY PCP October 08 025 10:01am ELEVATED IGG November 18, 2024 10:2 1am MGUS November 24, 2024 12:58 pm Additional Source Comments (unrecognized sect ion and content) No Status Records FoundNo Status Records FoundNo Status Records FoundNo Status Records FoundNo Status Records FoundNo Status Records FoundNo Status Records Found INFORMATION SOURCE (unrecogn ized section and content) DATE CREATED AUTHOR 09/06/2020 [facility] DATE CREATED AUTHOR AUTHOR'S ORGANIZ ATION 01/09/2023 [facility] DATE CREATED AUTHOR AUTHOR'S ORGANIZ ATION 03/17/2024 [facility] DATE CREATED AUTHOR AUTHOR'S ORGANIZ ATION 06/05/2024 [facility] DATE CREATED AUTHOR AUTHOR'S ORGANIZ ATION 12/06/2024 [facility] DATE CREATED AUTHOR AUTHOR'S ORGANIZ ATION 01/03/2025 [facility] DATE CREATED AUTHOR AUTHOR'S ORGANIZ ATION 01/05/2025 [facility] Care Teams (unrecognized sec tion and content) Care Team Personnel Name: LIBBY MCNEIL MD Member Role: Primary Care Physician Address: [address] [place] [address] DR REYES [address] Telecom: Care Team Related Persons Name: JOSE SUAREZ Team Status: Active Member Role Status Dates Dr. Libby Mcneil MD Family Provider Active Dr. Libby Mcneil MD Primary Care Provider Active Team Status: Inactive Member Role Status Dates Dr. Libby Mcneil MD Primary Care Provider Active Start: September 10, 2024 End: September 10, 2024 Dr. Libby Mcneil MD Referring Provider Active Start: September 10, 2024 End: September 10, 2024 Dr. Sav Martinez MD Attending Provider Active Start: September 10, 2024 End: September 10, 2024 Team Status: Inactive Member Role Status Dates Dr. Libby Mcneil MD Primary Care Provider Active Start: September 24, 2024 End: September 24, 2024 Dr. Libby Mcneil MD Referring Provider Active Start: September 24, 2024 End: September 24, 2024 Dr. Jovany Terry MD Attending Provider Active Start: September 24, 2024 End: September 24, 2024 Team Status: Inactive Member Role Status Dates Dr. Libby Mcneil MD Primary Care Provider Active Start: September 24, 2024 End: September 24, 2024 Dr. Ton Tellez MD Attending Provider Active S tart: September 24, 2024 End: September 24, 2024 Team Status: Inactive Member Role Status Dates Dr. Libby Mcneil MD Primary Care Provider Active Start: October 08, 2024 End: October 08, 20[address]. [address] Worley MD Attending Provider Active Start: October 08, 2024 End: October 08, 20[address]. [address] Worley MD Referring Provider Active Start: October 08, 2024 End: October 08, 2024 Team Status: Inactive Member Role Status Dates Dr. Libby Mcneil MD Primary Care Provider Active Start: November 18, 2024 End: November 18, 2024 Dr. Sav Jacobs MD Attending Provider Active S tart: November 18, 2024 End: November 18, 20[address] Worley MD Referring Provider Active Start: November 18, 2024 End: November 18, 2024 Team Status: Active Member Role/Relationship Status Dates Dr. Libby Mcneil MD Primary Care Provider Active Team Status: Inactive Member Role/Relationship Status Dates Dr. Libby Mcneil MD Primary Care Provider Active Start: September 10, 2024 End: September 10, 2024 Dr. Libby Mcneil MD Referring Provider Active Start: September 10, 2024 End: September 10, 2024 Dr. Sav Martinez MD Attending Provider Active Start: September 10, 2024 End: September 10, 2024 Team Status: Inactive Member Role/Relationship Status Dates Dr. Libby Mcneil MD Primary Care Provider Active Start: September 24, 2024 End: September 24, 2024 Dr. Libby Mcneil MD Referring Provider Active Start: September 24, 2024 End: September 24, 2024 Dr. Jovany Terry MD Attending Provider Active Start: September 24, 2024 End: September 24, 2024 Team Status: Inactive Member Role/Relationship Status Dates Dr. Libby Mcneil MD Primary Care Provider Active Start: September 24, 2024 End: September 24, 2024 Dr. Ton Tellez MD Attending Provider Active S tart: September 24, 2024 End: September 24, 2024 Team Status: Inactive Member Role/Relationship Status Dates Dr. Libby Mcneil MD Primary Care Provider Active Start: October 08, 2024 End: October 08, 20[address] Dr. [address] Worley MD Attending Provider Active Start: October 08, 2024 End: October 08, [address]. [address] Worley MD Referring Provider Active Start: October 08, 2024 End: October 08, 2024 Team Status: Inactive Member Role/Relationship Status Dates Dr. Libby Mcneil MD Primary Care Provider Active Start: November 18, 2024 End: November 18, 2024 Dr. Sav Jacobs MD Attending Provider Active S tart: November 18, 2024 End: November 18, 20[address] Dr. [address] Worley MD Referring Provider Active Start: November 18, 2024 End: November 18, 2024 Team Status: Inactive Member Role/Relationship Status Dates Dr. Libby Mcneil MD Primary Care Provider Active Start: November 24, 2024 End: November 24, 2024 Dr. Sav Jacobs MD Attending Provider Active S tart: November 24, 2024 End: November 24, 2024 Dr. Sav Jacobs MD Referring Provider Active S tart: November 24, 2024 End: November 24, 2024 Goals (unrecognized section and content) Goals may be documented in a n alternate sectionGoals may be documented in an alternate sectionGoals may be documented in an alternate section No data available for this section FOR RECORDS PERTAINING TO PATIENTS WHO ARE OR HAVE BEEN ENROLLED IN A CHEMICAL DEPENDENCY/SUBSTANCEABUSE PROGRAM, SOME INFORMATION MAY BE OMITTED. This clinical summary was aggregated from multiple sources. Caution should be exercised in using it in the provision of clinical care. This summary normalizes information from multiple sources, and as a consequence, information in this document may materially change the coding, format and clinical context of patient data. In addition, data may be omitted in some cases. CLINICAL DECISIONS SHOULD BE BASED ON THE PRIMARY CLINICAL RECORDS. [employer] [facility]. provides no warranty or guarantee of the accuracy or completeness of information in this document.
== END | disposition home or self-care (01) ==
PROVIDERS: PCP Family Medicine; Referring Provider Internal Medicine Rheumatology; Visit Provider Internal Medicine Rheumatology
DX: M06.4 Inflammatory polyarthropathy (principal); Z79.899 Other long term (current) drug therapy
CPT/HCPCS: 36415; 80053; 85025

== ENCOUNTER → 2025-05-04 | Outpatient (CLI) | payer MEDICARE, OTHER, SELFPAY ==
[2025-05-04 12:25] LABS: Hematocrit 44.2 % (40-54); Hemoglobin 14.7 g/dL (13.0-16.5); Immature Granulocytes Count 0.070 X10^3/uL (0.0-0.0); Mean Corp Hgb Conc 33.3 g/dL (32-36); Mean Corpuscular Volume 93.1 fL (80-94); Mean Platelet Vol. 9.6 fl (6.2-12.0); NRBC Flagged by Analyzer 0 % (0-5); Platelet Count 287 K/mm3 (150-450); RBC Distribution Width CV 12.8 % (11.6-14.6); RBC Distribution Width SD 43.9 fl (35.1-43.9); Red Blood Count 4.75 M/mm3 (4.6-6.2); White Blood Count 10.3 K/mm3 (4.4-11.0)
[2025-05-04 12:59] LABS: AST(SGOT) 27 U/L (<=37); Alanine Aminotransfer ALT/SGPT 27 U/L (<=46); Albumin, Serum 4.0 g/dL (3.4-4.8); Alkaline Phosphatase 77 U/L (40-129); Anion Gap 11 (5-15); BUN 16 mg/dL (4-19); BUN/Creat Ratio 13.8 RATIO (10-20); Calcium,Total 9.3 mg/dL (7.6-11.0); Carbon Dioxide 26.4 mmol/L (21.0-32.0); Chloride 100 mmol/L (98-108); Globulin 2.7 g/dL (2.2-4.2); Glucose 114 mg/dL (70-99); Potassium 4.3 mmol/L (3.3-5.1)
== END | disposition home or self-care (01) ==
LOC: MTLAB 10:46
PROVIDERS: PCP Family Medicine; Referring Provider Internal Medicine Rheumatology; Visit Provider Internal Medicine Rheumatology
DX: M06.4 Inflammatory polyarthropathy (principal); Z79.899 Other long term (current) drug therapy
CPT/HCPCS: 36415; 80053; 85025